=== PATIENT | male | born 1945 | race Asian ===

== ENCOUNTER 2018-01-10 01:41 | Inpatient (IN) | payer MEDICARE ==
[2018-01-10] VITALS (7 sets, daily range): BP systolic 124–151; BP diastolic 61–90
[~2018-01-10] VITALS: Ht 175.3 cm; Wt 61.7 kg
--- NOTE | 2018-01-10 01:58 | Emergency Room Report ---
History of Present Illness General Chief Complaint: Chest Pain Source: Patient Present Illness HPI This patient c/o mild-moderate ten minutes substernal-left chest pressure. At rest. No similar history. He was alone, resting. He called 911. Received aspirin and one sl ntg. Pain reduced to 3/10. No trauma, no fever, no shortness of breath, no nausea, no vomiting, no diarrhea, no abdominal pain, no syncope, LOC, dizziness, lightheadedness, headache. No leg pain/swelling. No travel history. Allergies: Coded Allergies: No Known Allergies (Unverified , 01/10/18) Patient History Limited by: language barrier Nursing Documentation-PMH Hx Hypertension: Yes Review of Systems Constitutional: Reports: no symptoms Eye: Reports: no symptoms ENT: Reports: no symptoms Respiratory: Reports: no symptoms Cardiovascular: Reports: see HPI, chest pain Gastrointestinal: Reports: no symptoms Genitourinary: Reports: no symptoms Musculoskeletal: Reports: no symptoms Skin: Reports: no symptoms Psychiatric: Reports: no symptoms Neurological: Reports: no symptoms Endocrine: Reports: no symptoms Hematologic/Lymphatic: Reports: no symptoms Allergic: Reports: no symptoms All Other Systems: negative except mentioned in HPI Physical Exam Vital Signs Date Time Temp Pulse Resp B/P (MAP) Pulse Ox O2 Delivery O2 Flow Rate FiO2 01/10/18 01:34 97.4 74 16 128/73 98 Room Air 97.3 Sp02 EP Interpretation: reviewed, normal General Appearance: normal inspection, well appearing, no apparent distress, alert, GCS 15, non-toxic, thin Head: normocephalic, atraumatic Eyes: bilateral eye normal inspection, bilateral eye PERRL, bilateral eye EOMI ENT: normal ENT inspection, hearing grossly normal, normal pharynx, no angioedema, normal voice, moist mucus membranes Neck: normal inspection, full range of motion, supple, no meningismus, no bony tend Respiratory: normal inspection, lungs clear, normal breath sounds, no rhonchi, no respiratory distress, no retraction, no accessory muscle use, no wheezing Cardiovascular #1: normal inspection, regular rate, rhythm, no edema Gastrointestinal: normal inspection, normal bowel sounds, non tender, soft, no mass, non-distended Musculoskeletal: gait/station normal, normal range of motion Neurologic: normal inspection, alert, oriented x3, responsive, motor strength/ tone normal Psychiatric: normal inspection, judgement/insight normal, memory normal Suicide Risk Assessment: Suicidal Ideation: No Had intent to initiate attempt: No Pt's plan for suicide attempt: No Has means to complete attempt: No Skin: normal inspection, normal color, no rash, warm/dry Medical Decision Making Diagnostic Impression: Primary Impression: Chest pain Additional Impression: ACS (acute coronary syndrome) EKG Diagnostic Results EKG Time: 01:57 EP Interpretation: NSR 74 RBBB no acute ischemia Rate: normal Rhythm: NSR ST Segments: no acute changes ASA given to the pt in ED: Yes Rhythm Strip Diag. Results Rhythm Strip Time: 01:58 EP Interpretation: yes Rate: 70 Rhythm: NSR Chest X-Ray Diagnostic Results Chest X-Ray Diagnostic Results : Chest X-Ray Ordered: Yes # of Views/Limited/Complete: 1 View Indication: Chest Pain EP Interpretation: Yes Interpretation: no consolidation, no effusion, no pneumothorax, no acute cardiopulmonary disease Last Vital Signs Date Time Temp Pulse Resp B/P (MAP) Pulse Ox O2 Delivery O2 Flow Rate FiO2 01/10/18 01:34 97.4 74 16 128/73 98 Room Air 97.3 Status: unchanged Disposition: ADMITTED INPATIENT Scripts Unable to Obtain Active Prescriptions or Reported Meds Ruslan Alexis M.D. Jan 10, 2018 01:58
[2018-01-10 02:20] LABS: HEMATOCRIT 30.9 % (42.0-52.0); HEMOGLOBIN 10.2 G/DL (14.2-18.0); MEAN CORPUSCULAR VOLUME 111 FL (80-99); PLATELET COUNT 146 K/UL (150-450); RED CELL DISTRIBUTION WIDTH 13.5 % (11.6-14.8); WHITE BLOOD COUNT 8.6 K/UL (4.8-10.8)
[2018-01-10 02:33] LABS: ANION GAP 7 mmol/L (5-15); BLOOD UREA NITROGEN 21 mg/dL (7-18); CALCIUM 8.4 MG/DL (8.5-10.1); CARBON DIOXIDE 27 MMOL/L (21-32); CHLORIDE 105 MMOL/L (98-107); CREATININE 0.9 MG/DL (0.55-1.30); SODIUM 139 MMOL/L (136-145)
[2018-01-10 02:34] LABS: INR 1.2 (0.9-1.1)
[2018-01-10 02:45] LABS: ALANINE AMINOTRANSFERASE 59 U/L (12-78); ALBUMIN/GLOBULIN RATIO 0.8 (1.0-2.7); ALKALINE PHOSPHATASE 77 U/L (46-116); ASPARTATE AMINO TRANSFERASE 63 U/L (15-37); BILIRUBIN,TOTAL 1.6 MG/DL (0.2-1.0)
--- NOTE | 2018-01-10 02:45 | Diagnostic Imaging Report ---
EXAM: XR Chest, 1 View CLINICAL HISTORY: CP TECHNIQUE: Frontal view of the chest. COMPARISON: No relevant prior studies available. FINDINGS: Lungs: Unremarkable. No consolidation. Pleural space: Unremarkable. No pneumothorax. Heart: Unremarkable. No cardiomegaly. Mediastinum: Unremarkable. Bones/joints: Unremarkable. IMPRESSION: Normal chest x-ray.
[2018-01-10 02:57] LABS: BILIRUBIN,DIRECT 0.6 MG/DL (0.0-0.3)
[2018-01-10] MEDS ORDERED: Ketorolac 30mg Inj IV STA (03:54)
[2018-01-10] MEDS ORDERED: Zolpidem 5mg tab ORAL PRN (07:45)
[2018-01-10] MEDS ORDERED: Milk of Magnesia 30ml Ud ORAL PRN (07:45)
[2018-01-10] MEDS ORDERED: Morphine Sulfate 4mg/ml Inj (IV USE ONLY) IVP PRN (07:45)
[2018-01-10] MEDS: Aspirin Baby 81mg ORAL SCH (08:23)
[2018-01-10] MEDS ORDERED: Heparin 25,000u/D5W 500ml 500 ML IV SCH (09:15)
[2018-01-10] MEDS ORDERED: Heparin 5000 units/ml inj IV SCH (09:15)
--- NOTE | 2018-01-10 10:04 | History & Physical ---
History and Physical History & Physicial Hp dictated # [id number] Jesse Zamarripa MD Jan 10, 2018 10:04
--- NOTE | 2018-01-10 10:45 | History and Physical Report ---
DATE OF ADMISSION: 01/10/2018 DATE OF EVALUATION: 01/10/2018. CHIEF COMPLAINT: Chest pain. HISTORY OF PRESENT ILLNESS: This is a 72-year-old Bengali male, who was in his usual state of health until last night. The patient had chest pain, which is pressure like. It lasted about half an hour and he was also short of breath. He called paramedics, was brought in, and was admitted with possible acute coronary syndrome. PAST MEDICAL HISTORY: No previous history of heart problems. He does have history of hypertension. MEDICATIONS: Does not remember. ALLERGIES: No known drug allergies. SOCIAL HISTORY: The patient smoked for a long time one pack every three days and he lives by himself. He does not have any history of alcohol abuse. He stopped smoking about two months ago. REVIEW OF SYSTEMS: Noncontributory. PHYSICAL EXAMINATION: GENERAL: The patient is an elderly male, in no acute distress. VITAL SIGNS: Blood pressure 128/73, pulse 74, respiratory rate 16, and temperature 97.4. HEENT: [place] conjunctivae. Anicteric sclerae. NECK: Supple. LUNGS: Clear to auscultation. HEART: S1, S2 without murmurs or rubs. ABDOMEN: Soft and nontender. EXTREMITIES: No cyanosis or edema. LABORATORY FINDINGS: The CBC shows a WBC of 8600, hematocrit is 30.9, hemoglobin is 10.3, and platelets 146,000. Chemistry panel shows a serum sodium 139, potassium 4, chloride 105, CO2 27, BUN is 21, and creatinine is 0.9. Troponins negative x2. ASSESSMENT: This is a 72-year-old Bengali male with history of hypertension and a long history of smoking although he stopped two months ago, who presents with atypical chest pain, possible acute coronary syndrome. PLAN: The patient will be on telemetry. A stress test will be obtained. Based on stress test, we can either go home if negative. If positive, he would need a coronary angiogram. Jesse Zamarripa M.D. DR: MANJEET JOB#: [id number] CC:
[2018-01-10] MEDS: Morphine Sulfate 2mg/ml Inj IVP PRN ×2 (11:38→22:01)
[2018-01-11] VITALS: BP 119/63
[2018-01-11 04:00] VITALS: BP 137/69
[2018-01-11 07:35] LABS: CHOLESTEROL 121 MG/DL (< 200); HDL CHOLESTEROL 64 MG/DL (40-60); TRIGLYCERIDES 54 MG/DL (30-150)
[2018-01-11 08:00] VITALS: BP 128/75
[2018-01-11] MEDS ORDERED: Lexiscan 0.4mg/5ml syringe IV PRN (08:00)
[2018-01-11] MEDS: Aspirin Baby 81mg ORAL SCH (08:45)
[2018-01-11 12:00] VITALS: BP 127/73
--- NOTE | 2018-01-11 12:34 | General Progress Note ---
Assessment/Plan Problem List: (1) Chest pain ICD Codes: R07.9 - Chest pain, unspecified SNOMED: 87160488 (2) HTN (hypertension) ICD Codes: I10 - Essential (primary) hypertension SNOMED: 80325800 Assessment/Plan await stress test cardio consult Subjective Allergies: Coded Allergies: No Known Allergies (Unverified , 01/10/18) Subjective no CP today Objective Last 24 Hour Vital Signs Date Time Temp Pulse Resp B/P (MAP) Pulse Ox O2 Delivery O2 Flow Rate FiO2 01/11/18 12:00 97.9 77 20 127/73 (91) 97 97.9 01/11/18 10:14 98.0 01/11/18 09:15 98.0 01/11/18 09:00 Room Air 01/11/18 08:00 55 01/11/18 08:00 97.3 61 18 128/75 (92) 97 97.3 01/11/18 04:00 98.0 61 20 137/69 (91) 99 98.0 01/11/18 04:00 84 01/11/18 00:00 97.8 60 20 119/63 (81) 98 97.8 01/10/18 23:34 58 01/10/18 21:00 Room Air 01/10/18 20:00 98.6 65 20 127/72 (90) 98 98.6 01/10/18 19:46 63 01/10/18 16:00 97.2 69 20 124/61 (82) 98 97.2 01/10/18 16:00 67 Intake and Output 01/10/18 01/11/18 19:00 07:00 Intake Total 360 ml Balance 360 ml Intake Oral 360 ml # Voids 2 3 Laboratory Tests 01/11/18 06:15: Troponin I 0.001, Triglycerides Level 54, Cholesterol Level 121, LDL Cholesterol 55, HDL Cholesterol 64H, Cholesterol/HDL Ratio 1.9L, Thyroid Stimulating Hormone (TSH) 1.789 Height (Feet): 5 Height (Inches): 9.00 Weight (Pounds): 136 Cardiovascular: normal rate Respiratory/Chest: lungs clear Edema: no edema noted Generalized Jesse Zamarripa MD Jan 11, 2018 12:34
[2018-01-11] MEDS: Morphine Sulfate 2mg/ml Inj IVP PRN (14:22)
[2018-01-11 16:00] VITALS: BP 145/82
--- NOTE | 2018-01-11 16:48 | Diagnostic Imaging Report ---
Indications: Chest pain Technique: Single day single isotope protocol utilized. Initially, resting images obtained using IV administration 9.6 millicuries 99M technetium Myoview. Subsequently, patient underwent lexiscan stress testing. See cardiology report for details. During adenosine infusion, IV administration 31.9 mCi 99 M technetium Myoview. SPECT and planar images obtained. SPECT images gated to 8 phases of the cardiac cycle were also obtained, and reformatted into cine images for evaluation of ejection fraction. Comparison: none Findings: Presence or absence of symptoms during infusion is not reported on the cardiology report. Per cardiology report, resting EKG demonstrates normal sinus rhythm with right bundle-branch block. Presence or absence of symptoms during infusion is not described on the cardiology report. Imaging, no fixed nor reversible post stress perfusion defects are demonstrated. Normal left ventricular chamber size.. Calculated post stress ejection fraction 77%. No focal wall motion abnormality demonstrated. Impression: Nonischemic clinical response to pharmacologic stress, per cardiology report Nonischemic electrocardiographic response to pharmacologic stress, per cardiology report No imaging findings to suggest ischemia, at level of stress achieved. Calculated post stress ejection fraction greater than 70%
--- NOTE | 2018-01-13 12:27 | Discharge Summary ---
Discharge Summary Discharge Summary _ DATE OF ADMISSION: 01/10/2018 DATE OF DISCHARGE: 01/11/2018 REASON FOR ADMISSION: 72 years old male with past medical history of hypertension, came to emergency room for evaluation due to chest pain . He developed substernal left sided chest pressure at rest, lasting about 10 minutes. He never had these symptoms in the past. h Patient call dial lathe operator and was brought to the hospital ED for evaluation. Patient received by paramedics aspirin and nitroglycerin with significant relief. Patient denied any trauma to chest. No fevers or chills. No shortness of breath, no nausea, no vomiting, no diarrhea, no abdominal pain, no syncope,blackout, dizziness, lightheadedness, headache. No leg pain or swelling. No recent travel history. Upon evaluation vital signs were stable. EKG revealed normal sinus rhythm with right bundle branch block, no acute ischemic changes . Troponin negative. Chest x-ray revealed no acute cardiopulmonary pathology. Hemoglobin 10.8 hematocrit 30.9 , no leukocytosis . INR 1.2 AST 63 BUN 21, creatinine 0.9 . Patient denied use of alcohol, but admitted to long standing history of smoking, quit 2 months ago. Patient admitted with diagnoses of chest pain, rule out acute coronary syndrome. HOSPITAL COURSE: Patient admitted to telemetry floor. Patient was started on antiplatelet therapy with aspirin. Serial troponin were negative. Telemetry was negative ,no acute ischemic changes. Lipid panel was negative. Patient undergone myocardial perfusion scan test, which was nonischemic with calculated ejection fraction greater than 70%. Pain management was addressed , and pain was controlled. Blood pressure was closely monitored and remained stable. Patient was counseled on cardiac diet. Patient was counseled to continue abstinence from smoking. Patient was stable for discharge. Due to rapid and unexpected improvement in patient's condition, the patient was discharged in one day. FINAL DIAGNOSES: A typical chest pain Hypertension Long history of smoking ( quit 2 months ago) DISCHARGE INSTRUCTIONS: Patient was discharged home. Follow up with primary care provider in one to two weeks. I have been assigned to dictate discharge summary for this account. I was not involved in the patient's management. Shelly Almanzar NP Jan 13, 2018 12:27
--- NOTE | 2018-01-15 00:44 | Cardiology Report ---
APPROVED REPORT EKG Measurement Heart [id number] Normal sinus rhythm Right bundle branch block Abnormal ECG
--- NOTE | 2018-01-18 22:41 | Physician Query ---
--------- THIS DOCUMENT IS A PERMANENT PART OF THE MEDICAL RECORD --------- PLEASE COMPLETE THE DOCUMENT BEFORE SIGNING Dear Dr. Jesse Zamarripa Date __01/18/18 Human Services Instructor/CDS' Name _Christine Mendez, CCS Exercise your independent professional judgment when responding to query. Questions asked do not imply particular answer is desired or expected. We greatly appreciate your clarification on this issue. Clinical Documentation States: 72 years old male with past medical history of hypertension, came to emergency room for evaluation due to chest pain . He developed substernal left sided chest pressure at rest, lasting about 10 minutes. Patient received by paramedics aspirin and nitroglycerin with significant relief. Patient admitted with diagnoses of chest pain, rule out acute coronary syndrome. Clinical Findings Show: EKG = __NSR____ Troponin = __NEG__ Please document the suspected etiology of Chest Pain: a.Type: []Cardiac []Non-cardiac []Unspecified b.Etiology - cardiac [] Aortic dissection []Mitral valve prolapsed [] Acute myocardial infarction []Spasm of coronary arteries [] Coronary Artery Disease []Pericarditis c.Etiology - non-cardiac [] Anxiety []Pleurisy [] Cancer []Pneumonia, type [x] Costochondritis []Pneumothorax [] GERD/Esophagitis []Pulmonary embolism [] Unable to determine []Other: Please also document in your Progress Notes and/or Discharge Summary and indicate if the condition was present on admission. Kristi ALBERT MTDD
== END 2018-01-11 17:38 | disposition home or self-care (01) | DRG 206 ==
LOC: EDBD 01:41 → EMR 02:30 → EDBD 02:46 → 2E 02:46 → EDBEDREQ 03:31
DX: M94.0 Chondrocostal junction syndrome [Tietze] (principal); I10 Essential (primary) hypertension; I45.10 Unspecified right bundle-branch block; Z87.891 Personal history of nicotine dependence
CPT/HCPCS: 36415; 71045; 78452; 80053; 80061; 82248; 83880; 84443; 84484; 85007; 85025; 85610; 85730; 93005; 93017; 96374; 99285; J2785

== ENCOUNTER 2018-12-29 04:05 | Inpatient (IN) | payer MEDICARE, MEDICAID ==
[2018-12-29] VITALS (7 sets, daily range): BP systolic 110–147; BP diastolic 61–80
[~2018-12-29] VITALS: Ht 172.7 cm; Wt 74.5 kg
--- NOTE | 2018-12-29 04:18 | NUR ---
ER Nurse Note: Pt NELLA RA 29 from 12 02 c/o acute onset of chest pain. Pt stated he was at home when he felt pain 6/10 pain on his LT chest at 0200. Pt could not sleep it off and went to [address] and called 911. On route, EMS established 18 gauge IV line on LT hand; patent. Pt given nitro and ASA. Pt a&ox4, VSS, stable. Pt chest rise and fall noted, lung sounds clear. Will continue to montior.
--- NOTE | 2018-12-29 04:20 | Emergency Room Report ---
History of Present Illness General Chief Complaint: Chest Pain Source: Patient Present Illness HPI This is a 73-year-old Welsh speaking male with a history of hypertension. He presents with chief complaint of chest pain. He said he woke up with chest pain 2 hours prior to arrival. Mid sternal area. No radiation. He said it did not go away so he went to [facility] where he knew the worker there. That person called 911. EMS gave him aspirin and nitro without much relief. No nausea no vomiting. No fever chills. No radiation. Pain is sharp in nature. 7 out of 10. Similar symptom 7 8 months ago when he went to another hospital. He was admitted here for chest pain and was ruled out. Allergies: Coded Allergies: No Known Allergies (Unverified , 01/10/18) Patient History Past Medical History: see triage record, old chart reviewed, HTN Past Surgical History: none Pertinent Family History: none Social History: Denies: smoking Immunizations: other Reviewed Nursing Documentation: PMH: Agreed; PSxH: Agreed Nursing Documentation-PMH Past Medical History: No History, Except For Hx Hypertension: Yes Hx Cancer: No Hx Gastrointestinal Problems: No Hx Neurological Problems: No Review of Systems Eye: Denies: eye pain, blurred vision ENT: Denies: ear pain, nose congestion, throat swelling Respiratory: Denies: cough, shortness of breath Cardiovascular: Reports: chest pain; Denies: palpitations Gastrointestinal: Denies: abdominal pain, diarrhea, nausea, vomiting Musculoskeletal: Denies: back pain, joint pain Skin: Denies: rash Neurological: Denies: headache, numbness Endocrine: Denies: increased thirst, increased urine Hematologic/Lymphatic: Denies: easy bruising All Other Systems: negative except mentioned in HPI Physical Exam Vital Signs Date Time Temp Pulse Resp B/P (MAP) Pulse Ox O2 Delivery O2 Flow Rate FiO2 12/29/18 04:01 98.1 85 16 143/80 (101) 96 Room Air Vitals with mild hypertension Sp02 EP Interpretation: reviewed, normal General Appearance: well appearing, no apparent distress, alert Head: normocephalic, atraumatic Eyes: bilateral eye PERRL, bilateral eye EOMI ENT: hearing grossly normal, normal pharynx Neck: full range of motion, supple, no meningismus Respiratory: chest non-tender, lungs clear, normal breath sounds Cardiovascular #1: regular rate, rhythm, no murmur Gastrointestinal: normal bowel sounds, non tender, no mass, no organomegaly, no bruit, non-distended Musculoskeletal: back normal, gait/station normal, normal range of motion Psychiatric: mood/affect normal Medical Decision Making Diagnostic Impression: Primary Impression: Chest pain Qualified Codes: R07.9 - Chest pain, unspecified ER Course Patient presents with chest pain. History is a little atypical but he has T wave inversion laterally. First set of troponin negative. He does have risk factor with history of smoking, age, high blood pressure. Pain is well controlled now. Patient will be admitted for chest pain/OH ruled out and further work-up. I discussed the case with Dr. Zamarripa who will admit. EKG Diagnostic Results Rate: normal Rhythm: NSR ST Segments: other - RBBB with NSST changes Rhythm Strip Diag. Results EP Interpretation: yes Rate: 81 Rhythm: NSR Chest X-Ray Diagnostic Results Chest X-Ray Diagnostic Results : Chest X-Ray Ordered: Yes # of Views/Limited/Complete: 1 View Indication: Chest Pain EP Interpretation: Yes Interpretation: no consolidation, no effusion, no pneumothorax Impression: No acute disease Electronically Signed by: Kg Medina MD Last Vital Signs Date Time Temp Pulse Resp B/P (MAP) Pulse Ox O2 Delivery O2 Flow Rate FiO2 12/29/18 04:01 98.1 85 16 143/80 (101) 96 Room Air Status: improved Disposition: ADMITTED INPATIENT Condition: Serious Scripts Unable to Obtain Active Prescriptions or Reported Meds Kg Medina MD Dec 29, 2018 04:20
[2018-12-29 04:30] LABS: HEMATOCRIT 31.6 % (42.0-52.0); HEMOGLOBIN 10.6 G/DL (14.2-18.0); MEAN CORPUSCULAR VOLUME 100 FL (80-99); PLATELET COUNT 92 K/UL (150-450); RED BLOOD COUNT 3.15 M/UL (4.70-6.10); RED CELL DISTRIBUTION WIDTH 12.9 % (11.6-14.8); WHITE BLOOD COUNT 6.8 K/UL (4.8-10.8)
[2018-12-29 04:37] LABS: ANION GAP 10 mmol/L (5-15); BLOOD UREA NITROGEN 16 mg/dL (7-18); CALCIUM 8.9 MG/DL (8.5-10.1); CARBON DIOXIDE 23 MMOL/L (21-32); CHLORIDE 107 MMOL/L (98-107); CREATININE 0.9 MG/DL (0.55-1.30); POTASSIUM 3.5 MMOL/L (3.5-5.1); SODIUM 140 MMOL/L (136-145)
[2018-12-29 04:49] LABS: ALANINE AMINOTRANSFERASE 35 U/L (12-78); ALBUMIN 3.4 G/DL (3.4-5.0); ALBUMIN/GLOBULIN RATIO 0.9 (1.0-2.7); ALKALINE PHOSPHATASE 79 U/L (46-116); ASPARTATE AMINO TRANSFERASE 51 U/L (15-37); BILIRUBIN,TOTAL 1.1 MG/DL (0.2-1.0); CKMB 3.3 NG/ML (0.0-3.6); CREATINE KINASE 216 U/L (26-308)
[2018-12-29 04:55] LABS: BILIRUBIN,DIRECT 0.3 MG/DL (0.0-0.3)
[2018-12-29] MEDS ORDERED: Morphine Sulfate 4mg/ml Inj (IV USE ONLY) IVP ONE (05:15)
--- NOTE | 2018-12-29 05:32 | NUR ---
ER Nurse Note: Report given to [facility] in tele for continuity of care. Pt a&ox4, VSS, stable. Pt expressed pain in lower legs, ERMD aware and meds given. Pt tolerated well. No skin issue noted. SLIV LT hand, patent. All belongings taken with pt. Money counted with [facility] at pt side.
--- NOTE | 2018-12-29 05:35 | NUR ---
NURSE NOTES: Pt received from Aleah VILLA alert and oriented x4, primarily Turkish-speaking with no acute s/s of distress noted. VSS stable - 122/73, 74 HR, 97% on room air, 97.7 F, 18 RR. 2/10 sharp midsternal chest pain which pt stated has lessened significantly from when he came in. IV site asymptomatic and patent on L hand 18g, saline lock. Pt reports that he usually does not ambulate with assistive devices but that 10/10 aching intermittent pain on bilateral lower extremities has made it more difficult to walk today. Reported that he has not had pneumonia or flu vaccine done in years. No wounds noted upon assessment but pt did have surgical scar on lower abdomen as well as surgical scar on lower middle of back from prior surgery. Belongings with patient upon admission - clothing, cap, shoes, phone, and $22 in [place] which pt opted to keep at bedside. Bed in lowest position, call light and belongings within reach. Addendum: 12/29/18 at 0637 by Sly Tinajero RN Pt could not remember home meds stating, "I take blood pressure medication but I do not remember the name. I remember that it's pink." Pt stated that his brother usually picks up his medications from the pharmacy - [facility] ([phone]). RN called and left message to brother to obtain home meds.
--- NOTE | 2018-12-29 05:45 | NUR ---
NURSE NOTES: Left message for Dr. Zamarripa for admission orders, awaiting call back.
[2018-12-29] MEDS ORDERED: Zolpidem 5mg tab ORAL PRN (06:30)
[2018-12-29] MEDS ORDERED: Milk of Magnesia 30ml Ud ORAL PRN (06:30)
--- NOTE | 2018-12-29 07:20 | NUR ---
HAND-OFF: Report given to DAISY Jorge.
--- NOTE | 2018-12-29 07:21 | NUR ---
NURSE NOTES: Received report from [facility]. The patient is sleeping on the bed without acute distress or shortness of breath. The patient's bed in the lowest position, call light in reach, and fall and aspiration precaution reinforced. IV site on left hand 18G intact and patent. Will continue plan of care.
[2018-12-29] MEDS: Aspirin Baby 81mg ORAL SCH (08:50)
[2018-12-29] MEDS: Morphine Sulfate 4mg/ml Inj (IV USE ONLY) IVP PRN ×3 (10:24→21:08)
--- NOTE | 2018-12-29 13:26 | History & Physical ---
History and Physical History & Physicial hp DICTATED # [id number] Jesse Zamarripa MD Dec 29, 2018 13:26
--- NOTE | 2018-12-29 14:45 | NUR ---
NURSE NOTES: Notified Dr. Zamarripa regarding the patient's urinary retention. The patient tried to to void by himself by using urinal but was not able to urinate even though he feels like he needs to urinate. He had residual of 497mL based on the bladder scan. Notified Dr. Zamarripa regarding the patient's condition three times and awaiting for call back. Will continue to monitor the patient and will carry out the order as soon as receives it.
--- NOTE | 2018-12-29 14:58 | NUR ---
NURSE NOTES: Notified Dr. Zamarripa regarding the patient's left upper arm pain that is sharp and similar pain that he experienced when he had a shingles. No skin lesion noted at this time. Will continue to monitor the patient. Will carry out the order as soon as receives it.
--- NOTE | 2018-12-29 14:59 | NUR ---
NURSE NOTES: Called Dr. Malik Navarro's office who is the patient's primary physician. Called two times but voicemail was full and unable to reach them. Will try to call again. Will continue to monitor the patient.
--- NOTE | 2018-12-29 15:50 | NUR ---
NURSE NOTES: Dr. Zamarripa ordered Rowe insertion with urinalysis and urine culture. Will carry out the order now. Will continue to monitor the patient.
[2018-12-29 16:27] LABS: APPEARANCE,URINE CLEAR; BILIRUBIN, URINE NEGATIVE (NEGATIVE); COLOR,URINE YELLOW; GLUCOSE, URINE (UA) NEGATIVE (NEGATIVE); KETONES,URINE NEGATIVE (NEGATIVE); LEUKOCYTE ESTERASE ,URINE NEGATIVE (NEGATIVE); NITRITE,URINE NEGATIVE (NEGATIVE); PH,URINE 6 (4.5-8.0); PROTEIN,URINE 1+ (NEGATIVE); UROBILINOGEN,URINE 4 MG/DL (0.0-1.0)
--- NOTE | 2018-12-29 16:41 | NUR ---
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
--- NOTE | 2018-12-29 17:00 | History and Physical Report ---
DATE OF ADMISSION: 12/29/2018 CHIEF COMPLAINT: Chest pain. HISTORY OF PRESENT ILLNESS: The patient is a 73-year-old Tajik male with history of hypertension. The patient was in his usual state of health when around 11 o'clock last night he started having chest pain. 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 The patient's pain was continuous and finally he came to the emergency room. He still has about 8/10 chest pain. Note that the patient was admitted in December of the last year also with chest pain. At that time, the patient was ruled out for acute [place] and underwent myocardial perfusion scan test and that was negative showing nonischemic test with calculated ejection fraction of greater than 70%. PAST MEDICAL HISTORY: History of hypertension. No history of diabetes. No previous history of heart disease according the patient. MEDICATIONS: Reviewed in the EMR. SOCIAL HISTORY: The patient smokes, has been smoking for many years. Currently he says he smokes about 5 cigarettes a day. ALLERGIES: No known drug allergies. REVIEW OF SYSTEMS: As above. PHYSICAL EXAMINATION: GENERAL: The patient is an elderly male, in no acute distress. VITAL SIGNS: Blood pressure 110/61, pulse 74, respirations 18, and temperature 97.2. HEENT: Pale conjunctivae. Anicteric sclerae. NECK: Supple. LUNGS: Clear to auscultation. HEART: S1 and S2 without murmurs or rubs. ABDOMEN: Soft, nontender. EXTREMITIES: No cyanosis or edema. LABORATORY FINDINGS: CBC shows a WBC of 6800, hematocrit 31.6, hemoglobin is 10.6, and platelet is 92,000. Chemistry panel shows serum sodium 140, potassium 3.5, chloride 107, CO2 23, BUN 16, creatinine 0.9, calcium is 8.9. First troponin was negative. EKG was nonspecific. ASSESSMENT: This is a 73-year-old Tajik male, admitted with atypical chest pain. His risk factors include hypertension and also smoking. He had a negative stress test last year. PLAN: The patient will be ruled out for myocardial infarction. He will be in telemetry unit. Cardiology consultation was obtained. He will likely need to have another stress test. Put the patient on Pepcid daily and further adjustment will be made in the patient's regimen. The patient was also started on daily aspirin. Jesse Zamarripa M.D. DR: Julia JOB#: [id number] CC:
--- NOTE | 2018-12-29 18:14 | Cardiology Report ---
APPROVED REPORT EKG Measurement Heart [id number] Normal sinus rhythm Possible Left atrial enlargement Right bundle branch block T wave abnormality, consider inferolateral ischemia Abnormal ECG
--- NOTE | 2018-12-29 18:57 | NUR ---
NURSE NOTES: Left Dr. Zamarripa voicemail regarding cardiology consult, blood pressure medication, and left upper arm pain. Will carry out the order as soon as receives it. Will continue plan of care.
--- NOTE | 2018-12-29 19:39 | NUR ---
HAND-OFF: Report given to DAISY Beck. The patient is sleeping on the bed without acute distress or shortness of breath. The patient's bed in the lowest position, call light in reach, and fall and aspiration precaution reinforced. Endorsed plan of care.
--- NOTE | 2018-12-29 19:40 | NUR ---
NURSE NOTES: Dr. Zamarripa ordered academic affairs dean consult with Dr. Valerio. For left upper arm pain, continue Morphine as ordered. For blood pressure medication, consult with Dr. Valerio. Endorsed to DAISY Beck.
--- NOTE | 2018-12-29 19:41 | NUR ---
NURSE NOTES: Received report from DAISY Jorge. Patient in bed awake showing no signs of acute distress. Respiration even and non labored on RA. No sob noted. IV on left hand 18g sl patent and intact. Call light within reach, Bed side rails up x2. Rowe patent, intact and draining. Bed in lowest position, wheels locked and alarm on. All needs attended and met. Will continue plan of care.
[2018-12-29] MEDS ORDERED: Tamsulosin 0.4mg cap ORAL SCH (21:00)
--- NOTE | 2018-12-29 21:12 | Cardiology Progress Note ---
Assessment/Plan Assessment/Plan all suggestiv eonf M/S pain has murmu fo will have echo [id number] Objective Last 24 Hour Vital Signs Date Time Temp Pulse Resp B/P (MAP) Pulse Ox O2 Delivery O2 Flow Rate FiO2 12/29/18 20:00 97.7 69 18 121/61 (81) 98 12/29/18 16:00 60 12/29/18 16:00 98.6 68 18 147/77 (100) 98 12/29/18 12:00 61 12/29/18 12:00 99.0 64 18 135/75 (95) 97 12/29/18 09:00 Room Air 12/29/18 08:00 82 12/29/18 08:00 97.2 74 18 110/61 (77) 95 12/29/18 05:55 Room Air 12/29/18 05:53 97.7 74 18 122/73 (89) 97 12/29/18 05:46 98.1 12/29/18 05:32 98.1 84 16 135/78 98 Room Air 12/29/18 05:32 98.1 84 16 135/78 98 Room Air 12/29/18 04:18 85 16 Room Air 12/29/18 04:18 98.1 88 16 143/80 96 Room Air 12/29/18 04:01 98.1 85 16 143/80 (101) 96 Room Air Intake and Output 12/28/18 12/29/18 18:59 06:59 Intake Total 154 ml Balance 154 ml Intake Oral 150 ml IV Total 4 ml Laboratory Tests Test 12/29/18 04:10 12/29/18 12:15 12/29/18 15:50 12/29/18 20:20 White Blood Count 6.8 K/UL (4.8-10.8) Red Blood Count 3.15 M/UL (4.70-6.10) L Hemoglobin 10.6 G/DL (14.2-18.0) L Hematocrit 31.6 % (42.0-52.0) L Mean Corpuscular Volume 100 FL (80-99) H Mean Corpuscular Hemoglobin 33.5 PG (27.0-31.0) H Mean Corpuscular Hemoglobin Concent 33.4 G/DL (32.0-36.0) Red Cell Distribution Width 12.9 % (11.6-14.8) Platelet Count 92 K/UL (150-450) L Mean Platelet Volume 6.4 FL (6.5-10.1) L Neutrophils (%) (Auto) % (45.0-75.0) Lymphocytes (%) (Auto) % (20.0-45.0) Monocytes (%) (Auto) % (1.0-10.0) Eosinophils (%) (Auto) % (0.0-3.0) Basophils (%) (Auto) % (0.0-2.0) Sodium Level 140 MMOL/L (136-145) Potassium Level 3.5 MMOL/L (3.5-5.1) Chloride Level 107 MMOL/L (98-107) Carbon Dioxide Level 23 MMOL/L (21-32) Anion Gap 10 mmol/L (5-15) Blood Urea Nitrogen 16 mg/dL (7-18) Creatinine 0.9 MG/DL (0.55-1.30) Estimat Glomerular Filtration Rate mL/min (>60) Glucose Level 104 MG/DL (74-106) Calcium Level 8.9 MG/DL (8.5-10.1) Total Bilirubin 1.1 MG/DL (0.2-1.0) H Direct Bilirubin 0.3 MG/DL (0.0-0.3) Aspartate Amino Transf (AST/SGOT) 51 U/L (15-37) H Alanine Aminotransferase (ALT/SGPT) 35 U/L (12-78) Alkaline Phosphatase 79 U/L (46-116) Total Creatine Kinase 216 U/L (26-308) Creatine Kinase MB 3.3 NG/ML (0.0-3.6) Creatine Kinase MB Relative Index 1.5 Troponin I 0.003 ng/mL (0.000-0.056) 0.013 ng/mL (0.000-0.056) 0.011 ng/mL (0.000-0.056) Total Protein 7.1 G/DL (6.4-8.2) Albumin 3.4 G/DL (3.4-5.0) Globulin 3.7 g/dL Albumin/Globulin Ratio 0.9 (1.0-2.7) L Serum Alcohol < 3 mg/dL Urine Color Yellow Urine Appearance Clear Urine pH 6 (4.5-8.0) Urine Specific [place] 1.015 (1.005-1.035) Urine Protein 1+ (NEGATIVE) H Urine Glucose (UA) Negative (NEGATIVE) Urine Ketones Negative (NEGATIVE) Urine Blood Negative (NEGATIVE) Urine Nitrite Negative (NEGATIVE) Urine Bilirubin Negative (NEGATIVE) Urine Urobilinogen 4 MG/DL (0.0-1.0) H Urine Leukocyte Esterase Negative (NEGATIVE) Urine RBC 0-2 /HPF (0 - 0) H Urine WBC 0-2 /HPF (0 - 0) Urine Squamous Epithelial Cells None /LPF (NONE/OCC) Urine Calcium Oxalate Crystals Many /LPF (NONE) Urine Bacteria Few /HPF (NONE) Alfie Mckeon MD Dec 29, 2018 21:12
--- NOTE | 2018-12-29 22:45 | Consultation ---
DATE OF CONSULTATION: 12/29/2018 CARDIOLOGY CONSULTATION CONSULTING PHYSICIAN: Alfie Mckeon M.D. REFERRING PHYSICIAN: Jesse Zamarripa M.D. REASON FOR REFERRAL: Chest pain. HISTORY OF PRESENT ILLNESS: This is a 73-year-old gentleman who presented to the hospital for one and a half months of constant pain in the left shoulder, left arm, and left chest area and he was admitted here, I guess a number of months ago, back in December of 2017 for episode of chest pain, at which time he underwent a myocardial perfusion imaging that was apparently negative. He presents with the same pain because that is constantly present in this area. Relieving exacerbating factors were seem to be with movement of the left arm and left shoulder, but not with walking. When he walks, he has pain in his legs, but not in his chest. The pain may be worse in certain positions when he lies down, but mostly when he moves his arm, and when he leaves the left arm flat, he has no pain or improved pain. PAST MEDICAL HISTORY: Positive for high blood pressure. Denies any diabetes. No history of high cholesterol. No heart attack, cancer, stroke, hepatitis, tuberculosis, asthma, or emphysema. No ulcers. No kidney problems, liver problems, thyroid problems, anemia, HIV, or AIDS. He indicates a number of years ago, he went to an emergency room and they told him there is nothing wrong with his brain. SOCIAL HISTORY: He smokes about 4 to 5 cigarettes per day. Denies any alcohol and denies any drugs. REVIEW OF SYSTEMS: GASTROINTESTINAL: He has no problems with his GI. GENITOURINARY: He had some problems with his urine. PULMONARY: Negative . CONSTITUTIONAL: Negative. PHYSICAL EXAMINATION: GENERAL: Shows to be elderly male, in no respiratory distress. HEENT: Unremarkable. NECK: Supple. No jugular venous distention. No abdominojugular reflux noted. LUNGS: Clear to auscultation and percussion. CARDIAC: S1 is normal. S2 is normal. Regular rate and rhythm. Systolic ejection murmur is noted. No heaves, thrills, gallops, or rubs are noted. ABDOMEN: Soft, nontender. Positive bowel sounds. EXTREMITIES: There is no clubbing, cyanosis, nor is there any edema. NEUROLOGICAL: He is awake, alert, and responsive and in no apparent respiratory distress. On palpation of his chest wall, there is no pain, but on abduction and adduction of the arm or movement against any resistance, the pain in the left arm and shoulder and in the chest appears to be getting worse. LABORATORY DATA: White count is 6.8, hemoglobin 10.6, and platelet count of 92,000. His sodium is 140, potassium 3.5, chloride 107, bicarbonate 23, BUN is 16, creatinine 0.9, glucose of 104, and calcium is 8.9. Three sets of cardiac enzymes are all negative since admission here over the past 24 hours. There are no x-rays performed. Last myocardial perfusion imaging was performed in December of 2017 and that was nonischemic. Electrocardiographic leads are nothing to suggest any ischemia on the myocardial perfusion imaging with an ejection fraction of 70%. EKG showed right bundle-branch conduction defect with secondary ST-segment changes. There are some T-wave inversions in lead III and aVF. In direct comparison with the EKG performed in December of 2017, there was ST-segment changes, appeared to be old. ASSESSMENT AND PLAN: 1. Left arm and chest pain, likely musculoskeletal in origin. 2. History of hypertension. 3. Tobacco use disorder. 4. Thrombocytopenia. Dr. Zamarripa, this patient was seen in cardiac consultation. The patient has had this chest pain for approximately one and half months. The electrocardiogram is not changed. Cardiac enzymes are all negative. Relieving exacerbated factors and reproduction of the pain were all consistent with probably of the musculoskeletal pain. He does have a history of heart murmur that needs to be evaluated with an echocardiogram, which I will order and then consideration for chest x-ray to be performed as well. Dr. Zamarripa, thank you for allowing me to see this patient. Alfie Mckeon M.D. DR: LEAH JOB#: [id number] CC:
[2018-12-30] VITALS: BP 102/70
[2018-12-30 04:00] VITALS: BP 150/71
--- NOTE | 2018-12-30 07:15 | NUR ---
NURSE NOTES: Received report from DAISY Beck. Patient is in bed awake eating breakfast. Respiration even and non labored on RA. No sob noted. Patient on kiln remover per protocol. IV on left hand 18g sl patent and intact. Call light within reach, Bed side rails up x2. Rowe patent, intact and draining. Bed in lowest position, wheels locked and alarm on. All needs attended and met. Will continue plan of care.
--- NOTE | 2018-12-30 07:28 | NUR ---
HAND-OFF: Report given to DAISY Cheng.
[2018-12-30 08:00] VITALS: BP 118/63
[2018-12-30 08:11] LABS: CHOLESTEROL 151 MG/DL (< 200); HDL CHOLESTEROL 71 MG/DL (40-60); TRIGLYCERIDES 76 MG/DL (30-150)
[2018-12-30] MEDS: Morphine Sulfate 4mg/ml Inj (IV USE ONLY) IVP PRN ×3 (08:29→15:42)
[2018-12-30] MEDS: Aspirin Baby 81mg ORAL SCH (08:32)
[2018-12-30 12:00] VITALS: BP 121/69
--- NOTE | 2018-12-30 14:06 | General Progress Note ---
Assessment/Plan Assessment/Plan: start Ibuprofen PRN [place] D[facility] today Discussed with Dr Mckeon Subjective Allergies: Coded Allergies: No Known Allergies (Unverified , 01/10/18) Subjective still with pain but bettr Objective Last 24 Hour Vital Signs Date Time Temp Pulse Resp B/P (MAP) Pulse Ox O2 Delivery O2 Flow Rate FiO2 12/30/18 12:00 98.6 68 20 121/69 (86) 97 12/30/18 11:51 98.2 12/30/18 11:45 66 12/30/18 09:00 Room Air 12/30/18 08:59 98.2 12/30/18 08:00 98.2 79 20 118/63 (81) 95 12/30/18 07:42 75 12/30/18 04:00 74 12/30/18 04:00 98.0 65 18 150/71 (97) 96 12/30/18 00:00 97.7 74 19 102/70 (81) 97 12/29/18 21:00 Room Air 12/29/18 20:00 97.7 69 18 121/61 (81) 98 12/29/18 20:00 67 12/29/18 16:00 60 12/29/18 16:00 98.6 68 18 147/77 (100) 98 Intake and Output 12/29/18 12/30/18 19:00 07:00 Intake Total 500 ml Output Total 800 ml 520 ml Balance -300 ml -520 ml Intake Oral 500 ml Output Urine Total 800 ml 520 ml Laboratory Tests 12/29/18 15:50: Urine Color Yellow, Urine Appearance Clear, Urine pH 6, Urine Specific [place] 1.015, Urine Protein 1+H, Urine Glucose (UA) Negative, Urine Ketones Negative, Urine Blood Negative, Urine Nitrite Negative, Urine Bilirubin Negative, Urine Urobilinogen 4H, Urine Leukocyte Esterase Negative, Urine RBC 0-2H, Urine WBC 0- 2, Urine Squamous Epithelial Cells None, Urine Calcium Oxalate Crystals Many, Urine Bacteria Few 12/29/18 20:20: Troponin I 0.011 12/30/18 06:16: Troponin I 0.000, Triglycerides Level 76, Cholesterol Level 151, LDL Cholesterol 62, HDL Cholesterol 71H, Cholesterol/HDL Ratio 2.1L, Thyroid Stimulating Hormone (TSH) 3.629 Height (Feet): 5 Height (Inches): 8.00 Weight (Pounds): 164 Jesse Zamarripa MD Dec 30, 2018 14:06
[2018-12-30] MEDS ORDERED: HYDROcodone/Acetamin 10/325 tab ORAL PRN ×2 (14:15→18:15)
--- NOTE | 2018-12-30 15:00 | NUR ---
NURSE NOTES: Soledad matt at 15:00
--- NOTE | 2018-12-30 15:30 | NUR ---
NURSE NOTES: 1515- Made attempt to call Dr. Alfred Zamarripa. patient stated he wants MRI of lower back instead of what doctor order. Called office. Awaiting call back. Addendum: 12/30/18 at 1715 by Prosper Paul RN 15:30 MRI closed at 15:30. Rescheduled tomorrow.
--- NOTE | 2018-12-30 15:30 | NUR ---
12/30...Pt refusing these MRI exams, says problem is in low back. DAISY Cheng left message to Dr. Zamarripa. tjb 15:29
[2018-12-30 16:00] VITALS: BP 132/77
--- NOTE | 2018-12-30 17:00 | NUR ---
NURSE NOTES: Spoke to Dr. Barr about patient request for MRI of lower back. Dr. Alfred Zamarripa states to continue with the ordered MRI.
--- NOTE | 2018-12-30 17:15 | NUR ---
HAND-OFF: Report given to DAISY Stout. Patient resting in bed. Belonging checklist completed.
[2018-12-30] MEDS ORDERED: Milk of Magnesia 30ml Ud ORAL PRN (18:00)
[2018-12-30] MEDS ORDERED: Morphine Sulfate 4mg/ml Inj (IV USE ONLY) IVP PRN ×2 (18:30)
--- NOTE | 2018-12-30 18:41 | NUR ---
NURSE NOTES: pt left AMA. Explained risk and benefit but pt still insisting to leave. JONNIE Buckner, Driver Operator made aware.
[2018-12-30] MEDS ORDERED: Zolpidem 5mg tab ORAL PRN (20:00)
[2018-12-30] MEDS ORDERED: Tamsulosin 0.4mg cap ORAL SCH (21:00)
--- NOTE | 2018-12-31 08:14 | Diagnostic Imaging Report ---
Indication: Reason For Exam: CP Technique: Single AP view of the chest. Comparison: Chest radiograph dated 01/10/2018 Findings: The cardiomediastinal silhouette is within normal limits when accounting for projection and technique. There is no focal consolidation, pneumothorax or pleural effusion. Osseous structures demonstrate no acute abnormality. 2 mm rounded density in the right lower lung is seen on prior examination and likely represents calcified granuloma. IMPRESSION: No acute cardiopulmonary process.
[2018-12-31] MEDS ORDERED: Aspirin Baby 81mg ORAL SCH (09:00)
--- NOTE | 2019-01-03 08:00 | Discharge Summary ---
Discharge Summary Discharge Summary _ DATE OF ADMISSION: 12/29/2018 DATE OF DISCHARGE: 12/30/2018 Patient left AGAINST MEDICAL ADVICE REASON FOR ADMISSION: 73 years old male with past medical history of hypertension, hypercholesterolemia, back surgery, smoker, presented with complaint of chest pain with radiation to the left arm. Pain reported as continuous, 9 out of 10 on a scale 1-10. Exacerbating factors appeared to be with movement of the left arm and left shoulder, but not with walking. The pain was worse in certain positions, mostly when he moves his left arm . When the left arm was flat , he had no pain or pain improved. Patient had a prior admission in December of last year also with chest pain. At that time patient was ruled out for acute NJ and underwent myocardial perfusion scan test, which was negative with calculated ejection fraction of greater than 70%. Upon evaluation laboratory work-up revealed no leukocytosis, hemoglobin 10.6. Platelet count 92. Potassium 3.5. Stable renal parameters. Troponin negative. EKG revealed sinus rhythm with right bundle branch block. Patient subsequently was admitted with chest pain, rule out myocardial infarction. CONSULTANTS: orientation and mobility specialist Dr. Mckeon [facility] COURSE: Patient admitted to telemetry floor. [employer] Installer followed. Serial troponin were negative. EKG revealed right bundle-branch conduction defect with secondary ST-segment changes. There were some T-wave inversions in lead III and aVF. In direct comparison with the EKG performed in December of 2017, ST-segment changes appeared to be old. Patient was ruled out for acute NJ. Lipid panel was stable. TSH was within normal limits. Patient was on antiplatelet therapy with Aspirin. GI prophylaxis provided. Blood pressure was closely monitored. Patient had evidence of heart murmur on clinical examination. Echocardiogram revealed preserved ejection fraction with mild left ventricular hypertrophy. Right ventricular systolic pressure of 27. Evidence of aortic stenosis. Per cardiology, chest pain was likely musculoskeletal in origin. Relieving and exacerbated factors along with reproduction of pain were all consistent with probable musculoskeletal pain. Patient started on nonsteroidal anti-inflammatory medication/ibuprofen. Patient was counseled on smoking cessation. Discharge planning was in process. However, patient decided to leave AGAINST MEDICAL ADVICE before discharge order was written. The risks and consequences of signing AGAINST MEDICAL ADVICE were discussed with patient in detail. Patient verbalized understanding, nevertheless signed AMA form and left. FINAL DIAGNOSES: Atypical chest pain, likely musculoskeletal in origin History of hypertension Aortic stenosis Tobacco use disorder I have been assigned to dictate discharge summary for this account. I was not involved in the patient's management. Shelly Almanzar NP Jan 03, 2019 08:00
--- NOTE | 2019-01-03 13:27 | Cardiology Report ---
APPROVED REPORT EXAM: Two-dimensional and M-mode echocardiogram with Doppler and color Doppler. INDICATION Atherosclerosis M-Mode DIMENSIONS IVSd1.2 (0.7-1.1cm)Left Atrium (MM)4.0 (1.6-4.0cm) LVDd4.3 (3.5-5.6cm)Aortic Root2.8 (2.0-3.7cm) PWd1.0 (0.7-1.1cm)Aortic Cusp Exc.1.6 (1.5-2.0cm) IVSs1.9 cm LVDs3.2 (2.5-4.0cm) PWs1.1 cm Normal left ventricular chamber size, systolic function and wall motion. Left ventricular ejection fraction estimated to be 60-65 %. Mild left ventricular hypertrophy. No evidence of pericardial effusion. Left atrial size at upper limits of normal. Right cardiac chamber sizes are within normal limits. Aortic valve calcification with decreased cusp excursion c/w aortic stenosis. Thickened mitral valve leaflets with normal excursion. Mitral annulus and aortic root calcification. Pulmonic valve not well visualized. Normal tricuspid valve structure. IVC at normal size with physiologic collapse. A color flow and spectral Doppler study was performed and revealed: No aortic regurgitation. Peak aortic valve gradient of 28 mmHg and a mean of 14 mmHg. Aortic valve area 1.4 cm2 calculated by continuity equation. Trace mitral regurgitation. Mitral diastolic velocities suggest reduced left ventricular relaxation c/w mild LV diastolic dysfunction (Grade I). Trace tricuspid regurgitation. Tricuspid systolic velocities suggests peak right ventricular systolic pressure of 27 mmHg. Pulmonic regurgitation present.
== END 2018-12-30 18:30 | disposition left against medical advice (07) | DRG 313 ==
LOC: EDBD 04:05 → EMR 04:38 → 2E 04:42 → EDBEDREQ 05:19 → 2E 05:34 → 4E 12-30 17:08
DX: R07.89 Other chest pain (principal); M79.18 Myalgia, other site; M79.602 Pain in left arm; I10 Essential (primary) hypertension; F17.200 Nicotine dependence, unspecified, uncomplicated; D69.6 Thrombocytopenia, unspecified; I45.10 Unspecified right bundle-branch block; I35.0 Nonrheumatic aortic (valve) stenosis
CPT/HCPCS: 36415; 71045; 80053; 80061; 80329; 81001; 82248; 82550; 82553; 84443; 84484; 85025; 87086; 93005; 93306; 96374; 99285

== ENCOUNTER 2019-03-18 17:37 | Inpatient (IN) | payer MEDICAID, MEDICARE ==
[~2019-03-18] VITALS: Ht 162.6 cm; Wt 65.8 kg
--- NOTE | 2019-03-18 18:00 | NUR ---
ED Nurse Note: pt presents to ED with CP x 8 hours. pt was given ASA en route per EMS. pt reports 8/10 pain that radiates into his L arm. 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 pt is TB positive
[2019-03-18 18:21] VITALS: BP 140/72
--- NOTE | 2019-03-18 18:29 | Emergency Room Report ---
History of Present Illness General Chief Complaint: Chest Pain Source: Patient, Medical Record Present Illness HPI 73-year-old male history of hypertension, hyperlipidemia, presents with chest pain that started 10 hours prior to arrival, no aggravating alleviating factors severity is mild, constant, no nausea no vomiting, no sweating, patient does endorse some shortness of breath, he endorses a constant ache, points to the middle of his chest, patient presents for evaluation. Additionally patient was also sent in for TB rule out given a positive QuantiFERON, patient is currently not exhibiting signs of cough, congestion, hemoptysis Allergies: Coded Allergies: No Known Allergies (Unverified , 01/10/18) Patient History Past Medical History: see triage record Reviewed Nursing Documentation: PMH: Agreed; PSxH: Agreed Nursing Documentation-PMH Past Medical History: No History, Except For Hx Cardiac Problems: Yes Hx Hypertension: Yes Hx Cancer: No Hx Gastrointestinal Problems: No Hx Neurological Problems: No Review of Systems All Other Systems: negative except mentioned in HPI Physical Exam Vital Signs Date Time Temp Pulse Resp B/P (MAP) Pulse Ox O2 Delivery O2 Flow Rate FiO2 03/18/19 17:42 98.1 70 16 140/72 (94) 98 Room Air Sp02 EP Interpretation: reviewed, normal General Appearance: well appearing, no apparent distress, alert Head: normocephalic, atraumatic Eyes: bilateral eye PERRL, bilateral eye EOMI ENT: uvula midline, moist mucus membranes Neck: supple, thyroid normal, supple/symm/no masses Respiratory: lungs clear, no respiratory distress, no retraction, no accessory muscle use Cardiovascular #1: normal peripheral pulses, regular rate, rhythm, no edema, no gallop, no murmur Gastrointestinal: non tender, soft, no guarding, no rebound Musculoskeletal: normal inspection Neurologic: alert, oriented x3 Psychiatric: mood/affect normal Skin: no rash, warm/dry Medical Decision Making Diagnostic Impression: Primary Impression: Chest pain Qualified Codes: R07.9 - Chest pain, unspecified Additional Impression: Tuberculosis ER Course 73-year-old male presents with chest pain, no cough no congestion no hemoptysis , differential diagnosis includes ACS, TB, pneumonia Patient with negative troponin, patient received aspirin Patient was also sent in for TB rule out given positive QuantiFERON and PPD, patient with a negative chest x-ray showing no acute processes Patient placed in negative isolation We will admit patient for TB rule out an ACS evaluation Patient admitted to Dr. Khalil Laboratory Tests Test 03/18/19 19:00 White Blood Count 6.0 K/UL (4.8-10.8) Red Blood Count 3.42 M/UL (4.70-6.10) L Hemoglobin 12.0 G/DL (14.2-18.0) L Hematocrit 34.5 % (42.0-52.0) L Mean Corpuscular Volume 101 FL (80-99) H Mean Corpuscular Hemoglobin 35.0 PG (27.0-31.0) H Mean Corpuscular Hemoglobin Concent 34.8 G/DL (32.0-36.0) Red Cell Distribution Width 13.0 % (11.6-14.8) Platelet Count 100 K/UL (150-450) L Mean Platelet Volume 5.8 FL (6.5-10.1) L Neutrophils (%) (Auto) 65.4 % (45.0-75.0) Lymphocytes (%) (Auto) 21.1 % (20.0-45.0) Monocytes (%) (Auto) 11.6 % (1.0-10.0) H Eosinophils (%) (Auto) 1.5 % (0.0-3.0) Basophils (%) (Auto) 0.4 % (0.0-2.0) Prothrombin Time 11.3 SEC (9.30-11.50) Prothrombin Time INR 1.1 (0.9-1.1) PTT 29 SEC (23-33) Sodium Level 143 MMOL/L (136-145) Potassium Level 4.1 MMOL/L (3.5-5.1) Chloride Level 108 MMOL/L (98-107) H Carbon Dioxide Level 24 MMOL/L (21-32) Anion Gap 11 mmol/L (5-15) Blood Urea Nitrogen 21 mg/dL (7-18) H Creatinine 0.8 MG/DL (0.55-1.30) Estimate Glomerular Filtration Rate mL/min (>60) Glucose Level 112 MG/DL (74-106) H Calcium Level 9.1 MG/DL (8.5-10.1) Total Bilirubin 0.8 MG/DL (0.2-1.0) Aspartate Amino Transferase (AST) 49 U/L (15-37) H Alanine Aminotransferase (ALT) 58 U/L (12-78) Alkaline Phosphatase 57 U/L (46-116) Total Creatine Kinase 87 U/L (26-308) Creatine Kinase MB 2.6 NG/ML (0.0-3.6) Creatine Kinase MB Relative Index 2.9 Troponin I 0.002 ng/mL (0.000-0.056) Pro-B-Type Natriuretic Peptide 78 pg/mL (0-125) Total Protein 6.6 G/DL (6.4-8.2) Albumin 3.2 G/DL (3.4-5.0) L Globulin 3.4 g/dL Albumin/Globulin Ratio 0.9 (1.0-2.7) L Lipase 146 U/L (73-393) EKG Diagnostic Results EKG Time: 17:50 EP Interpretation: NSR, rate 64, QTc 476, no acute ST elevations, normal axis Rhythm Strip Diag. Results Rhythm Strip Time: 18:29 EP Interpretation: yes Rate: 84 Rhythm: NSR, no PVC's, no ectopy Chest X-Ray Diagnostic Results Chest X-Ray Diagnostic Results : Chest X-Ray Ordered: Yes # of Views/Limited/Complete: 1 View Indication: Chest Pain Interpretation: no consolidation, no effusion, no pneumothorax, no acute cardiopulmonary disease Impression: No acute disease Electronically Signed by: Panda Vaughn MD Last Vital Signs Date Time Temp Pulse Resp B/P (MAP) Pulse Ox O2 Delivery O2 Flow Rate FiO2 03/18/19 17:42 98.1 70 16 140/72 (94) 98 Room Air Disposition: ADMITTED INPATIENT Condition: Stable Panda Vaughn MD Mar 18, 2019 18:29
--- NOTE | 2019-03-18 18:47 | Diagnostic Imaging Report ---
EXAM: XR Chest, 1 View CLINICAL HISTORY: Chest pain TECHNIQUE: Frontal view of the chest. COMPARISON: 12 29 2018 FINDINGS: Lungs: Unremarkable. No consolidation. Pleural space: Unremarkable. No pneumothorax. Heart: Stable cardiomediastinal silhouette. Mediastinum: Stable retrocardiac opacity, likely a hiatal hernia. Bones joints: No acute osseous abnormality. Postsurgical changes are present in the lower cervical spine. IMPRESSION: No acute cardiopulmonary process.
[2019-03-18] MEDS ORDERED: HYDRALAZINE HCL50 MG ORAL (18:52)
[2019-03-18] MEDS ORDERED: CATAPRES0.1 MG ORAL (18:52)
[2019-03-18] MEDS ORDERED: MELATONIN3 MG ORAL (18:52)
[2019-03-18] MEDS ORDERED: OMEPRAZOLE20 M2 ORAL (18:52)
[2019-03-18] MEDS ORDERED: NITRO0.4 SL (18:52)
[2019-03-18] MEDS ORDERED: BACLOFEN10 MG ORAL (18:52)
[2019-03-18] MEDS ORDERED: BENADRYL25 MG ORAL (18:57)
[2019-03-18] MEDS ORDERED: NORCO 5-325 TA1 EACH ORAL (18:57)
[2019-03-18] MEDS ORDERED: ALBUTEROL2.5 MG/3 M INH (18:57)
--- NOTE | 2019-03-18 18:58 | NUR ---
ED Nurse Note: Jim fountain confirmed with Dr. Vaughn that cancelled the ASA order. pt already received it from EMS.
[2019-03-18 19:00] VITALS: BP 138/75
--- NOTE | 2019-03-18 19:15 | NUR ---
ED Nurse Note: Received pt from DAISY Santo. Pt in stable condition. AAox3, vss, no acute distress. Blood work and urine sent to lab.
[2019-03-18 19:18] LABS: BASOPHILS % (AUTO) 0.4 % (0.0-2.0); EOSINOPHILS % (AUTO) 1.5 % (0.0-3.0); HEMATOCRIT 34.5 % (42.0-52.0); LYMPHOCYTES % (AUTO) 21.1 % (20.0-45.0); MEAN CORPUSCULAR VOLUME 101 FL (80-99); MONOCYTES % (AUTO) 11.6 % (1.0-10.0); NEUTROPHILS % (AUTO) 65.4 % (45.0-75.0); PLATELET COUNT 100 K/UL (150-450); RED BLOOD COUNT 3.42 M/UL (4.70-6.10)
[2019-03-18 19:25] LABS: INR 1.1 (0.9-1.1)
[2019-03-18 19:32] LABS: ANION GAP 11 mmol/L (5-15); BLOOD UREA NITROGEN 21 mg/dL (7-18); CALCIUM 9.1 MG/DL (8.5-10.1); CARBON DIOXIDE 24 MMOL/L (21-32); CHLORIDE 108 MMOL/L (98-107); CREATININE 0.8 MG/DL (0.55-1.30); POTASSIUM 4.1 MMOL/L (3.5-5.1); SODIUM 143 MMOL/L (136-145)
[2019-03-18 19:47] LABS: ALANINE AMINOTRANSFERASE 58 U/L (12-78); ALBUMIN 3.2 G/DL (3.4-5.0); ALBUMIN/GLOBULIN RATIO 0.9 (1.0-2.7); ALKALINE PHOSPHATASE 57 U/L (46-116); ASPARTATE AMINO TRANSFERASE 49 U/L (15-37); BILIRUBIN,TOTAL 0.8 MG/DL (0.2-1.0); CKMB 2.6 NG/ML (0.0-3.6); CREATINE KINASE 87 U/L (26-308)
[2019-03-18] MEDS ORDERED: fentaNYL 100 mcg/2 mL IV ONE (20:45)
[2019-03-18] MEDS ORDERED: Nitroglycerin Subl 0.4mg tab SL PRN (22:30)
[2019-03-18] MEDS ORDERED: Albuterol ud Inhalation HHN PRN (22:30)
--- NOTE | 2019-03-18 23:00 | NUR ---
TRANSFER TO FLOOR: Patient transferred to as ordered, per MD Simran. Report given to DAISY Lerma. Belongings and medications given to Patient. Family and or S/O informed of transfer.
[2019-03-18 23:05] VITALS: BP 162/83
--- NOTE | 2019-03-18 23:05 | NUR ---
NURSE NOTES: Received report from MARCO A Weiner RN. Patient transferred to tele unit from ER via [facility] with 2 staff member assist without incidence. Patient alert and talkative, no signs of pain or distress noted. Patient able to make needs known to limited degree, forgetful of abilities. Patient's belongings list checked with ER nurse at bedside. IV site checked, intact and patent, no signs of erythema, bleeding, or infiltration. Patient's skin assessed, skin is intact, except for abrasions on left forearm. Patient placed on tele monitor, tolerated well. Patient is positive for TB, placed in airborne isolation room. Admission orders received from Dr. Roblero. Bed in lowest position, side rails up x3, brakes on, call light within reach, and bed alarm on. Will continue with plan of care.
[2019-03-18] MEDS: HYDROcodone/Acetamin 5/325 tab ORAL PRN (23:36)
[2019-03-19] VITALS: BP 149/81
[2019-03-19 04:00] VITALS: BP 118/59
[2019-03-19] MEDS: HydrALAZINE 50mg tab ORAL SCH ×3 (06:26→21:26)
--- NOTE | 2019-03-19 07:05 | NUR ---
HAND-OFF: Report given to DAISY Valencia. Plan of care endorsed.
[2019-03-19 08:00] VITALS: BP 104/60
--- NOTE | 2019-03-19 08:01 | NUR ---
NURSE NOTES: Patient with no complaints at this time. No s/sx of distress. RR even and unlabored on RA. Patient eating breakfast in bed. Bed low and locked. Bed alarm on. Call light within reach. Will continue to monitor.
[2019-03-19] MEDS: HYDROcodone/Acetamin 5/325 tab ORAL PRN ×2 (08:59→16:51)
--- NOTE | 2019-03-19 09:00 | NUR ---
NURSE NOTES: Patient complaining of chest pain. Dr. Roblero at bedside. Per MD patient does not require nitro since pain goes away with movement. Pain medication given.
--- NOTE | 2019-03-19 10:26 | Diagnostic Imaging Report ---
EXAM: CT Chest Without Intravenous Contrast CLINICAL HISTORY: INFECT TECHNIQUE: Axial computed tomography images of the chest without intravenous contrast. Sagittal and coronal reformatted images were created and reviewed. CTDI is 16.10 mGy and DLP is 723.50 mGy-cm. One or more of the following dose reduction techniques were used: automated exposure control, adjustment of the mA and or kV according to patient size, use of iterative reconstruction technique. COMPARISON: Chest x-ray dated 03 18 19 FINDINGS: Lungs: Minimal dependent atelectasis in bilateral lower lobes. 4 mm calcified granuloma in the right middle lobe (series 3 image 40). Pleural space: Unremarkable. No pneumothorax. No significant effusion. Heart: Coronary artery calcifications. Mild valvular calcifications in the aortic and mitral valves. No significant pericardial effusion. Bones joints: Unremarkable. No acute fracture. No dislocation. Soft tissues: Unremarkable. Vasculature: Atherosclerotic calcifications throughout the thoracic aorta and upper abdominal aorta without evidence of aneurysm. Lymph nodes: Unremarkable. No enlarged lymph nodes. Gallbladder and bile ducts: Biliary stent in place. Kidneys and ureters: Partial visualization of multiple renal cortical cysts, largest measuring 4.3 x 2.7 cm in the right mid kidney with cyst septations and coarse calcifications. IMPRESSION: 1. Minimal dependent atelectasis in bilateral lower lobes. Otherwise no pulmonary consolidation or effusion. 2. The retrocardiac opacity seen on the comparison chest x-ray is due to a tortuous distal thoracic aorta. Associated scattered atherosclerotic calcifications throughout the aorta and associated coronary artery calcifications. 3. Biliary stent in place. 4. Partial visualization of multiple renal cortical cysts, largest measuring 4.3 x 2.7 cm in the right mid kidney with cyst septations and coarse calcifications. This dominant cyst can be classified as a Bosniak category 2F cyst. If no prior comparison CT or MRI exams of the abdomen and pelvis are available, then ACR White Paper guidelines (Adonis, et al. JACR 2010; 7(60):781-[address]) [address] or MRI follow-up in 6 months.
--- NOTE | 2019-03-19 10:45 | History and Physical Report ---
DATE OF ADMISSION: 03/18/2019 CHIEF COMPLAINT: Possible tuberculosis. HISTORY OF PRESENT ILLNESS: The patient is an elderly male. He currently resides in a half-way facility. He had a history of BPH, degenerative disc disease, hypertension, thrombocytopenia, anemia, GERD, and spinal stenosis. He was transferred to the emergency room for evaluation for possible tuberculosis at the half-way facility. The patient had a routine PPD that was positive, had a QuantiFERON gold blood test that was also positive. The chest x-ray showed atelectasis and changes in the bilateral upper lungs and right apical collapse and fibrosis. There was concern about possible tuberculosis and the patient is now admitted for further evaluation for possible TB. The patient denies any fevers or chills. He has had no night sweats. Denies any hemoptysis or cough. Denies any weight loss. PAST MEDICAL HISTORY: As above. PAST SURGICAL HISTORY: None. CURRENT MEDICATIONS: Reconciled and reviewed. ALLERGIES: None. FAMILY HISTORY: None. SOCIAL HISTORY: Negative for tobacco, ethanol, or drugs. REVIEW OF SYSTEMS: GENERAL: No fevers, chills, or night sweats. HEENT: No headaches or visual changes. CARDIOPULMONARY: No chest pain or shortness of breath. GASTROINTESTINAL: No nausea or vomiting. GENITOURINARY: No urgency or frequency. MUSCULOSKELETAL: No joint pain or swelling. NEUROLOGIC: No evidence of seizures. PHYSICAL EXAMINATION: VITAL SIGNS: Temperature 98.2, pulse 67, respirations 20, and blood pressure . GENERAL: The patient is well developed, no apparent distress. HEART: Regular rate and rhythm. LUNGS: Clear. ABDOMEN: Soft, nontender, nondistended. EXTREMITIES: Without clubbing, cyanosis, or edema. LABORATORY AND DIAGNOSTIC DATA: Chest x-ray here was reportedly clear. The chest x-ray at the hospital also shows a right apical collapse and fibrosis. White count 6, hemoglobin 12, platelet count of 100. Sodium 143, potassium is 4.1, chloride 108, bicarb 24, BUN 21, and creatinine 0.8. ASSESSMENT: This is a pleasant male with multiple medical problems, admitted with a positive chest x-ray, positive PPD, and QuantiFERON gold. PLAN: Respiratory isolation. We will check a CT scan of the chest. If CT scan of the chest is abnormal, we will collect sputum AFB cultures and stains. ID consultation has been obtained. Cardiology has also been asked to evaluate the patient because of his complaints of intermittent chest pain. Carlos Roblero M.D. DR: DANISH JOB#: [id number] CC:
[2019-03-19 11:42] VITALS: BP 119/69
[2019-03-19 15:59] VITALS: BP 114/69
--- NOTE | 2019-03-19 19:19 | NUR ---
HAND-OFF: Report given to Dheeraj RN. Patient stable.
--- NOTE | 2019-03-19 19:20 | NUR ---
NURSE NOTES: Received report from Marin Christiansen RN. patient in bed AAO X3-4 with no complaints of acute pain or distress noted at this time. On Airborne precaution to R/O TB, AFB smear collect order active. Patient ambulates with minimal assistance. IV line intact and patent, with continuous cardiac monitoring per protocol. Safety precaution in place; siderails X3 up, call light within reach, bed in lowest position, brakes and alarm on at all times. Needs and wants anticipated and attended. Will continue plan of care.
[2019-03-19 20:00] VITALS: BP 147/83
--- NOTE | 2019-03-19 20:06 | NUR ---
NURSE NOTES: New orders received and carried out per Christine Roblero MD. Will continue to monitor.
[2019-03-19] MEDS: Heparin 5000 units/ml inj SUBQ SCH (21:00)
[2019-03-19] MEDS: HYDROcodone/Acetamin 10/325 tab ORAL PRN (21:34)
[2019-03-20] VITALS: BP 159/85
--- NOTE | 2019-03-20 03:29 | NUR ---
NURSE NOTES: Patient in bed asleep with no S/S of distress. Will continue to monitor.
[2019-03-20 04:00] VITALS: BP 121/72
--- NOTE | 2019-03-20 05:00 | Consultation ---
DATE OF CONSULTATION: 03/19/2019 INFECTIOUS DISEASE CONSULTATION CONSULTING PHYSICIAN: Jose G Zamarripa M.D. PRIMARY ATTENDING PHYSICIAN: Jmaes Khalil M.D. REASON FOR CONSULT: Positive PPD. HISTORY OF PRESENT ILLNESS: This is a 73-year-old Greek male, who is a alf resident, admitted yesterday with chest pain, also had a positive PPD test and QuantiFERON. PAST MEDICAL HISTORY: Significant for hypertension, hyperlipidemia, degenerative disk disease, thrombocytopenia, anemia, gastroesophageal reflux disease, spinal stenosis. The patient has no fever, chills, night sweats. SOCIAL HISTORY: . He is a alf resident. No history of drug or alcohol abuse. Smoking a couple of cigarettes per day. ALLERGIES: No known drug allergies. MEDICATIONS: Baclofen, hydralazine, Coumadin, albuterol, [place], nitroglycerin,\. REVIEW OF SYSTEMS: No fever, no chills. No coughing. No shortness of breath. No chest pain. left left shoulder. No nausea. No vomiting. No diarrhea. No problem passing urine. PHYSICAL EXAMINATION: VITAL SIGNS: Temperature 97.7, pulse 69, blood pressure 119/69. GENERAL APPEARANCE: No acute distress. HEAD AND NECK: [place] conjunctivae. No oral lesion. HEART: Normal rate. LUNGS: Clear. ABDOMEN: Soft, nontender. EXTREMITIES: No edema. NEUROLOGIC: Awake and alert. He is slow to response. LABORATORY AND DIAGNOSTIC DATA: WBC 6, hemoglobin 12, hematocrit 34.5, and platelets 100,000. Sodium 143, potassium 4.1, chloride 108, bicarbonate 24, BUN 21, creatinine 0.8, glucose is 102. AST is 49. Lipase 146. The patient's CT scan of the chest showed atelectasis & granuloma in right middle lobe, coronary artery calcification, mild valvular calcification, multiple renal cysts, biliary stent. IMPRESSION: Positive PPD and TB gold test. Likely, the patient has latent TB. The patient does not have active pneumonia at the present time. No chest pain, had a previous admission for chest pain in 12/2018, hypertension, hyperlipidemia, thrombocytopenia, mild anemia, spinal stenosis, gastroesophageal reflux disease. RECOMMENDATIONS: The patient does not need to be in contact isolation. Also, does not suggest a sputum culture. May consider the patient giving INH for reactivation of TB. At the end of my exam, I thank, Dr. Roblero, for involving me in the care of this patient. Jose G Zamarripa M.D. DR: SONALI JOB#: [id number] CC: ARTUR
[2019-03-20] MEDS: HydrALAZINE 50mg tab ORAL SCH ×2 (06:27→13:05)
--- NOTE | 2019-03-20 07:20 | NUR ---
HAND-OFF: Report given to Marin Christiansen RN. Patient in bed with no S/S of distress noted. Endorsed plan of care.
--- NOTE | 2019-03-20 07:22 | NUR ---
NURSE NOTES: Patient received from Dheeraj Alves RN. Patient stable with no complaints of pain and no s/sx of distress. RR even and unlabored on RA. Call light within reach. Bed low and locked. Will continue to monitor.
--- NOTE | 2019-03-20 07:31 | NUR ---
NURSE NOTES: Patient attempted to leave hospital to go home. Per patient, doctor said he doesn't have TB so he can go home now. Patient explained that he has not been discharged. Patient verbalized understanding but trying to get out of room again. Dr. Roblero contacted.
[2019-03-20 08:00] VITALS: BP 144/88
--- NOTE | 2019-03-20 08:15 | NUR ---
NURSE NOTES: Per Dr. Carmen Zamarripa pt cleared for discharge. Dr. Roblero at bedside also stated he is cleared for discharge to [facility]. Contacting department of [facility] for clearance.
--- NOTE | 2019-03-20 08:21 | NUR ---
NURSE NOTES: Dr. Roblero at nurse station order patient to be discharge back to [facility]. Contacted Dr. Carmen Zamarripa if patient is cleared for discharge and cleared for rule out TB and if public health needed to be contacted. Dr. Carmen Zamarripa acknowledged and stated patient is cleared for discharge from infectious disease perspective, patient no longer needs to be ruled out for TB as that it is pneumonia related, public health does not need to be contacted. Windy Jc of infectious disease department also made aware of situation, stated if primary and infectious disease are in agreement to discharge patient then patient is okay to be discharged. Noted. Primary nurse is aware. Will proceed with discharge.
[2019-03-20] MEDS: Heparin 5000 units/ml inj SUBQ SCH (08:44)
--- NOTE | 2019-03-20 08:50 | NUR ---
NURSE NOTES: Dr. Roblero at nurse station made aware that Dr. Carmen Zamarripa cleared patient for discharge and [facility] does not to be contacted. Also informed Dr. Roblero that per Windy of infectious disease department in regards to calling [facility] for R/[facility] TB, if primary and infectious disease agree to discharge patient, patient maybe be discharged. Noted.
--- NOTE | 2019-03-20 09:10 | NUR ---
NURSE NOTES: Called and spoke with Betsey from [facility] , per Betsey received fax of patient's H&P, medication reconciliation, diagnostic imaging results. Per Mackenzie will need to speak to her DON if patient is okay to be admitted in [facility]. Noted. Will follow up.
[2019-03-20 11:56] VITALS: BP 147/78
--- NOTE | 2019-03-20 12:00 | NUR ---
NURSE NOTES: Betsey from [facility] called this station and spoke with this nurse. Per Betsey informed this nurse that patient will not be [facility] and their DON is searching for a new facility where patient may bed accepted. Contacted and informed Dr. Roblero of situation. This nurse inquired if patient may be downgraded to medical surgical floor while patient awaits acceptance to senior care facility. Dr. Roblero acknowledged and stated "ok". Orders entered, noted, and carried out. Nurse baggage agent supervisor made aware. Primary nurse made aware.
--- NOTE | 2019-03-20 12:38 | NUR ---
NURSE NOTES: Called Dr. Carmen Zamarripa and followed up regarding isolation as that patient is cleared from infectious disease perspective. Per Dr. Carmen Zamarripa discontinue airborne isolation. Order entered, noted, and carried out. Will continue to monitor patient.
[2019-03-20 14:36] VITALS: BP 148/80
[2019-03-20 14:50] VITALS: BP 148/80
[2019-03-20] MEDS: HYDROcodone/Acetamin 10/325 tab ORAL PRN (14:50)
--- NOTE | 2019-03-20 14:59 | NUR ---
NURSE NOTES: Patient noted with discharge order from Dr. Roblero. Called and notified [facility] of discharge. Per Amadeo [facility] unable to accept patient at this time. Provided this nurse contact for [facility] and to speak with Argelia social media analyst. . Per Argelia patient is accepted to facility and is going to room 3A, give report to DAISY Oakley. Per patient's brother Cheo Jack okay for patient to go to [facility]. Per Dr. Roblero patient is okay to go to [facility]. Made nurse supervisor pipe manufacture aware. Noted.
--- NOTE | 2019-03-20 15:00 | NUR ---
NURSE NOTES: Called patient's brother Cheo Jack to follow up if brother is okay to be discharged to [facility]. Brother agreed. Made Dr. Roblero aware. Per Dr. Roblero is okay to transfer patient to [facility]. Noted.
--- NOTE | 2019-03-20 15:15 | NUR ---
NURSE NOTES: Called [facility] and gave report to DAISY Benz. Setup ride with [employer]. Per Manuel ETA is [id number]. Noted.
--- NOTE | 2019-03-20 16:00 | NUR ---
NURSE NOTES: Patient discharged to [facility] per Dr. Roblero's orders. Gave report to Tuyet. Patient given all discharge instructions and verbalized understanding. IV access removed, no active bleeding noted. ID band removed and placed in shredder. Heart monitor removed and returned to alarm security or surveillance monitor. Patient left via ambulance with 2 aerospace control and warning systems with all belongings.
--- NOTE | 2019-03-20 18:45 | Discharge Summary ---
DATE OF ADMISSION: 03/18/2019 DATE OF DISCHARGE: 03/20/2019 ADMISSION DIAGNOSES: 1. Possible tuberculosis. 2. History of hypertension. 3. Chronic back pain. DISCHARGE DIAGNOSES: 1. Possible tuberculosis. 2. History of hypertension. 3. Chronic back pain. HOSPITAL COURSE: The patient is an elderly male, who was admitted for rule out tuberculosis. He had a positive PPD test and abnormal chest x-ray at the intermediate [facility]. He was admitted. He was initially placed in respiratory isolation. He had no symptoms of active TB. No night sweats. No cough. No fevers. No hemoptysis. No weight loss. His chest x-ray was clear. He had a CAT scan of the chest that showed no evidence of any infiltrate. No cavitary disease, only an old calcified granuloma. The patient was seen by ID. He was cleared for discharge back to the intermediate facility. DISCHARGE MEDICATIONS: Please see discharge medication list for discharge medications. DIET: Cardiac diet. ACTIVITIES: Ad-tre. FOLLOWUP: The patient will be followed by his PMD at the [facility]. Carlos Roblero M.D. DR: GHULAM JOB#: [id number] CC:
--- NOTE | 2019-03-21 01:00 | Consultation ---
DATE OF CONSULTATION: 03/20/2019 CARDIOLOGY CONSULTATION CONSULTING PHYSICIAN: James Khalil M.D. REFERRING PHYSICIAN: Carlos Roblero M.D. REASON: Chest pain HISTORY OF PRESENT ILLNESS: This is a 73-year-old male who was admitted to the hospital 2 days ago because of concerns over active tuberculosis based on some outpatient studies including a positive PPD and QuantiFERON gold test; however, workup regarding that issue by Infectious Disease storage management consultant has suggested the absence of any active tuberculosis and no further workup is planned at this time. The patient has complained of intermittent chest pain prompting this consultation. He has not had any cough, sputum production, fevers, or chills. No palpitation. PAST MEDICAL HISTORY: Notable for hypertension, spinal stenosis due to degenerative disk disease, history of thrombocytopenia, chronic anemia, gastroesophageal reflux disease, prostatic hypertrophy, degenerative aortic valve disease. ALLERGIES: None. MEDICATIONS: Reviewed. FAMILY HISTORY: Noncontributory. SOCIAL HISTORY: No record of smoking, alcohol, or substance abuse. REVIEW OF SYSTEMS: There is no history of myocardial infarction. No history of rheumatic heart disease. No history of pericardial effusion. An echocardiogram done at this facility in December of 2018 revealed normal ejection fraction, mild aortic valve stenosis with area of 1.4 cm2, and no pulmonary hypertension. PHYSICAL EXAMINATION: VITAL SIGNS: Blood pressure 148/80, heart rate 69, respiratory rate 20, no fevers. NECK: Supple. Jugular venous pressure normal. CHEST: Chest wall some tenderness to palpation. LUNGS: Clear. CARDIAC: Regular rhythm and rate. Normal S1, S2 with a 1/6 systolic murmur at the base. ABDOMEN: Soft, nontender. EXTREMITIES: Without edema. DIAGNOSTIC DATA: CAT scan of the chest revealed atelectasis in the lower lobes, no pulmonary consolidation, tortuous aorta, biliary stent, and renal cysts. EKG on admission revealed sinus rhythm at 64 beats per minute with no abnormalities other than borderline prolongation of QT interval. LABORATORY DATA: Notable for normal troponin level and normal natriuretic peptide assay. IMPRESSION: 1. No active tuberculosis. No indication for respiratory isolation. 2. Noncardiac chest pain. 3. Degenerative aortic valve disease of no hemodynamic significance at this time with mild stenosis. 4. Hypotension with slightly elevated systolic blood pressure range. PLAN: 1. Can be followed as an outpatient from cardiovascular standpoint. 2. Further blood pressure monitoring indicated and possible advancement of antihypertensive regimen if systolic pressure remains above 140. 3. Repeat echocardiogram in 6 months to reassess aortic valve gradient. James Khalil M.D. DR: JESSICA JOB#: [id number] CC:
--- NOTE | 2019-03-22 17:00 | Cardiology Report ---
APPROVED REPORT EKG Measurement Heart [id number] Normal sinus rhythm RSR' or QR pattern in V1 suggests right ventricular conduction delay Borderline ECG
--- NOTE | 2019-03-27 22:18 | Coder Physician Query ---
Clarification is required for compliance, coding accuracy, and to reflect severity of illness for this patient. Dear Date:03/27/19 A posssible diagnois of_Tuberculosis_was made in the medical record. Upon review , it is difficult to determine whether this diagnosis has been ruled in, ruled out,or is still being worked up. Please indicate below the status of the aforementioned diagnosis. The patient is an elderly male, who was admitted for rule out tuberculosis. He had a positive PPD test and [facility]. He was admitted. He was initially placed in respiratory isolation. He had no symptoms of active TB. No night sweats. No cough. No fevers. No hemoptysis. No weight loss. His chest x-ray was clear. He had a CAT scan of the chest that showed no evidence of any infiltrate. Please indicate below the status of the aforementioned diagnosis. [x] Treated and resolve [] Presumed and treated [] Currently under treatment [] Still being worked-up [] Ruled out If tuberculosis was ruled out, please state the cause of the patient's chest pain. Physician signature Date Please also document in your Progress Notes and/or Discharge Summary and indicate if the condition was present on admission. ARTUR
== END 2019-03-20 16:02 | DRG 179 ==
LOC: EDBD 17:37 → EMR 18:20 → EDBEDREQ 18:47 → 2E 19:25 → EDBEDREQ 21:13 → 2E 03-19 06:35
DX: A15.9 Respiratory tuberculosis unspecified (principal); I95.9 Hypotension, unspecified; N40.0 Benign prostatic hyperplasia without lower urinary tract symptoms; K21.9 Gastro-esophageal reflux disease without esophagitis; I10 Essential (primary) hypertension; G89.29 Other chronic pain; M54.9 Dorsalgia, unspecified; E78.5 Hyperlipidemia, unspecified; Z79.01 Long term (current) use of anticoagulants; M48.00 Spinal stenosis, site unspecified
CPT/HCPCS: 36415; 71045; 71250; 80053; 82550; 82553; 83690; 83880; 84484; 85025; 85610; 85730; 87081; 93005; 94664; 96374; 99285

== ENCOUNTER 2019-05-17 18:43 | Inpatient (IN) | payer MEDICARE, OTHER ==
[~2019-05-17] VITALS: Ht 170.2 cm; Wt 57.2 kg
[~2019-05-17 18:43] MED LIST: ALBUTEROL2.5 MG/3 M INH; BACLOFEN10 MG ORAL; BENADRYL25 MG ORAL; CATAPRES0.1 MG ORAL; HYDRALAZINE HCL50 MG ORAL; MELATONIN3 MG ORAL; NITRO0.4 SL; NORCO 5-325 TA1 EACH ORAL; OMEPRAZOLE20 M2 ORAL
--- NOTE | 2019-05-17 18:49 | NUR ---
ED Nurse Note: Patient came into ER via RA 26 from [facility] with a c/o chest pain. Pt is aaox4, irish speaking and on room air. PAtient had 3 sprays of nitro and c/o pain 8/ afterwards.
[2019-05-17 19:10] VITALS: BP 136/86
--- NOTE | 2019-05-17 19:10 | NUR ---
ED Nurse Note: Report received from DAISY Garner. Pt is aaox4, no respiratory distress noted. Pt c/o chest pain at this time. ERMD at bedside. IV line established and blood drawn and sent to lab. Pt placed on electronic device monitor and into hospital gown. Will continue to monitor.
--- NOTE | 2019-05-17 19:30 | NUR ---
ED Nurse Note: Pt able to ambulate with steady gait to restroom, urine specimen collected and sent to lab.
--- NOTE | 2019-05-17 19:36 | Emergency Room Report ---
History of Present Illness General Chief Complaint: Chest Pain Present Illness HPI 73-year-old male with history of hypertension, liver cirrhosis, hep C, spinal stenosis, BPH, hepatic encephalopathy, chest pain, shortness of breath, left rotator cuff tear, arthropathy, GERD who presents with left-sided sharp chest pain 15 minutes prior to arrival. Patient took 1 sublingual nitroglycerin at home, which did not help symptoms. EMS gave 325 aspirin and 3 sprays of nitroglycerin with no improvement. Patient notes associated shortness of breath. He reports pain as 7 out of 10 at this time Allergies: Coded Allergies: No Known Allergies (Unverified , 01/10/18) Nursing Documentation-PMH Hx Cardiac Problems: Yes Hx Hypertension: Yes Hx Cancer: No Hx Gastrointestinal Problems: No Hx Neurological Problems: No Review of Systems Constitutional: Denies: chills, fever Respiratory: Reports: shortness of breath; Denies: cough Cardiovascular: Reports: chest pain; Denies: palpitations Gastrointestinal: Denies: diarrhea, vomiting Genitourinary: Denies: hematuria, pain Musculoskeletal: Denies: joint swelling Skin: Denies: rash, lesions Neurological: Denies: headache, dizziness Physical Exam Vital Signs Date Time Temp Pulse Resp B/P (MAP) Pulse Ox O2 Delivery O2 Flow Rate FiO2 05/17/19 18:36 99.0 77 18 136/86 (103) 100 Room Air Sp02 EP Interpretation: reviewed General Appearance: well appearing, no apparent distress, non-toxic Head: normocephalic, atraumatic Eyes: bilateral eye normal inspection ENT: hearing grossly normal, EOM grossly intact, moist mucus membranes Neck: supple Respiratory: lungs clear, normal breath sounds, no respiratory distress, speaking full sentences Cardiovascular #1: regular rate, rhythm, no edema, no gallop, normal capillary refill Cardiovascular #2: 2+ radial (R), 2+ radial (L) Gastrointestinal: soft, non-distended Rectal: deferred Musculoskeletal: moves extm spontaneously, no lower extremity edema Neurologic: grossly normal Psychiatric: mood/affect normal Skin: warm/dry, normal turgor Medical Decision Making Diagnostic Impression: Primary Impression: Chest pain ER Course 73-year-old male with history of hypertension, liver cirrhosis, hep C, spinal stenosis, BPH, hepatic encephalopathy, chest pain, shortness of breath, left rotator cuff tear, arthropathy, GERD who presents with left-sided sharp chest pain 15 minutes prior to arrival. Patient took 1 sublingual nitroglycerin at home, which did not help symptoms. EMS gave 325 aspirin and 3 sprays of nitroglycerin with no improvement. Patient notes associated shortness of breath. He reports pain as 7 out of 10 at this [id number] Exam within normal limits. ED plan: Evaluate for ACS, OR, nonspecific chest pain, Will perform chest x-ray lab testing and EKG Patient found to have elevated CK MB. Negative troponin. Concerning for ACS. Patient's will need to be admitted to telemetry. Laboratory Tests Test 05/17/19 19:10 White Blood Count 8.7 K/UL (4.8-10.8) Red Blood Count 3.18 M/UL (4.70-6.10) L Hemoglobin 11.4 G/DL (14.2-18.0) L Hematocrit 31.7 % (42.0-52.0) L Mean Corpuscular Volume 100 FL (80-99) H Mean Corpuscular Hemoglobin 35.9 PG (27.0-31.0) H Mean Corpuscular Hemoglobin Concent 36.0 G/DL (32.0-36.0) Red Cell Distribution Width 13.4 % (11.6-14.8) Platelet Count 146 K/UL (150-450) L Mean Platelet Volume 5.4 FL (6.5-10.1) L Neutrophils (%) (Auto) 51.4 % (45.0-75.0) Lymphocytes (%) (Auto) 25.9 % (20.0-45.0) Monocytes (%) (Auto) 14.7 % (1.0-10.0) H Eosinophils (%) (Auto) 7.0 % (0.0-3.0) H Basophils (%) (Auto) 0.9 % (0.0-2.0) D-Dimer 1.26 mg/L FEU (0.00-0.49) H Sodium Level 143 MMOL/L (136-145) Potassium Level 3.6 MMOL/L (3.5-5.1) Chloride Level 109 MMOL/L (98-107) H Carbon Dioxide Level 25 MMOL/L (21-32) Anion Gap 9 mmol/L (5-15) Blood Urea Nitrogen 32 mg/dL (7-18) H Creatinine 1.2 MG/DL (0.55-1.30) Estimate Glomerular Filtration Rate mL/min (>60) Glucose Level 95 MG/DL (74-106) Calcium Level 8.8 MG/DL (8.5-10.1) Total Bilirubin 0.8 MG/DL (0.2-1.0) Aspartate Amino Transferase (AST) 73 U/L (15-37) H Alanine Aminotransferase (ALT) 84 U/L (12-78) H Alkaline Phosphatase 98 U/L (46-116) Creatine Kinase MB 5.1 NG/ML (0.0-3.6) H Troponin I 0.000 ng/mL (0.000-0.056) Pro-B-Type Natriuretic Peptide 80 pg/mL (0-125) Total Protein 7.4 G/DL (6.4-8.2) Albumin 3.1 G/DL (3.4-5.0) L Globulin 4.3 g/dL Albumin/Globulin Ratio 0.7 (1.0-2.7) L Lab Results Impression CBC noted mild anemia hemoglobin 11.4, mild low platelets, BUN slightly elevated 32, slight elevation in AST ALT, elevation of CK-MB 5.1. Troponin 0 EKG Diagnostic Results EP Interpretation: Normal sinus rhythm with right bundle branch block left fascicular block, T Rate: normal Rhythm: NSR ST Segments: other Chest X-Ray Diagnostic Results Chest X-Ray Diagnostic Results : Chest X-Ray Ordered: Yes # of Views/Limited/Complete: 1 View Indication: Chest Pain EP Interpretation: Yes Interpretation: no consolidation, no effusion, no pneumothorax, no acute cardiopulmonary disease Impression: No acute disease Reevaluation Time: 21:15 Last Vital Signs Date Time Temp Pulse Resp B/P (MAP) Pulse Ox O2 Delivery O2 Flow Rate FiO2 05/17/19 18:36 99.0 77 18 136/86 (103) 100 Room Air Reevaluation Impression Patient's care discussed with Dr. Mcdonald. Patient admitted to telemetry. Disposition: ADMITTED INPATIENT Karthik Frye M.D. May 17, 2019 19:36
[2019-05-17 19:42] LABS: ANION GAP 9 mmol/L (5-15); BLOOD UREA NITROGEN 32 mg/dL (7-18); CALCIUM 8.8 MG/DL (8.5-10.1); CARBON DIOXIDE 25 MMOL/L (21-32); CHLORIDE 109 MMOL/L (98-107); CREATININE 1.2 MG/DL (0.55-1.30); POTASSIUM 3.6 MMOL/L (3.5-5.1); SODIUM 143 MMOL/L (136-145)
[2019-05-17 19:58] LABS: ALANINE AMINOTRANSFERASE 84 U/L (12-78); ALBUMIN 3.1 G/DL (3.4-5.0); ALBUMIN/GLOBULIN RATIO 0.7 (1.0-2.7); ALKALINE PHOSPHATASE 98 U/L (46-116); ASPARTATE AMINO TRANSFERASE 73 U/L (15-37); BILIRUBIN,TOTAL 0.8 MG/DL (0.2-1.0); CKMB 5.1 NG/ML (0.0-3.6)
--- NOTE | 2019-05-17 20:01 | Diagnostic Imaging Report ---
EXAM: XR Chest, 1 View CLINICAL HISTORY: CP TECHNIQUE: Frontal view of the chest. COMPARISON: Chest x-ray 03/18/2019 FINDINGS: Lungs: Unremarkable. No consolidation. Pleural space: Unremarkable. No pneumothorax. Heart: Unremarkable. No cardiomegaly. Mediastinum: Unremarkable. Bones/joints: Unremarkable. IMPRESSION: No acute cardiopulmonary abnormality.
[2019-05-17 20:14] LABS: BASOPHILS % (AUTO) 0.9 % (0.0-2.0); HEMATOCRIT 31.7 % (42.0-52.0); HEMOGLOBIN 11.4 G/DL (14.2-18.0); LYMPHOCYTES % (AUTO) 25.9 % (20.0-45.0); MEAN CORPUSCULAR VOLUME 100 FL (80-99); MONOCYTES % (AUTO) 14.7 % (1.0-10.0); NEUTROPHILS % (AUTO) 51.4 % (45.0-75.0); PLATELET COUNT 146 K/UL (150-450); RED BLOOD COUNT 3.18 M/UL (4.70-6.10); RED CELL DISTRIBUTION WIDTH 13.4 % (11.6-14.8); WHITE BLOOD COUNT 8.7 K/UL (4.8-10.8)
[2019-05-17] MEDS ORDERED: Omnipaue 350mg/ml 100ml vial INJ PRN (21:00)
--- NOTE | 2019-05-17 21:00 | NUR ---
ED Nurse Note: Pt taken to CT
--- NOTE | 2019-05-17 21:20 | NUR ---
ED Nurse Note: Pt return from CT scan.
--- NOTE | 2019-05-17 21:55 | Diagnostic Imaging Report ---
EXAM: CT Angiography Chest With Intravenous Contrast CLINICAL HISTORY: PE TECHNIQUE: Axial computed tomographic angiography images of the chest with intravenous contrast. CTDI is 45.2 mGy and DLP is 638.5 mGy-cm. One or more of the following dose reduction techniques were used: automated exposure control, adjustment of the mA and/or kV according to patient size, use of iterative reconstruction technique. MIP reconstructed images were created and reviewed. COMPARISON: Chest CT 03/19/2019 FINDINGS: Pulmonary arteries: No pulmonary embolism. Aorta: No acute findings. No thoracic aortic aneurysm. Lungs: Unremarkable. No mass. No consolidation. Pleural space: Unremarkable. No significant effusion. No pneumothorax. Heart: Coronary artery calcifications. Mitral annular calcifications. Aortic valve calcifications. No significant pericardial effusion. No evidence of RV dysfunction. Bones/joints: No acute fracture. No dislocation. Soft tissues: Unremarkable. Lymph nodes: Unremarkable. No enlarged lymph nodes. Liver: Morphologic changes of cirrhosis within the liver with prominent gastric varices. Gallbladder and bile ducts: Stent within the common bile duct. IMPRESSION: 1. No pulmonary embolism. 2. No acute process in the lungs. 3. Morphologic changes of cirrhosis within the liver with prominent gastric varices.
--- NOTE | 2019-05-17 22:30 | NUR ---
ED Nurse Note: Report given to DAISY Long.
[2019-05-17] MEDS ORDERED: AMLODIPINE BESYL5 MG ORAL (23:00)
[2019-05-17] MEDS ORDERED: ASPIR 8181 MG ORAL (23:00)
[2019-05-17] MEDS ORDERED: ATORVASTATIN CA40 MG ORAL (23:00)
[2019-05-17] MEDS ORDERED: LOSARTAN POTASS50 MG ORAL (23:00)
[2019-05-17] MEDS ORDERED: Acetaminophen 650 MG SUPP RECTAL PRN (23:00)
[2019-05-17] MEDS ORDERED: LACTULOSE20 GM/301 ORAL (23:00)
[2019-05-17] MEDS ORDERED: OMEPRAZOLE40 M1 ORAL (23:00)
--- NOTE | 2019-05-17 23:00 | NUR ---
ED Nurse Note: Pt taken to tele floor via gurney with RN and tech. Pt is stable for transport, vss as charted. Pt understands reason for admission. Pt is aaox4, breathing is normal and unlabored. No acute distress noted. IV is patent and intact.
[2019-05-17] MEDS ORDERED: HydrALAZINE 25mg tab ORAL PRN (23:15)
[2019-05-17 23:30] VITALS: BP 137/72
--- NOTE | 2019-05-17 23:30 | NUR ---
NURSE NOTE: RECEIVED PATIENT FROM ER. BELONGINGS CHECKED WITH ER NURSE.PATIENT DENIES CHEST PAIN AT THIS TIME. PLACED PATIENT ON TELE, SR ON A MONITOR. FALL PRECAUTIONS IN PLACE: CALL LIGHT, BEDSIDE TABLE AND URINAL WITHIN REACH, BED IN LOW POSITION AND BED ALARM ON ADMISSION ORDERS PLACED BY MD. WILL CONTINUE WITH PLAN OF CARE.
[2019-05-18] VITALS: BP 116/65
[2019-05-18] MEDS ORDERED: ACETAMINOPHEN325 M1 ORAL (00:17)
[2019-05-18] MEDS ORDERED: COLACE100 MG ORAL (00:20)
[2019-05-18 04:00] VITALS: BP 151/57
--- NOTE | 2019-05-18 07:26 | NUR ---
HAND-OFF: Report given to DAISY TARIQ. PATIENT ASLEEP, NO SIGNS OF DISTRESS NOTED.
[2019-05-18 08:00] VITALS: BP 143/79
--- NOTE | 2019-05-18 09:04 | General Progress Note ---
Assessment/Plan Assessment/Plan: Assessment - Hepatitis C - per chart records - Cirrhosis - Biliary stent noted - placed 2 weeks ago at [facility] per brother, indications unknown - anemia - portal HTN - GERD - spinal stenosis - hepatic encephalopathy - BPH - CP Recommendations - patient poor historian and unable to get much info from brother - check hepatitis serologies - check tumor markers - get outside records - po as tolerated - check NH3 - lactulose - check INR - MRCP in am Subjective Allergies: Coded Allergies: No Known Allergies (Unverified , 01/10/18) Objective Last 24 Hour Vital Signs Date Time Temp Pulse Resp B/P (MAP) Pulse Ox O2 Delivery O2 Flow Rate FiO2 05/18/19 08:00 96.6 80 16 143/79 (100) 97 05/18/19 04:00 56 05/18/19 04:00 96.6 65 16 151/57 (88) 97 05/18/19 00:00 97.9 68 16 116/65 (82) 98 05/18/19 00:00 70 05/17/19 23:56 Room Air 05/17/19 23:30 97.5 67 18 137/72 (93) 100 05/17/19 23:00 99.0 72 12 118/60 100 Room Air 05/17/19 19:10 64 18 Room Air 05/17/19 19:10 99.0 64 18 136/86 100 Room Air 05/17/19 18:36 99.0 77 18 136/86 (103) 100 Room Air Intake and Output 05/17/19 05/18/19 19:00 07:00 Intake Total 120 ml Output Total 200 ml Balance -80 ml Intake Oral 120 ml Output Urine Total 200 ml # Voids 4 Laboratory Tests 05/17/19 19:10: White Blood Count 8.7, Red Blood Count 3.18L, Hemoglobin 11.4L, Hematocrit 31.7L , Mean Corpuscular Volume 100H, Mean Corpuscular Hemoglobin 35.9H, Mean Corpuscular Hemoglobin Concent 36.0, Red Cell Distribution Width 13.4, Platelet Count 146L, Mean Platelet Volume 5.4L, Neutrophils (%) (Auto) 51.4, Lymphocytes (%) (Auto) 25.9, Monocytes (%) (Auto) 14.7H, Eosinophils (%) (Auto) 7.0H, Basophils (%) (Auto) 0.9, D-Dimer 1.26H, Sodium Level 143, Potassium Level 3.6, Chloride Level 109H, Carbon Dioxide Level 25, Anion Gap 9, Blood Urea Nitrogen 32H, Creatinine 1.2, Estimat Glomerular Filtration Rate , Glucose Level 95, Calcium Level 8.8, Total Bilirubin 0.8, Aspartate Amino Transf (AST/SGOT) 73H, Alanine Aminotransferase (ALT/SGPT) 84H, Alkaline Phosphatase 98, Creatine Kinase MB 5.1H, Troponin I 0.000, Pro-B-Type Natriuretic Peptide 80, Total Protein 7.4, Albumin 3.1L, Globulin 4.3, Albumin/Globulin Ratio 0.7L 05/18/19 05:50: Troponin I 0.000 Height (Feet): 5 Height (Inches): 7.00 Weight (Pounds): 126 Shobha Pantoja MD May 18, 2019 09:04
--- NOTE | 2019-05-18 09:09 | NUR ---
NURSE NOTES: patient awake alert, no distress. no c/o pain. call light within reach. will monitor.
[2019-05-18] MEDS: Lactulose 20gm/30ml UDC ORAL SCH ×3 (09:30→17:03)
[2019-05-18 09:56] LABS: AMMONIA 93 umol/L (11-32)
[2019-05-18 09:57] LABS: % IRON SATURATION 76 % (15-50); IRON 178 ug/dL (50-175); TOTAL IRON BINDING CAPACITY 233 ug/dL (250-450)
[2019-05-18 10:12] LABS: FERRITIN 325 NG/ML (8-388)
[2019-05-18 12:00] VITALS: BP 140/80
[2019-05-18] MEDS ORDERED: Nitroglycerin Subl 0.4mg tab SL PRN (14:15)
--- NOTE | 2019-05-18 15:30 | History and Physical Report ---
DATE OF ADMISSION: 05/17/2019 DATE AND TIME SEEN: 05/18/2019 at 11 a.m. ATTENDING PHYSICIAN: Dr. Bourgeois for Dr. He. CHIEF COMPLAINT: Chest pain, T-wave inversion, left fascicular block. BRIEF HISTORY: This 73-year-old male, who lives in [facility] under care of Dr. He presents to [facility] with the above-mentioned diagnoses. Currently, calm, sleeping in bed, refusing to answer questions. REVIEW OF SYSTEMS: Unavailable. PAST MEDICAL HISTORY: Hypertension. PAST SURGICAL HISTORY: Unknown. ALLERGIES: Denies. SOCIAL HISTORY: Unable to obtain secondary to the patient's condition. PHYSICAL EXAMINATION: GENERAL: Sleeping in bed, not responding to questions. VITAL SIGNS: Temperature 97, pulse 80, respirations 16, blood pressure 143/79. CARDIOVASCULAR: No murmurs. LUNGS: Poor exchange. ABDOMEN: Bowel sounds distant. EXTREMITIES: Show no cyanosis or edema. NEUROLOGIC: The patient is flaccid in bed now, does not follow directions. LABORATORY DATA: Hemoglobin and hematocrit 11/31, platelets 146. BMP shows chloride 109, BUN 32. Troponin 0.00. Albumin 3.1. INR is 1.0. D-dimer 1.36. MEDICATIONS: Include lactulose, hydralazine, and Tylenol. ASSESSMENT: 1. Chest pain. 2. Left fascicular block. 3. T-wave inversion. 4. Hypertension. 5. Malnutrition. 6. Anemia. PLAN: 1. O2/pulmonary treatment as needed. 2. Blood pressure, pain control. 3. Dietary followup. 4. Resume home medications. 5. Cardiology followup. 6. PT, dietary evaluation. Yovanny Bourgeois D.O. DR: ANG JOB#: [id number] CC:
[2019-05-18 16:00] VITALS: BP 138/81
--- NOTE | 2019-05-18 17:26 | NUR ---
NURSE NOTES: dr Bucio aware of cardio consult. per md, he will relay to dr Gomez
--- NOTE | 2019-05-18 19:25 | NUR ---
NURSE NOTES: Received pt and report from DAISY Jansen. Observed pt ambulating around room. hall monitor is in placed, IV site intact, asymptomatic, and patent. Bed is in the lowest position and locked. Call light and bedside table is within reach. No signs/symptoms of acute distress noted at this time. Will continue plan of care.
[2019-05-18 20:00] VITALS: BP 144/98
[2019-05-19] VITALS: BP 153/90
--- NOTE | 2019-05-19 00:45 | Consultation ---
DATE OF CONSULTATION: 05/18/2019 CONSULTING PHYSICIAN: Shobha Pantoja M.D. REFERRING PHYSICIAN: Deysi He M.D. CHIEF COMPLAINT: I was asked to see the patient by Dr. Deysi He for evaluation of liver problems. HISTORY OF PRESENT ILLNESS: The patient is a 73-year-old man who is a poor historian, who was brought into the hospital due to chest pain. The patient does not give much details about his health, but a CT scan of the chest shows cirrhotic changes of the liver, portal hypertension as well as biliary stent. The patient cannot give much information as to why the biliary stent was placed. Discussion was held with the patient's brother by the name Cheo Jack, who could only state that the patient was recently at [facility] about two weeks ago and he believes that is where the stent was placed; however, he did not have much more information of the patient's overall health. There is a chart notation of hepatitis C and cirrhosis, but the bases of these diagnostic impressions are not clear. The patient's medication list also includes lactulose for presumed hepatic encephalopathy. It is unclear if the patient ever had endoscopy or colonoscopy, but biliary stent would certainly indicate he had an ERCP examination. PAST MEDICAL HISTORY: History of hypertension, cirrhosis, portal hypertension, hepatitis C, spinal stenosis, prostatic hypertrophy, hepatic encephalopathy, rotator cuff tear arthropathy, and gastroesophageal reflux disease. FAMILY HISTORY: Unavailable. SOCIAL HISTORY: The patient does not drink alcohol per brother's history. REVIEW OF SYSTEMS: Otherwise not obtainable. PHYSICAL EXAMINATION: GENERAL: Debilitated, somewhat confused man, seen in his room. HEENT: Normocephalic and atraumatic. Sclerae anicteric. NECK: Supple. CHEST: Clear to auscultation. CARDIOVASCULAR: Revealed regular rate. ABDOMEN: Soft, nontender. EXTREMITIES: No edema. LABORATORY AND DIAGNOSTIC DATA: Laboratory data noted. CT scan was reviewed. ASSESSMENT: This patient presents with abnormality in his liver tests as well as CT imaging, which is suggestive of cirrhosis. He has a biliary stent, which was typically placed for obstructive process, but the details are not clear. I will ask the nursing staff to obtain old records from the outside hospital. In the meantime, I will check hepatitis serologies as well as tumor markers. He should be placed on lactulose and I will follow his ammonia level. Diagnostic impression will evolve as more information is available or from various recommendations. Thank you for asking me to participate in the care this patient care of this patient. Shobha Pantoja M.D. DR: Madai JOB#: [id number] CC: ARTUR
[2019-05-19 04:00] VITALS: BP 144/69
--- NOTE | 2019-05-19 07:10 | NUR ---
NURSE NOTES: Received report from DAISY Oneill. The patient is resting on the bed without acute distress or shortness of breath. The patient's bed in the lowest position, call light in reach, and strict fall and aspiration precaution reinforced. IV site intact and patent. Will continue plan of care.
[2019-05-19 07:23] LABS: ANION GAP 7 mmol/L (5-15); BLOOD UREA NITROGEN 25 mg/dL (7-18); CALCIUM 8.5 MG/DL (8.5-10.1); CARBON DIOXIDE 23 MMOL/L (21-32); CHLORIDE 113 MMOL/L (98-107); CREATININE 0.9 MG/DL (0.55-1.30); POTASSIUM 3.9 MMOL/L (3.5-5.1); SODIUM 143 MMOL/L (136-145)
--- NOTE | 2019-05-19 07:32 | NUR ---
HAND-OFF: Report given to DAISY Jorge. Plan of care endorsed.
[2019-05-19 07:49] LABS: BASOPHILS % (AUTO) 0.7 % (0.0-2.0); EOSINOPHILS % (AUTO) 6.4 % (0.0-3.0); HEMATOCRIT 31.8 % (42.0-52.0); HEMOGLOBIN 11.2 G/DL (14.2-18.0); LYMPHOCYTES % (AUTO) 14.9 % (20.0-45.0); MEAN CORPUSCULAR VOLUME 102 FL (80-99); MONOCYTES % (AUTO) 11.8 % (1.0-10.0); NEUTROPHILS % (AUTO) 66.3 % (45.0-75.0); PLATELET COUNT 134 K/UL (150-450); RED BLOOD COUNT 3.11 M/UL (4.70-6.10); RED CELL DISTRIBUTION WIDTH 14.3 % (11.6-14.8); WHITE BLOOD COUNT 10.4 K/UL (4.8-10.8)
[2019-05-19 08:00] VITALS: BP 138/73
[2019-05-19] MEDS: Lactulose 20gm/30ml UDC ORAL SCH ×3 (08:50→17:20)
--- NOTE | 2019-05-19 09:42 | Cardiac Electrophysiology PN ---
Subjective Subjective Ruled out for CT. CTA no PE.RBBB, LPFB Schedule Echo and stress test [id number] Objective Last 24 Hour Vital Signs Date Time Temp Pulse Resp B/P (MAP) Pulse Ox O2 Delivery O2 Flow Rate FiO2 05/19/19 08:00 97.2 91 18 138/73 (94) 99 05/19/19 04:00 98.1 71 17 144/69 (94) 94 05/19/19 04:00 66 05/19/19 00:00 84 05/19/19 00:00 97.7 79 16 153/90 (111) 98 05/18/19 21:00 Room Air 05/18/19 20:00 93 05/18/19 20:00 97.7 68 17 144/98 (113) 96 05/18/19 16:00 96.5 63 16 138/81 (100) 97 05/18/19 15:53 83 05/18/19 14:29 96.6 05/18/19 12:00 96.6 63 16 140/80 (100) 97 05/18/19 11:06 68 Intake and Output 05/18/19 05/19/19 18:59 06:59 Intake Total 900 ml 460 ml Balance 900 ml 460 ml Intake Oral 900 ml 460 ml # Voids 3 2 Laboratory Tests Test 05/19/19 06:02 White Blood Count 10.4 K/UL (4.8-10.8) Red Blood Count 3.11 M/UL (4.70-6.10) L Hemoglobin 11.2 G/DL (14.2-18.0) L Hematocrit 31.8 % (42.0-52.0) L Mean Corpuscular Volume 102 FL (80-99) H Mean Corpuscular Hemoglobin 36.0 PG (27.0-31.0) H Mean Corpuscular Hemoglobin Concent 35.2 G/DL (32.0-36.0) Red Cell Distribution Width 14.3 % (11.6-14.8) Platelet Count 134 K/UL (150-450) L Mean Platelet Volume 5.5 FL (6.5-10.1) L Neutrophils (%) (Auto) 66.3 % (45.0-75.0) Lymphocytes (%) (Auto) 14.9 % (20.0-45.0) L Monocytes (%) (Auto) 11.8 % (1.0-10.0) H Eosinophils (%) (Auto) 6.4 % (0.0-3.0) H Basophils (%) (Auto) 0.7 % (0.0-2.0) Sodium Level 143 MMOL/L (136-145) Potassium Level 3.9 MMOL/L (3.5-5.1) Chloride Level 113 MMOL/L (98-107) H Carbon Dioxide Level 23 MMOL/L (21-32) Anion Gap 7 mmol/L (5-15) Blood Urea Nitrogen 25 mg/dL (7-18) H Creatinine 0.9 MG/DL (0.55-1.30) Estimat Glomerular Filtration Rate mL/min (>60) Glucose Level 110 MG/DL (74-106) H Calcium Level 8.5 MG/DL (8.5-10.1) John Gomez MD May 19, 2019 09:42
--- NOTE | 2019-05-19 09:50 | NUR ---
NURSE NOTES: Notified Dr. Gomze regarding the patient's condition. The patient is free from chest pain. Dr. Gomez ordered 2D ECHO, stress test, and medication for hypertension and hypercholesterolemia. Will carry out the order as soon as possible. Will continue plan of care.
[2019-05-19] MEDS ORDERED: Lexiscan 0.4mg/5ml syringe IV PRN (10:00)
--- NOTE | 2019-05-19 10:00 | NUR ---
PT EVALUATION NOTE Patient seen for initial evaluation. Patient presents with generalized weakness and impaired balance which affects patient's ability to perform mobility tasks safely. Patient requires SBA for bed mobility, transfers and ambulation. Patient able to ambulate 150 ft with FWW and SBA. Patient slightly unsteady during ambulation however no loss of balance. Patient ambulates with decreased bilateral step length and decreased bilateral foot clearance, tends to be slightly impulsive at times. Patient will benefit from skilled inpatient PT intervention to address strength, balance and safety for improved level of functional mobility. Recommend discharge to SNF once medically cleared by MD. Addendum: 05/19/19 at 1143 by ARI DAMIAN PT Amended: Links added.
--- NOTE | 2019-05-19 10:10 | NUR ---
NURSE NOTES: Per rubber cutter and shape carver department, stress test will be done on 05/20/2019. Notified to Dr. Gomez. The patient is resting on the bed without acute distress or shortness of breath. Will continue plan of care.
[2019-05-19 12:00] VITALS: BP 143/93
--- NOTE | 2019-05-19 12:00 | NUR ---
NURSE NOTES: The patient is stable without acute distress or shortness of breath. Will continue plan of care.
--- NOTE | 2019-05-19 12:06 | NUR ---
CARDIOLOGY Dr. Butler plans to come for Lexiscan stress test tomorrow (May 20) at 9am. Need NPO starting midnight and No Caffeine.
--- NOTE | 2019-05-19 12:20 | NUR ---
NURSE NOTES: Dr. Ramirez at the bedside assessed the patient. Dr. Ramirez ordered medication and lab for 05/20 AM. The patient is stable without acute distress or shortness of breath. Will continue plan of care.
--- NOTE | 2019-05-19 12:21 | General Progress Note ---
Assessment/Plan Assessment/Plan: cirrhosis biliary stent thrombocytopenia gastric varices fu hepatitis panel add xifaxan dc norvasc add propanolol repeat labs Subjective ROS Limited/Unobtainable: Yes Allergies: Coded Allergies: No Known Allergies (Unverified , 01/10/18) Objective Last 24 Hour Vital Signs Date Time Temp Pulse Resp B/P (MAP) Pulse Ox O2 Delivery O2 Flow Rate FiO2 05/19/19 08:00 87 05/19/19 08:00 97.2 91 18 138/73 (94) 99 05/19/19 04:00 98.1 71 17 144/69 (94) 94 05/19/19 04:00 66 05/19/19 00:00 84 05/19/19 00:00 97.7 79 16 153/90 (111) 98 05/18/19 21:00 Room Air 05/18/19 20:00 93 05/18/19 20:00 97.7 68 17 144/98 (113) 96 05/18/19 16:00 96.5 63 16 138/81 (100) 97 05/18/19 15:53 83 05/18/19 14:29 96.6 Intake and Output 05/18/19 05/19/19 19:00 07:00 Intake Total 900 ml 460 ml Balance 900 ml 460 ml Intake Oral 900 ml 460 ml # Voids 3 2 Laboratory Tests 05/19/19 06:02: White Blood Count 10.4, Red Blood Count 3.11L, Hemoglobin 11.2L, Hematocrit 31.8L, Mean Corpuscular Volume 102H, Mean Corpuscular Hemoglobin 36.0H, Mean Corpuscular Hemoglobin Concent 35.2, Red Cell Distribution Width 14.3, Platelet Count 134L, Mean Platelet Volume 5.5L, Neutrophils (%) (Auto) 66.3, Lymphocytes (%) (Auto) 14.9L, Monocytes (%) (Auto) 11.8H, Eosinophils (%) (Auto) 6.4H, Basophils (%) (Auto) 0.7, Sodium Level 143, Potassium Level 3.9, Chloride Level 113H, Carbon Dioxide Level 23, Anion Gap 7, Blood Urea Nitrogen 25H, Creatinine 0.9, Estimat Glomerular Filtration Rate , Glucose Level 110H, Calcium Level 8.5 Height (Feet): 5 Height (Inches): 7.00 Weight (Pounds): 126 General Appearance: alert EENT: normal ENT inspection Neck: supple Cardiovascular: normal rate Respiratory/Chest: decreased breath sounds Abdomen: normal bowel sounds, non tender, soft Extremities: non-tender Gideon Ramirez MD May 19, 2019 12:21
--- NOTE | 2019-05-19 13:10 | General Progress Note ---
Assessment/Plan Problem List: (1) HTN (hypertension) ICD Codes: I10 - Essential (primary) hypertension SNOMED: 28772754 (2) Chest pain ICD Codes: R07.9 - Chest pain, unspecified SNOMED: 32004110 Status: progressing Assessment/Plan: no cp r/o acs per cardiology abnormal lab check trop weak Subjective ROS Limited/Unobtainable: Yes Allergies: Coded Allergies: No Known Allergies (Unverified , 01/10/18) Objective Last 24 Hour Vital Signs Date Time Temp Pulse Resp B/P (MAP) Pulse Ox O2 Delivery O2 Flow Rate FiO2 05/19/19 08:00 87 05/19/19 08:00 97.2 91 18 138/73 (94) 99 05/19/19 04:00 98.1 71 17 144/69 (94) 94 05/19/19 04:00 66 05/19/19 00:00 84 05/19/19 00:00 97.7 79 16 153/90 (111) 98 05/18/19 21:00 Room Air 05/18/19 20:00 93 05/18/19 20:00 97.7 68 17 144/98 (113) 96 05/18/19 16:00 96.5 63 16 138/81 (100) 97 05/18/19 15:53 83 05/18/19 14:29 96.6 Intake and Output 05/18/19 05/19/19 19:00 07:00 Intake Total 900 ml 460 ml Balance 900 ml 460 ml Intake Oral 900 ml 460 ml # Voids 3 2 Laboratory Tests 05/19/19 06:02: White Blood Count 10.4, Red Blood Count 3.11L, Hemoglobin 11.2L, Hematocrit 31.8L, Mean Corpuscular Volume 102H, Mean Corpuscular Hemoglobin 36.0H, Mean Corpuscular Hemoglobin Concent 35.2, Red Cell Distribution Width 14.3, Platelet Count 134L, Mean Platelet Volume 5.5L, Neutrophils (%) (Auto) 66.3, Lymphocytes (%) (Auto) 14.9L, Monocytes (%) (Auto) 11.8H, Eosinophils (%) (Auto) 6.4H, Basophils (%) (Auto) 0.7, Sodium Level 143, Potassium Level 3.9, Chloride Level 113H, Carbon Dioxide Level 23, Anion Gap 7, Blood Urea Nitrogen 25H, Creatinine 0.9, Estimat Glomerular Filtration Rate , Glucose Level 110H, Calcium Level 8.5 Height (Feet): 5 Height (Inches): 7.00 Weight (Pounds): 126 General Appearance: confused Cardiovascular: normal rate Respiratory/Chest: lungs clear Abdomen: soft Deysi He MD May 19, 2019 13:10
[2019-05-19] MEDS: Propranolol 10mg tab ORAL SCH ×2 (13:17→21:01)
--- NOTE | 2019-05-19 13:45 | Consultation ---
DATE OF CONSULTATION: 05/19/2019 CARDIOLOGY CONSULTATION CONSULTING PHYSICIAN: John Gomez M.D. REFERRING PHYSICIAN: Deysi He M.D. REASON FOR CONSULTATION: Right bundle-branch block and left posterior fascicular block and chest pain. HISTORY OF PRESENT ILLNESS: The patient is a 73-year-old gentleman, was a very poor historian with history of hypertension, cirrhosis, hepatitis C, portal hypertension, spinal stenosis, benign prostatic hypertrophy, history of hepatic encephalopathy, gastroesophageal reflux disease, was admitted to the hospital for chest pain. The patient had CT of the chest showed cirrhotic changes of the liver and portal hypertension as well as biliary stent. At the time of my evaluation, the patient denies any chest pain or palpitation or shortness of breath and wants to go home. The patient was recently at [facility] two weeks ago then apparently a stent was placed, but does not have much more information. His 12-lead EKG showed right bundle-branch block and sinus bradycardia as well as history of fascicular block. REVIEW OF SYSTEMS: Review of systems was negative other than what was mentioned in the history of present illness. PAST MEDICAL HISTORY: As mentioned above. FAMILY HISTORY: Noncontributory. SOCIAL HISTORY: Does not smoke or drink and has history of drinking in the past, but does not drink alcohol per brother. PHYSICAL EXAMINATION: VITAL SIGNS: Show blood pressure of 138/73, pulse is 91, respirations 18, and temperature 97.2. HEAD AND NECK: Showed no JVD. LUNGS: Clear. CARDIOVASCULAR: Shows regular S1 and S2 with no gallop or murmur. ABDOMEN: Soft and nontender. EXTREMITIES: No pitting edema. LABORATORY AND DIAGNOSTIC DATA: His EKG shows sinus bradycardia, rate of 59, right bundle-branch block and left posterior fascicular block. His labs show white count of 10.5, hematocrit 11.2, hematocrit of 31.8, and platelet count 134. Sodium 142, potassium 3.9, BUN of 25, creatinine 0.9. Troponin negative x2. ASSESSMENT AND PLAN: 1. Atypical chest pain. The patient does not currently have chest pain. He has already ruled out for myocardial infarction. His EKG shows right bundle-branch block and left posterior fascicular block. We will schedule the patient for echocardiogram and nuclear stress test for further evaluation. 2. Bifascicular block with right bundle-branch block and left posterior fascicular block. Again, a stress test will be ordered as well as echocardiogram for further evaluation. The patient denies any history of syncope. 3. Hypertension on p.r.n. hydralazine. 4. Hepatitis C, cirrhosis, and history of encephalopathy and history of biliary stent. Currently on lactulose. Further evaluation by Dr. Pantoja. Thank you very much for allowing me to participate in the care of this patient. Please do not hesitate to contact me for any questions regarding my evaluation. John Gomez M.D. DR: BRIANA JOB#: [id number] CC:
[2019-05-19] MEDS ORDERED: FLEET ENEMA133 M1 RC (14:22)
[2019-05-19] MEDS ORDERED: MILK OF MA400 MG/51 ORAL (14:22)
[2019-05-19] MEDS ORDERED: DULCOLAX10 MG RC (14:22)
[2019-05-19] MEDS ORDERED: MAALOX MAXIMUM355 M1 PO (14:22)
[2019-05-19] MEDS ORDERED: ACETAMINOPHEN500 MG ORAL (14:28)
[2019-05-19] MEDS ORDERED: DOCUSATE SODIU250 MG ORAL (14:28)
[2019-05-19] MEDS ORDERED: ATORVASTATIN CA80 MG ORAL (14:33)
[2019-05-19] MEDS ORDERED: LORazepam 1mg tab ORAL PRN (15:26)
[2019-05-19 16:00] VITALS: BP 146/82
--- NOTE | 2019-05-19 16:00 | NUR ---
NURSE NOTES: The patient is stable without acute distress or shortness of breath. Will continue plan of care.
--- NOTE | 2019-05-19 19:30 | NUR ---
HAND-OFF: Report given to DAISY Aly. The patient is resting on the bed without acute distress or shortness of breath. The patient's bed in the lowest position, call light in reach, and fall and aspiration precaution reinforced. IV site intact and patent. Patient education given regarding Danielle scan on 05/20 and asked the patient to be NPO without chocolate and caffeine. Endorsed plan of care.
[2019-05-19 20:00] VITALS: BP 126/82
--- NOTE | 2019-05-19 20:07 | NUR ---
NURSE NOTES: Received report from DAISY Jorge. Patient is in bed, awake and responsive. Breathing regular and unlabored with no s/s of SOB noted at this time. Patient is able to make needs known. No C/O pain or discomfort noted at this time. Bed is in lowest position, breaks engaged, and call light is within reach at all times. Will continue to monitor.
[2019-05-19] MEDS ORDERED: Depakote ER 500mg tab ORAL SCH (21:00)
[2019-05-19] MEDS: Atorvastatin 20mg tab ORAL SCH (21:01)
--- NOTE | 2019-05-19 23:30 | Progress Note ---
DATE: 05/19/2019 SUBJECTIVE: The patient was in bed, asleep, arousable. Able to answer questions. He complained weakness, depressed mood, anhedonia, worthlessness, hopelessness. MENTAL STATUS EXAMINATION: Alert, oriented times self, place, situation, did not know the date. Mood is depressed. Affect is constricted, congruent with mood. Thought process, linear and goal oriented. Thought content, no suicidal or homicidal ideation. ASSESSMENT: Major depressive disorder. PLAN: 1. The patient received Depakote 1000, which will be discontinued. Start the patient on Lexapro 10 mg in the morning. 2. Provide the patient with reality orientation and supportive therapy. Charo Luz M.D. DR: YAN JOB#: [id number] CC:
[2019-05-20] VITALS: BP 124/95
--- NOTE | 2019-05-20 | NUR ---
NURSE NOTES: Patient is aware of the scheduled cardiac stress test for 05/20/19. Placed sign by patient's bed for NPO with no caffeine, or tea status after midnight. Patient is aware and agrees with the plan of care. Patient remains stable, will continue to monitor.
[2019-05-20 04:00] VITALS: BP 126/93
[2019-05-20] MEDS: Propranolol 10mg tab ORAL SCH ×3 (05:52→21:06)
--- NOTE | 2019-05-20 07:09 | NUR ---
HAND-OFF: Report given to DAISY Jorge. Patient in stable condition, plan of care endorsed. NPO status re-enforced.
--- NOTE | 2019-05-20 07:10 | NUR ---
NURSE NOTES: Received report from DAISY Aly. The patient is resting on the bed without acute distress or shortness of breath. The patient's bed in the lowest position, call light in reach, and fall and aspiration precaution reinforced. IV site intact and patent. The patient is scheduled for Danielle scan today, and the patient education given regarding NPO since midnight and no caffeine and no chocolate. Will continue plan of care.
--- NOTE | 2019-05-20 07:30 | NUR ---
NURSE NOTES: TRUCK ASSEMBLER passed the tray accidently and noticed that the patient ate breakfast with coffee even with the patient education and sign saying that NPO since midnight no caffeine and no chocolate. Notified to cardiology department. Notified to Dr. Gomez and Dr. He. Per Dr. He, discharge the patient and follow up the stress test as outpatient if cleared by procurement agent. Dr. Gomez will come and assess the patient prior to discharge. Will continue plan of care until clarification made.
[2019-05-20 08:00] VITALS: BP 127/65
--- NOTE | 2019-05-20 08:05 | General Progress Note ---
Assessment/Plan Problem List: (1) HTN (hypertension) ICD Codes: I10 - Essential (primary) hypertension SNOMED: 48801169 (2) Chest pain ICD Codes: R07.9 - Chest pain, unspecified SNOMED: 11126095 Status: progressing Assessment/Plan: no cp r/o acs per cardiology stress test was cancelled dc and f/u as outpatient dr ferrell made aware of the cancellation of stress test Subjective ROS Limited/Unobtainable: Yes HEENT: Reports: no symptoms Allergies: Coded Allergies: No Known Allergies (Unverified , 01/10/18) Objective Last 24 Hour Vital Signs Date Time Temp Pulse Resp B/P (MAP) Pulse Ox O2 Delivery O2 Flow Rate FiO2 05/20/19 04:00 98.0 69 19 126/93 (104) 97 05/20/19 04:00 59 05/20/19 00:00 98.1 67 19 124/95 (105) 98 05/20/19 00:00 65 05/19/19 21:01 65 126/97 05/19/19 21:00 Room Air 05/19/19 20:00 99.1 65 20 126/82 (97) 98 05/19/19 20:00 64 05/19/19 17:21 146/82 05/19/19 16:00 88 05/19/19 16:00 97.5 80 18 146/82 (103) 99 05/19/19 13:17 84 143/93 05/19/19 12:00 97.9 84 18 143/93 (110) 99 05/19/19 12:00 79 05/19/19 09:00 Room Air Intake and Output 05/19/19 05/20/19 18:59 06:59 Intake Total 720 ml Balance 720 ml Intake Oral 720 ml # Voids 3 2 # Bowel Movements 1 Height (Feet): 5 Height (Inches): 7.00 Weight (Pounds): 126 Cardiovascular: normal rate Respiratory/Chest: lungs clear Deysi He MD May 20, 2019 08:05
[2019-05-20] MEDS: Lactulose 20gm/30ml UDC ORAL SCH ×3 (08:53→17:42)
[2019-05-20] MEDS: Losartan 50mg tab ORAL SCH (08:54)
[2019-05-20 08:55] LABS: BASOPHILS % (AUTO) 0.6 % (0.0-2.0); EOSINOPHILS % (AUTO) 5.5 % (0.0-3.0); HEMATOCRIT 34.7 % (42.0-52.0); HEMOGLOBIN 12.2 G/DL (14.2-18.0); LYMPHOCYTES % (AUTO) 9.9 % (20.0-45.0); MEAN CORPUSCULAR VOLUME 102 FL (80-99); MONOCYTES % (AUTO) 5.5 % (1.0-10.0); NEUTROPHILS % (AUTO) 78.6 % (45.0-75.0); PLATELET COUNT 123 K/UL (150-450); RED CELL DISTRIBUTION WIDTH 13.8 % (11.6-14.8); WHITE BLOOD COUNT 14.4 K/UL (4.8-10.8)
--- NOTE | 2019-05-20 09:00 | NUR ---
NURSE NOTES: Notified Dr. He and Dr. Parra regarding abnormal lab including elevated WBC and low potassium. Notified Dr. Ramirez regarding abnormal lab, including elevated ammonia, CEA, and CA 19-9. No new order yet. Will continue plan of care.
--- NOTE | 2019-05-20 09:37 | General Progress Note ---
Assessment/Plan Status: progressing Assessment/Plan: cirrhosis biliary stent thrombocytopenia gastric varices fu hepatitis panel>>> hepatitis C positive xifaxan off norvasc on propanolol repeat labs Subjective ROS Limited/Unobtainable: No Allergies: Coded Allergies: No Known Allergies (Unverified , 01/10/18) Objective Last 24 Hour Vital Signs Date Time Temp Pulse Resp B/P (MAP) Pulse Ox O2 Delivery O2 Flow Rate FiO2 05/20/19 08:54 127/65 05/20/19 04:00 98.0 69 19 126/93 (104) 97 05/20/19 04:00 59 05/20/19 00:00 98.1 67 19 124/95 (105) 98 05/20/19 00:00 65 05/19/19 21:01 65 126/97 05/19/19 21:00 Room Air 05/19/19 20:00 99.1 65 20 126/82 (97) 98 05/19/19 20:00 64 05/19/19 17:21 146/82 05/19/19 16:00 88 05/19/19 16:00 97.5 80 18 146/82 (103) 99 05/19/19 13:17 84 143/93 05/19/19 12:00 97.9 84 18 143/93 (110) 99 05/19/19 12:00 79 Intake and Output 05/19/19 05/20/19 18:59 06:59 Intake Total 720 ml Balance 720 ml Intake Oral 720 ml # Voids 3 2 # Bowel Movements 1 Laboratory Tests 05/20/19 08:05: White Blood Count 14.4H, Red Blood Count 3.40L, Hemoglobin 12.2L, Hematocrit 34.7L, Mean Corpuscular Volume 102H, Mean Corpuscular Hemoglobin 35.7H, Mean Corpuscular Hemoglobin Concent 35.0, Red Cell Distribution Width 13.8, Platelet Count 123L, Mean Platelet Volume 5.4L, Neutrophils (%) (Auto) 78.6H, Lymphocytes (%) (Auto) 9.9L, Monocytes (%) (Auto) 5.5, Eosinophils (%) (Auto) 5.5H, Basophils (%) (Auto) 0.6, Sodium Level [Pending], Potassium Level [Pending ], Chloride Level [Pending], Carbon Dioxide Level [Pending], Blood Urea Nitrogen [Pending], Creatinine [Pending], Estimat Glomerular Filtration Rate [ Pending], Glucose Level [Pending], Calcium Level [Pending], Total Bilirubin [ Pending], Aspartate Amino Transf (AST/SGOT) [Pending], Alanine Aminotransferase (ALT/SGPT) [Pending], Alkaline Phosphatase [Pending], Ammonia [Pending], Total Protein [Pending], Albumin [Pending], Globulin [Pending] Height (Feet): 5 Height (Inches): 7.00 Weight (Pounds): 126 General Appearance: alert EENT: normal ENT inspection Neck: supple Cardiovascular: normal rate Respiratory/Chest: decreased breath sounds Abdomen: normal bowel sounds, non tender, soft Extremities: non-tender Gideon Ramirez MD May 20, 2019 09:37
[2019-05-20 09:41] LABS: AMMONIA 66 umol/L (11-32)
[2019-05-20 09:42] LABS: ALANINE AMINOTRANSFERASE 75 U/L (12-78); ALBUMIN 2.7 G/DL (3.4-5.0); ALBUMIN/GLOBULIN RATIO 0.6 (1.0-2.7); ALKALINE PHOSPHATASE 90 U/L (46-116); ANION GAP 11 mmol/L (5-15); ASPARTATE AMINO TRANSFERASE 65 U/L (15-37); BILIRUBIN,TOTAL 1.3 MG/DL (0.2-1.0); BLOOD UREA NITROGEN 19 mg/dL (7-18); CALCIUM 8.2 MG/DL (8.5-10.1); CARBON DIOXIDE 21 MMOL/L (21-32); CHLORIDE 107 MMOL/L (98-107); CREATININE 0.9 MG/DL (0.55-1.30); POTASSIUM 3.1 MMOL/L (3.5-5.1); SODIUM 139 MMOL/L (136-145)
[2019-05-20 09:55] LABS: BILIRUBIN,DIRECT 0.3 MG/DL (0.0-0.3)
--- NOTE | 2019-05-20 10:00 | NUR ---
NURSE NOTES: The patient is stable without acute distress or shortness of breath. Will continue plan of care.
--- NOTE | 2019-05-20 10:37 | NUR ---
DISCHARGE PLANNED: PATIENT IS RETURNING TO [facility] T: [id number] FOR NURSE TO NURSE REPORT ROOM# 12B [facility] PICKUP TIME 1230 SPOKE WITH BROTHER (LESVIA) MADE HIM AWARE OF DISCHARGE
--- NOTE | 2019-05-20 10:51 | NUR ---
CASE MANAGEMENT: INITIAL REVIEW 73 YR OLD FEMALE BIBA FROM [facility] CC: CHEST PAIN SI: CHEST PAIN 98.9 77 18 136/86 100% ON RA H/H 11.4/31.7 BUN 32 AST/ALT 73/84 CK 5.1 DDIMER 1. IS: TYLENOL AR X1 \: 2E TELE UNIT DCP: RETURN PLAN: LEXISCAN
--- NOTE | 2019-05-20 11:00 | NUR ---
NURSE NOTES: Dr. Gomez at the bedside assessed the patient. Dr. Gomez ordered the patient to have Dobutamine stress test and approved by supervising physician (Dr. Zamarripa), Dr. Gomez, and r&d lab technician. Informed the patient. The patient denies of chest pain or shortness of breath. Will continue plan of care.
--- NOTE | 2019-05-20 11:00 | NUR ---
NURSE NOTES: Dr. Gomez ordered potassium supplement for hypokalemia. Will carry out the order. Will continue plan of care.
--- NOTE | 2019-05-20 11:10 | NUR ---
NURSE NOTES: Notified Dr. He regarding the patient's mild degree of fever (100.4F) with elevated WBC. No new order yet. Will continue plan of care and carry out the order as soon as possible.
--- NOTE | 2019-05-20 11:23 | Cardiac Electrophysiology PN ---
Assessment/Plan Assessment/Plan 1. Atypical chest pain. The patient does not currently have chest pain. He has already ruled out for myocardial infarction. His EKG shows right bundle-branch block and left posterior fascicular block. Awaiting Dobutamine cardiolite stress test today pending discharge ECho EF 65% 2. Bifascicular block with right bundle-branch block and left posterior fascicular block. The patient denies any history of syncope. 3. Hypertension on p.r.n. hydralazine. 4. Hepatitis C, cirrhosis, and history of encephalopathy and history of biliary stent. Currently on lactulose. Further evaluation by Dr. Pantoja. DW RN, Dr Mcdonald and Cardiology Anshu Subjective Subjective Ruled out for [place]. No PE.RBBB, LPFB Schedule Dobutamine stress test today Echo EF 65% Objective Last 24 Hour Vital Signs Date Time Temp Pulse Resp B/P (MAP) Pulse Ox O2 Delivery O2 Flow Rate FiO2 05/20/19 08:54 127/65 05/20/19 08:00 99.1 72 18 127/65 (85) 98 05/20/19 08:00 77 05/20/19 04:00 98.0 69 19 126/93 (104) 97 05/20/19 04:00 59 05/20/19 00:00 98.1 67 19 124/95 (105) 98 05/20/19 00:00 65 05/19/19 21:01 65 126/97 05/19/19 21:00 Room Air 05/19/19 20:00 99.1 65 20 126/82 (97) 98 05/19/19 20:00 64 05/19/19 17:21 146/82 05/19/19 16:00 88 05/19/19 16:00 97.5 80 18 146/82 (103) 99 05/19/19 13:17 84 143/93 05/19/19 12:00 97.9 84 18 143/93 (110) 99 05/19/19 12:00 79 Intake and Output 05/19/19 05/20/19 19:00 07:00 Intake Total 720 ml Balance 720 ml Intake Oral 720 ml # Voids 3 2 # Bowel Movements 1 Laboratory Tests Test 05/20/19 08:05 White Blood Count 14.4 K/UL (4.8-10.8) H Red Blood Count 3.40 M/UL (4.70-6.10) L Hemoglobin 12.2 G/DL (14.2-18.0) L Hematocrit 34.7 % (42.0-52.0) L Mean Corpuscular Volume 102 FL (80-99) H Mean Corpuscular Hemoglobin 35.7 PG (27.0-31.0) H Mean Corpuscular Hemoglobin Concent 35.0 G/DL (32.0-36.0) Red Cell Distribution Width 13.8 % (11.6-14.8) Platelet Count 123 K/UL (150-450) L Mean Platelet Volume 5.4 FL (6.5-10.1) L Neutrophils (%) (Auto) 78.6 % (45.0-75.0) H Lymphocytes (%) (Auto) 9.9 % (20.0-45.0) L Monocytes (%) (Auto) 5.5 % (1.0-10.0) Eosinophils (%) (Auto) 5.5 % (0.0-3.0) H Basophils (%) (Auto) 0.6 % (0.0-2.0) Sodium Level 139 MMOL/L (136-145) Potassium Level 3.1 MMOL/L (3.5-5.1) L Chloride Level 107 MMOL/L (98-107) Carbon Dioxide Level 21 MMOL/L (21-32) Anion Gap 11 mmol/L (5-15) Blood Urea Nitrogen 19 mg/dL (7-18) H Creatinine 0.9 MG/DL (0.55-1.30) Estimat Glomerular Filtration Rate mL/min (>60) Glucose Level 179 MG/DL (74-106) H Calcium Level 8.2 MG/DL (8.5-10.1) L Total Bilirubin 1.3 MG/DL (0.2-1.0) H Direct Bilirubin 0.3 MG/DL (0.0-0.3) Aspartate Amino Transf (AST/SGOT) 65 U/L (15-37) H Alanine Aminotransferase (ALT/SGPT) 75 U/L (12-78) Alkaline Phosphatase 90 U/L (46-116) Ammonia 66 umol/L (11-32) H Total Protein 7.0 G/DL (6.4-8.2) Albumin 2.7 G/DL (3.4-5.0) L Globulin 4.3 g/dL Albumin/Globulin Ratio 0.6 (1.0-2.7) L Microbiology Date/Time Source Procedure Growth Status 05/17/19 21:30 Nasal Nares MRSA Culture - Final NO METHICILLIN RESISTANT STAPH AUREUS... Complete 05/17/19 21:30 Rectum VRE Culture - Final NO VANCOMYCIN RESISTANT ENTEROCOCCUS ... Complete 05/17/19 21:30 Rectum - Final NO CARBAPENEM-RESISTANT ENTEROBACTERI... Complete Objective HEAD AND NECK: No JVD. LUNGS: Clear. CARDIOVASCULAR: Regular S1 and S2 with no gallop or murmur. ABDOMEN: Soft and nontender. EXTREMITIES: No pitting edema. John Gomez MD May 20, 2019 11:23
--- NOTE | 2019-05-20 11:24 | Cardiac Electrophysiology PN ---
Assessment/Plan Assessment/Plan 1. Atypical chest pain. The patient does not currently have chest pain. He has already ruled out for myocardial infarction. His EKG shows right bundle-branch block and left posterior fascicular block. Awaiting Dobutamine cardiolite stress test today pending discharge ECho EF 65%. On Inderal 2. Bifascicular block with right bundle-branch block and left posterior fascicular block. The patient denies any history of syncope. 3. Hypertension on Inderal 10 q 8 qnd p.r.n. hydralazine. 4. Hepatitis C, cirrhosis, and history of encephalopathy and history of biliary stent. Currently on lactulose and Inderal. Further evaluation by Dr. Pantoja. MICHELLE RN, Dr Mcdonald and Cardiology Anshu Subjective Subjective Ruled out for [place]. No PE.RBBB, LPFB. Awaiting Dobutamine stress test today Echo EF 65% Objective Last 24 Hour Vital Signs Date Time Temp Pulse Resp B/P (MAP) Pulse Ox O2 Delivery O2 Flow Rate FiO2 05/20/19 08:54 127/65 05/20/19 08:00 99.1 72 18 127/65 (85) 98 05/20/19 08:00 77 05/20/19 04:00 98.0 69 19 126/93 (104) 97 05/20/19 04:00 59 05/20/19 00:00 98.1 67 19 124/95 (105) 98 05/20/19 00:00 65 05/19/19 21:01 65 126/97 05/19/19 21:00 Room Air 05/19/19 20:00 99.1 65 20 126/82 (97) 98 05/19/19 20:00 64 05/19/19 17:21 146/82 05/19/19 16:00 88 05/19/19 16:00 97.5 80 18 146/82 (103) 99 05/19/19 13:17 84 143/93 05/19/19 12:00 97.9 84 18 143/93 (110) 99 05/19/19 12:00 79 Intake and Output 05/19/19 05/20/19 19:00 07:00 Intake Total 720 ml Balance 720 ml Intake Oral 720 ml # Voids 3 2 # Bowel Movements 1 Laboratory Tests Test 05/20/19 08:05 White Blood Count 14.4 K/UL (4.8-10.8) H Red Blood Count 3.40 M/UL (4.70-6.10) L Hemoglobin 12.2 G/DL (14.2-18.0) L Hematocrit 34.7 % (42.0-52.0) L Mean Corpuscular Volume 102 FL (80-99) H Mean Corpuscular Hemoglobin 35.7 PG (27.0-31.0) H Mean Corpuscular Hemoglobin Concent 35.0 G/DL (32.0-36.0) Red Cell Distribution Width 13.8 % (11.6-14.8) Platelet Count 123 K/UL (150-450) L Mean Platelet Volume 5.4 FL (6.5-10.1) L Neutrophils (%) (Auto) 78.6 % (45.0-75.0) H Lymphocytes (%) (Auto) 9.9 % (20.0-45.0) L Monocytes (%) (Auto) 5.5 % (1.0-10.0) Eosinophils (%) (Auto) 5.5 % (0.0-3.0) H Basophils (%) (Auto) 0.6 % (0.0-2.0) Sodium Level 139 MMOL/L (136-145) Potassium Level 3.1 MMOL/L (3.5-5.1) L Chloride Level 107 MMOL/L (98-107) Carbon Dioxide Level 21 MMOL/L (21-32) Anion Gap 11 mmol/L (5-15) Blood Urea Nitrogen 19 mg/dL (7-18) H Creatinine 0.9 MG/DL (0.55-1.30) Estimat Glomerular Filtration Rate mL/min (>60) Glucose Level 179 MG/DL (74-106) H Calcium Level 8.2 MG/DL (8.5-10.1) L Total Bilirubin 1.3 MG/DL (0.2-1.0) H Direct Bilirubin 0.3 MG/DL (0.0-0.3) Aspartate Amino Transf (AST/SGOT) 65 U/L (15-37) H Alanine Aminotransferase (ALT/SGPT) 75 U/L (12-78) Alkaline Phosphatase 90 U/L (46-116) Ammonia 66 umol/L (11-32) H Total Protein 7.0 G/DL (6.4-8.2) Albumin 2.7 G/DL (3.4-5.0) L Globulin 4.3 g/dL Albumin/Globulin Ratio 0.6 (1.0-2.7) L Microbiology Date/Time Source Procedure Growth Status 05/17/19 21:30 Nasal Nares MRSA Culture - Final NO METHICILLIN RESISTANT STAPH AUREUS... Complete 05/17/19 21:30 Rectum VRE Culture - Final NO VANCOMYCIN RESISTANT ENTEROCOCCUS ... Complete 05/17/19 21:30 Rectum - Final NO CARBAPENEM-RESISTANT ENTEROBACTERI... Complete Objective HEAD AND NECK: No JVD. LUNGS: Clear. CARDIOVASCULAR: Regular S1 and S2 with no gallop or murmur. ABDOMEN: Soft and nontender. EXTREMITIES: No pitting edema. John Gomez MD May 20, 2019 11:24
--- NOTE | 2019-05-20 11:41 | Consultation ---
History of Present Illness General Chief Complaint: Chest Pain Present Illness Allergies: Coded Allergies: No Known Allergies (Unverified , 01/10/18) Medication History Scheduled Acetaminophen* (Tylenol Extra Strength*), 1,000 MG ORAL Q4H, (Reported) Amlodipine Besylate* (Amlodipine Besylate*), 5 MG ORAL DAILY, (Reported) Aspirin* (Aspir 81*), 81 MG ORAL DAILY, (Reported) Atorvastatin Calcium* (Lipitor*), 80 MG ORAL BEDTIME, (Reported) Losartan Potassium* (Losartan Potassium*), 50 MG ORAL DAILY, (Reported) Omeprazole (Omeprazole), 40 MG ORAL DAILY, (Reported) Scheduled PRN Acetaminophen* (Acetaminophen 325MG Tablet*), 650 MG ORAL Q4H PRN for Mild Pain/ Temp > 100.5, (Reported) Bisacodyl (Dulcolax), 10 MG RC for Constipation, (Reported) Clonidine Hcl* (Catapres*), 0.1 MG ORAL EVERY 4 HOURS PRN for BP > 160, ( Reported) Docusate Sodium* (Docusate Sodium*), 250 MG ORAL DAILY PRN for Constipation, ( Reported) Lactulose (Lactulose*), 30 ML ORAL BID PRN for Constipation, (Reported) Mag Hydrox/Al Hydrox/Simeth (Maalox Maximum Strength Susp), 15 ML PO EVERY 8 HOURS PRN for GI UPSET, (Reported) Magnesium Hydroxide* (Milk Of Magnesia*), 30 ML ORAL DAILY PRN for Constipation, (Reported) Na Phos,M-B/Na Phos,Di-Ba (Fleet Enema), 133 ML RC Q2D PRN for Constipation, ( Reported) Nitroglycerin 0.4MG table* (Nitroglycerin*), 0.4 MG SL .Q5MIN X 3 DOSES PRN for CHEST PAIN, (Reported) Discontinued Medications Albuterol Sulfate* (Albuterol Sulfate Hhn*), 3 ML INH Q4H PRN for Shortness of Breath, (Reported) Discontinued Reason: Pt stopped taking med Atorvastatin Calcium* (Atorvastatin Calcium*), 80 MG ORAL BEDTIME, (Reported) Discontinued Reason: Prescription changed Baclofen* (Baclofen*), 10 MG ORAL THREE TIMES A DAY, (Reported) Discontinued Reason: Pt stopped taking med Diphenhydramine Hcl* (Benadryl*), 25 MG ORAL Q6H PRN for Itching, (Reported) Discontinued Reason: Pt stopped taking med Docusate Sodium* (Colace*), 250 MG ORAL DAILY, (Reported) Discontinued Reason: Pt stopped taking med Hydralazine Hcl* (Hydralazine Hcl*), 50 MG ORAL EVERY 8 HOURS, (Reported) Discontinued Reason: Pt stopped taking med Hydrocodone Bit/Acetaminophen 5-325* ([place] 5-325*), 1 TAB ORAL Q6H PRN for For Pain, (Reported) Discontinued Reason: Pt stopped taking med Melatonin (Melatonin), 3 MG ORAL BEDTIME PRN for Insomnia, (Reported) Discontinued Reason: Pt stopped taking med Omeprazole (Omeprazole), 20 MG ORAL DAILY, (Reported) Discontinued Reason: Pt stopped taking med Patient History Healthcare decision maker Resuscitation status Full Code Advanced Directive on File Physical Exam Last 24 Hour Vital Signs Date Time Temp Pulse Resp B/P (MAP) Pulse Ox O2 Delivery O2 Flow Rate FiO2 05/20/19 08:54 127/65 05/20/19 08:00 99.1 72 18 127/65 (85) 98 05/20/19 08:00 77 05/20/19 04:00 98.0 69 19 126/93 (104) 97 05/20/19 04:00 59 05/20/19 00:00 98.1 67 19 124/95 (105) 98 05/20/19 00:00 65 05/19/19 21:01 65 126/97 05/19/19 21:00 Room Air 05/19/19 20:00 99.1 65 20 126/82 (97) 98 05/19/19 20:00 64 05/19/19 17:21 146/82 05/19/19 16:00 88 05/19/19 16:00 97.5 80 18 146/82 (103) 99 05/19/19 13:17 84 143/93 05/19/19 12:00 97.9 84 18 143/93 (110) 99 05/19/19 12:00 79 Intake and Output 05/19/19 05/20/19 19:00 07:00 Intake Total 720 ml Balance 720 ml Intake Oral 720 ml # Voids 3 2 # Bowel Movements 1 Laboratory Tests Test 05/20/19 08:05 White Blood Count 14.4 K/UL (4.8-10.8) H Red Blood Count 3.40 M/UL (4.70-6.10) L Hemoglobin 12.2 G/DL (14.2-18.0) L Hematocrit 34.7 % (42.0-52.0) L Mean Corpuscular Volume 102 FL (80-99) H Mean Corpuscular Hemoglobin 35.7 PG (27.0-31.0) H Mean Corpuscular Hemoglobin Concent 35.0 G/DL (32.0-36.0) Red Cell Distribution Width 13.8 % (11.6-14.8) Platelet Count 123 K/UL (150-450) L Mean Platelet Volume 5.4 FL (6.5-10.1) L Neutrophils (%) (Auto) 78.6 % (45.0-75.0) H Lymphocytes (%) (Auto) 9.9 % (20.0-45.0) L Monocytes (%) (Auto) 5.5 % (1.0-10.0) Eosinophils (%) (Auto) 5.5 % (0.0-3.0) H Basophils (%) (Auto) 0.6 % (0.0-2.0) Sodium Level 139 MMOL/L (136-145) Potassium Level 3.1 MMOL/L (3.5-5.1) L Chloride Level 107 MMOL/L (98-107) Carbon Dioxide Level 21 MMOL/L (21-32) Anion Gap 11 mmol/L (5-15) Blood Urea Nitrogen 19 mg/dL (7-18) H Creatinine 0.9 MG/DL (0.55-1.30) Estimat Glomerular Filtration Rate mL/min (>60) Glucose Level 179 MG/DL (74-106) H Calcium Level 8.2 MG/DL (8.5-10.1) L Total Bilirubin 1.3 MG/DL (0.2-1.0) H Direct Bilirubin 0.3 MG/DL (0.0-0.3) Aspartate Amino Transf (AST/SGOT) 65 U/L (15-37) H Alanine Aminotransferase (ALT/SGPT) 75 U/L (12-78) Alkaline Phosphatase 90 U/L (46-116) Ammonia 66 umol/L (11-32) H Total Protein 7.0 G/DL (6.4-8.2) Albumin 2.7 G/DL (3.4-5.0) L Globulin 4.3 g/dL Albumin/Globulin Ratio 0.6 (1.0-2.7) L Height (Feet): 5 Height (Inches): 7.00 Weight (Pounds): 126 Medications Current Medications Medications (Trade) Dose Ordered Sig/[place] Route PRN Reason Start Time Stop Time Status Last Admin Dose Admin Acetaminophen (Tylenol) 650 mg Q6H PRN ORAL Mild Pain/Temp > 100.5 05/18/19 14:00 06/17/19 13:59 05/18/19 13:59 Atorvastatin Calcium (Lipitor) 40 mg BEDTIME ORAL 05/19/19 21:00 06/18/19 20:59 05/19/19 21:01 Escitalopram Oxalate (Lexapro) 10 mg DAILY ORAL 05/20/19 09:00 06/19/19 08:59 05/20/19 08:54 Hydralazine HCl (Apresoline) 25 mg Q6HR PRN ORAL For High Blood Pressure 05/17/19 23:15 06/16/19 23:14 05/19/19 17:21 Lactulose (Cephulac) 30 gm THREE TIMES A DAY ORAL 05/18/19 09:30 06/17/19 09:29 05/20/19 08:53 Lorazepam (Ativan) 2 mg Q6H PRN ORAL For Seizures 05/19/19 15:26 05/26/19 15:25 Losartan Potassium (Cozaar) 50 mg DAILY ORAL 05/20/19 09:00 06/19/19 08:59 05/20/19 08:54 Nitroglycerin (Ntg) 0.4 mg Q5M PRN SL Prn Chest Pain 05/18/19 14:15 06/17/19 14:14 Propranolol HCl (Inderal) 10 mg Q8HR ORAL 05/19/19 14:00 06/18/19 13:59 05/19/19 13:17 Regadenoson (Lexiscan) 0.4 mg ONCE PRN IV prn stress test 05/19/19 10:00 05/21/19 09:59 Rifaximin (Xifaxan) 550 mg EVERY 12 HOURS ORAL 05/19/19 21:00 05/26/19 20:59 05/20/19 08:54 Assessment/Plan Assessment/Plan: Hematology Consultation REQ MD: Deysi Pavon RFC: Ongoing thrombocytopenia DOS: 05/20/19 HPI 73-year-old male with history of hypertension, liver cirrhosis, hep C, spinal stenosis, BPH, hepatic encephalopathy, chest pain, shortness of breath, left rotator cuff tear, arthropathy, GERD who presents with left-sided sharp chest pain 15 minutes prior to arrival. Patient took 1 sublingual nitroglycerin at home, which did not help symptoms. EMS gave 325 aspirin and 3 sprays of nitroglycerin with no improvement. Patient notes associated shortness of breath. He reports pain as 7 out of 10 at this time. Has since been seen by cards and stress test cancelled, heme consulted for low plts, also noted to have cirrhosis as mentioned above. Allergies: No Known Allergies (Unverified , 01/10/18) Nursing Documentation-PMH Hx Cardiac Problems: Yes Hx Hypertension: Yes Hx Cancer: No Hx Gastrointestinal Problems: No Hx Neurological Problems: No Review of Systems Constitutional: Denies: chills, fever Respiratory: Reports: shortness of breath, cough Cardiovascular: Reports: chest pain; Denies: palpitations Gastrointestinal: Denies: diarrhea, vomiting Genitourinary: Denies: hematuria, pain Musculoskeletal: Denies: joint swelling Skin: Denies: rash, lesions Neurological: Denies: headache, dizziness Gen: well appearing, nad Head: normocephalic, at HEENT: hearing grossly normal, eom grossly intact Respiratory: lungs clear, normal breath sounds CV: regular rate, rhythm, no edema GI: soft, nd MSK: moves extremity spontaneously Neurologic: grossly normal Psychiatric: mood/affect normal Labs: noted Imaging: noted Assessment and Recs: # Thrombocytopenia with liver cirrhosis - with hepatitis C++, with gastric varcies and hepatic encephalopathy --> hepatitis C is positive and platelets are low remain decreased --> liver c/w cirrhosis, gastric varices --> cea 11, ca 19.9 43 # Elevated tumor markers with cea and ca19.9 elevated --> needs further eval as outpatient in re to cancer screening --> ct a/p reviewed and shows no mass or malginancy # Chest pain r/o acs --> as per Dr. Gomez # Biliary stent # Hypertension # Liver cirrhosis # Hep C # Spinal stenosis # Left rotator cuff tear # Arthropathy # CLEAR FOR DC The timing of this note does not necessarily reflect the time of the patient was seen. Greatly appreciate consultation. Faheem Parra MD May 20, 2019 11:41
[2019-05-20 12:00] VITALS: BP 135/76
--- NOTE | 2019-05-20 13:15 | NUR ---
NURSE NOTES: Notified Dr. He regarding the patient's mild grade fever with elevated WBC. Dr. He consulted with ID doctor but not clear about the name. Will closely monitor the patient. Will continue plan of care. Addendum: 05/20/19 at 1412 by Randell Jack RN Dr. He also cancelled discharge order due to conditions above. Will continue plan of care.
--- NOTE | 2019-05-20 13:30 | NUR ---
NURSE NOTES: The patient safely completed Dobutamine stress test with supervising physician, cardiology department, charge nurse, and primary nurse. Will closely monitor the patient.
--- NOTE | 2019-05-20 14:10 | NUR ---
PT NOTE Attempted to see patient for PT treatment. Patient declining to participate stating "I'm tired". Will follow up tomorrow.
--- NOTE | 2019-05-20 14:12 | NUR ---
NURSE NOTES: The patient's heart rate was fluctuating from 50s to 60s with episode of vomiting, propranolol was hold. Will continue to monitor the patient closely.
--- NOTE | 2019-05-20 14:43 | NUR ---
NURSE NOTES: Paged Dr. Eid regarding new condition of elevated WBC and mild fever. No new order yet. Will continue plan of care. Will carry out the order as soon as possible.
[2019-05-20] MEDS: Cefepime HCl 2 GM in D5W 55 ML IVPB SCH ×2 (15:41→21:10)
[2019-05-20 16:00] VITALS: BP 139/75
--- NOTE | 2019-05-20 16:00 | NUR ---
NURSE NOTES: The patient is stable without acute distress or shortness of breath. Will continue plan of care.
--- NOTE | 2019-05-20 16:03 | Diagnostic Imaging Report ---
Indication: chest pain Technique: The study was conducted under the supervision of a competitive athlete. Dolbutamine administration followed by intravenous administration of 21.4 mCi of technetium 99m Myoview was performed. Three plane SPECT imaging of the heart was then performed. A resting study was performed as part of the one-day protocol with 11.2 mCi of technetium 99m myoview injected intravenously at that time. Three plane SPECT imaging of the heart was obtained. Comparison: None Clinical data: Resting heart rate: 64. Peak heart rate: 113. (85% maximum heart rate: 127) Resting BP: 142/76. Peak BP: 148/89 Patient experienced vague chest pain at rest. 1. Clinical response: Non ischemic 2. Electrocardiographic response: Nondiagnostic. Right bundle branch block Findings: The myocardial perfusion scan demonstrates no definite fixed or reversible perfusion defects. However the study is suboptimal with regard to level of stress obtained. LVEF estimated at 77% IMPRESSION: Negative myocardial perfusion scan. Note: Suboptimal stress with the peak heart rate short of the 85% maximum predicted heart rate.
--- NOTE | 2019-05-20 16:56 | NUR ---
DISCHARGE PLANNED: PATIENT IS RETURNING TO [facility] T: [phone] FOR NURSE TO NURSE REPORT ROOM# 12B [facility] PICKUP TIME WILL CALL SPOKE WITH BROTHER (LESVIA) MADE HIM AWARE OF DISCHARGE WAITING FOR DISCHARGE ORDER
--- NOTE | 2019-05-20 19:30 | NUR ---
NURSE NOTES: Received patient from Ania VILLA. Patient in bed, on room air, no signs of respiratory distress. Patient is alert and oriented x3. Bed in low position, locked, bed alarm on, call light within reach.
--- NOTE | 2019-05-20 19:30 | NUR ---
HAND-OFF: Report given to DAISY Galindo. The patient is resting on the bed without acute distress or shortness of breath. The patient's bed in the lowest position, call light in reach, and fall and aspiration precaution reinforced. IV site intact and patent. Endorsed plan of care.
[2019-05-20 20:00] VITALS: BP 121/60
[2019-05-20] MEDS: Atorvastatin 20mg tab ORAL SCH (21:06)
[2019-05-21] VITALS: BP 108/89
--- NOTE | 2019-05-21 00:45 | Progress Note ---
DATE: 05/20/2019 SUBJECTIVE: The patient is in bed , withdrawn, depressed, hopelessness. MENTAL STATUS EXAMINATION: Alert, oriented times self, place, and situation. Mood is depressed. Affect is blunted, congruent with mood, appropriate. Thought process is linear and goal oriented. Thought content, no suicidal or homicidal ideation. Cognition is intact. Insight and judgment are fair. ASSESSMENT: Major depressive disorder. PLAN: 1. Continue Lexapro 10 mg in the morning. 2. Provide the patient with reality orientation and supportive therapy. Charo Luz M.D. DR: YAN JOB#: [id number] CC:
[2019-05-21 04:00] VITALS: BP 119/55
[2019-05-21] MEDS: Propranolol 10mg tab ORAL SCH ×3 (06:00→21:04)
--- NOTE | 2019-05-21 07:10 | NUR ---
NURSE NOTES: Received report from DAISY Galindo. The patient is resting on the bed without acute distress or shortness of breath. The patient's bed in the lowest position, call light in reach, and fall and aspiration precaution reinforced. IV site intact and patent. Will continue plan of care.
--- NOTE | 2019-05-21 07:10 | NUR ---
HAND-OFF: Report given to Ania VILLA.
[2019-05-21 08:00] VITALS: BP 112/66
--- NOTE | 2019-05-21 08:14 | General Progress Note ---
Assessment/Plan Problem List: (1) HTN (hypertension) ICD Codes: I10 - Essential (primary) hypertension SNOMED: 12798488 (2) Chest pain ICD Codes: R07.9 - Chest pain, unspecified SNOMED: 85640720 Status: progressing Assessment/Plan: no cp r/o acs per cardiology stress test was done cancelled dc due to increase in wbc and low grade fever yesterday also k dropped(is replaced) Subjective ROS Limited/Unobtainable: Yes Allergies: Coded Allergies: No Known Allergies (Unverified , 01/10/18) Objective Last 24 Hour Vital Signs Date Time Temp Pulse Resp B/P (MAP) Pulse Ox O2 Delivery O2 Flow Rate FiO2 05/21/19 06:02 55 05/21/19 06:00 55 119/55 05/21/19 04:00 98.4 59 20 119/55 (76) 97 05/21/19 04:00 58 05/21/19 00:00 99.1 65 20 108/89 (95) 99 05/21/19 00:00 59 05/20/19 21:06 64 121/60 05/20/19 21:00 Room Air 05/20/19 20:00 99.0 64 20 121/60 (80) 98 05/20/19 20:00 65 05/20/19 16:00 70 05/20/19 16:00 98.8 68 18 139/75 (96) 99 05/20/19 14:00 68 135/76 05/20/19 12:00 74 05/20/19 12:00 100.4 68 18 135/76 (95) 98 05/20/19 09:30 Room Air 05/20/19 08:54 127/65 Intake and Output 05/20/19 05/21/19 19:00 07:00 Intake Total 480 ml Balance 480 ml Intake Oral 480 ml # Voids 2 5 # Bowel Movements 2 Height (Feet): 5 Height (Inches): 7.00 Weight (Pounds): 126 Cardiovascular: normal rate Respiratory/Chest: lungs clear Deysi He MD May 21, 2019 08:14
[2019-05-21] MEDS ORDERED: Omnipaque-300 100ml vial INJ PRN (08:15)
--- NOTE | 2019-05-21 08:16 | General Progress Note ---
Assessment/Plan Status: progressing Assessment/Plan: cirrhosis biliary stent thrombocytopenia gastric varices hep C elevated CEA and CA 19-9 fu hepatitis panel>>> hepatitis C positive xifaxan off norvasc on propanolol repeat labs needs out patient fu for hep c treatment plan CT of abd and pelvic decrease lactulose add xifaxan Subjective ROS Limited/Unobtainable: Yes Allergies: Coded Allergies: No Known Allergies (Unverified , 01/10/18) Objective Last 24 Hour Vital Signs Date Time Temp Pulse Resp B/P (MAP) Pulse Ox O2 Delivery O2 Flow Rate FiO2 05/21/19 06:02 55 05/21/19 06:00 55 119/55 05/21/19 04:00 98.4 59 20 119/55 (76) 97 05/21/19 04:00 58 05/21/19 00:00 99.1 65 20 108/89 (95) 99 05/21/19 00:00 59 05/20/19 21:06 64 121/60 05/20/19 21:00 Room Air 05/20/19 20:00 99.0 64 20 121/60 (80) 98 05/20/19 20:00 65 05/20/19 16:00 70 05/20/19 16:00 98.8 68 18 139/75 (96) 99 05/20/19 14:00 68 135/76 05/20/19 12:00 74 05/20/19 12:00 100.4 68 18 135/76 (95) 98 05/20/19 09:30 Room Air 05/20/19 08:54 127/65 Intake and Output 05/20/19 05/21/19 19:00 07:00 Intake Total 480 ml Balance 480 ml Intake Oral 480 ml # Voids 2 5 # Bowel Movements 2 Height (Feet): 5 Height (Inches): 7.00 Weight (Pounds): 126 General Appearance: alert EENT: normal ENT inspection Neck: supple Cardiovascular: normal rate Respiratory/Chest: chest wall non-tender Abdomen: normal bowel sounds, non tender, soft Extremities: non-tender Gideon Ramirez MD May 21, 2019 08:16
[2019-05-21] MEDS: Cefepime HCl 2 GM in D5W 55 ML IVPB SCH ×2 (08:57→21:02)
[2019-05-21] MEDS: Lactulose 20gm/30ml UDC ORAL SCH ×3 (08:57→17:45)
[2019-05-21] MEDS: Losartan 50mg tab ORAL SCH (08:58)
--- NOTE | 2019-05-21 09:30 | NUR ---
NURSE NOTES: The patient is stable without acute distress or shortness of breath. Will continue plan of care.
--- NOTE | 2019-05-21 11:00 | NUR ---
NURSE NOTES: Dr. He and Dr. Ramirez at the bedside assessed the patient. Dr. Ramirez ordered CT of abdomen and pelvis with and without contrast and adjusted medication. The patient is stable without acute distress or shortness of breath. Will continue plan of care.
[2019-05-21 12:00] VITALS: BP 119/73
--- NOTE | 2019-05-21 13:30 | Consultation ---
DATE OF CONSULTATION: 05/21/2019 INFECTIOUS DISEASES CONSULTATION CONSULTING PHYSICIAN: Anna Eid M.D. REFERRING PHYSICIAN: Yovanny Bourgeois D.O. REASON FOR CONSULTATION: Fever. HISTORY OF PRESENTING ILLNESS: This is a 73-year-old gentleman with history of hypertension, who came in and was found to have fevers. An Infectious Diseases consultation has been obtained for antibiotics. PAST MEDICAL HISTORY: 1. History of hypertension. 2. History of hepatitis C. 3. Cirrhosis. 4. Spinal stenosis. 5. Benign prostatic hypertrophy. 6. Hepatic encephalopathy. 7. Left-sided shoulder rotator cuff tear. 8. GERD. SOCIAL HISTORY: Unknown. FAMILY HISTORY: Unknown. REVIEW OF SYSTEMS: Unable to obtain currently. MEDICATIONS: As an inpatient, he is on lactulose, barium sulfate, cefepime, losartan, Lexapro, atorvastatin, rifaximin, Ativan, Inderal, nitroglycerin, Tylenol, hydralazine. ALLERGIES: No known drug allergies. PHYSICAL EXAMINATION: VITAL SIGNS: Temperature of 98.1, T-max of 100.4, pulse of 55, respiratory rate of 18, blood pressure 112/66, O2 saturation of 97%. HEENT: Pupils equally reactive to light and accommodation. Mouth appears clean without thrush. NECK: Supple. No adenopathy. No JVD. CARDIOVASCULAR: Regular rate and rhythm. No murmurs. LUNGS: Clear to auscultation bilaterally. No crackles. No wheezes. ABDOMEN: Soft and nontender. No organomegaly. EXTREMITIES: No cyanosis, no clubbing, no edema. LABORATORY AND DIAGNOSTIC DATA: White count 15.4, hemoglobin 12.2, hematocrit 34.7, MCV 102, platelet count of 123. Sodium 139, potassium 3.1, chloride 107, bicarb 21, BUN 19, creatinine 0.9, glucose 179, calcium 8.2. Total bilirubin 1.3, direct bilirubin 0.3. AST 65, ALT 75, alkaline phosphatase 90. Ammonia level of 66. Total protein 7. Albumin 2.7. Hepatitis A IgM antibody is negative. Hepatitis B surface antigen is negative. Hepatitis B core IgM is negative. Hepatitis C antibody is more than 11. Nasal swab was negative for MRSA. Rectal swab was negative for VRE. Chest x-ray was unremarkable. CT chest angiogram showed no pulmonary embolism. No acute process in the lung, cirrhotic changes of the liver noted. ASSESSMENT: This is a 73-year-old gentleman with history of hypertension, hepatitis C, liver cirrhosis, who comes in with fevers, would like to rule out. 1. Urinary tract infection as a possibility. 2. Would also like to rule out SBP as a possibility. PLAN: 1. We will follow up on blood cultures and urine cultures already ordered. 2. We will continue cefepime. 3. We will follow up cultures and adjust antibiotics accordingly. I would like to thank, Dr. Yovanny Bourgeois, for this consultation. Anna Eid M.D. DR: IRINA JOB#: [id number] CC: Yovanny Bourgeois D.O.
--- NOTE | 2019-05-21 14:00 | NUR ---
NURSE NOTES: The patient completed CT of abdomen and pelvis with and without contrast in a safe manner with off tele order. Will follow up the result.
--- NOTE | 2019-05-21 15:25 | Hematology/Onc Progress Note ---
Assessment/Plan Assessment/Plan Assessment and Recs: # Thrombocytopenia with liver cirrhosis - with hepatitis C++, with gastric varcies and hepatic encephalopathy --> hepatitis C is positive and platelets are low remain decreased --> liver c/w cirrhosis, gastric varices --> cea 11, ca 19.9 43 # Elevated tumor markers with cea and ca19.9 elevated --> needs further eval as outpatient in re to cancer screening --> ct a/p reviewed and shows no mass or malginancy # Chest pain r/o acs --> as per Dr. Gomez # Biliary stent # Hypertension # Liver cirrhosis # Hep C # Spinal stenosis # Left rotator cuff tear # Arthropathy # CLEAR FOR DC The timing of this note does not necessarily reflect the time of the patient was seen. Greatly appreciate consultation. Subjective Allergies: Coded Allergies: No Known Allergies (Unverified , 01/10/18) Subjective 05/21: no overnight events, on cefepime, repeat cbc tomorrow am Objective Objective Current Medications Medications (Trade) Dose Ordered Sig/Juwan Route PRN Reason Start Time Stop Time Status Last Admin Dose Admin Acetaminophen (Tylenol) 650 mg Q6H PRN ORAL Mild Pain/Temp > 100.5 05/18/19 14:00 06/17/19 13:59 05/18/19 13:59 Atorvastatin Calcium (Lipitor) 40 mg BEDTIME ORAL 05/19/19 21:00 06/18/19 20:59 05/20/19 21:06 Barium Sulfate (Readi-Cat 2) 450 ml NOW PRN ORAL Radiology Procedure 05/21/19 08:15 05/23/19 08:14 Cefepime HCl 2 gm/ Dextrose 55 ml @ 110 mls/hr EVERY 12 HOURS IVPB 05/20/19 15:30 05/27/19 15:29 05/21/19 08:57 Escitalopram Oxalate (Lexapro) 10 mg DAILY ORAL 05/20/19 09:00 06/19/19 08:59 05/21/19 08:58 Hydralazine HCl (Apresoline) 25 mg Q6HR PRN ORAL For High Blood Pressure 05/17/19 23:15 06/16/19 23:14 05/19/19 17:21 Iohexol (OMNIPAQUE-300 100ml) 100 ml NOW PRN INJ Radiology Procedure 05/21/19 08:15 05/23/19 08:14 Lactulose (Cephulac) 15 gm THREE TIMES A DAY ORAL 05/21/19 09:00 06/17/19 09:29 05/21/19 13:13 Lorazepam (Ativan) 2 mg Q6H PRN ORAL For Seizures 05/19/19 15:26 05/26/19 15:25 Losartan Potassium (Cozaar) 50 mg DAILY ORAL 05/20/19 09:00 06/19/19 08:59 05/21/19 08:58 Nitroglycerin (Ntg) 0.4 mg Q5M PRN SL Prn Chest Pain 05/18/19 14:15 06/17/19 14:14 Propranolol HCl (Inderal) 10 mg Q8HR ORAL 05/19/19 14:00 06/18/19 13:59 05/20/19 21:06 Rifaximin (Xifaxan) 550 mg EVERY 12 HOURS ORAL 05/19/19 21:00 05/26/19 20:59 05/21/19 08:58 Last 24 Hour Vital Signs Date Time Temp Pulse Resp B/P (MAP) Pulse Ox O2 Delivery O2 Flow Rate FiO2 05/21/19 14:00 56 119/73 05/21/19 12:00 98.8 58 18 119/73 (88) 97 05/21/19 12:00 56 05/21/19 09:00 Room Air 05/21/19 08:58 112/66 05/21/19 08:00 55 05/21/19 08:00 98.1 55 18 112/66 (81) 97 05/21/19 06:02 55 05/21/19 06:00 55 119/55 05/21/19 04:00 98.4 59 20 119/55 (76) 97 05/21/19 04:00 58 05/21/19 00:00 99.1 65 20 108/89 (95) 99 05/21/19 00:00 59 05/20/19 21:06 64 121/60 05/20/19 21:00 Room Air 05/20/19 20:00 99.0 64 20 121/60 (80) 98 05/20/19 20:00 65 05/20/19 16:00 70 05/20/19 16:00 98.8 68 18 139/75 (96) 99 05/20/19 14:00 68 135/76 05/20/19 12:00 74 05/20/19 12:00 100.4 68 18 135/76 (95) 98 05/20/19 09:30 Room Air 05/20/19 08:54 127/65 05/20/19 08:00 99.1 72 18 127/65 (85) 98 05/20/19 08:00 77 05/20/19 04:00 98.0 69 19 126/93 (104) 97 05/20/19 04:00 59 05/20/19 00:00 98.1 67 19 124/95 (105) 98 05/20/19 00:00 65 05/19/19 21:01 65 126/97 05/19/19 21:00 Room Air 05/19/19 20:00 99.1 65 20 126/82 (97) 98 05/19/19 20:00 64 05/19/19 17:21 146/82 05/19/19 16:00 88 05/19/19 16:00 97.5 80 18 146/82 (103) 99 Intake and Output 05/20/19 05/21/19 18:59 06:59 Intake Total 480 ml Balance 480 ml Intake Oral 480 ml # Voids 2 5 # Bowel Movements 2 Labs Test 05/19/19 06:02 05/20/19 08:05 White Blood Count 10.4 K/UL (4.8-10.8) 14.4 K/UL (4.8-10.8) Red Blood Count 3.11 M/UL (4.70-6.10) 3.40 M/UL (4.70-6.10) Hemoglobin 11.2 G/DL (14.2-18.0) 12.2 G/DL (14.2-18.0) Hematocrit 31.8 % (42.0-52.0) 34.7 % (42.0-52.0) Mean Corpuscular Volume 102 FL (80-99) 102 FL (80-99) Mean Corpuscular Hemoglobin 36.0 PG (27.0-31.0) 35.7 PG (27.0-31.0) Mean Corpuscular Hemoglobin Concent 35.2 G/DL (32.0-36.0) 35.0 G/DL (32.0-36.0) Red Cell Distribution Width 14.3 % (11.6-14.8) 13.8 % (11.6-14.8) Platelet Count 134 K/UL (150-450) 123 K/UL (150-450) Mean Platelet Volume 5.5 FL (6.5-10.1) 5.4 FL (6.5-10.1) Neutrophils (%) (Auto) 66.3 % (45.0-75.0) 78.6 % (45.0-75.0) Lymphocytes (%) (Auto) 14.9 % (20.0-45.0) 9.9 % (20.0-45.0) Monocytes (%) (Auto) 11.8 % (1.0-10.0) 5.5 % (1.0-10.0) Eosinophils (%) (Auto) 6.4 % (0.0-3.0) 5.5 % (0.0-3.0) Basophils (%) (Auto) 0.7 % (0.0-2.0) 0.6 % (0.0-2.0) Sodium Level 143 MMOL/L (136-145) 139 MMOL/L (136-145) Potassium Level 3.9 MMOL/L (3.5-5.1) 3.1 MMOL/L (3.5-5.1) Chloride Level 113 MMOL/L (98-107) 107 MMOL/L (98-107) Carbon Dioxide Level 23 MMOL/L (21-32) 21 MMOL/L (21-32) Anion Gap 7 mmol/L (5-15) 11 mmol/L (5-15) Blood Urea Nitrogen 25 mg/dL (7-18) 19 mg/dL (7-18) Creatinine 0.9 MG/DL (0.55-1.30) 0.9 MG/DL (0.55-1.30) Estimat Glomerular Filtration Rate mL/min (>60) mL/min (>60) Glucose Level 110 MG/DL (74-106) 179 MG/DL (74-106) Calcium Level 8.5 MG/DL (8.5-10.1) 8.2 MG/DL (8.5-10.1) Total Bilirubin 1.3 MG/DL (0.2-1.0) Direct Bilirubin 0.3 MG/DL (0.0-0.3) Aspartate Amino Transf (AST/SGOT) 65 U/L (15-37) Alanine Aminotransferase (ALT/SGPT) 75 U/L (12-78) Alkaline Phosphatase 90 U/L (46-116) Ammonia 66 umol/L (11-32) Total Protein 7.0 G/DL (6.4-8.2) Albumin 2.7 G/DL (3.4-5.0) Globulin 4.3 g/dL Albumin/Globulin Ratio 0.6 (1.0-2.7) Height (Feet): 5 Height (Inches): 7.00 Weight (Pounds): 126 Objective Gen: well appearing, nad Head: normocephalic, at HEENT: hearing grossly normal, eom grossly intact Respiratory: lungs clear, normal breath sounds CV: regular rate, rhythm, no edema GI: soft, nd MSK: moves extremity spontaneously Neurologic: grossly normal Psychiatric: mood/affect normal Faheem Parra MD May 21, 2019 15:25
--- NOTE | 2019-05-21 15:40 | Cardiac Electrophysiology PN ---
Assessment/Plan Assessment/Plan 1. Atypical chest pain. The patient does not currently have chest pain. He has already ruled out for myocardial infarction. His EKG shows right bundle-branch block and left posterior fascicular block. Had Dobutamine Cardiolite stress yesterday that showed no ischemia Echo EF 65%. On Inderal for esophageal varices but gheld for marianna in 50s. Stable form cardiac stand point for DC 2. Bifascicular block with right bundle-branch block and left posterior fascicular block. The patient denies any history of syncope. 3. Hypertension on Inderal 10 q 8 qnd p.r.n. hydralazine. 4. Hepatitis C, cirrhosis, and history of encephalopathy and history of biliary stent. Currently on lactulose and Inderal. Further evaluation by Dr. Pantoja. 5. New fever and high WBC on Cefepime per ID DW RN, Dr Mcdonald Subjective Subjective Ruled out for [place]. No PE.RBBB, LPFB. Had Dobutamine stress test yesterday Echo EF 65% Objective Last 24 Hour Vital Signs Date Time Temp Pulse Resp B/P (MAP) Pulse Ox O2 Delivery O2 Flow Rate FiO2 05/21/19 14:00 56 119/73 05/21/19 12:00 98.8 58 18 119/73 (88) 97 05/21/19 12:00 56 05/21/19 09:00 Room Air 05/21/19 08:58 112/66 05/21/19 08:00 55 05/21/19 08:00 98.1 55 18 112/66 (81) 97 05/21/19 06:02 55 05/21/19 06:00 55 119/55 05/21/19 04:00 98.4 59 20 119/55 (76) 97 05/21/19 04:00 58 05/21/19 00:00 99.1 65 20 108/89 (95) 99 05/21/19 00:00 59 05/20/19 21:06 64 121/60 05/20/19 21:00 Room Air 05/20/19 20:00 99.0 64 20 121/60 (80) 98 05/20/19 20:00 65 05/20/19 16:00 70 05/20/19 16:00 98.8 68 18 139/75 (96) 99 Intake and Output 05/20/19 05/21/19 19:00 07:00 Intake Total 480 ml Balance 480 ml Intake Oral 480 ml # Voids 2 5 # Bowel Movements 2 Objective HEAD AND NECK: No JVD. LUNGS: Clear. CARDIOVASCULAR: Regular S1 and S2 with no gallop or murmur. ABDOMEN: Soft and nontender. EXTREMITIES: No pitting edema. John Gomez MD May 21, 2019 15:40
[2019-05-21 16:00] VITALS: BP 108/54
--- NOTE | 2019-05-21 16:06 | Diagnostic Imaging Report ---
EXAM: CT Abdomen and Pelvis Without and With Intravenous Contrast CLINICAL HISTORY: ABD PAIN TECHNIQUE: Axial computed tomography images of the abdomen and pelvis without and with intravenous contrast. CTDI is 12.8 mGy and DLP is 718.6 mGy-cm. One or more of the following dose reduction techniques were used: automated exposure control, adjustment of the mA and/or kV according to patient size, use of iterative reconstruction technique. COMPARISON: CT chest 05/17/19 FINDINGS: Lung bases: Mild bibasilar lung atelectasis. Heart: Cardiomegaly. Mediastinum: Small hiatal hernia. ABDOMEN: Liver: Nodular, cirrhotic appearance of the liver. Low-density lesions in the liver, largest 10 mm. Gallbladder and bile ducts: CBD stent in dilated CBD measuring 12 mm. Enhancing gallbladder wall. No calcified stones. Pancreas: Unremarkable. No mass. No ductal dilation. Spleen: Splenomegaly. Adrenals: Unremarkable. No mass. Kidneys and ureters: Low-density lesions in the right kidney, largest 4.8 cm with a thin enhancing septation. A few tiny nonobstructive left renal stones, largest 2 mm. Stomach and bowel: Mild fluid-filled small bowel loops may be enteritis with ileus. No bowel obstruction. PELVIS: Appendix: No findings to suggest acute appendicitis. Bladder: Unremarkable. No mass. No stones. Reproductive: Unremarkable as visualized. ABDOMEN and PELVIS: Intraperitoneal space: Unremarkable. No free air. No significant fluid collection. Bones/joints: Sclerotic focus in the right iliac bone. Postop changes of laminectomy of the lumbar spine. Lumbar spine right scoliosis with degenerative changes. Grade 1 retrolisthesis of L3 on L4 likely degenerative. No acute fracture. No dislocation. Soft tissues: Small bilateral fat-containing inguinal hernias. Vasculature: Atherosclerotic vascular disease. Varices. No abdominal aortic aneurysm. Lymph nodes: Unremarkable. No enlarged lymph nodes. IMPRESSION: 1. Nodular, cirrhotic appearance of the liver. Varices. Splenomegaly. 2. CBD stent in dilated CBD measuring 12 mm. 3. Low-density lesions in the right kidney, largest 4.8 cm with a thin enhancing septation. 4. A few tiny nonobstructive left renal stones, largest 2 mm. 5. Mild fluid-filled small bowel loops may be enteritis with ileus. No bowel obstruction.
--- NOTE | 2019-05-21 19:15 | NUR ---
NURSE NOTES: Received report from DAISY Jorge. Patient is awake, lying in semi [employer]; resting comfortably. A/Ox3. Primarily Divehi speaking. Checked IV site and flushed. No erythema, bleeding or infiltration noted. Bed at lowest position, brakes on, siderailsx3. Call light within reach. Will continue to monitor.
[2019-05-21 20:00] VITALS: BP 125/65
[2019-05-21] MEDS: Atorvastatin 20mg tab ORAL SCH (21:02)
[2019-05-22] VITALS: BP 131/69
--- NOTE | 2019-05-22 03:48 | NUR ---
NURSE NOTES: Resting throughout the night. No significant change of condition noted. Will continue to monitor.
[2019-05-22 04:00] VITALS: BP 125/75
[2019-05-22] MEDS: Propranolol 10mg tab ORAL SCH ×3 (06:19→21:22)
--- NOTE | 2019-05-22 07:10 | NUR ---
HAND-OFF: Report given to DAISY Norman. Plan of care endorsed.
--- NOTE | 2019-05-22 07:43 | NUR ---
NURSE NOTES: Received report from DAISY Chávez. Patient in bed resting, no active s/s cardiac, respiratory distress noticed at this time. Patient AO x3, SR with HR 58, on room air. IV on right FA 20G, asymptomatic, patent, intact. Endorsed discharged was cancelled due to increase in WBC and low grade fever. Bed in lowest position, side rails upx2, call light within reach, bed alarm on. Will continue to monitor.
[2019-05-22 07:47] LABS: BASOPHILS % (AUTO) 0.5 % (0.0-2.0); EOSINOPHILS % (AUTO) 6.1 % (0.0-3.0); HEMATOCRIT 32.9 % (42.0-52.0); HEMOGLOBIN 11.4 G/DL (14.2-18.0); LYMPHOCYTES % (AUTO) 14.9 % (20.0-45.0); MEAN CORPUSCULAR VOLUME 104 FL (80-99); MONOCYTES % (AUTO) 14.7 % (1.0-10.0); NEUTROPHILS % (AUTO) 63.7 % (45.0-75.0); PLATELET COUNT 121 K/UL (150-450); RED BLOOD COUNT 3.18 M/UL (4.70-6.10); RED CELL DISTRIBUTION WIDTH 13.8 % (11.6-14.8); WHITE BLOOD COUNT 9.5 K/UL (4.8-10.8)
[2019-05-22 08:00] VITALS: BP 113/64
[2019-05-22 08:17] LABS: PHOSPHORUS 2.9 MG/DL (2.5-4.9)
[2019-05-22 08:21] LABS: ALANINE AMINOTRANSFERASE 69 U/L (12-78); ALBUMIN 2.5 G/DL (3.4-5.0); ALBUMIN/GLOBULIN RATIO 0.6 (1.0-2.7); ALKALINE PHOSPHATASE 91 U/L (46-116); ANION GAP 9 mmol/L (5-15); ASPARTATE AMINO TRANSFERASE 60 U/L (15-37); BILIRUBIN,TOTAL 0.6 MG/DL (0.2-1.0); BLOOD UREA NITROGEN 24 mg/dL (7-18); CALCIUM 8.3 MG/DL (8.5-10.1); CARBON DIOXIDE 20 MMOL/L (21-32); CHLORIDE 112 MMOL/L (98-107); CREATININE 0.9 MG/DL (0.55-1.30); POTASSIUM 3.5 MMOL/L (3.5-5.1); SODIUM 141 MMOL/L (136-145)
--- NOTE | 2019-05-22 08:39 | General Progress Note ---
Assessment/Plan Status: progressing Assessment/Plan: cirrhosis biliary stent thrombocytopenia gastric varices hep C elevated CEA and CA 19-9 fu hepatitis panel>>> hepatitis C positive xifaxan off norvasc on propanolol repeat labs needs out patient fu for hep c treatment CT reviewed lactulose xifaxan Subjective Allergies: Coded Allergies: No Known Allergies (Unverified , 01/10/18) Objective Last 24 Hour Vital Signs Date Time Temp Pulse Resp B/P (MAP) Pulse Ox O2 Delivery O2 Flow Rate FiO2 05/22/19 06:19 56 125/75 05/22/19 04:00 60 05/22/19 04:00 97.7 56 20 125/75 (92) 97 05/22/19 00:00 97.9 56 20 131/69 (89) 98 05/22/19 00:00 57 05/21/19 21:04 56 125/65 05/21/19 21:00 Room Air 05/21/19 20:00 97.9 56 18 125/65 (85) 98 05/21/19 20:00 58 05/21/19 16:00 98.1 60 18 108/54 (72) 97 05/21/19 16:00 58 05/21/19 14:00 56 119/73 05/21/19 12:00 98.8 58 18 119/73 (88) 97 05/21/19 12:00 56 05/21/19 09:00 Room Air 05/21/19 08:58 112/66 Intake and Output 05/21/19 05/22/19 19:00 07:00 Intake Total 360 ml 120 ml Balance 360 ml 120 ml Intake Oral 360 ml 120 ml # Voids 4 1 # Bowel Movements 1 Laboratory Tests 05/22/19 06:34: White Blood Count 9.5, Red Blood Count 3.18L, Hemoglobin 11.4L, Hematocrit 32.9L , Mean Corpuscular Volume 104H, Mean Corpuscular Hemoglobin 35.9H, Mean Corpuscular Hemoglobin Concent 34.7, Red Cell Distribution Width 13.8, Platelet Count 121L, Mean Platelet Volume 6.8, Neutrophils (%) (Auto) 63.7, Lymphocytes ( %) (Auto) 14.9L, Monocytes (%) (Auto) 14.7H, Eosinophils (%) (Auto) 6.1H, Basophils (%) (Auto) 0.5, Sodium Level 141, Potassium Level 3.5, Chloride Level 112H, Carbon Dioxide Level 20L, Anion Gap 9, Blood Urea Nitrogen 24H, Creatinine 0.9, Estimat Glomerular Filtration Rate , Glucose Level 113H, Calcium Level 8.3L, Phosphorus Level 2.9, Magnesium Level 2.0, Total Bilirubin 0.6, Aspartate Amino Transf (AST/SGOT) 60H, Alanine Aminotransferase (ALT/SGPT) 69, Alkaline Phosphatase 91, Ammonia 64H, Total Protein 6.8, Albumin 2.5L, Globulin 4.3, Albumin/Globulin Ratio 0.6L Height (Feet): 5 Height (Inches): 7.00 Weight (Pounds): 126 General Appearance: no apparent distress EENT: normal ENT inspection Neck: supple Cardiovascular: normal rate Respiratory/Chest: decreased breath sounds Abdomen: normal bowel sounds, non tender, soft Extremities: non-tender Gideon Ramirez MD May 22, 2019 08:39
[2019-05-22] MEDS: Lactulose 20gm/30ml UDC ORAL SCH ×3 (08:44→17:45)
[2019-05-22] MEDS: Cefepime HCl 2 GM in D5W 55 ML IVPB SCH ×2 (08:44→21:22)
[2019-05-22] MEDS: Losartan 50mg tab ORAL SCH (08:44)
--- NOTE | 2019-05-22 10:29 | Infectious Diseases Prog Note ---
Assessment/Plan Assessment/Plan A; Fever & leukocytosis resolved Cirrhosis Hepatitis C CBD stent Bifascicular heart block BPH Gastric varices Seborrheic dermatitis P; Continue Cefepime If cultures remain negative, will stop antibiotic soon Subjective ROS Limited/Unobtainable: No Constitutional: Reports: no symptoms Respiratory: Reports: no symptoms Genitourinary: Reports: no symptoms Allergies: Coded Allergies: No Known Allergies (Unverified , 01/10/18) Objective Vital Signs Last 24 Hour Vital Signs Date Time Temp Pulse Resp B/P (MAP) Pulse Ox O2 Delivery O2 Flow Rate FiO2 05/22/19 08:44 113/64 05/22/19 08:00 98.1 52 18 113/64 (80) 97 05/22/19 08:00 48 05/22/19 06:19 56 125/75 05/22/19 04:00 60 05/22/19 04:00 97.7 56 20 125/75 (92) 97 05/22/19 00:00 97.9 56 20 131/69 (89) 98 05/22/19 00:00 57 05/21/19 21:04 56 125/65 05/21/19 21:00 Room Air 05/21/19 20:00 97.9 56 18 125/65 (85) 98 05/21/19 20:00 58 05/21/19 16:00 98.1 60 18 108/54 (72) 97 05/21/19 16:00 58 05/21/19 14:00 56 119/73 05/21/19 12:00 98.8 58 18 119/73 (88) 97 05/21/19 12:00 56 Height (Feet): 5 Height (Inches): 7.00 Weight (Pounds): 126 General Appearance: no acute distress HEENT: mucous membranes moist Respiratory/Chest: lungs clear Cardiovascular: normal rate Abdomen: soft, non tender Extremities: no edema Skin: rash, other - facial Microbiology Date/Time Source Procedure Growth Status 05/20/19 16:00 Blood Blood Culture - Preliminary NO GROWTH AFTER 24 HOURS Resulted Laboratory Tests Test 05/22/19 06:34 White Blood Count 9.5 K/UL (4.8-10.8) Red Blood Count 3.18 M/UL (4.70-6.10) L Hemoglobin 11.4 G/DL (14.2-18.0) L Hematocrit 32.9 % (42.0-52.0) L Mean Corpuscular Volume 104 FL (80-99) H Mean Corpuscular Hemoglobin 35.9 PG (27.0-31.0) H Mean Corpuscular Hemoglobin Concent 34.7 G/DL (32.0-36.0) Red Cell Distribution Width 13.8 % (11.6-14.8) Platelet Count 121 K/UL (150-450) L Mean Platelet Volume 6.8 FL (6.5-10.1) Neutrophils (%) (Auto) 63.7 % (45.0-75.0) Lymphocytes (%) (Auto) 14.9 % (20.0-45.0) L Monocytes (%) (Auto) 14.7 % (1.0-10.0) H Eosinophils (%) (Auto) 6.1 % (0.0-3.0) H Basophils (%) (Auto) 0.5 % (0.0-2.0) Sodium Level 141 MMOL/L (136-145) Potassium Level 3.5 MMOL/L (3.5-5.1) Chloride Level 112 MMOL/L (98-107) H Carbon Dioxide Level 20 MMOL/L (21-32) L Anion Gap 9 mmol/L (5-15) Blood Urea Nitrogen 24 mg/dL (7-18) H Creatinine 0.9 MG/DL (0.55-1.30) Estimat Glomerular Filtration Rate mL/min (>60) Glucose Level 113 MG/DL (74-106) H Calcium Level 8.3 MG/DL (8.5-10.1) L Phosphorus Level 2.9 MG/DL (2.5-4.9) Magnesium Level 2.0 MG/DL (1.8-2.4) Total Bilirubin 0.6 MG/DL (0.2-1.0) Aspartate Amino Transf (AST/SGOT) 60 U/L (15-37) H Alanine Aminotransferase (ALT/SGPT) 69 U/L (12-78) Alkaline Phosphatase 91 U/L (46-116) Ammonia 64 umol/L (11-32) H Total Protein 6.8 G/DL (6.4-8.2) Albumin 2.5 G/DL (3.4-5.0) L Globulin 4.3 g/dL Albumin/Globulin Ratio 0.6 (1.0-2.7) L Current Medications Medications (Trade) Dose Ordered Sig/Juwna Route PRN Reason Start Time Stop Time Status Last Admin Dose Admin Acetaminophen (Tylenol) 650 mg Q6H PRN ORAL Mild Pain/Temp > 100.5 05/18/19 14:00 06/17/19 13:59 05/18/19 13:59 Atorvastatin Calcium (Lipitor) 40 mg BEDTIME ORAL 05/19/19 21:00 06/18/19 20:59 05/21/19 21:02 Barium Sulfate (Readi-Cat 2) 450 ml NOW PRN ORAL Radiology Procedure 05/21/19 08:15 05/23/19 08:14 Cefepime HCl 2 gm/ Dextrose 55 ml @ 110 mls/hr EVERY 12 HOURS IVPB 05/20/19 15:30 05/27/19 15:29 05/22/19 08:44 Escitalopram Oxalate (Lexapro) 10 mg DAILY ORAL 05/20/19 09:00 06/19/19 08:59 05/22/19 08:44 Hydralazine HCl (Apresoline) 25 mg Q6HR PRN ORAL For High Blood Pressure 05/17/19 23:15 06/16/19 23:14 05/19/19 17:21 Iohexol (OMNIPAQUE-300 100ml) 100 ml NOW PRN INJ Radiology Procedure 05/21/19 08:15 05/23/19 08:14 Lactulose (Cephulac) 15 gm THREE TIMES A DAY ORAL 05/21/19 09:00 06/17/19 09:29 05/22/19 08:44 Lorazepam (Ativan) 2 mg Q6H PRN ORAL For Seizures 05/19/19 15:26 05/26/19 15:25 Losartan Potassium (Cozaar) 50 mg DAILY ORAL 05/20/19 09:00 06/19/19 08:59 05/22/19 08:44 Nitroglycerin (Ntg) 0.4 mg Q5M PRN SL Prn Chest Pain 05/18/19 14:15 06/17/19 14:14 Propranolol HCl (Inderal) 10 mg Q8HR ORAL 05/19/19 14:00 06/18/19 13:59 05/22/19 06:19 Rifaximin (Xifaxan) 550 mg EVERY 12 HOURS ORAL 05/19/19 21:00 05/26/19 20:59 05/22/19 08:44 Jose G Zamarripa MD May 22, 2019 10:29
--- NOTE | 2019-05-22 11:39 | NUR ---
NURSE NOTES: Dr. He made aware patient c/o generalized itchiness. Per MD 25mg PO q4h prn. Order noted, entered, carried out.
[2019-05-22 12:00] VITALS: BP 121/71
--- NOTE | 2019-05-22 14:09 | Cardiac Electrophysiology PN ---
Assessment/Plan Assessment/Plan 1. Atypical chest pain. The patient does not currently have chest pain. He has already ruled out for myocardial infarction. His EKG shows right bundle-branch block and left posterior fascicular block. Dobutamine Cardiolite stress showed no ischemia Echo EF 65%. On Inderal for esophageal varices but held for marianna in 50s. Stable form cardiac stand point for DC 2. Bifascicular block with right bundle-branch block and left posterior fascicular block. The patient denies any history of syncope. 3. Hypertension on Inderal 10 q 8 qnd p.r.n. hydralazine. 4. Hepatitis C, cirrhosis, and history of encephalopathy and history of biliary stent. Currently on lactulose and Inderal. Further evaluation by Dr. Pantoja. 5. New fever and high WBC on Cefepime per ID MICHELLE RN, Dr Mcdonald DC tele. Subjective Subjective Ruled out for [facility]. No PE.RBBB, LPFB. Dobutamine stress test was negative Echo EF 65%. On iv ABX for fever Objective Last 24 Hour Vital Signs Date Time Temp Pulse Resp B/P (MAP) Pulse Ox O2 Delivery O2 Flow Rate FiO2 05/22/19 13:02 50 121/71 05/22/19 12:00 53 05/22/19 12:00 97.9 50 20 121/71 (88) 98 05/22/19 09:00 Room Air 05/22/19 08:44 113/64 05/22/19 08:00 98.1 52 18 113/64 (80) 97 05/22/19 08:00 48 05/22/19 06:19 56 125/75 05/22/19 04:00 60 05/22/19 04:00 97.7 56 20 125/75 (92) 97 05/22/19 00:00 97.9 56 20 131/69 (89) 98 05/22/19 00:00 57 05/21/19 21:04 56 125/65 05/21/19 21:00 Room Air 05/21/19 20:00 97.9 56 18 125/65 (85) 98 05/21/19 20:00 58 05/21/19 16:00 98.1 60 18 108/54 (72) 97 05/21/19 16:00 58 Intake and Output 05/21/19 05/22/19 19:00 07:00 Intake Total 360 ml 120 ml Balance 360 ml 120 ml Intake Oral 360 ml 120 ml # Voids 4 1 # Bowel Movements 1 Laboratory Tests Test 05/22/19 06:34 White Blood Count 9.5 K/UL (4.8-10.8) Red Blood Count 3.18 M/UL (4.70-6.10) L Hemoglobin 11.4 G/DL (14.2-18.0) L Hematocrit 32.9 % (42.0-52.0) L Mean Corpuscular Volume 104 FL (80-99) H Mean Corpuscular Hemoglobin 35.9 PG (27.0-31.0) H Mean Corpuscular Hemoglobin Concent 34.7 G/DL (32.0-36.0) Red Cell Distribution Width 13.8 % (11.6-14.8) Platelet Count 121 K/UL (150-450) L Mean Platelet Volume 6.8 FL (6.5-10.1) Neutrophils (%) (Auto) 63.7 % (45.0-75.0) Lymphocytes (%) (Auto) 14.9 % (20.0-45.0) L Monocytes (%) (Auto) 14.7 % (1.0-10.0) H Eosinophils (%) (Auto) 6.1 % (0.0-3.0) H Basophils (%) (Auto) 0.5 % (0.0-2.0) Sodium Level 141 MMOL/L (136-145) Potassium Level 3.5 MMOL/L (3.5-5.1) Chloride Level 112 MMOL/L (98-107) H Carbon Dioxide Level 20 MMOL/L (21-32) L Anion Gap 9 mmol/L (5-15) Blood Urea Nitrogen 24 mg/dL (7-18) H Creatinine 0.9 MG/DL (0.55-1.30) Estimat Glomerular Filtration Rate mL/min (>60) Glucose Level 113 MG/DL (74-106) H Calcium Level 8.3 MG/DL (8.5-10.1) L Phosphorus Level 2.9 MG/DL (2.5-4.9) Magnesium Level 2.0 MG/DL (1.8-2.4) Total Bilirubin 0.6 MG/DL (0.2-1.0) Aspartate Amino Transf (AST/SGOT) 60 U/L (15-37) H Alanine Aminotransferase (ALT/SGPT) 69 U/L (12-78) Alkaline Phosphatase 91 U/L (46-116) Ammonia 64 umol/L (11-32) H Total Protein 6.8 G/DL (6.4-8.2) Albumin 2.5 G/DL (3.4-5.0) L Globulin 4.3 g/dL Albumin/Globulin Ratio 0.6 (1.0-2.7) L Microbiology Date/Time Source Procedure Growth Status 05/20/19 16:00 Blood Blood Culture - Preliminary NO GROWTH AFTER 24 HOURS Resulted Objective HEAD AND NECK: No JVD. LUNGS: Clear. CARDIOVASCULAR: Regular S1 and S2 with no gallop or murmur. ABDOMEN: Soft and nontender. EXTREMITIES: No pitting edema. John Gomez MD May 22, 2019 14:09
--- NOTE | 2019-05-22 14:57 | NUR ---
NURSE NOTES: Per Dr. Gomez and Dr. He , patient off tele, transfer to [facility] surg. Order noted, entered, carried out. CN made aware.
[2019-05-22 16:00] VITALS: BP 117/69
--- NOTE | 2019-05-22 18:00 | Progress Note ---
DATE: 05/21/2019 LATE ENTRY SUBJECTIVE: The patient is presenting with depressed mood, weak, walking around the unit, more interactive, less anxiety. No agitation noted. MENTAL STATUS EXAMINATION: Alert and oriented times self, place, and situation. Mood is anxious. Affect is constricted. Congruent mood. Thought process is concrete. Thought content, no suicidal or homicidal ideation. Cognition is improved. ASSESSMENT: Major depressive disorder, anxiety disorder. PLAN: 1. We will continue current psychotropic medication. 2. Provide the patient with reality orientation and supportive therapy. Charo Luz M.D. DR: Pedro Luis JOB#: [id number] CC:
--- NOTE | 2019-05-22 18:37 | Hematology/Onc Progress Note ---
Assessment/Plan Assessment/Plan Assessment and Recs: # Thrombocytopenia with liver cirrhosis - with hepatitis C++, with gastric varcies and hepatic encephalopathy --> hepatitis C is positive and platelets are low remain decreased --> liver c/w cirrhosis, gastric varices --> cea 11, ca 19.9 43 # Elevated tumor markers with cea and ca19.9 elevated --> needs further eval as outpatient in re to cancer screening --> ct a/p reviewed and shows no mass or malginancy # Chest pain r/o acs --> as per Dr. Gomez # Biliary stent # Hypertension # Liver cirrhosis # Hep C # Spinal stenosis # Left rotator cuff tear # Arthropathy The timing of this note does not necessarily reflect the time of the patient was seen. Greatly appreciate consultation. Subjective HEENT: Denies: no symptoms, eye pain, blurred vision, tearing, double vision, ear pain, ear discharge, nose pain, nose congestion, throat pain, throat swelling, mouth pain, mouth swelling, other Cardiovascular: Denies: no symptoms, chest pain, edema, irregular heart rate, lightheadedness, palpitations, syncope, other Respiratory: Denies: no symptoms, cough, shortness of breath, SOB with excertion, SOB at rest, sputum, wheezing, other Gastrointestinal/Abdominal: Denies: no symptoms, abdomen distended, abdominal pain, black stools, tarry stools, blood in stool, constipated, diarrhea, difficulty swallowing, nausea, poor appetite, poor fluid intake, rectal bleeding , vomiting, other Genitourinary: Denies: no symptoms, burning, discharge, frequency, flank pain, hematuria, incontinence, pain, urgency, other Neurologic/Psychiatric: Denies: no symptoms, anxiety, depressed, emotional problems, headache, numbness, paresthesia, pre-existing deficit, seizure, tingling, tremors, weakness, other Endocrine: Denies: no symptoms, excessive sweating, flushing, intolerance to cold, intolerance to heat, increased hunger, increased thirst, increased urine, unexplained weight gain, unexplained weight loss, other Hematologic/Lymphatic: Denies: no symptoms, anemia, easy bleeding, easy bruising, adenopathy, other Allergies: Coded Allergies: No Known Allergies (Unverified , 01/10/18) Subjective 05/21: no overnight events, on cefepime, repeat cbc tomorrow am 05/22: wbc higher, abx changed to cefepime as per eileen valverde Objective Objective Current Medications Medications (Trade) Dose Ordered Sig/Juwan Route PRN Reason Start Time Stop Time Status Last Admin Dose Admin Acetaminophen (Tylenol) 650 mg Q6H PRN ORAL Mild Pain/Temp > 100.5 05/18/19 14:00 06/17/19 13:59 05/18/19 13:59 Atorvastatin Calcium (Lipitor) 40 mg BEDTIME ORAL 05/19/19 21:00 06/18/19 20:59 05/21/19 21:02 Barium Sulfate (Readi-Cat 2) 450 ml NOW PRN ORAL Radiology Procedure 05/21/19 08:15 05/23/19 08:14 Cefepime HCl 2 gm/ Dextrose 55 ml @ 110 mls/hr EVERY 12 HOURS IVPB 05/20/19 15:30 05/27/19 15:29 05/22/19 08:44 Diphenhydramine HCl (Benadryl) 25 mg Q4H PRN ORAL Itching 05/22/19 11:45 06/21/19 11:44 05/22/19 11:53 Escitalopram Oxalate (Lexapro) 10 mg DAILY ORAL 05/20/19 09:00 06/19/19 08:59 05/22/19 08:44 Hydralazine HCl (Apresoline) 25 mg Q6HR PRN ORAL For High Blood Pressure 05/17/19 23:15 06/16/19 23:14 05/19/19 17:21 Iohexol (OMNIPAQUE-300 100ml) 100 ml NOW PRN INJ Radiology Procedure 05/21/19 08:15 05/23/19 08:14 Lactulose (Cephulac) 15 gm THREE TIMES A DAY ORAL 05/21/19 09:00 06/17/19 09:29 05/22/19 17:45 Lorazepam (Ativan) 2 mg Q6H PRN ORAL For Seizures 05/19/19 15:26 05/26/19 15:25 Losartan Potassium (Cozaar) 50 mg DAILY ORAL 05/20/19 09:00 06/19/19 08:59 05/22/19 08:44 Nitroglycerin (Ntg) 0.4 mg Q5M PRN SL Prn Chest Pain 05/18/19 14:15 06/17/19 14:14 Propranolol HCl (Inderal) 10 mg Q8HR ORAL 05/19/19 14:00 06/18/19 13:59 05/22/19 06:19 Rifaximin (Xifaxan) 550 mg EVERY 12 HOURS ORAL 05/19/19 21:00 05/26/19 20:59 05/22/19 08:44 Last 24 Hour Vital Signs Date Time Temp Pulse Resp B/P (MAP) Pulse Ox O2 Delivery O2 Flow Rate FiO2 05/22/19 16:00 53 05/22/19 16:00 97.5 54 18 117/69 (85) 95 05/22/19 13:02 50 121/71 05/22/19 12:00 53 05/22/19 12:00 97.9 50 20 121/71 (88) 98 05/22/19 09:00 Room Air 05/22/19 08:44 113/64 05/22/19 08:00 98.1 52 18 113/64 (80) 97 05/22/19 08:00 48 05/22/19 06:19 56 125/75 05/22/19 04:00 60 05/22/19 04:00 97.7 56 20 125/75 (92) 97 05/22/19 00:00 97.9 56 20 131/69 (89) 98 05/22/19 00:00 57 05/21/19 21:04 56 125/65 05/21/19 21:00 Room Air 05/21/19 20:00 97.9 56 18 125/65 (85) 98 05/21/19 20:00 58 05/21/19 16:00 98.1 60 18 108/54 (72) 97 05/21/19 16:00 58 05/21/19 14:00 56 119/73 05/21/19 12:00 98.8 58 18 119/73 (88) 97 05/21/19 12:00 56 05/21/19 09:00 Room Air 05/21/19 08:58 112/66 05/21/19 08:00 55 05/21/19 08:00 98.1 55 18 112/66 (81) 97 05/21/19 06:02 55 05/21/19 06:00 55 119/55 05/21/19 04:00 98.4 59 20 119/55 (76) 97 05/21/19 04:00 58 05/21/19 00:00 99.1 65 20 108/89 (95) 99 05/21/19 00:00 59 05/20/19 21:06 64 121/60 05/20/19 21:00 Room Air 05/20/19 20:00 99.0 64 20 121/60 (80) 98 05/20/19 20:00 65 Intake and Output 05/21/19 05/22/19 19:00 07:00 Intake Total 360 ml 120 ml Balance 360 ml 120 ml Intake Oral 360 ml 120 ml # Voids 4 1 # Bowel Movements 1 Labs Test 05/20/19 08:05 05/22/19 06:34 White Blood Count 14.4 K/UL (4.8-10.8) 9.5 K/UL (4.8-10.8) Red Blood Count 3.40 M/UL (4.70-6.10) 3.18 M/UL (4.70-6.10) Hemoglobin 12.2 G/DL (14.2-18.0) 11.4 G/DL (14.2-18.0) Hematocrit 34.7 % (42.0-52.0) 32.9 % (42.0-52.0) Mean Corpuscular Volume 102 FL (80-99) 104 FL (80-99) Mean Corpuscular Hemoglobin 35.7 PG (27.0-31.0) 35.9 PG (27.0-31.0) Mean Corpuscular Hemoglobin Concent 35.0 G/DL (32.0-36.0) 34.7 G/DL (32.0-36.0) Red Cell Distribution Width 13.8 % (11.6-14.8) 13.8 % (11.6-14.8) Platelet Count 123 K/UL (150-450) 121 K/UL (150-450) Mean Platelet Volume 5.4 FL (6.5-10.1) 6.8 FL (6.5-10.1) Neutrophils (%) (Auto) 78.6 % (45.0-75.0) 63.7 % (45.0-75.0) Lymphocytes (%) (Auto) 9.9 % (20.0-45.0) 14.9 % (20.0-45.0) Monocytes (%) (Auto) 5.5 % (1.0-10.0) 14.7 % (1.0-10.0) Eosinophils (%) (Auto) 5.5 % (0.0-3.0) 6.1 % (0.0-3.0) Basophils (%) (Auto) 0.6 % (0.0-2.0) 0.5 % (0.0-2.0) Sodium Level 139 MMOL/L (136-145) 141 MMOL/L (136-145) Potassium Level 3.1 MMOL/L (3.5-5.1) 3.5 MMOL/L (3.5-5.1) Chloride Level 107 MMOL/L (98-107) 112 MMOL/L (98-107) Carbon Dioxide Level 21 MMOL/L (21-32) 20 MMOL/L (21-32) Anion Gap 11 mmol/L (5-15) 9 mmol/L (5-15) Blood Urea Nitrogen 19 mg/dL (7-18) 24 mg/dL (7-18) Creatinine 0.9 MG/DL (0.55-1.30) 0.9 MG/DL (0.55-1.30) Estimat Glomerular Filtration Rate mL/min (>60) mL/min (>60) Glucose Level 179 MG/DL (74-106) 113 MG/DL (74-106) Calcium Level 8.2 MG/DL (8.5-10.1) 8.3 MG/DL (8.5-10.1) Total Bilirubin 1.3 MG/DL (0.2-1.0) 0.6 MG/DL (0.2-1.0) Direct Bilirubin 0.3 MG/DL (0.0-0.3) Aspartate Amino Transf (AST/SGOT) 65 U/L (15-37) 60 U/L (15-37) Alanine Aminotransferase (ALT/SGPT) 75 U/L (12-78) 69 U/L (12-78) Alkaline Phosphatase 90 U/L (46-116) 91 U/L (46-116) Ammonia 66 umol/L (11-32) 64 umol/L (11-32) Total Protein 7.0 G/DL (6.4-8.2) 6.8 G/DL (6.4-8.2) Albumin 2.7 G/DL (3.4-5.0) 2.5 G/DL (3.4-5.0) Globulin 4.3 g/dL 4.3 g/dL Albumin/Globulin Ratio 0.6 (1.0-2.7) 0.6 (1.0-2.7) Phosphorus Level 2.9 MG/DL (2.5-4.9) Magnesium Level 2.0 MG/DL (1.8-2.4) Height (Feet): 5 Height (Inches): 7.00 Weight (Pounds): 126 Objective Gen: well appearing, nad Head: normocephalic, at HEENT: hearing grossly normal, eom grossly intact Respiratory: lungs clear, normal breath sounds CV: regular rate, rhythm, no edema GI: soft, nd MSK: moves extremity spontaneously Neurologic: grossly normal Psychiatric: mood/affect normal Faheem Parra MD May 22, 2019 18:37
--- NOTE | 2019-05-22 19:00 | NUR ---
NURSE NOTES: Received report from DAISY Norman. Patient is asleep, arousable to name, lying in semi [employer]; resting comfortably. A/Ox4. Able to make needs known. Denies pain at this time. No signs of acute distress noted. Checked IV site and flushed with ongoing IVF as prescribed. No signs of erythema, bleeding or infiltration noted. Bed at lowest position, brakes on, siderailsx2. Call light within reach. Will continue to monitor. Addendum: 05/22/19 at 2316 by Saira Holm RN Checked IV site and flushed on saline lock.
--- NOTE | 2019-05-22 19:29 | NUR ---
HAND-OFF: Report given to DAISY Chávez.
[2019-05-22 20:00] VITALS: BP 121/65
--- NOTE | 2019-05-22 20:01 | General Progress Note ---
Assessment/Plan Problem List: (1) HTN (hypertension) ICD Codes: I10 - Essential (primary) hypertension SNOMED: 95562802 (2) Chest pain ICD Codes: R07.9 - Chest pain, unspecified SNOMED: 14703633 Status: progressing Assessment/Plan: sepsis await culture results id consulted also k dropped(is replaced Subjective ROS Limited/Unobtainable: Yes Allergies: Coded Allergies: No Known Allergies (Unverified , 01/10/18) Objective Last 24 Hour Vital Signs Date Time Temp Pulse Resp B/P (MAP) Pulse Ox O2 Delivery O2 Flow Rate FiO2 05/22/19 16:00 53 05/22/19 16:00 97.5 54 18 117/69 (85) 95 05/22/19 13:02 50 121/71 05/22/19 12:00 53 05/22/19 12:00 97.9 50 20 121/71 (88) 98 05/22/19 09:00 Room Air 05/22/19 08:44 113/64 05/22/19 08:00 98.1 52 18 113/64 (80) 97 05/22/19 08:00 48 05/22/19 06:19 56 125/75 05/22/19 04:00 60 05/22/19 04:00 97.7 56 20 125/75 (92) 97 05/22/19 00:00 97.9 56 20 131/69 (89) 98 05/22/19 00:00 57 05/21/19 21:04 56 125/65 05/21/19 21:00 Room Air 05/21/19 20:00 97.9 56 18 125/65 (85) 98 05/21/19 20:00 58 Intake and Output 05/21/19 05/22/19 19:00 07:00 Intake Total 360 ml 120 ml Balance 360 ml 120 ml Intake Oral 360 ml 120 ml # Voids 4 1 # Bowel Movements 1 Laboratory Tests 05/22/19 06:34: White Blood Count 9.5, Red Blood Count 3.18L, Hemoglobin 11.4L, Hematocrit 32.9L , Mean Corpuscular Volume 104H, Mean Corpuscular Hemoglobin 35.9H, Mean Corpuscular Hemoglobin Concent 34.7, Red Cell Distribution Width 13.8, Platelet Count 121L, Mean Platelet Volume 6.8, Neutrophils (%) (Auto) 63.7, Lymphocytes ( %) (Auto) 14.9L, Monocytes (%) (Auto) 14.7H, Eosinophils (%) (Auto) 6.1H, Basophils (%) (Auto) 0.5, Sodium Level 141, Potassium Level 3.5, Chloride Level 112H, Carbon Dioxide Level 20L, Anion Gap 9, Blood Urea Nitrogen 24H, Creatinine 0.9, Estimat Glomerular Filtration Rate , Glucose Level 113H, Calcium Level 8.3L, Phosphorus Level 2.9, Magnesium Level 2.0, Total Bilirubin 0.6, Aspartate Amino Transf (AST/SGOT) 60H, Alanine Aminotransferase (ALT/SGPT) 69, Alkaline Phosphatase 91, Ammonia 64H, Total Protein 6.8, Albumin 2.5L, Globulin 4.3, Albumin/Globulin Ratio 0.6L Height (Feet): 5 Height (Inches): 7.00 Weight (Pounds): 126 Cardiovascular: normal rate Respiratory/Chest: lungs clear Abdomen: non tender Deysi He MD May 22, 2019 20:01
[2019-05-22] MEDS: Atorvastatin 20mg tab ORAL SCH (21:22)
--- NOTE | 2019-05-22 23:40 | NUR ---
NURSE NOTES: Urine specimen sent to lab.
[2019-05-23] VITALS: BP 124/70
[2019-05-23 00:13] LABS: APPEARANCE,URINE CLEAR; BILIRUBIN, URINE NEGATIVE (NEGATIVE); GLUCOSE, URINE (UA) NEGATIVE (NEGATIVE); KETONES,URINE 1+ (NEGATIVE); LEUKOCYTE ESTERASE ,URINE NEGATIVE (NEGATIVE); NITRITE,URINE NEGATIVE (NEGATIVE); PH,URINE 6 (4.5-8.0); PROTEIN,URINE 2+ (NEGATIVE); UROBILINOGEN,URINE NORMAL MG/DL (0.0-1.0)
[2019-05-23 00:25] LABS: COLOR,URINE YELLOW
--- NOTE | 2019-05-23 00:59 | NUR ---
NURSE NOTES: Resting throughout the night. No significant change of condition noted. Will continue to monitor.
--- NOTE | 2019-05-23 02:10 | NUR ---
TRANSFER TO FLOOR: Patient transferred to [address] [place] [address] via hospital bed accompanied by 2 staff member without any incident. Patient taken off tele box and tolerating well. No signs of acute distress noted. Report given to DAISY Salinas. Belongings list checked by receiving RN. Addendum: 05/23/19 at 0248 by Saira Holm RN Family member, Marcie Grider (brother) informed of transfer.
[2019-05-23] MEDS ORDERED: Nitroglycerin Subl 0.4mg tab SL PRN (02:20)
--- NOTE | 2019-05-23 02:47 | NUR ---
NURSE NOTES: Received report from DAISY Chávez from Tele. Patient a/a/o x 3, speaks Tajik. Breathing unlabored on room air without distress. Iv noted on right forearm intact, dry, clean, and patent, wrapped in kerlix for patient safety. Open skin noted on right wrist. Otherwise skin intact. Belongings confirmed with patient and transferring RN. Bed placed at the lowest with alarm, brake,and siderails up for safety. Call light placed within reach and encourage to use. Oriented to the unit and the room. Will continue to monitor and provide care as ordered.
[2019-05-23] MEDS ORDERED: LORazepam 1mg tab ORAL PRN (03:30)
[2019-05-23 04:00] VITALS: BP 115/61
[2019-05-23] MEDS: Propranolol 10mg tab ORAL SCH ×3 (05:31→22:00)
[2019-05-23] MEDS ORDERED: HydrALAZINE 25mg tab ORAL PRN (06:00)
--- NOTE | 2019-05-23 07:40 | NUR ---
NURSE NOTES: Report received from Minsu RN. Patient awake and alert x 3. Lithuanian speaking only. Patient currently sitting up right in bed consuming breakfast. Patient does not have any complaints at this time. Optifoam noted on right wrist due to skin opening, intact and in place. Bed locked and in lowest position. Call light within reach.Will continue to follow plan of care.
[2019-05-23 08:00] VITALS: BP 101/51
--- NOTE | 2019-05-23 08:02 | NUR ---
HAND-OFF: Report given to DAISY Levi and DAISY Leggett. Plan of care endorsed.
[2019-05-23] MEDS ORDERED: Omnipaque-300 100ml vial INJ PRN (08:15)
[2019-05-23] MEDS: Losartan 50mg tab ORAL SCH (09:00)
[2019-05-23] MEDS ORDERED: Cefepime HCl 2 GM in D5W 55 ML IVPB SCH (09:00)
--- NOTE | 2019-05-23 09:25 | General Progress Note ---
Assessment/Plan Status: progressing Assessment/Plan: cirrhosis biliary stent thrombocytopenia gastric varices hep C elevated CEA and CA 19-9 fu hepatitis panel>>> hepatitis C positive xifaxan off norvasc on propanolol repeat labs needs out patient fu for hep c treatment CT reviewed lactulose xifaxan Subjective ROS Limited/Unobtainable: Yes Allergies: Coded Allergies: No Known Allergies (Unverified , 01/10/18) Objective Last 24 Hour Vital Signs Date Time Temp Pulse Resp B/P (MAP) Pulse Ox O2 Delivery O2 Flow Rate FiO2 05/23/19 05:31 50 127/61 05/23/19 04:00 97.6 50 16 115/61 (79) 97 05/23/19 00:00 53 05/23/19 00:00 97.2 60 20 124/70 (88) 98 05/22/19 21:22 52 121/65 05/22/19 21:00 Room Air 05/22/19 20:00 97.3 52 18 121/65 (83) 97 05/22/19 20:00 53 05/22/19 16:00 53 05/22/19 16:00 97.5 54 18 117/69 (85) 95 05/22/19 13:02 50 121/71 05/22/19 12:00 53 05/22/19 12:00 97.9 50 20 121/71 (88) 98 Intake and Output 05/22/19 05/23/19 19:00 07:00 Intake Total 600 ml 120 ml Balance 600 ml 120 ml Intake Oral 600 ml 120 ml # Voids 3 2 Laboratory Tests 05/22/19 23:30: Urine Color Yellow, Urine Appearance Clear, Urine pH 6, Urine Specific [place] 1.020, Urine Protein 2+H, Urine Glucose (UA) Negative, Urine Ketones 1+H, Urine Blood Negative, Urine Nitrite Negative, Urine Bilirubin Negative, Urine Urobilinogen Normal, Urine Leukocyte Esterase Negative, Urine RBC 0-2H, Urine WBC 0, Urine Squamous Epithelial Cells None, Urine Bacteria Few Height (Feet): 5 Height (Inches): 7.00 Weight (Pounds): 126 General Appearance: alert EENT: normal ENT inspection Neck: supple Cardiovascular: normal rate Respiratory/Chest: decreased breath sounds Abdomen: normal bowel sounds, non tender, soft Extremities: non-tender Gideon Ramirez MD May 23, 2019 09:25
[2019-05-23] MEDS: Lactulose 20gm/30ml UDC ORAL SCH ×3 (09:27→17:44)
--- NOTE | 2019-05-23 09:49 | NUR ---
NURSE NOTES: Losartan not administered due to blood pressure of 101/51. Will continue to monitor and follow plan of care.
[2019-05-23 12:00] VITALS: BP 112/76
--- NOTE | 2019-05-23 12:43 | Infectious Diseases Prog Note ---
Assessment/Plan Assessment/Plan A; Fever & leukocytosis resolved Cirrhosis Hepatitis C CBD stent Bifascicular heart block BPH Gastric varices Seborrheic dermatitis P; Discontinue Cefepime Subjective ROS Limited/Unobtainable: No Respiratory: Reports: no symptoms Cardiovascular: Reports: no symptoms Gastrointestinal/Abdominal: Reports: no symptoms Musculoskeletal: Reports: other - pain in left knee Allergies: Coded Allergies: No Known Allergies (Unverified , 01/10/18) Objective Vital Signs Last 24 Hour Vital Signs Date Time Temp Pulse Resp B/P (MAP) Pulse Ox O2 Delivery O2 Flow Rate FiO2 05/23/19 09:00 Room Air 05/23/19 09:00 101/51 05/23/19 08:00 97.8 58 17 101/51 (68) 95 05/23/19 05:31 50 127/61 05/23/19 04:00 97.6 50 16 115/61 (79) 97 05/23/19 00:00 53 05/23/19 00:00 97.2 60 20 124/70 (88) 98 05/22/19 21:22 52 121/65 05/22/19 21:00 Room Air 05/22/19 20:00 97.3 52 18 121/65 (83) 97 05/22/19 20:00 53 05/22/19 16:00 53 05/22/19 16:00 97.5 54 18 117/69 (85) 95 05/22/19 13:02 50 121/71 Height (Feet): 5 Height (Inches): 7.00 Weight (Pounds): 126 General Appearance: no acute distress HEENT: mucous membranes moist Respiratory/Chest: lungs clear Cardiovascular: normal rate Abdomen: soft, non tender Extremities: no edema Skin: other - scabs in left knee & 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 leg, 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 Neurologic/Psychiatric: alert, oriented x 3, responsive Microbiology Date/Time Source Procedure Growth Status 05/20/19 16:00 Blood Blood Culture - Preliminary NO GROWTH AFTER 48 HOURS Resulted Laboratory Tests Test 05/22/19 23:30 Urine Color Yellow Urine Appearance Clear Urine pH 6 (4.5-8.0) Urine Specific [place] 1.020 (1.005-1.035) Urine Protein 2+ (NEGATIVE) H Urine Glucose (UA) Negative (NEGATIVE) Urine Ketones 1+ (NEGATIVE) H Urine Blood Negative (NEGATIVE) Urine Nitrite Negative (NEGATIVE) Urine Bilirubin Negative (NEGATIVE) Urine Urobilinogen Normal MG/DL (0.0-1.0) Urine Leukocyte Esterase Negative (NEGATIVE) Urine RBC 0-2 /HPF (0 - 0) H Urine WBC 0 /HPF (0 - 0) Urine Squamous Epithelial Cells None /LPF (NONE/OCC) Urine Bacteria Few /HPF (NONE) Current Medications Medications (Trade) Dose Ordered Sig/Juwan Route PRN Reason Start Time Stop Time Status Last Admin Dose Admin Acetaminophen (Tylenol) 650 mg Q6H PRN ORAL Mild Pain/Temp > 100.5 05/23/19 08:00 06/17/19 13:59 Atorvastatin Calcium (Lipitor) 40 mg BEDTIME ORAL 05/23/19 21:00 06/18/19 20:59 Barium Sulfate (Readi-Cat 2) 450 ml NOW PRN ORAL Radiology Procedure 05/23/19 08:15 06/22/19 08:14 Cefepime HCl 2 gm/ Dextrose 55 ml @ 110 mls/hr EVERY 12 HOURS IVPB 05/23/19 09:00 05/27/19 15:29 05/23/19 09:32 Diphenhydramine HCl (Benadryl) 25 mg Q4H PRN ORAL Itching 05/23/19 03:45 06/21/19 11:44 Escitalopram Oxalate (Lexapro) 10 mg DAILY ORAL 05/23/19 09:00 06/19/19 08:59 05/23/19 09:28 Hydralazine HCl (Apresoline) 25 mg Q6HR PRN ORAL For High Blood Pressure 05/23/19 06:00 06/16/19 23:14 Iohexol (OMNIPAQUE-300 100ml) 100 ml NOW PRN INJ Radiology Procedure 05/23/19 08:15 06/22/19 08:14 Lactulose (Cephulac) 15 gm THREE TIMES A DAY ORAL 05/23/19 09:00 06/17/19 09:29 05/23/19 09:27 Lorazepam (Ativan) 2 mg Q6H PRN ORAL For Seizures 05/23/19 03:30 05/26/19 15:25 Losartan Potassium (Cozaar) 50 mg DAILY ORAL 05/23/19 09:00 06/19/19 08:59 Nitroglycerin (Ntg) 0.4 mg Q5M PRN SL Prn Chest Pain 05/23/19 02:20 06/17/19 14:14 Propranolol HCl (Inderal) 10 mg Q8HR ORAL 05/23/19 06:00 06/18/19 13:59 Rifaximin (Xifaxan) 550 mg EVERY 12 HOURS ORAL 05/23/19 09:00 05/26/19 20:59 05/23/19 09:28 Jose G Zamarripa MD May 23, 2019 12:43
[2019-05-23 16:00] VITALS: BP 123/66
--- NOTE | 2019-05-23 16:37 | Hematology/Onc Progress Note ---
Assessment/Plan Assessment/Plan Assessment and Recs: # Thrombocytopenia with liver cirrhosis - with hepatitis C++, with gastric varcies and hepatic encephalopathy --> hepatitis C is positive and platelets are low remain decreased --> liver c/w cirrhosis, gastric varices --> cea 11, ca 19.9 43 # Elevated tumor markers with cea and ca19.9 elevated --> needs further eval as outpatient in re to cancer screening --> ct a/p reviewed and shows no mass or malginancy # Chest pain r/o acs --> as per Dr. Gomez # Biliary stent # Hypertension # Liver cirrhosis # Hep C # Spinal stenosis # Left rotator cuff tear # Arthropathy The timing of this note does not necessarily reflect the time of the patient was seen. Greatly appreciate consultation. Subjective Allergies: Coded Allergies: No Known Allergies (Unverified , 01/10/18) Subjective 05/21: no overnight events, on cefepime, repeat cbc tomorrow am 05/22: wbc higher, abx changed to cefepime as per eileen valverde 05/23: cefepime now off as per id, no major changes, seen by id Objective Objective Current Medications Medications (Trade) Dose Ordered Sig/Juwan Route PRN Reason Start Time Stop Time Status Last Admin Dose Admin Acetaminophen (Tylenol) 650 mg Q6H PRN ORAL Mild Pain/Temp > 100.5 05/23/19 08:00 06/17/19 13:59 Atorvastatin Calcium (Lipitor) 40 mg BEDTIME ORAL 05/23/19 21:00 06/18/19 20:59 Barium Sulfate (Readi-Cat 2) 450 ml NOW PRN ORAL Radiology Procedure 05/23/19 08:15 06/22/19 08:14 Diphenhydramine HCl (Benadryl) 25 mg Q4H PRN ORAL Itching 05/23/19 03:45 06/21/19 11:44 Escitalopram Oxalate (Lexapro) 10 mg DAILY ORAL 05/23/19 09:00 06/19/19 08:59 05/23/19 09:28 Hydralazine HCl (Apresoline) 25 mg Q6HR PRN ORAL For High Blood Pressure 05/23/19 06:00 06/16/19 23:14 Iohexol (OMNIPAQUE-300 100ml) 100 ml NOW PRN INJ Radiology Procedure 05/23/19 08:15 06/22/19 08:14 Lactulose (Cephulac) 15 gm THREE TIMES A DAY ORAL 05/23/19 09:00 06/17/19 09:29 05/23/19 15:07 Lorazepam (Ativan) 2 mg Q6H PRN ORAL For Seizures 05/23/19 03:30 05/26/19 15:25 Losartan Potassium (Cozaar) 50 mg DAILY ORAL 05/23/19 09:00 06/19/19 08:59 Nitroglycerin (Ntg) 0.4 mg Q5M PRN SL Prn Chest Pain 05/23/19 02:20 06/17/19 14:14 Propranolol HCl (Inderal) 10 mg Q8HR ORAL 05/23/19 06:00 06/18/19 13:59 Rifaximin (Xifaxan) 550 mg EVERY 12 HOURS ORAL 05/23/19 09:00 05/26/19 20:59 05/23/19 09:28 Last 24 Hour Vital Signs Date Time Temp Pulse Resp B/P (MAP) Pulse Ox O2 Delivery O2 Flow Rate FiO2 05/23/19 16:00 99.2 52 17 123/66 (85) 97 05/23/19 14:00 59 112/76 05/23/19 12:00 98.1 59 18 112/76 (88) 98 05/23/19 09:00 Room Air 05/23/19 09:00 101/51 05/23/19 08:00 97.8 58 17 101/51 (68) 95 05/23/19 05:31 50 127/61 05/23/19 04:00 97.6 50 16 115/61 (79) 97 05/23/19 00:00 53 05/23/19 00:00 97.2 60 20 124/70 (88) 98 05/22/19 21:22 52 121/65 05/22/19 21:00 Room Air 05/22/19 20:00 97.3 52 18 121/65 (83) 97 05/22/19 20:00 53 05/22/19 16:00 53 05/22/19 16:00 97.5 54 18 117/69 (85) 95 05/22/19 13:02 50 121/71 05/22/19 12:00 53 05/22/19 12:00 97.9 50 20 121/71 (88) 98 05/22/19 09:00 Room Air 05/22/19 08:44 113/64 05/22/19 08:00 98.1 52 18 113/64 (80) 97 05/22/19 08:00 48 05/22/19 06:19 56 125/75 05/22/19 04:00 60 05/22/19 04:00 97.7 56 20 125/75 (92) 97 05/22/19 00:00 97.9 56 20 131/69 (89) 98 05/22/19 00:00 57 05/21/19 21:04 56 125/65 05/21/19 21:00 Room Air 05/21/19 20:00 97.9 56 18 125/65 (85) 98 05/21/19 20:00 58 Intake and Output 05/22/19 05/23/19 19:00 07:00 Intake Total 600 ml 120 ml Balance 600 ml 120 ml Intake Oral 600 ml 120 ml # Voids 3 2 Labs Test 05/22/19 06:34 05/22/19 23:30 White Blood Count 9.5 K/UL (4.8-10.8) Red Blood Count 3.18 M/UL (4.70-6.10) Hemoglobin 11.4 G/DL (14.2-18.0) Hematocrit 32.9 % (42.0-52.0) Mean Corpuscular Volume 104 FL (80-99) Mean Corpuscular Hemoglobin 35.9 PG (27.0-31.0) Mean Corpuscular Hemoglobin Concent 34.7 G/DL (32.0-36.0) Red Cell Distribution Width 13.8 % (11.6-14.8) Platelet Count 121 K/UL (150-450) Mean Platelet Volume 6.8 FL (6.5-10.1) Neutrophils (%) (Auto) 63.7 % (45.0-75.0) Lymphocytes (%) (Auto) 14.9 % (20.0-45.0) Monocytes (%) (Auto) 14.7 % (1.0-10.0) Eosinophils (%) (Auto) 6.1 % (0.0-3.0) Basophils (%) (Auto) 0.5 % (0.0-2.0) Sodium Level 141 MMOL/L (136-145) Potassium Level 3.5 MMOL/L (3.5-5.1) Chloride Level 112 MMOL/L (98-107) Carbon Dioxide Level 20 MMOL/L (21-32) Anion Gap 9 mmol/L (5-15) Blood Urea Nitrogen 24 mg/dL (7-18) Creatinine 0.9 MG/DL (0.55-1.30) Estimat Glomerular Filtration Rate mL/min (>60) Glucose Level 113 MG/DL (74-106) Calcium Level 8.3 MG/DL (8.5-10.1) Phosphorus Level 2.9 MG/DL (2.5-4.9) Magnesium Level 2.0 MG/DL (1.8-2.4) Total Bilirubin 0.6 MG/DL (0.2-1.0) Aspartate Amino Transf (AST/SGOT) 60 U/L (15-37) Alanine Aminotransferase (ALT/SGPT) 69 U/L (12-78) Alkaline Phosphatase 91 U/L (46-116) Ammonia 64 umol/L (11-32) Total Protein 6.8 G/DL (6.4-8.2) Albumin 2.5 G/DL (3.4-5.0) Globulin 4.3 g/dL Albumin/Globulin Ratio 0.6 (1.0-2.7) Urine Color Yellow Urine Appearance Clear Urine pH 6 (4.5-8.0) Urine Specific [place] 1.020 (1.005-1.035) Urine Protein 2+ (NEGATIVE) Urine Glucose (UA) Negative (NEGATIVE) Urine Ketones 1+ (NEGATIVE) Urine Blood Negative (NEGATIVE) Urine Nitrite Negative (NEGATIVE) Urine Bilirubin Negative (NEGATIVE) Urine Urobilinogen Normal MG/DL (0.0-1.0) Urine Leukocyte Esterase Negative (NEGATIVE) Urine RBC 0-2 /HPF (0 - 0) Urine WBC 0 /HPF (0 - 0) Urine Squamous Epithelial Cells None /LPF (NONE/OCC) Urine Bacteria Few /HPF (NONE) Height (Feet): 5 Height (Inches): 7.00 Weight (Pounds): 126 Objective Gen: well appearing, nad Head: normocephalic, at HEENT: hearing grossly normal, eom grossly intact Respiratory: lungs clear, normal breath sounds CV: regular rate, rhythm, no edema GI: soft, nd MSK: moves extremity spontaneously Neurologic: grossly normal Psychiatric: mood/affect normal Faheem Parra MD May 23, 2019 16:37
--- NOTE | 2019-05-23 17:26 | NUR ---
CASE MANAGEMENT: REVIEW 05/23/19 SI: CHEST PAIN 99.2 52 17 123/66 97 % ON RA IS: IV CEFEPIME X1 IV LACTLOSE PO TID LEXAPRO PO QD RIFAXIMIN PO BID \: 4E MED SURG DCP: RETURN
--- NOTE | 2019-05-23 19:30 | NUR ---
NURSE NOTES: Received report from DAISY Levi and DAISY Leggett. Patient awake and verbally responsive in Macedonian. Breathing unlabored on room air without distress. Denies pain at this time. IV noted intact on right forearm. Bed placed at the lowest with alarm, brake, and siderails up for safety. Call light placed within reach. Will continue to monitor and provide care as ordered.
--- NOTE | 2019-05-23 19:35 | NUR ---
HAND-OFF: Report given to Minsu.
[2019-05-23 20:00] VITALS: BP 115/56
[2019-05-23 20:23] LABS: ANION GAP 9 mmol/L (5-15); BLOOD UREA NITROGEN 24 mg/dL (7-18); CARBON DIOXIDE 21 MMOL/L (21-32); CHLORIDE 118 MMOL/L (98-107); CREATININE 0.9 MG/DL (0.55-1.30); POTASSIUM 3.5 MMOL/L (3.5-5.1); SODIUM 147 MMOL/L (136-145)
[2019-05-23 20:25] LABS: BASOPHILS % (AUTO) 1.1 % (0.0-2.0); HEMATOCRIT 29.7 % (42.0-52.0); HEMOGLOBIN 10.4 G/DL (14.2-18.0); LYMPHOCYTES % (AUTO) 22.9 % (20.0-45.0); MEAN CORPUSCULAR VOLUME 103 FL (80-99); MONOCYTES % (AUTO) 14.8 % (1.0-10.0); NEUTROPHILS % (AUTO) 53.2 % (45.0-75.0); PLATELET COUNT 118 K/UL (150-450); RED BLOOD COUNT 2.87 M/UL (4.70-6.10); RED CELL DISTRIBUTION WIDTH 13.6 % (11.6-14.8); WHITE BLOOD COUNT 7.5 K/UL (4.8-10.8)
[2019-05-23 20:28] LABS: ALANINE AMINOTRANSFERASE 63 U/L (12-78); ALBUMIN 2.4 G/DL (3.4-5.0); ALBUMIN/GLOBULIN RATIO 0.6 (1.0-2.7); ALKALINE PHOSPHATASE 77 U/L (46-116); ASPARTATE AMINO TRANSFERASE 55 U/L (15-37); BILIRUBIN,TOTAL 0.5 MG/DL (0.2-1.0)
--- NOTE | 2019-05-23 20:29 | General Progress Note ---
Assessment/Plan Problem List: (1) HTN (hypertension) ICD Codes: I10 - Essential (primary) hypertension SNOMED: 73920758 (2) Chest pain ICD Codes: R07.9 - Chest pain, unspecified SNOMED: 57758340 Status: progressing Assessment/Plan: sepsis dc in am lytes improved afebrile Subjective ROS Limited/Unobtainable: Yes Allergies: Coded Allergies: No Known Allergies (Unverified , 01/10/18) Objective Last 24 Hour Vital Signs Date Time Temp Pulse Resp B/P (MAP) Pulse Ox O2 Delivery O2 Flow Rate FiO2 05/23/19 17:04 Room Air 05/23/19 16:00 99.2 52 17 123/66 (85) 97 05/23/19 14:00 59 112/76 05/23/19 12:00 98.1 59 18 112/76 (88) 98 05/23/19 09:00 Room Air 05/23/19 09:00 101/51 05/23/19 08:00 97.8 58 17 101/51 (68) 95 05/23/19 05:31 50 127/61 05/23/19 04:00 97.6 50 16 115/61 (79) 97 05/23/19 00:00 53 05/23/19 00:00 97.2 60 20 124/70 (88) 98 05/22/19 21:22 52 121/65 05/22/19 21:00 Room Air Intake and Output 05/22/19 05/23/19 19:00 07:00 Intake Total 600 ml 120 ml Balance 600 ml 120 ml Intake Oral 600 ml 120 ml # Voids 3 2 Laboratory Tests 05/22/19 23:30: Urine Color Yellow, Urine Appearance Clear, Urine pH 6, Urine Specific [place] 1.020, Urine Protein 2+H, Urine Glucose (UA) Negative, Urine Ketones 1+H, Urine Blood Negative, Urine Nitrite Negative, Urine Bilirubin Negative, Urine Urobilinogen Normal, Urine Leukocyte Esterase Negative, Urine RBC 0-2H, Urine WBC 0, Urine Squamous Epithelial Cells None, Urine Bacteria Few 05/23/19 19:27: White Blood Count 7.5, Red Blood Count 2.87L, Hemoglobin 10.4L, Hematocrit 29.7L , Mean Corpuscular Volume 103H, Mean Corpuscular Hemoglobin 36.3H, Mean Corpuscular Hemoglobin Concent 35.1, Red Cell Distribution Width 13.6, Platelet Count 118L, Mean Platelet Volume 6.4L, Neutrophils (%) (Auto) 53.2, Lymphocytes (%) (Auto) 22.9, Monocytes (%) (Auto) 14.8H, Eosinophils (%) (Auto) 8.0H, Basophils (%) (Auto) 1.1, Sodium Level 147H, Potassium Level 3.5, Chloride Level 118H, Carbon Dioxide Level 21, Anion Gap 9, Blood Urea Nitrogen 24H, Creatinine 0.9, Estimat Glomerular Filtration Rate , Glucose Level 107H, Calcium Level 8.0L, Total Bilirubin [Pending], Aspartate Amino Transf (AST/SGOT ) [Pending], Alanine Aminotransferase (ALT/SGPT) [Pending], Alkaline Phosphatase [Pending], Total Protein [Pending], Albumin [Pending], Globulin [ Pending] Height (Feet): 5 Height (Inches): 7.00 Weight (Pounds): 126 Neck: supple Cardiovascular: normal rate Respiratory/Chest: lungs clear Deysi He MD May 23, 2019 20:29
[2019-05-23] MEDS ORDERED: Atorvastatin 20mg tab ORAL SCH (21:00)
[2019-05-24] VITALS: BP 118/57
[2019-05-24 04:00] VITALS: BP 102/64
--- NOTE | 2019-05-24 05:46 | NUR ---
RE DC [facility] CALLED, CARDIAC REHAB NURSE SCHEDULED FOR 10AM, THERE IS A DISCHARGE ORDER BACK TO [facility]
[2019-05-24] MEDS: Propranolol 10mg tab ORAL SCH (05:50)
--- NOTE | 2019-05-24 07:40 | NUR ---
HAND-OFF: Report given to DAISY Levi. Endorsed plan of care.
--- NOTE | 2019-05-24 07:42 | NUR ---
NURSE NOTES: Received patient in bed, awake, not in respiratory/cardiac distress. Denies any pain or discomfort. IV is intact, no s/s of infiltration. Bed is in lowest position and locked. Call light within reach. Will continue plan of care. Will follow up with discharge.
[2019-05-24 08:00] VITALS: BP 126/62
[2019-05-24] MEDS: Lactulose 20gm/30ml UDC ORAL SCH (08:08)
[2019-05-24 09:00] VITALS: BP 118/61
[2019-05-24] MEDS: Losartan 50mg tab ORAL SCH (09:00)
--- NOTE | 2019-05-24 09:42 | NUR ---
DISCHARGE PLANNED: PATIENT IS RETURNING TO [facility] T: [phone] FOR NURSE TO NURSE REPORT ROOM# 12B [facility] PICKUP TIME 10am SPOKE WITH BROTHER (LESVIA) MADE HIM AWARE OF DISCHARGE
--- NOTE | 2019-05-24 09:57 | General Progress Note ---
Assessment/Plan Status: progressing Assessment/Plan: cirrhosis biliary stent thrombocytopenia gastric varices hep C elevated CEA and CA 19-9 fu hepatitis panel>>> hepatitis C positive xifaxan off norvasc on propanolol repeat labs needs out patient fu for hep c treatment CT reviewed lactulose xifaxan Subjective ROS Limited/Unobtainable: Yes Allergies: Coded Allergies: No Known Allergies (Unverified , 01/10/18) Objective Last 24 Hour Vital Signs Date Time Temp Pulse Resp B/P (MAP) Pulse Ox O2 Delivery O2 Flow Rate FiO2 05/24/19 09:00 118/61 05/24/19 09:00 Room Air 05/24/19 08:00 97.7 58 18 126/62 (83) 98 05/24/19 05:50 55 112/56 05/24/19 04:00 97.0 55 20 102/64 (77) 97 05/24/19 00:00 97.5 57 19 118/57 (77) 97 05/23/19 22:00 52 119/65 05/23/19 21:00 Room Air 05/23/19 20:00 97.2 53 20 115/56 (75) 97 05/23/19 17:04 Room Air 05/23/19 16:00 99.2 52 17 123/66 (85) 97 05/23/19 14:00 59 112/76 05/23/19 12:00 98.1 59 18 112/76 (88) 98 Intake and Output 05/23/19 05/24/19 19:00 07:00 Intake Total 55 ml 1360 ml Balance 55 ml 1360 ml Intake Oral 360 ml IV Total 55 ml Other 1000 ml # Voids 2 # Bowel Movements 3 3 Laboratory Tests 05/23/19 19:27: White Blood Count 7.5, Red Blood Count 2.87L, Hemoglobin 10.4L, Hematocrit 29.7L , Mean Corpuscular Volume 103H, Mean Corpuscular Hemoglobin 36.3H, Mean Corpuscular Hemoglobin Concent 35.1, Red Cell Distribution Width 13.6, Platelet Count 118L, Mean Platelet Volume 6.4L, Neutrophils (%) (Auto) 53.2, Lymphocytes (%) (Auto) 22.9, Monocytes (%) (Auto) 14.8H, Eosinophils (%) (Auto) 8.0H, Basophils (%) (Auto) 1.1, Sodium Level 147H, Potassium Level 3.5, Chloride Level 118H, Carbon Dioxide Level 21, Anion Gap 9, Blood Urea Nitrogen 24H, Creatinine 0.9, Estimat Glomerular Filtration Rate , Glucose Level 107H, Calcium Level 8.0L, Total Bilirubin 0.5, Aspartate Amino Transf (AST/SGOT) 55H, Alanine Aminotransferase (ALT/SGPT) 63, Alkaline Phosphatase 77, Total Protein 6.4, Albumin 2.4L, Globulin 4.0, Albumin/Globulin Ratio 0.6L Height (Feet): 5 Height (Inches): 7.00 Weight (Pounds): 126 General Appearance: alert EENT: normal ENT inspection Neck: normal alignment, supple Cardiovascular: normal rate Respiratory/Chest: decreased breath sounds Abdomen: normal bowel sounds, non tender Extremities: non-tender Gideon Ramirez MD May 24, 2019 09:57
--- NOTE | 2019-05-24 10:20 | NUR ---
NURSE NOTES: Patient was picked up by [facility] personnel. He was discharged to [facility] in stable condition. Prior to discharge, patient's v/s was stable. Denied any pain or discomfort. Skin assessment done noted with no new skin issue. IV and ID were removed. No s/s of infection on IV removal site. Discharge instruction given to [facility] nurse Juanito to resume [facility] meds.All belongings accounted for and sent with patient and upper denture was worn by patient. Cheo Jack patient's family was informed about discharge.
--- NOTE | 2019-05-24 12:52 | Hematology/Onc Progress Note ---
Assessment/Plan Assessment/Plan Assessment and Recs: # Thrombocytopenia with liver cirrhosis - with hepatitis C++, with gastric varcies and hepatic encephalopathy --> hepatitis C is positive and platelets are low remain decreased --> liver c/w cirrhosis, gastric varices --> cea 11, ca 19.9 43 # Elevated tumor markers with cea and ca19.9 elevated --> needs further eval as outpatient in re to cancer screening --> ct a/p reviewed and shows no mass or malginancy # Chest pain r/o acs --> as per Dr. Gomez # Biliary stent # Hypertension # Liver cirrhosis # Hep C # Spinal stenosis # Left rotator cuff tear # Arthropathy The timing of this note does not necessarily reflect the time of the patient was seen. Greatly appreciate consultation. Subjective Allergies: Coded Allergies: No Known Allergies (Unverified , 01/10/18) Subjective 05/05/28: no overnight events, on cefepime, repeat cbc tomorrow am 05/22: wbc higher, abx changed to cefepime as per eileen valverde 05/23: cefepime now off as per id, no major changes, seen by id 05/24: no acute events, in stable condition, dc planning Objective Objective Last 24 Hour Vital Signs Date Time Temp Pulse Resp B/P (MAP) Pulse Ox O2 Delivery O2 Flow Rate FiO2 05/24/19 09:00 118/61 05/24/19 09:00 Room Air 05/24/19 08:00 97.7 58 18 126/62 (83) 98 05/24/19 05:50 55 112/56 05/24/19 04:00 97.0 55 20 102/64 (77) 97 05/24/19 00:00 97.5 57 19 118/57 (77) 97 05/23/19 22:00 52 119/65 05/23/19 21:00 Room Air 05/23/19 20:00 97.2 53 20 115/56 (75) 97 05/23/19 17:04 Room Air 05/23/19 16:00 99.2 52 17 123/66 (85) 97 05/23/19 14:00 59 112/76 05/23/19 12:00 98.1 59 18 112/76 (88) 98 05/23/19 09:00 Room Air 05/23/19 09:00 101/51 05/23/19 08:00 97.8 58 17 101/51 (68) 95 05/23/19 05:31 50 127/61 05/23/19 04:00 97.6 50 16 115/61 (79) 97 05/23/19 00:00 53 05/23/19 00:00 97.2 60 20 124/70 (88) 98 05/22/19 21:22 52 121/65 05/22/19 21:00 Room Air 05/22/19 20:00 97.3 52 18 121/65 (83) 97 05/22/19 20:00 53 05/22/19 16:00 53 05/22/19 16:00 97.5 54 18 117/69 (85) 95 05/22/19 13:02 50 121/71 Intake and Output 05/23/19 05/24/19 19:00 07:00 Intake Total 55 ml 1360 ml Balance 55 ml 1360 ml Intake Oral 360 ml IV Total 55 ml Other 1000 ml # Voids 2 # Bowel Movements 3 3 Labs Test 05/22/19 06:34 05/22/19 23:30 05/23/19 19:27 White Blood Count 9.5 K/UL (4.8-10.8) 7.5 K/UL (4.8-10.8) Red Blood Count 3.18 M/UL (4.70-6.10) 2.87 M/UL (4.70-6.10) Hemoglobin 11.4 G/DL (14.2-18.0) 10.4 G/DL (14.2-18.0) Hematocrit 32.9 % (42.0-52.0) 29.7 % (42.0-52.0) Mean Corpuscular Volume 104 FL (80-99) 103 FL (80-99) Mean Corpuscular Hemoglobin 35.9 PG (27.0-31.0) 36.3 PG (27.0-31.0) Mean Corpuscular Hemoglobin Concent 34.7 G/DL (32.0-36.0) 35.1 G/DL (32.0-36.0) Red Cell Distribution Width 13.8 % (11.6-14.8) 13.6 % (11.6-14.8) Platelet Count 121 K/UL (150-450) 118 K/UL (150-450) Mean Platelet Volume 6.8 FL (6.5-10.1) 6.4 FL (6.5-10.1) Neutrophils (%) (Auto) 63.7 % (45.0-75.0) 53.2 % (45.0-75.0) Lymphocytes (%) (Auto) 14.9 % (20.0-45.0) 22.9 % (20.0-45.0) Monocytes (%) (Auto) 14.7 % (1.0-10.0) 14.8 % (1.0-10.0) Eosinophils (%) (Auto) 6.1 % (0.0-3.0) 8.0 % (0.0-3.0) Basophils (%) (Auto) 0.5 % (0.0-2.0) 1.1 % (0.0-2.0) Sodium Level 141 MMOL/L (136-145) 147 MMOL/L (136-145) Potassium Level 3.5 MMOL/L (3.5-5.1) 3.5 MMOL/L (3.5-5.1) Chloride Level 112 MMOL/L (98-107) 118 MMOL/L (98-107) Carbon Dioxide Level 20 MMOL/L (21-32) 21 MMOL/L (21-32) Anion Gap 9 mmol/L (5-15) 9 mmol/L (5-15) Blood Urea Nitrogen 24 mg/dL (7-18) 24 mg/dL (7-18) Creatinine 0.9 MG/DL (0.55-1.30) 0.9 MG/DL (0.55-1.30) Estimat Glomerular Filtration Rate mL/min (>60) mL/min (>60) Glucose Level 113 MG/DL (74-106) 107 MG/DL (74-106) Calcium Level 8.3 MG/DL (8.5-10.1) 8.0 MG/DL (8.5-10.1) Phosphorus Level 2.9 MG/DL (2.5-4.9) Magnesium Level 2.0 MG/DL (1.8-2.4) Total Bilirubin 0.6 MG/DL (0.2-1.0) 0.5 MG/DL (0.2-1.0) Aspartate Amino Transf (AST/SGOT) 60 U/L (15-37) 55 U/L (15-37) Alanine Aminotransferase (ALT/SGPT) 69 U/L (12-78) 63 U/L (12-78) Alkaline Phosphatase 91 U/L (46-116) 77 U/L (46-116) Ammonia 64 umol/L (11-32) Total Protein 6.8 G/DL (6.4-8.2) 6.4 G/DL (6.4-8.2) Albumin 2.5 G/DL (3.4-5.0) 2.4 G/DL (3.4-5.0) Globulin 4.3 g/dL 4.0 g/dL Albumin/Globulin Ratio 0.6 (1.0-2.7) 0.6 (1.0-2.7) Urine Color Yellow Urine Appearance Clear Urine pH 6 (4.5-8.0) Urine Specific [place] 1.020 (1.005-1.035) Urine Protein 2+ (NEGATIVE) Urine Glucose (UA) Negative (NEGATIVE) Urine Ketones 1+ (NEGATIVE) Urine Blood Negative (NEGATIVE) Urine Nitrite Negative (NEGATIVE) Urine Bilirubin Negative (NEGATIVE) Urine Urobilinogen Normal MG/DL (0.0-1.0) Urine Leukocyte Esterase Negative (NEGATIVE) Urine RBC 0-2 /HPF (0 - 0) Urine WBC 0 /HPF (0 - 0) Urine Squamous Epithelial Cells None /LPF (NONE/OCC) Urine Bacteria Few /HPF (NONE) Height (Feet): 5 Height (Inches): 7.00 Weight (Pounds): 126 Objective Gen: well appearing, nad Head: normocephalic, at HEENT: hearing grossly normal, eom grossly intact Respiratory: lungs clear, normal breath sounds CV: regular rate, rhythm, no edema GI: soft, nd MSK: moves extremity spontaneously Neurologic: grossly normal Psychiatric: mood/affect normal Faheem Parra MD May 24, 2019 12:52
--- NOTE | 2019-05-24 17:45 | Progress Note ---
DATE: 05/24/2019 SUBJECTIVE: The patient is doing well. No behavior issues noted. Calm, cooperative. He is going to be discharged today. MENTAL STATUS EXAMINATION: Alert, oriented x4. Mood is depressive. Affect is constricted, congruent with mood. Thought process is concrete. Thought content, no suicidal or homicidal ideation. Cognition is intact. Insight and judgment is fair. ASSESSMENT: Stable. PLAN: 1. We will continue current medication. 2. Provide the patient with reality orientation and supportive therapy. Charo Luz M.D. DR: YAN JOB#: [id number] CC:
--- NOTE | 2019-05-26 09:11 | Discharge Summary ---
Discharge Summary Discharge Summary _ DATE OF ADMISSION: 05/17/2019 DATE OF DISCHARGE: 05/24/2019 DISCHARGED BY: Dr. He REASON FOR ADMISSION: 73 years old male with past medical history of liver cirrhosis, hepatitis C, hypertension, BPH, hepatic encephalopathy, spinal stenosis, GERD, presented with left-sided sharp chest pain , started 15 minutes prior to arrival. Patient received 1 sublingual nitroglycerin at SNF without help in relieving his symptoms. Paramedics patient with 325 mg of aspirin and 3 sprays of nitroglycerin without significant improvement. Patient also reported associated shortness of breath. Pain reported as 7 out of 10 on a scale 1-10. Upon evaluation vital signs were stable. Pulse oximetry was stable on room air. Laboratory work-up revealed no leukocytosis, hemoglobin 11.4 ,hematocrit 31.7. Platelet count 146. D-dimer 1.26. Stable electrolytes. BUN 32, creatinine 1.2. Glucose 95. Troponin negative, pro BNP 80. EKG revealed sinus rhythm with right bundle branch block and left posterior fascicular block. Chest x-ray revealed no acute cardiopulmonary pathology. Patient subsequently admitted for evaluation for acute coronary syndrome. CONSULTANTS: fiber analyst Dr. Addison ID specialist Dr. Zamarripa GI specialist Dr. Pantoja tile inspector/oncologist Dr. Parra psychiatrist [facility] COURSE: Patient admitted to telemetry floor. [employer] followed. Serial troponin were negative. EKG revealed right bundle branch block and left posterior fascicular block. Patient was ruled out for acute myocardial infarction. Cardiolite stress test revealed no evidence of ischemia. Echocardiogram revealed preserved ejection fraction of 65%. Patient was noted to have, as mentioned above, bifascicular block with right bundle branch block and left posterior fascicular block. Patient however denied any history of syncope. Blood pressure was managed with Inderal and hydralazine. CTA of the chest revealed no evidence of pulmonary emboli. No acute process in the lungs. Morphological changes of cirrhosis within the liver with prominent gastric varices noted. Per fiber analyst, chest pain was atypical. GI specialist followed. Patient with history of cirrhosis and biliary stent placement. Hepatitis panel revealed evidence of hepatitis C. GI specialist recommended outpatient referral for hepatitis C treatment. Ammonia level initially was 93. Patient started on lactulose and Xifaxan. Ammonia trending down. Noted elevated CEA 11.6 and CA-19-9 -43. LFTs were closely monitored : AST from 73 down to 55, ALT from 84 down to 63. Total bilirubin from 1.3 trended down to normal. CT of the abdomen and pelvis revealed nodular cirrhotic appearance of the liver. Varices. Splenomegaly. Common bile duct stent and dilated common bile duct measuring 12 mm. No evidence of mass or malignancy. Psychologist followed. Thrombocytopenia was consistent with liver cirrhosis. Platelet count was closely monitored. Prior to discharge platelet count 118. Per tile inspector, patient will need further evaluation as outpatient in regards to cancer screening. As mentioned above, CT of the abdomen and pelvis of the scan revealed no evidence of mass or malignancy. Due to elevated CEA and CA-19-9 psychiatrist followed and diagnosed patient with major depressive disorder. Patient was prior on Depakote, which was discontinued , and patient started on Lexapro. Reality orientation and supportive therapy provided. Patient noted to have leukocytosis and low-grade fever. ID specialist followed. Patient started on empiric antibiotic. Blood cultures were negative. Urinalysis revealed no evidence of urinary tract infection. Fever and leukocytosis resolved. Antibiotics stopped. Patient clinically stabilized and was ready for transfer back to [facility] facility for continuation of care. Outpatient follow-up for cancer screening was recommended. FINAL DIAGNOSES: Atypical chest pain Bifascicular block with right bundle branch block and left posterior fascicular block Hypertension Cirrhosis Hepatitis C Encephalopathy History of biliary stent Gastric varices Thrombocytopenia Elevated tumor markers/CEA, CA-19-9 Major depressive disorder Fever and leukocytosis -resolved DISCHARGE MEDICATIONS: See Medication Reconciliation list. DISCHARGE INSTRUCTIONS: Patient was discharged to the correction facility. Follow up with medical doctor at the facility. I have been assigned to dictate discharge summary for this account. I was not involved in the patient's management. Shelly Almanzar NP May 26, 2019 09:11
--- NOTE | 2019-05-30 15:36 | Coder Physician Query ---
Clarification is required for compliance, coding accuracy, and to reflect severity of illness for this patient Dear Date: 05/30/19 Cell Reliner/CDS' Name: JACKELIN THIBODEAUX CHEST PAIN QUERY - REASON FOR ADMISSION: 73 years old male with past medical history of liver cirrhosis, hepatitis C, hypertension, BPH, hepatic encephalopathy, spinal stenosis, GERD, presented with left-sided sharp chest pain , started 15 minutes prior to arrival. Patient received 1 sublingual nitroglycerin at SNF without help in relieving his symptoms. Serial troponin were negative. EKG revealed right bundle branch block and left posterior fascicular block. Patient was ruled out for acute myocardial infarction. Cardiolite stress test revealed no evidence of ischemia. Echocardiogram revealed preserved ejection fraction of 65%. Patient was noted to have, as mentioned above, bifascicular block with right bundle branch block and left posterior fascicular block. Patient however denied any history of syncope. Blood pressure was managed with Inderal and hydralazine. CTA of the chest revealed no evidence of pulmonary emboli. No acute process in the lungs. Please document the suspected etiology of Chest Pain: [] Acute Coronary Syndrome [] Pericarditis [] Anxiety [] Cancer [] Pneumonia [] Costochondritis [] Pneumothorax [] GERD/Esophagitis [] Pulmonary embolism [] Other: [] Unable to determine MORRIS CISNEROS M.D. Date Please also document in your Progress Notes and/or Discharge Summary and indicate if the condition was present on admission. ARTUR
--- NOTE | 2019-05-31 07:55 | CDS Physician Query ---
Clarification is required for compliance, coding accuracy, and to reflect severity of illness for this patient Dear John Del Cid MD Date 05-31-2019 Photographic Specialist/CDS' Name: Fran Baxter Assessment/Plan Assessment/Plan 1. Atypical chest pain. The patient does not currently have chest pain. He has already ruled out for myocardial infarction. His EKG shows right bundle-branch block and left posterior fascicular block. Dobutamine Cardiolite stress showed no ischemia Echo EF 65%. On Inderal for esophageal varices but held for marianna in 50s. Stable form cardiac stand point for DC 2. Bifascicular block with right bundle-branch block and left posterior fascicular block. The patient denies any history of syncope. 3. Hypertension on Inderal 10 q 8 qnd p.r.n. hydralazine. 4. Hepatitis C, cirrhosis, and history of encephalopathy and history of biliary stent. Currently on lactulose and Inderal. Further evaluation by Dr. Pantoja. 5. New fever and high WBC on Cefepime per ID Please document the suspected etiology of Chest Pain: [] Aortic dissection [] Acute myocardial infarction [] Acute Coronary Syndrome [] Pericarditis [] Anxiety [] Cancer [] Pneumonia [] Costochondritis [] Pneumothorax [] GERD/Esophagitis [] Pulmonary embolism [] Other: [] Unable to determine Present on Admission: [] Yes [] No [] Clinically Undetermined Physician signature Date Please also document in your Progress Notes and/or Discharge Summary and indicate if the condition was present on admission. ARTUR
== END 2019-05-24 10:24 | DRG 313 ==
LOC: EDBD 18:43 → EDSEX 18:43 → EMR 19:00 → 2E 20:37 → EDBEDREQ 21:04 → 4E 05-23 02:33
DX: R07.89 Other chest pain (principal); I45.2 Bifascicular block; E46 Unspecified protein-calorie malnutrition; K76.6 Portal hypertension; B19.20 Unspecified viral hepatitis C without hepatic coma; I10 Essential (primary) hypertension; D64.9 Anemia, unspecified; R97.0 Elevated carcinoembryonic antigen [CEA]; F32.9 Major depressive disorder, single episode, unspecified; I86.4 Gastric varices; K74.60 Unspecified cirrhosis of liver; D69.6 Thrombocytopenia, unspecified; K21.9 Gastro-esophageal reflux disease without esophagitis; M75.102 Unspecified rotator cuff tear or rupture of left shoulder, not specified as traumatic; M12.9 Arthropathy, unspecified; N40.0 Benign prostatic hyperplasia without lower urinary tract symptoms
CPT/HCPCS: 36415; 71045; 71275; 74177; 78452; 80048; 80053; 81003; 82140; 82248; 82378; 82553; 82728; 83540; 83550; 83735; 83880; 84100; 84484; 85025; 85379; 85610; 86039; 86235; 86705; 86709; 86803; 87040; 87081; 87340; 93005; 93017; 93306; 99285; J8499

== ENCOUNTER 2020-01-09 21:32 | Inpatient (IN) | payer MEDICARE, OTHER ==
[~2020-01-09] VITALS: Ht 160 cm; Wt 68.5 kg
[~2020-01-09 21:32] MED LIST changes: +ACETAMINOPHEN325 M1 ORAL; +ACETAMINOPHEN500 MG ORAL; +AMLODIPINE BESYL5 MG ORAL; +ASPIR 8181 MG ORAL; +ATORVASTATIN CA40 MG ORAL; +ATORVASTATIN CA80 MG ORAL; +COLACE100 MG ORAL; +DOCUSATE SODIU250 MG ORAL; +DULCOLAX10 MG RC; +FLEET ENEMA133 M1 RC; +LACTULOSE20 GM/301 ORAL; +LOSARTAN POTASS50 MG ORAL; +MAALOX MAXIMUM355 M1 PO; +MILK OF MA400 MG/51 ORAL; +OMEPRAZOLE40 M1 ORAL
[2020-01-09 22:00] VITALS: BP 88/40
[2020-01-09 22:40] LABS: BASOPHILS % (AUTO) 0.6 % (0.0-2.0); EOSINOPHILS % (AUTO) 0.6 % (0.0-3.0); HEMATOCRIT 30.7 % (42.0-52.0); HEMOGLOBIN 9.7 G/DL (14.2-18.0); LYMPHOCYTES % (AUTO) 14.7 % (20.0-45.0); MEAN CORPUSCULAR VOLUME 95 FL (80-99); MONOCYTES % (AUTO) 10.1 % (1.0-10.0); NEUTROPHILS % (AUTO) 74.1 % (45.0-75.0); PLATELET COUNT 102 K/UL (150-450); RED BLOOD COUNT 3.22 M/UL (4.70-6.10); RED CELL DISTRIBUTION WIDTH 15.9 % (11.6-14.8); WHITE BLOOD COUNT 10.6 K/UL (4.8-10.8)
[2020-01-09 22:49] LABS: APPEARANCE,URINE SLIGHTLY CLOUDY; BILIRUBIN, URINE NEGATIVE (NEGATIVE); COLOR,URINE YELLOW; GLUCOSE, URINE (UA) NEGATIVE (NEGATIVE); KETONES,URINE NEGATIVE (NEGATIVE); NITRITE,URINE NEGATIVE (NEGATIVE); PROTEIN,URINE 2+ (NEGATIVE)
[2020-01-09 22:50] LABS: LEUKOCYTE ESTERASE ,URINE NEGATIVE (NEGATIVE); UROBILINOGEN,URINE NORMAL MG/DL (0.0-1.0)
[2020-01-09 22:51] LABS: INR 1.1 (0.9-1.1)
[2020-01-09 22:52] LABS: ANION GAP 15 mmol/L (5-15); BLOOD UREA NITROGEN 48 mg/dL (7-18); CALCIUM 8.4 MG/DL (8.5-10.1); CARBON DIOXIDE 20 MMOL/L (21-32); CHLORIDE 118 MMOL/L (98-107); CREATININE 1.8 MG/DL (0.55-1.30); POTASSIUM 3.9 MMOL/L (3.5-5.1); SODIUM 153 MMOL/L (136-145)
[2020-01-09 23:00] VITALS: BP 120/61
--- NOTE | 2020-01-09 23:01 | Emergency Room Report ---
History of Present Illness General Chief Complaint: Flu Like Symptoms Source: Medical Record, EMS Present Illness HPI Patient is taken via EMS for upper respiratory symptoms. He has had a fever. In the field he was hypotensive. The patient is unresponsive and unable to give history at this time. The patient was admitted May of this year. Discharge diagnoses: Hepatic encephalopathy Dementia with behavioral disturbances Hepatitis C Liver cirrhosis with portal hypertension Elevated cancer tumor markers CEA, CA-19-9 and alpha-fetoprotein Mild thrombocytopenia likely due to liver cirrhosis blood cultures were negative. 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 Patient History Limited by: medical condition Past Medical History: see triage record, old chart reviewed Social History Narrative [facility] Reviewed Nursing Documentation: PMH: Agreed; PSxH: Agreed Nursing Documentation-PMH Hx Cardiac Problems: Yes - CHF, ANGINA PECTORIS Hx Hypertension: Yes - ANEMIA Hx Cancer: No Hx Gastrointestinal Problems: Yes - hep C, DYSPHAGIA Hx Neurological Problems: Yes - HEPATIC ENCEPHALOPATHY Review of Systems All Other Systems: limited Physical Exam Vital Signs Date Time Temp Pulse Resp B/P (MAP) Pulse Ox O2 Delivery O2 Flow Rate FiO2 01/09/20 21:43 100.0 90 18 88/40 (56) 99 Room Air Sp02 EP Interpretation: reviewed, normal General Appearance: no apparent distress, lethargic, Chronically Ill Eyes: bilateral eye PERRL, bilateral eye Scleral Injection ENT: dry mucus membranes Neck: supple Respiratory: no respiratory distress, crackles, rales, rhonchi Cardiovascular #1: regular rate, rhythm, edema - trace bilat Cardiovascular #2: 2+ radial (R) Gastrointestinal: soft, no guarding, decreased bowel sounds Genitourinary: normal inspection Musculoskeletal: decreased range of motion Neurologic: aphasia, other Psychiatric: other - stupor Reflexes: 0 knee (R), 0 knee (L) Skin: warm/dry, other - slightly plethoric Procedures Critical Care Time Critical Care Time Total Critical Care Time: 30 min bedside evaluation and treatment excludes procedures (EKG). Reason for critical care: Sepsis, encephalopathy, non-STEMI Possible complications: hypotension, hypertension, MT, shock, arrhythmias, metabolic acidosis, end organ damage, respiratory failure. Interventions: Sepsis resuscitation, repeat evaluations, antibiotics, aspirin Course: Patient presents with us for respiratory symptoms hypotension and fever. Sepsis resuscitation begun. Positive troponin treated with aspirin. Sepsis reevaluation with improved vital signs. Identification of probably urinary source and antibiotics begun. Clinical status improved however still guarded prognosis. Consultations: nursing staff, EMS, lab, admitting physician Performed by: Dr. Sosa Tolerated well condition = serious Medical Decision Making Diagnostic Impression: Primary Impression: Sepsis Qualified Codes: A41.9 - Sepsis, unspecified organism; R65.20 - Severe sepsis without septic shock; G93.40 - Encephalopathy, unspecified Additional Impressions: UTI (urinary tract infection) Qualified Codes: N39.0 - Urinary tract infection, site not specified Dehydration Renal failure Qualified Codes: N17.9 - Acute kidney failure, unspecified Encephalopathy ER Course Patient presents with upper respiratory symptoms with fever and hypotension. Differential includes sepsis, pneumonia, COVID-19, urinary tract infection, other source amongst others. Evaluation with EKG, DVT, chest x-ray and labs. Sepsis resuscitation begun with 30 mill per kilogram bolus and continued hydration. Presentation is suggestive of COVID-19. This combined with coming from the detention facility. Patient is placed in isolation and on a cardiac rehabilitation program director. Tylenol administered for fever. EKG no injury. Chest x-ray no infiltrates. White count normal with no left shift. CMP remarkable for renal failure. Pyuria present. Rapid COVID-19 test negative. Lab called with positive troponin. Aspirin administered. Due to hypotension and presence of sepsis nitrates and beta-blockers contraindicated. Sepsis re-eval 2300 start antibiotics. Patient vital signs improved with fluid hydration. Patient continues to have altered mentation. Capillary fill good. Tachypnea improved. Antibiotics instituted for probable urinary tract infection. Late review of chart reveals back encephalopathy. At the time unable to administer lactulose or other treatment. In the face of infection is explained some of his unresponsiveness. Discussion with admitting physician regarding laboratory values and treatment. Admit to telemetry. Laboratory Tests Test 01/09/20 21:45 01/09/20 22:00 01/09/20 23:45 White Blood Count 10.6 K/UL (4.8-10.8) Red Blood Count 3.22 M/UL (4.70-6.10) L Hemoglobin 9.7 G/DL (14.2-18.0) L Hematocrit 30.7 % (42.0-52.0) L Mean Corpuscular Volume 95 FL (80-99) Mean Corpuscular Hemoglobin 30.1 PG (27.0-31.0) Mean Corpuscular Hemoglobin Concent 31.5 G/DL (32.0-36.0) L Red Cell Distribution Width 15.9 % (11.6-14.8) H Platelet Count 102 K/UL (150-450) L Mean Platelet Volume 6.9 FL (6.5-10.1) Neutrophils (%) (Auto) 74.1 % (45.0-75.0) Lymphocytes (%) (Auto) 14.7 % (20.0-45.0) L Monocytes (%) (Auto) 10.1 % (1.0-10.0) H Eosinophils (%) (Auto) 0.6 % (0.0-3.0) Basophils (%) (Auto) 0.6 % (0.0-2.0) Prothrombin Time 12.3 SEC (9.30-11.50) H Prothrombin Time INR 1.1 (0.9-1.1) Activated Partial Thromboplast Time 22 SEC (23-33) L Lactic Acid Level 2.50 mmol/L (0.4-2.0) H 2.50 mmol/L (0.66-2.22) H Urine Color Yellow Urine Appearance Slightly cloudy Urine pH 6.0 (4.5-8.0) Urine Specific [place] 1.015 (1.005-1.035) Urine Protein 2+ (NEGATIVE) H Urine Glucose (UA) Negative (NEGATIVE) Urine Ketones Negative (NEGATIVE) Urine Blood Negative (NEGATIVE) Urine Nitrite Negative (NEGATIVE) Urine Bilirubin Negative (NEGATIVE) Urine Urobilinogen Normal MG/DL (0.0-1.0) Urine Leukocyte Esterase Negative (NEGATIVE) Urine RBC 0-2 /HPF (0 - 0) H Urine WBC 5-10 /HPF (0 - 0) H Urine Squamous Epithelial Cells Few /LPF (NONE/OCC) Urine Bacteria Few /HPF (NONE) Urine Mucus Many /LPF (NONE/OCC) H Sodium Level 153 MMOL/L (136-145) H Potassium Level 3.9 MMOL/L (3.5-5.1) Chloride Level 118 MMOL/L (98-107) H Carbon Dioxide Level 20 MMOL/L (21-32) L Anion Gap 15 mmol/L (5-15) Blood Urea Nitrogen 48 mg/dL (7-18) H Creatinine 1.8 MG/DL (0.55-1.30) H Estimated Glomerular Filtration Rate 37.3 mL/min (>60) Glucose Level 138 MG/DL (74-106) H Calcium Level 8.4 MG/DL (8.5-10.1) L Magnesium Level 2.2 MG/DL (1.8-2.4) Total Bilirubin 0.5 MG/DL (0.2-1.0) Aspartate Amino Transferase (AST) 53 U/L (15-37) H Alanine Aminotransferase (ALT) 33 U/L (12-78) Alkaline Phosphatase 98 U/L (46-116) Total Creatine Kinase 289 U/L (26-308) Troponin I 0.075 ng/mL (0.000-0.056) Pro-B-Type Natriuretic Peptide 171 pg/mL (0-125) H Total Protein 7.4 G/DL (6.4-8.2) Albumin 2.7 G/DL (3.4-5.0) L Globulin 4.7 g/dL Albumin/Globulin Ratio 0.6 (1.0-2.7) L Lipase 340 U/L (73-393) Microbiology Date/Time Source Procedure Growth Status 01/09/20 22:30 Nasopharynx SARS-CoV-2 RdRp Gene Assay - Final Complete Rhythm Strip Diag. Results EP Interpretation: yes Rhythm: NSR, no PVC's, no ectopy Chest X-Ray Diagnostic Results Chest X-Ray Diagnostic Results : Chest X-Ray Ordered: Yes # of Views/Limited/Complete: 1 View Indication: Shortness of Breath EP Interpretation: Yes Interpretation: no consolidation, no effusion, no pneumothorax Impression: No acute disease Electronically Signed by: Electronically signed by James Sosa MD Last Vital Signs Date Time Temp Pulse Resp B/P (MAP) Pulse Ox O2 Delivery O2 Flow Rate FiO2 01/09/20 22:00 90 18 Room Air 01/09/20 22:00 100.0 88/40 99 Status: improved Disposition: ADMITTED INPATIENT Condition: Serious Referrals: Deysi He MD (PCP) James Sosa MD Jan 09, 2020 23:01
[2020-01-09 23:03] LABS: ALANINE AMINOTRANSFERASE 33 U/L (12-78); ALBUMIN 2.7 G/DL (3.4-5.0); ALBUMIN/GLOBULIN RATIO 0.6 (1.0-2.7); ALKALINE PHOSPHATASE 98 U/L (46-116); ASPARTATE AMINO TRANSFERASE 53 U/L (15-37); BILIRUBIN,TOTAL 0.5 MG/DL (0.2-1.0); CREATINE KINASE 289 U/L (26-308)
[2020-01-09] MEDS ORDERED: Piperacillin/Tazobactam 3.375 GM in NS 110 ML IVPB ONE (23:15)
[2020-01-10] VITALS (9 sets, daily range): BP systolic 103–131; BP diastolic 57–82
[2020-01-10] MEDS ORDERED: BENZTROPINE MESY1 MG ORAL (01:14)
[2020-01-10] MEDS ORDERED: METOPROLOL TART25 MG ORAL (01:15)
[2020-01-10] MEDS ORDERED: PROTONIX40 MG ORAL (01:16)
[2020-01-10] MEDS ORDERED: MULTIVITAMIN1 EACH ORAL (01:16)
[2020-01-10] MEDS ORDERED: XIFAXAN550 MG ORAL (01:17)
[2020-01-10] MEDS ORDERED: VITAMIN C250 MG ORAL (01:18)
[2020-01-10] MEDS ORDERED: VITAMIN D310 MCG ORAL (01:18)
[2020-01-10] MEDS ORDERED: ZINC SULFATE220 M1 ORAL (01:19)
[2020-01-10] MEDS ORDERED: ZYPREXA5 MG ORAL (01:23)
[2020-01-10 09:16] LABS: BASOPHILS % (AUTO) 0.9 % (0.0-2.0); EOSINOPHILS % (AUTO) 0.6 % (0.0-3.0); HEMATOCRIT 33.7 % (42.0-52.0); HEMOGLOBIN 10.5 G/DL (14.2-18.0); LYMPHOCYTES % (AUTO) 8.9 % (20.0-45.0); MEAN CORPUSCULAR VOLUME 96 FL (80-99); NEUTROPHILS % (AUTO) 74.6 % (45.0-75.0); PLATELET COUNT 112 K/UL (150-450); RED BLOOD COUNT 3.52 M/UL (4.70-6.10); RED CELL DISTRIBUTION WIDTH 15.3 % (11.6-14.8); WHITE BLOOD COUNT 13.2 K/UL (4.8-10.8)
[2020-01-10 09:40] LABS: ALANINE AMINOTRANSFERASE 22 U/L (12-78); ALBUMIN 1.4 G/DL (3.4-5.0); ALBUMIN/GLOBULIN RATIO 0.5 (1.0-2.7); ALKALINE PHOSPHATASE 53 U/L (46-116); ANION GAP 13 mmol/L (5-15); ASPARTATE AMINO TRANSFERASE 36 U/L (15-37); BILIRUBIN,TOTAL 0.4 MG/DL (0.2-1.0); BLOOD UREA NITROGEN 25 mg/dL (7-18); CALCIUM 5.2 MG/DL (8.5-10.1); CARBON DIOXIDE 12 MMOL/L (21-32); CHLORIDE 129 MMOL/L (98-107); CREATININE 0.8 MG/DL (0.55-1.30); POTASSIUM 2.5 MMOL/L (3.5-5.1); SODIUM 154 MMOL/L (136-145)
[2020-01-10] MEDS ORDERED: cefTRIAXone 1 GM in NS 55 ML IVPB ONE (10:30)
--- NOTE | 2020-01-10 10:47 | Consultation ---
Consult Note Consult Note I am asked to evaluate the patient at the request of Dr. Pavon for renal failure and electrolyte imbalances Patient was seen in emergency room. He has been in the ER waiting for a room since yesterday. Patient examined. Labs reviewed. Discussed with DAISY Bell. 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 Patient's blood pressure upon arrival was 88 systolic Patient lethargic In no acute distress however coughs on and off Lungs has basal crackles Heart regular with occasional irregular beats Abdomen soft Lower extremities somewhat contracted Laboratory data reviewed Laboratory Tests Test 01/09/20 21:45 01/09/20 22:00 01/09/20 23:45 White Blood Count 10.6 K/UL (4.8-10.8) Red Blood Count 3.22 M/UL (4.70-6.10) L Hemoglobin 9.7 G/DL (14.2-18.0) L Hematocrit 30.7 % (42.0-52.0) L Mean Corpuscular Volume 95 FL (80-99) Mean Corpuscular Hemoglobin 30.1 PG (27.0-31.0) Mean Corpuscular Hemoglobin Concent 31.5 G/DL (32.0-36.0) L Red Cell Distribution Width 15.9 % (11.6-14.8) H Platelet Count 102 K/UL (150-450) L Mean Platelet Volume 6.9 FL (6.5-10.1) Neutrophils (%) (Auto) 74.1 % (45.0-75.0) Lymphocytes (%) (Auto) 14.7 % (20.0-45.0) L Monocytes (%) (Auto) 10.1 % (1.0-10.0) H Eosinophils (%) (Auto) 0.6 % (0.0-3.0) Basophils (%) (Auto) 0.6 % (0.0-2.0) Prothrombin Time 12.3 SEC (9.30-11.50) H Prothrombin Time INR 1.1 (0.9-1.1) Activated Partial Thromboplast Time 22 SEC (23-33) L Lactic Acid Level 2.50 mmol/L (0.4-2.0) H 2.50 mmol/L (0.66-2.22) H Urine Color Yellow Urine Appearance Slightly cloudy Urine pH 6.0 (4.5-8.0) Urine Specific [place] 1.015 (1.005-1.035) Urine Protein 2+ (NEGATIVE) H Urine Glucose (UA) Negative (NEGATIVE) Urine Ketones Negative (NEGATIVE) Urine Blood Negative (NEGATIVE) Urine Nitrite Negative (NEGATIVE) Urine Bilirubin Negative (NEGATIVE) Urine Urobilinogen Normal MG/DL (0.0-1.0) Urine Leukocyte Esterase Negative (NEGATIVE) Urine RBC 0-2 /HPF (0 - 0) H Urine WBC 5-10 /HPF (0 - 0) H Urine Squamous Epithelial Cells Few /LPF (NONE/OCC) Urine Bacteria Few /HPF (NONE) Urine Mucus Many /LPF (NONE/OCC) H Sodium Level 153 MMOL/L (136-145) H Potassium Level 3.9 MMOL/L (3.5-5.1) Chloride Level 118 MMOL/L (98-107) H Carbon Dioxide Level 20 MMOL/L (21-32) L Anion Gap 15 mmol/L (5-15) Blood Urea Nitrogen 48 mg/dL (7-18) H Creatinine 1.8 MG/DL (0.55-1.30) H Estimated Glomerular Filtration Rate 37.3 mL/min (>60) Glucose Level 138 MG/DL (74-106) H Calcium Level 8.4 MG/DL (8.5-10.1) L Magnesium Level 2.2 MG/DL (1.8-2.4) Total Bilirubin 0.5 MG/DL (0.2-1.0) Aspartate Amino Transferase (AST) 53 U/L (15-37) H Alanine Aminotransferase (ALT) 33 U/L (12-78) Alkaline Phosphatase 98 U/L (46-116) Total Creatine Kinase 289 U/L (26-308) Troponin I 0.075 ng/mL (0.000-0.056) Pro-B-Type Natriuretic Peptide 171 pg/mL (0-125) H Total Protein 7.4 G/DL (6.4-8.2) Albumin 2.7 G/DL (3.4-5.0) L Globulin 4.7 g/dL Albumin/Globulin Ratio 0.6 (1.0-2.7) L Lipase 340 U/L (73-393) Microbiology Date/Time Source Procedure Growth Status 01/09/20 22:30 Nasopharynx SARS-CoV-2 RdRp Gene Assay - Final Complete Assessment/Plan Acute renal failure Dehydration Hypernatremia, likely due to free water deficit Sepsis UTI Toxic metabolic encephalopathy Hypoalbuminemia Suggestions: Hold blood pressure medication due to low blood pressure PRN blood pressure medication for high blood pressure Today's labs appears to be an error and should be repeated Slow hydration Pulmonary toilet Antibiotics per ID Monitor renal parameters and electrolyte Slow hydration Urine studies Patient had multiple previous admission here at [facility]. I spent an additional 36 minutes on review of medical records including prior hospital records,consult notes, progress notes, procedures ,imaging labs, hemodynamics, and other clinical documentation. Over 35 min Dewayne Aldridge MD Jan 10, 2020 10:47
[2020-01-10] MEDS ORDERED: Acetaminophen 500mg (ES) tab ORAL SCH (11:00)
[2020-01-10 11:45] LABS: ANION GAP 14 mmol/L (5-15); BLOOD UREA NITROGEN 37 mg/dL (7-18); CALCIUM 8.3 MG/DL (8.5-10.1); CARBON DIOXIDE 21 MMOL/L (21-32); CHLORIDE 118 MMOL/L (98-107); CREATININE 1.3 MG/DL (0.55-1.30); POTASSIUM 3.7 MMOL/L (3.5-5.1); SODIUM 153 MMOL/L (136-145)
[2020-01-10 11:49] LABS: ALANINE AMINOTRANSFERASE 35 U/L (12-78); ALBUMIN 2.9 G/DL (3.4-5.0); ALBUMIN/GLOBULIN RATIO 0.6 (1.0-2.7); ALKALINE PHOSPHATASE 102 U/L (46-116); ASPARTATE AMINO TRANSFERASE 58 U/L (15-37); BILIRUBIN,TOTAL 0.7 MG/DL (0.2-1.0); PHOSPHORUS 3.3 MG/DL (2.5-4.9)
[2020-01-10] MEDS: D5 1/2NS 1,000 ML IV SCH ×2 (13:47→17:46)
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
[2020-01-10] MEDS ORDERED: HydrALAZINE 25mg tab ORAL PRN (15:30)
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
--- NOTE | 2020-01-10 17:00 | Diagnostic Imaging Report ---
Indication: Shortness of breath Technique: One view of the chest Comparison: none Findings: Lungs and pleural spaces are clear. Heart size is normal. Aorta is tortuous and calcified. Surgical hardware is seen in the cervical spine no significant interim change Impression: No acute process
[2020-01-10] MEDS: Pantoprazole Inj IVP SCH (21:00)
[2020-01-11] VITALS: BP 120/69
--- NOTE | 2020-01-11 00:30 | History and Physical Report ---
DATE OF ADMISSION: 01/10/2020 HISTORY OF PRESENT ILLNESS: Patient is Serbian speaking patient. Poor historian due to dementia. Patient is admitted because had a fever of 105 at the shelter and he is being admitted for acute renal failure, hypernatremia due to dehydration, and urinary tract infection, most likely source of fever, UTI. Cannot get any history from the patient. Patient basically again is a poor historian. Patient basically came in with upper respiratory symptoms. Patient is unresponsive, unable to give any history. Patient basically is being admitted for septic shock. Originally was hypotensive, responded to fluids. Patient's fever responded to antipyretics. PAST MEDICAL HISTORY: Dementia, hepatitis C, liver cirrhosis, possible liver cancer, history of thrombocytopenia, history of spinal stenosis, history of gallstone, history of hypertension, constipation, hyperlipidemia, psychosis, GERD. PAST SURGICAL HISTORY: None known. MEDICATIONS: Lipitor, aspirin, vitamin C, bisacodyl, clonidine, docusate, olanzapine, Protonix, rifaximin, vitamin D, and zinc sulfate. ALLERGIES: No known allergies. FAMILY HISTORY: Noncontributory. SOCIAL HISTORY: Unable to obtain. REVIEW OF SYSTEMS: Unable to obtain. Patient is nonverbal. PHYSICAL EXAMINATION: VITAL SIGNS: Temperature 98.6, pulse is 66, blood pressure is 125/59. HEENT: PERRLA. NECK: Supple. No lymphadenopathy. LUNGS: Clear to auscultation. CARDIOVASCULAR: Regular rate and rhythm. No murmurs or extra sounds. GASTROINTESTINAL: Soft. Positive bowel sounds. EXTREMITIES: No edema. NEUROLOGIC: Lethargic, cannot respond, but responds to noxious stimuli. Oriented x0. LABORATORY DATA: WBC of 10.6, hemoglobin 9.7, platelets 102. Sodium 154, potassium 2.5, chloride 129, BUN of 25, creatinine 0.8, calcium 5.2. ASSESSMENT AND PLAN: Severe hypokalemia, hypernatremia due to dehydration, UTI, acute renal failure, sepsis. I have asked Dr. Aldridge, Dr. Joey Martinez, Dr. Jose G Zamarripa see the patient for the above-mentioned abnormalities and treatment for abnormal symptoms. Antibiotics per Dr. Jose G Zamarripa. Deysi He M.D. DR: FELIZ JOB#: [id number] CC:
[2020-01-11 04:00] VITALS: BP 103/55
[2020-01-11 07:51] LABS: ALANINE AMINOTRANSFERASE 34 U/L (12-78); ALBUMIN 2.4 G/DL (3.4-5.0); ALBUMIN/GLOBULIN RATIO 0.6 (1.0-2.7); ALKALINE PHOSPHATASE 79 U/L (46-116); ANION GAP 12 mmol/L (5-15); ASPARTATE AMINO TRANSFERASE 61 U/L (15-37); BILIRUBIN,TOTAL 0.5 MG/DL (0.2-1.0); BLOOD UREA NITROGEN 35 mg/dL (7-18); CALCIUM 8.5 MG/DL (8.5-10.1); CARBON DIOXIDE 19 MMOL/L (21-32); CHLORIDE 123 MMOL/L (98-107); CHOLESTEROL 93 MG/DL (< 200); CREATINE KINASE 859 U/L (26-308); CREATININE 1.3 MG/DL (0.55-1.30); FERRITIN 48 NG/ML (8-388); GAMMA GLUTAMYL TRANSPEPTIDASE 32 U/L (5-85); HDL CHOLESTEROL 39 MG/DL (40-60); PHOSPHORUS 3.7 MG/DL (2.5-4.9); POTASSIUM 3.5 MMOL/L (3.5-5.1); SODIUM 154 MMOL/L (136-145); TRIGLYCERIDES 62 MG/DL (30-150)
[2020-01-11 07:59] LABS: % IRON SATURATION 10 % (15-50); IRON 28 ug/dL (50-175); TOTAL IRON BINDING CAPACITY 277 ug/dL (250-450)
[2020-01-11 08:00] VITALS: BP 119/69
[2020-01-11] MEDS: Pantoprazole Inj IVP SCH ×2 (08:37→20:29)
[2020-01-11] MEDS: Aspirin EC 81mg tab ORAL SCH (08:37)
[2020-01-11 11:44] VITALS: BP 124/58
[2020-01-11] MEDS: cefTRIAXone 1 GM in NS 55 ML IVPB SCH (13:23)
--- NOTE | 2020-01-11 13:54 | Cardiac Electrophysiology PN ---
Subjective Subjective [id number] Objective Last 24 Hour Vital Signs Date Time Temp Pulse Resp B/P (MAP) Pulse Ox O2 Delivery O2 Flow Rate FiO2 01/11/20 12:00 55 01/11/20 11:44 97.9 57 18 124/58 (80) 99 01/11/20 09:00 Room Air 01/11/20 08:00 55 01/11/20 08:00 97.6 55 19 119/69 (86) 99 01/11/20 04:00 98.1 59 18 103/55 (71) 99 01/11/20 04:00 60 01/11/20 01:30 98.8 01/11/20 00:00 74 01/11/20 00:00 101.8 72 18 120/69 (86) 93 01/10/20 21:00 Room Air 01/10/20 20:00 82 01/10/20 20:00 99.0 76 20 129/66 (87) 95 01/10/20 17:03 Room Air 01/10/20 16:00 60 01/10/20 16:00 97.9 62 22 115/81 (92) 99 01/10/20 14:25 98.6 65 20 126/58 100 Room Air 01/10/20 14:11 70 19 Room Air Intake and Output 01/10/20 01/11/20 19:00 07:00 Intake Total 1000 ml Output Total 150 ml 600 ml Balance 850 ml -600 ml Intake IV Total 1000 ml Output Urine Total 150 ml 600 ml # Bowel Movements 1 Laboratory Tests Test 01/11/20 06:17 Sodium Level 154 MMOL/L (136-145) H Potassium Level 3.5 MMOL/L (3.5-5.1) Chloride Level 123 MMOL/L (98-107) H Carbon Dioxide Level 19 MMOL/L (21-32) L Anion Gap 12 mmol/L (5-15) Blood Urea Nitrogen 35 mg/dL (7-18) H Creatinine 1.3 MG/DL (0.55-1.30) Estimat Glomerular Filtration Rate 54.3 mL/min (>60) Glucose Level 91 MG/DL (74-106) Lactic Acid Level 1.40 mmol/L (0.4-2.0) Uric Acid 5.6 MG/DL (2.6-7.2) Calcium Level 8.5 MG/DL (8.5-10.1) Phosphorus Level 3.7 MG/DL (2.5-4.9) Magnesium Level 2.1 MG/DL (1.8-2.4) Iron Level 28 ug/dL (50-175) L Total Iron Binding Capacity 277 ug/dL (250-450) Percent Iron Saturation 10 % (15-50) L Unsaturated Iron Binding 249 ug/dL (112-346) Ferritin 48 NG/ML (8-388) Total Bilirubin 0.5 MG/DL (0.2-1.0) Gamma Glutamyl Transpeptidase 32 U/L (5-85) Aspartate Amino Transf (AST/SGOT) 61 U/L (15-37) H Alanine Aminotransferase (ALT/SGPT) 34 U/L (12-78) Alkaline Phosphatase 79 U/L (46-116) Total Creatine Kinase 859 U/L (26-308) H Troponin I 0.025 ng/mL (0.000-0.056) C-Reactive Protein, Quantitative 4.6 mg/dL (0.00-0.90) H Pro-B-Type Natriuretic Peptide 191 pg/mL (0-125) H Total Protein 6.7 G/DL (6.4-8.2) Albumin 2.4 G/DL (3.4-5.0) L Globulin 4.3 g/dL Albumin/Globulin Ratio 0.6 (1.0-2.7) L Triglycerides Level 62 MG/DL (30-150) Cholesterol Level 93 MG/DL (< 200) LDL Cholesterol 46 mg/dL (<100) HDL Cholesterol 39 MG/DL (40-60) L Cholesterol/HDL Ratio 2.4 (3.3-4.4) L Vitamin B12 Level 594 PG/ML (193-986) Folate 18.7 NG/ML (8.6-58.9) Thyroid Stimulating Hormone (TSH) 0.985 uiU/mL (0.358-3.740) Microbiology Date/Time Source Procedure Growth Status 01/09/20 22:00 Blood Blood Culture - Preliminary NO GROWTH AFTER 24 HOURS Resulted 01/09/20 21:45 Blood Blood Culture - Preliminary NO GROWTH AFTER 24 HOURS Resulted 01/09/20 22:30 Nasopharynx SARS-CoV-2 RdRp Gene Assay - Final Complete John Gomez MD Jan 11, 2020 13:54
--- NOTE | 2020-01-11 14:22 | Infectious Diseases Prog Note ---
Assessment/Plan Assessment/Plan IMPRESSION: Sepsis UTI. Lactic acidosis, Acute renal failure, Cirrhosis, Portal hypertension, Hepatitis C, Anemia, Dementia. Status post splenectomy. RECOMMENDATION: Continue ceftriaxone. We will follow up the cultures. Subjective ROS Limited/Unobtainable: Yes Allergies: Coded Allergies: No Known Allergies (Unverified , 01/10/18) Objective Last 24 Hour Vital Signs Date Time Temp Pulse Resp B/P (MAP) Pulse Ox O2 Delivery O2 Flow Rate FiO2 01/11/20 12:00 55 01/11/20 11:44 97.9 57 18 124/58 (80) 99 01/11/20 09:00 Room Air 01/11/20 08:00 55 01/11/20 08:00 97.6 55 19 119/69 (86) 99 01/11/20 04:00 98.1 59 18 103/55 (71) 99 01/11/20 04:00 60 01/11/20 01:30 98.8 01/11/20 00:00 74 01/11/20 00:00 101.8 72 18 120/69 (86) 93 01/10/20 21:00 Room Air 01/10/20 20:00 82 01/10/20 20:00 99.0 76 20 129/66 (87) 95 01/10/20 17:03 Room Air 01/10/20 16:00 60 01/10/20 16:00 97.9 62 22 115/81 (92) 99 01/10/20 14:25 98.6 65 20 126/58 100 Room Air Height (Feet): 5 Height (Inches): 3.00 Weight (Pounds): 141 General Appearance: no acute distress HEENT: mucous membranes moist Respiratory/Chest: lungs clear Cardiovascular: bradycardia Abdomen: soft, non tender Extremities: other - hands edema Neurologic/Psychiatric: alert, responsive Microbiology Date/Time Source Procedure Growth Status 01/09/20 22:00 Blood Blood Culture - Preliminary NO GROWTH AFTER 24 HOURS Resulted 01/09/20 21:45 Blood Blood Culture - Preliminary NO GROWTH AFTER 24 HOURS Resulted 01/09/20 22:30 Nasopharynx SARS-CoV-2 RdRp Gene Assay - Final Complete Laboratory Tests Test 01/11/20 06:17 Sodium Level 154 MMOL/L (136-145) H Potassium Level 3.5 MMOL/L (3.5-5.1) Chloride Level 123 MMOL/L (98-107) H Carbon Dioxide Level 19 MMOL/L (21-32) L Anion Gap 12 mmol/L (5-15) Blood Urea Nitrogen 35 mg/dL (7-18) H Creatinine 1.3 MG/DL (0.55-1.30) Estimat Glomerular Filtration Rate 54.3 mL/min (>60) Glucose Level 91 MG/DL (74-106) Lactic Acid Level 1.40 mmol/L (0.4-2.0) Uric Acid 5.6 MG/DL (2.6-7.2) Calcium Level 8.5 MG/DL (8.5-10.1) Phosphorus Level 3.7 MG/DL (2.5-4.9) Magnesium Level 2.1 MG/DL (1.8-2.4) Iron Level 28 ug/dL (50-175) L Total Iron Binding Capacity 277 ug/dL (250-450) Percent Iron Saturation 10 % (15-50) L Unsaturated Iron Binding 249 ug/dL (112-346) Ferritin 48 NG/ML (8-388) Total Bilirubin 0.5 MG/DL (0.2-1.0) Gamma Glutamyl Transpeptidase 32 U/L (5-85) Aspartate Amino Transf (AST/SGOT) 61 U/L (15-37) H Alanine Aminotransferase (ALT/SGPT) 34 U/L (12-78) Alkaline Phosphatase 79 U/L (46-116) Total Creatine Kinase 859 U/L (26-308) H Troponin I 0.025 ng/mL (0.000-0.056) C-Reactive Protein, Quantitative 4.6 mg/dL (0.00-0.90) H Pro-B-Type Natriuretic Peptide 191 pg/mL (0-125) H Total Protein 6.7 G/DL (6.4-8.2) Albumin 2.4 G/DL (3.4-5.0) L Globulin 4.3 g/dL Albumin/Globulin Ratio 0.6 (1.0-2.7) L Triglycerides Level 62 MG/DL (30-150) Cholesterol Level 93 MG/DL (< 200) LDL Cholesterol 46 mg/dL (<100) HDL Cholesterol 39 MG/DL (40-60) L Cholesterol/HDL Ratio 2.4 (3.3-4.4) L Vitamin B12 Level 594 PG/ML (193-986) Folate 18.7 NG/ML (8.6-58.9) Thyroid Stimulating Hormone (TSH) 0.985 uiU/mL (0.358-3.740) Current Medications Medications (Trade) Dose Ordered Sig/Juwan Route PRN Reason Start Time Stop Time Status Last Admin Dose Admin Acetaminophen (Tylenol) 650 mg Q4H PRN ORAL MILD PAIN (1-3)/TEMP >100.5 01/10/20 11:00 02/09/20 10:59 01/11/20 01:00 Aspirin (Ecotrin) 81 mg DAILY ORAL 01/11/20 09:00 02/25/20 08:59 01/11/20 08:37 Ceftriaxone Sodium 1 gm/ Sodium Chloride 55 ml @ 110 mls/hr Q24H IVPB 01/11/20 13:15 01/18/20 13:14 01/11/20 13:23 Dextrose 1,000 ml @ 75 mls/hr [id number] IV 01/11/20 09:30 02/10/20 09:29 01/11/20 09:30 Hydralazine HCl (Apresoline) 25 mg Q4H PRN ORAL bp over 160 syst 01/10/20 15:30 04/09/20 15:29 Pantoprazole (Protonix) 40 mg EVERY 12 HOURS IVP 01/10/20 21:00 02/09/20 20:59 01/11/20 08:37 Rifaximin (Xifaxan) 550 mg TWICE A DAY ORAL 01/10/20 18:00 01/17/20 17:59 01/11/20 08:37 Jose G Zamarripa MD Jan 11, 2020 14:22
--- NOTE | 2020-01-11 14:27 | Nephrology Progress Note ---
Assessment/Plan Problem List: (1) ARIS (acute kidney injury) (2) Electrolyte imbalance (3) Dehydration (4) UTI (urinary tract infection) (5) Sepsis (6) Encephalopathy Assessment Acute renal failure Dehydration Hypernatremia, likely due to free water deficit Sepsis UTI Toxic metabolic encephalopathy Hypoalbuminemia Plan January 10: Labs reviewed. Patient has a Rowe catheter. Serum creatinine down to 1.3 from 1.8 on admission. Serum sodium remains elevated. Will change IV to D5W. We will keep the blood sugar and blood pressure in check. Continue per consultants. January 09: Hold blood pressure medication due to low blood pressure PRN blood pressure medication for high blood pressure Today's labs appears to be an error and should be repeated Slow hydration Pulmonary toilet Antibiotics per ID Monitor renal parameters and electrolyte Slow hydration Urine studies Subjective ROS Limited/Unobtainable: No Constitutional: Reports: malaise, weakness Objective Objective Last 24 Hour Vital Signs Date Time Temp Pulse Resp B/P (MAP) Pulse Ox O2 Delivery O2 Flow Rate FiO2 01/11/20 12:00 55 01/11/20 11:44 97.9 57 18 124/58 (80) 99 01/11/20 09:00 Room Air 01/11/20 08:00 55 01/11/20 08:00 97.6 55 19 119/69 (86) 99 01/11/20 04:00 98.1 59 18 103/55 (71) 99 01/11/20 04:00 60 01/11/20 01:30 98.8 01/11/20 00:00 74 01/11/20 00:00 101.8 72 18 120/69 (86) 93 01/10/20 21:00 Room Air 01/10/20 20:00 82 01/10/20 20:00 99.0 76 20 129/66 (87) 95 01/10/20 17:03 Room Air 01/10/20 16:00 60 01/10/20 16:00 97.9 62 22 115/81 (92) 99 01/10/20 14:25 98.6 65 20 126/58 100 Room Air Intake and Output 01/10/20 01/11/20 19:00 07:00 Intake Total 1000 ml Output Total 150 ml 600 ml Balance 850 ml -600 ml Intake IV Total 1000 ml Output Urine Total 150 ml 600 ml # Bowel Movements 1 Current Medications Medications (Trade) Dose Ordered Sig/Juwan Route PRN Reason Start Time Stop Time Status Last Admin Dose Admin Acetaminophen (Tylenol) 650 mg Q4H PRN ORAL MILD PAIN (1-3)/TEMP >100.5 01/10/20 11:00 02/09/20 10:59 01/11/20 01:00 Aspirin (Ecotrin) 81 mg DAILY ORAL 01/11/20 09:00 02/25/20 08:59 01/11/20 08:37 Ceftriaxone Sodium 1 gm/ Sodium Chloride 55 ml @ 110 mls/hr Q24H IVPB 01/11/20 13:15 01/18/20 13:14 01/11/20 13:23 Dextrose 1,000 ml @ 75 mls/hr [id number] IV 01/11/20 09:30 02/10/20 09:29 01/11/20 09:30 Hydralazine HCl (Apresoline) 25 mg Q4H PRN ORAL bp over 160 syst 01/10/20 15:30 04/09/20 15:29 Pantoprazole (Protonix) 40 mg EVERY 12 HOURS IVP 01/10/20 21:00 02/09/20 20:59 01/11/20 08:37 Rifaximin (Xifaxan) 550 mg TWICE A DAY ORAL 01/10/20 18:00 01/17/20 17:59 01/11/20 08:37 Laboratory Tests 01/11/20 06:17: Sodium Level 154H, Potassium Level 3.5, Chloride Level 123H, Carbon Dioxide Level 19L, Anion Gap 12, Blood Urea Nitrogen 35H, Creatinine 1.3, Estimat Glomerular Filtration Rate 54.3, Glucose Level 91, Lactic Acid Level 1.40, Uric Acid 5.6, Calcium Level 8.5, Phosphorus Level 3.7, Magnesium Level 2.1, Iron Level 28L, Total Iron Binding Capacity 277, Percent Iron Saturation 10L, Unsaturated Iron Binding 249, Ferritin 48, Total Bilirubin 0.5, Gamma Glutamyl Transpeptidase 32, Aspartate Amino Transf (AST/SGOT) 61H, Alanine Aminotransferase (ALT/SGPT) 34, Alkaline Phosphatase 79, Total Creatine Kinase 859H, Troponin I 0.025, C-Reactive Protein, Quantitative 4.6H, Pro-B-Type Natriuretic Peptide 191H, Total Protein 6.7, Albumin 2.4L, Globulin 4.3, Albumin /Globulin Ratio 0.6L, Triglycerides Level 62, Cholesterol Level 93, LDL Cholesterol 46, HDL Cholesterol 39L, Cholesterol/HDL Ratio 2.4L, Vitamin B12 Level 594, Folate 18.7, Thyroid Stimulating Hormone (TSH) 0.985 Height (Feet): 5 Height (Inches): 3.00 Weight (Pounds): 141 General Appearance: no apparent distress, lethargic Neck: limited range of motion Cardiovascular: bradycardia Respiratory/Chest: decreased breath sounds Abdomen: distended Dewayne Aldridge MD Jan 11, 2020 14:27
[2020-01-11 16:00] VITALS: BP 129/76
--- NOTE | 2020-01-11 16:49 | Pulmonology Progress Note ---
Subjective ROS Limited/Unobtainable: No Interval Events: COVID 19 test is negative Constitutional: Reports: no symptoms HEENT: Repors: no symptoms Respiratory: Reports: no symptoms Cardiovascular: Reports: no symptoms Gastrointestinal/Abdominal: Reports: no symptoms Allergies: Coded Allergies: No Known Allergies (Unverified , 01/10/18) Objective Last 24 Hour Vital Signs Date Time Temp Pulse Resp B/P (MAP) Pulse Ox O2 Delivery O2 Flow Rate FiO2 01/11/20 16:00 98.0 59 18 129/76 (93) 98 01/11/20 12:00 55 01/11/20 11:44 97.9 57 18 124/58 (80) 99 01/11/20 09:00 Room Air 01/11/20 08:00 55 01/11/20 08:00 97.6 55 19 119/69 (86) 99 01/11/20 04:00 98.1 59 18 103/55 (71) 99 01/11/20 04:00 60 01/11/20 01:30 98.8 01/11/20 00:00 74 01/11/20 00:00 101.8 72 18 120/69 (86) 93 01/10/20 21:00 Room Air 01/10/20 20:00 82 01/10/20 20:00 99.0 76 20 129/66 (87) 95 01/10/20 17:03 Room Air Intake and Output 01/10/20 01/11/20 19:00 07:00 Intake Total 1000 ml Output Total 150 ml 600 ml Balance 850 ml -600 ml Intake IV Total 1000 ml Output Urine Total 150 ml 600 ml # Bowel Movements 1 General Appearance: no acute distress HEENT: normocephalic Respiratory: chest wall non-tender, lungs clear Cardiovascular: normal peripheral pulses Abdomen: normal bowel sounds Microbiology Date/Time Source Procedure Growth Status 01/09/20 22:00 Blood Blood Culture - Preliminary NO GROWTH AFTER 24 HOURS Resulted 01/09/20 21:45 Blood Blood Culture - Preliminary NO GROWTH AFTER 24 HOURS Resulted 01/09/20 22:30 Nasopharynx SARS-CoV-2 RdRp Gene Assay - Final Complete Laboratory Tests 01/11/20 06:17: Sodium Level 154H, Potassium Level 3.5, Chloride Level 123H, Carbon Dioxide Level 19L, Anion Gap 12, Blood Urea Nitrogen 35H, Creatinine 1.3, Estimat Glomerular Filtration Rate 54.3, Glucose Level 91, Lactic Acid Level 1.40, Uric Acid 5.6, Calcium Level 8.5, Phosphorus Level 3.7, Magnesium Level 2.1, Iron Level 28L, Total Iron Binding Capacity 277, Percent Iron Saturation 10L, Unsaturated Iron Binding 249, Ferritin 48, Total Bilirubin 0.5, Gamma Glutamyl Transpeptidase 32, Aspartate Amino Transf (AST/SGOT) 61H, Alanine Aminotransferase (ALT/SGPT) 34, Alkaline Phosphatase 79, Total Creatine Kinase 859H, Troponin I 0.025, C-Reactive Protein, Quantitative 4.6H, Pro-B-Type Natriuretic Peptide 191H, Total Protein 6.7, Albumin 2.4L, Globulin 4.3, Albumin /Globulin Ratio 0.6L, Triglycerides Level 62, Cholesterol Level 93, LDL Cholesterol 46, HDL Cholesterol 39L, Cholesterol/HDL Ratio 2.4L, Vitamin B12 Level 594, Folate 18.7, Thyroid Stimulating Hormone (TSH) 0.985 Current Medications Medications (Trade) Dose Ordered Sig/Juwan Route PRN Reason Start Time Stop Time Status Last Admin Dose Admin Acetaminophen (Tylenol) 650 mg Q4H PRN ORAL MILD PAIN (1-3)/TEMP >100.5 01/10/20 11:00 02/09/20 10:59 01/11/20 01:00 Aspirin (Ecotrin) 81 mg DAILY ORAL 01/11/20 09:00 02/25/20 08:59 01/11/20 08:37 Ceftriaxone Sodium 1 gm/ Sodium Chloride 55 ml @ 110 mls/hr Q24H IVPB 01/11/20 13:15 01/18/20 13:14 01/11/20 13:23 Dextrose 1,000 ml @ 75 mls/hr [id number] IV 01/11/20 09:30 02/10/20 09:29 01/11/20 09:30 Hydralazine HCl (Apresoline) 25 mg Q4H PRN ORAL bp over 160 syst 01/10/20 15:30 04/09/20 15:29 Pantoprazole (Protonix) 40 mg EVERY 12 HOURS IVP 01/10/20 21:00 02/09/20 20:59 01/11/20 08:37 Rifaximin (Xifaxan) 550 mg TWICE A DAY ORAL 01/10/20 18:00 01/17/20 17:59 01/11/20 08:37 Assessment/Plan Assessment/Plan IMPRESSION: 1. Ruled out for COVID-19 pneumonia. 2. longterm resident. 3. Psoriasis. 4. Dementia. 5. CVA. 6. History of hepatitis C. 7. CHF. DISCUSSION: Continue correction of electrolytes and hypernatremia, fluid hydration. 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 Joey Martinez M.D. Joey Martinez MD Jan 11, 2020 16:49
[2020-01-11 20:00] VITALS: BP 103/66
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
--- NOTE | 2020-01-11 22:09 | General Progress Note ---
Assessment/Plan Problem List: (1) Renal failure ICD Codes: N19 - Unspecified kidney failure SNOMED: 84176206 Qualifiers: Qualified Codes: N17.9 - Acute kidney failure, unspecified (2) Dehydration ICD Codes: E86.0 - Dehydration SNOMED: 97252165 (3) Encephalopathy ICD Codes: G93.40 - Encephalopathy, unspecified SNOMED: 59698664 (4) UTI (urinary tract infection) ICD Codes: N39.0 - Urinary tract infection, site not specified SNOMED: 79536107 Qualifiers: Qualified Codes: N39.0 - Urinary tract infection, site not specified (5) Dehydration ICD Codes: E86.0 - Dehydration SNOMED: 21772879 (6) Electrolyte imbalance ICD Codes: E87.8 - Other disorders of electrolyte and fluid balance, not elsewhere classified SNOMED: 359333756 (7) Sepsis ICD Codes: A41.9 - Sepsis, unspecified organism SNOMED: 17037770 Qualifiers: Qualified Codes: A41.9 - Sepsis, unspecified organism; R65.20 - Severe sepsis without septic shock; G93.40 - Encephalopathy, unspecified (8) ARIS (acute kidney injury) ICD Codes: N17.9 - Acute kidney failure, unspecified SNOMED: 3736641, 46419948 Assessment/Plan: lyte abnormality sepsis uti arf afebrile abx per id bp improved Subjective ROS Limited/Unobtainable: Yes Allergies: Coded Allergies: No Known Allergies (Unverified , 01/10/18) Objective Last 24 Hour Vital Signs Date Time Temp Pulse Resp B/P (MAP) Pulse Ox O2 Delivery O2 Flow Rate FiO2 01/11/20 21:00 Room Air 01/11/20 20:00 98.8 68 17 103/66 (78) 98 01/11/20 19:34 63 01/11/20 16:00 97 01/11/20 16:00 98.0 59 18 129/76 (93) 98 01/11/20 12:00 55 01/11/20 11:44 97.9 57 18 124/58 (80) 99 01/11/20 09:00 Room Air 01/11/20 08:00 55 01/11/20 08:00 97.6 55 19 119/69 (86) 99 01/11/20 04:00 98.1 59 18 103/55 (71) 99 01/11/20 04:00 60 01/11/20 01:30 98.8 01/11/20 00:00 74 01/11/20 00:00 101.8 72 18 120/69 (86) 93 Intake and Output 01/10/20 01/11/20 19:00 07:00 Intake Total 1000 ml Output Total 150 ml 600 ml Balance 850 ml -600 ml IV Total 1000 ml Output Urine Total 150 ml 600 ml # Bowel Movements 1 Laboratory Tests 01/11/20 06:17: Sodium Level 154H, Potassium Level 3.5, Chloride Level 123H, Carbon Dioxide Level 19L, Anion Gap 12, Blood Urea Nitrogen 35H, Creatinine 1.3, Estimat Glomerular Filtration Rate 54.3, Glucose Level 91, Lactic Acid Level 1.40, Uric Acid 5.6, Calcium Level 8.5, Phosphorus Level 3.7, Magnesium Level 2.1, Iron Level 28L, Total Iron Binding Capacity 277, Percent Iron Saturation 10L, Unsaturated Iron Binding 249, Ferritin 48, Total Bilirubin 0.5, Gamma Glutamyl Transpeptidase 32, Aspartate Amino Transf (AST/SGOT) 61H, Alanine Aminotransferase (ALT/SGPT) 34, Alkaline Phosphatase 79, Total Creatine Kinase 859H, Troponin I 0.025, C-Reactive Protein, Quantitative 4.6H, Pro-B-Type Natriuretic Peptide 191H, Total Protein 6.7, Albumin 2.4L, Globulin 4.3, Albumin /Globulin Ratio 0.6L, Triglycerides Level 62, Cholesterol Level 93, LDL Cholesterol 46, HDL Cholesterol 39L, Cholesterol/HDL Ratio 2.4L, Vitamin B12 Level 594, Folate 18.7, Thyroid Stimulating Hormone (TSH) 0.985 Height (Feet): 5 Height (Inches): 3.00 Weight (Pounds): 141 Deysi He MD Jan 11, 2020 22:09
[2020-01-12] VITALS: BP 102/66
[2020-01-12 04:00] VITALS: BP 110/63
[2020-01-12 07:33] LABS: HEMATOCRIT 28.1 % (42.0-52.0); HEMOGLOBIN 8.9 G/DL (14.2-18.0); MEAN CORPUSCULAR VOLUME 95 FL (80-99); PLATELET COUNT 99 K/UL (150-450); RED BLOOD COUNT 2.95 M/UL (4.70-6.10); RED CELL DISTRIBUTION WIDTH 15.7 % (11.6-14.8); WHITE BLOOD COUNT 7.7 K/UL (4.8-10.8)
[2020-01-12 07:50] VITALS: BP 116/59
[2020-01-12 07:53] LABS: ALANINE AMINOTRANSFERASE 29 U/L (12-78); ALBUMIN 2.4 G/DL (3.4-5.0); ALBUMIN/GLOBULIN RATIO 0.5 (1.0-2.7); ALKALINE PHOSPHATASE 85 U/L (46-116); ANION GAP 11 mmol/L (5-15); ASPARTATE AMINO TRANSFERASE 81 U/L (15-37); BILIRUBIN,TOTAL 0.5 MG/DL (0.2-1.0); BLOOD UREA NITROGEN 28 mg/dL (7-18); CALCIUM 7.9 MG/DL (8.5-10.1); CARBON DIOXIDE 21 MMOL/L (21-32); CHLORIDE 115 MMOL/L (98-107); POTASSIUM 3.5 MMOL/L (3.5-5.1); SODIUM 147 MMOL/L (136-145)
[2020-01-12] MEDS: Aspirin EC 81mg tab ORAL SCH (09:04)
[2020-01-12] MEDS: Pantoprazole Inj IVP SCH ×2 (09:04→20:36)
--- NOTE | 2020-01-12 10:22 | Nephrology Progress Note ---
Assessment/Plan Problem List: (1) ARIS (acute kidney injury) (2) Electrolyte imbalance (3) Dehydration (4) UTI (urinary tract infection) (5) Sepsis (6) Encephalopathy Assessment Acute renal failure Dehydration Hypernatremia, likely due to free water deficit Sepsis UTI Toxic metabolic encephalopathy Hypoalbuminemia Plan January 11: Labs reviewed. Renal parameters are improved. Electrolytes within normal range. Continue as is. January 10: Labs reviewed. Patient has a Rowe catheter. Serum creatinine down to 1.3 from 1.8 on admission. Serum sodium remains elevated. Will change IV to D5W. We will keep the blood sugar and blood pressure in check. Continue per consultants. January 09: Hold blood pressure medication due to low blood pressure PRN blood pressure medication for high blood pressure Today's labs appears to be an error and should be repeated Slow hydration Pulmonary toilet Antibiotics per ID Monitor renal parameters and electrolyte Slow hydration Urine studies Subjective ROS Limited/Unobtainable: Yes Objective Objective Last 24 Hour Vital Signs Date Time Temp Pulse Resp B/P (MAP) Pulse Ox O2 Delivery O2 Flow Rate FiO2 01/12/20 09:00 Room Air 01/12/20 07:50 97.5 55 20 116/59 (78) 98 01/12/20 07:36 55 01/12/20 04:00 97.2 66 18 110/63 (79) 99 01/12/20 04:00 53 01/12/20 00:00 97.7 55 16 102/66 (78) 97 01/11/20 23:42 55 01/11/20 21:00 Room Air 01/11/20 20:00 98.8 68 17 103/66 (78) 98 01/11/20 19:34 63 01/11/20 16:00 97 01/11/20 16:00 98.0 59 18 129/76 (93) 98 01/11/20 12:00 55 01/11/20 11:44 97.9 57 18 124/58 (80) 99 Intake and Output 01/11/20 01/12/20 19:00 07:00 Intake Total 825 ml 1287 ml Balance 825 ml 1287 ml Intake Oral 750 ml 800 ml IV Total 75 ml 487 ml # Bowel Movements 1 Current Medications Medications (Trade) Dose Ordered Sig/Juwan Route PRN Reason Start Time Stop Time Status Last Admin Dose Admin Acetaminophen (Tylenol) 650 mg Q4H PRN ORAL MILD PAIN (1-3)/TEMP >100.5 01/10/20 11:00 02/09/20 10:59 01/11/20 01:00 Aspirin (Ecotrin) 81 mg DAILY ORAL 01/11/20 09:00 02/25/20 08:59 01/12/20 09:04 Ceftriaxone Sodium 1 gm/ Sodium Chloride 55 ml @ 110 mls/hr Q24H IVPB 01/11/20 13:15 01/18/20 13:14 01/11/20 13:23 Dextrose 1,000 ml @ 75 mls/hr [id number] IV 01/11/20 09:30 02/10/20 09:29 01/12/20 09:07 Hydralazine HCl (Apresoline) 25 mg Q4H PRN ORAL bp over 160 syst 01/10/20 15:30 04/09/20 15:29 Pantoprazole (Protonix) 40 mg EVERY 12 HOURS IVP 01/10/20 21:00 02/09/20 20:59 01/12/20 09:04 Rifaximin (Xifaxan) 550 mg TWICE A DAY ORAL 01/10/20 18:00 01/17/20 17:59 01/12/20 09:04 Laboratory Tests 01/12/20 05:32: White Blood Count 7.7, Red Blood Count 2.95L, Hemoglobin 8.9L, Hematocrit 28.1L , Mean Corpuscular Volume 95, Mean Corpuscular Hemoglobin 30.1, Mean Corpuscular Hemoglobin Concent 31.6L, Red Cell Distribution Width 15.7H, Platelet Count 99L, Mean Platelet Volume 7.7, Neutrophils (%) (Auto) , Lymphocytes (%) (Auto) , Monocytes (%) (Auto) , Eosinophils (%) (Auto) , Basophils (%) (Auto) , Differential Total Cells Counted 100, Neutrophils % ( Manual) 62, Lymphocytes % (Manual) 21, Monocytes % (Manual) 6, Eosinophils % ( Manual) 10H, Basophils % (Manual) 1, Band Neutrophils 0, Platelet Estimate DecreasedL, Platelet Morphology Normal, Hypochromasia Occasional, Anisocytosis 1 +, Sodium Level 147H, Potassium Level 3.5, Chloride Level 115H, Carbon Dioxide Level 21, Anion Gap 11, Blood Urea Nitrogen 28H, Creatinine 1.0, Estimat Glomerular Filtration Rate > 60, Glucose Level 89, Uric Acid 5.6, Calcium Level 7.9L, Phosphorus Level 3.0, Magnesium Level 2.0, Total Bilirubin 0.5, Aspartate Amino Transf (AST/SGOT) 81H, Alanine Aminotransferase (ALT/SGPT) 29, Alkaline Phosphatase 85, C-Reactive Protein, Quantitative 2.8H, Pro-B-Type Natriuretic Peptide 151H, Total Protein 6.8, Albumin 2.4L, Globulin 4.4, Albumin/Globulin Ratio 0.5L, Thyroid Stimulating Hormone (TSH) 1.662, Free Thyroxine 0.86 Height (Feet): 5 Height (Inches): 3.00 Weight (Pounds): 141 General Appearance: no apparent distress Cardiovascular: normal rate Respiratory/Chest: decreased breath sounds Abdomen: soft Objective No change Dewayne Aldridge MD Jan 12, 2020 10:22
--- NOTE | 2020-01-12 10:39 | Infectious Diseases Prog Note ---
Assessment/Plan Assessment/Plan IMPRESSION: Sepsis UTI. Lactic acidosis, Acute renal failure, Cirrhosis, Portal hypertension, Hepatitis C, Anemia, Dementia. Status post splenectomy. RECOMMENDATION: Continue ceftriaxone. We will follow up the cultures. Subjective ROS Limited/Unobtainable: Yes Constitutional: Denies: fever Allergies: Coded Allergies: No Known Allergies (Unverified , 01/10/18) Objective Last 24 Hour Vital Signs Date Time Temp Pulse Resp B/P (MAP) Pulse Ox O2 Delivery O2 Flow Rate FiO2 01/12/20 09:00 Room Air 01/12/20 07:50 97.5 55 20 116/59 (78) 98 01/12/20 07:36 55 01/12/20 04:00 97.2 66 18 110/63 (79) 99 01/12/20 04:00 53 01/12/20 00:00 97.7 55 16 102/66 (78) 97 01/11/20 23:42 55 01/11/20 21:00 Room Air 01/11/20 20:00 98.8 68 17 103/66 (78) 98 01/11/20 19:34 63 01/11/20 16:00 97 01/11/20 16:00 98.0 59 18 129/76 (93) 98 01/11/20 12:00 55 01/11/20 11:44 97.9 57 18 124/58 (80) 99 Height (Feet): 5 Height (Inches): 3.00 Weight (Pounds): 141 HEENT: mucous membranes moist Respiratory/Chest: lungs clear Cardiovascular: normal rate, bradycardia Abdomen: soft, non tender Extremities: no edema Neurologic/Psychiatric: other - sleeping Microbiology Date/Time Source Procedure Growth Status 01/09/20 22:00 Blood Blood Culture - Preliminary NO GROWTH AFTER 48 HOURS Resulted 01/09/20 21:45 Blood Blood Culture - Preliminary NO GROWTH AFTER 48 HOURS Resulted 01/09/20 22:30 Nasopharynx SARS-CoV-2 RdRp Gene Assay - Final Complete 01/09/20 22:00 Rectum - Final NO CARBAPENEM-RESISTANT ENTEROBACTERI... Complete 01/09/20 22:00 Rectum VRE Culture - Final Enterococcus Faecalis - Vre Complete Laboratory Tests Test 01/12/20 05:32 White Blood Count 7.7 K/UL (4.8-10.8) Red Blood Count 2.95 M/UL (4.70-6.10) L Hemoglobin 8.9 G/DL (14.2-18.0) L Hematocrit 28.1 % (42.0-52.0) L Mean Corpuscular Volume 95 FL (80-99) Mean Corpuscular Hemoglobin 30.1 PG (27.0-31.0) Mean Corpuscular Hemoglobin Concent 31.6 G/DL (32.0-36.0) L Red Cell Distribution Width 15.7 % (11.6-14.8) H Platelet Count 99 K/UL (150-450) L Mean Platelet Volume 7.7 FL (6.5-10.1) Neutrophils (%) (Auto) % (45.0-75.0) Lymphocytes (%) (Auto) % (20.0-45.0) Monocytes (%) (Auto) % (1.0-10.0) Eosinophils (%) (Auto) % (0.0-3.0) Basophils (%) (Auto) % (0.0-2.0) Differential Total Cells Counted 100 Neutrophils % (Manual) 62 % (45-75) Lymphocytes % (Manual) 21 % (20-45) Monocytes % (Manual) 6 % (1-10) Eosinophils % (Manual) 10 % (0-3) H Basophils % (Manual) 1 % (0-2) Band Neutrophils 0 % (0-8) Platelet Estimate Decreased L Platelet Morphology Normal Hypochromasia Occasional Anisocytosis 1+ Sodium Level 147 MMOL/L (136-145) H Potassium Level 3.5 MMOL/L (3.5-5.1) Chloride Level 115 MMOL/L (98-107) H Carbon Dioxide Level 21 MMOL/L (21-32) Anion Gap 11 mmol/L (5-15) Blood Urea Nitrogen 28 mg/dL (7-18) H Creatinine 1.0 MG/DL (0.55-1.30) Estimat Glomerular Filtration Rate > 60 mL/min (>60) Glucose Level 89 MG/DL (74-106) Uric Acid 5.6 MG/DL (2.6-7.2) Calcium Level 7.9 MG/DL (8.5-10.1) L Phosphorus Level 3.0 MG/DL (2.5-4.9) Magnesium Level 2.0 MG/DL (1.8-2.4) Total Bilirubin 0.5 MG/DL (0.2-1.0) Aspartate Amino Transf (AST/SGOT) 81 U/L (15-37) H Alanine Aminotransferase (ALT/SGPT) 29 U/L (12-78) Alkaline Phosphatase 85 U/L (46-116) C-Reactive Protein, Quantitative 2.8 mg/dL (0.00-0.90) H Pro-B-Type Natriuretic Peptide 151 pg/mL (0-125) H Total Protein 6.8 G/DL (6.4-8.2) Albumin 2.4 G/DL (3.4-5.0) L Globulin 4.4 g/dL Albumin/Globulin Ratio 0.5 (1.0-2.7) L Thyroid Stimulating Hormone (TSH) 1.662 uiU/mL (0.358-3.740) Free Thyroxine 0.86 NG/DL (0.76-1.46) Current Medications Medications (Trade) Dose Ordered Sig/Juwan Route PRN Reason Start Time Stop Time Status Last Admin Dose Admin Acetaminophen (Tylenol) 650 mg Q4H PRN ORAL MILD PAIN (1-3)/TEMP >100.5 01/10/20 11:00 02/09/20 10:59 01/11/20 01:00 Aspirin (Ecotrin) 81 mg DAILY ORAL 01/11/20 09:00 02/25/20 08:59 01/12/20 09:04 Ceftriaxone Sodium 1 gm/ Sodium Chloride 55 ml @ 110 mls/hr Q24H IVPB 01/11/20 13:15 01/18/20 13:14 01/11/20 13:23 Dextrose 1,000 ml @ 75 mls/hr [id number] IV 01/11/20 09:30 02/10/20 09:29 01/12/20 09:07 Hydralazine HCl (Apresoline) 25 mg Q4H PRN ORAL bp over 160 syst 01/10/20 15:30 04/09/20 15:29 Pantoprazole (Protonix) 40 mg EVERY 12 HOURS IVP 01/10/20 21:00 02/09/20 20:59 01/12/20 09:04 Rifaximin (Xifaxan) 550 mg TWICE A DAY ORAL 01/10/20 18:00 01/17/20 17:59 01/12/20 09:04 Jose G Zamarripa MD Jan 12, 2020 10:39
[2020-01-12 12:00] VITALS: BP 100/54
[2020-01-12] MEDS: cefTRIAXone 1 GM in NS 55 ML IVPB SCH (12:17)
--- NOTE | 2020-01-12 13:08 | Pulmonology Progress Note ---
Subjective ROS Limited/Unobtainable: Yes Interval Events: COVID 19 test is negative Constitutional: Denies: fever HEENT: Repors: no symptoms Respiratory: Reports: no symptoms Cardiovascular: Reports: no symptoms Gastrointestinal/Abdominal: Reports: no symptoms Allergies: Coded Allergies: No Known Allergies (Unverified , 01/10/18) Objective Last 24 Hour Vital Signs Date Time Temp Pulse Resp B/P (MAP) Pulse Ox O2 Delivery O2 Flow Rate FiO2 01/12/20 12:00 97.2 62 18 100/54 (69) 97 01/12/20 09:00 Room Air 01/12/20 07:50 97.5 55 20 116/59 (78) 98 01/12/20 07:36 55 01/12/20 04:00 97.2 66 18 110/63 (79) 99 01/12/20 04:00 53 01/12/20 00:00 97.7 55 16 102/66 (78) 97 01/11/20 23:42 55 01/11/20 21:00 Room Air 01/11/20 20:00 98.8 68 17 103/66 (78) 98 01/11/20 19:34 63 01/11/20 16:00 97 01/11/20 16:00 98.0 59 18 129/76 (93) 98 Intake and Output 01/11/20 01/12/20 19:00 07:00 Intake Total 825 ml 1362 ml Balance 825 ml 1362 ml Intake Oral 750 ml 800 ml IV Total 75 ml 562 ml # Bowel Movements 1 General Appearance: no acute distress HEENT: normocephalic Respiratory: chest wall non-tender, lungs clear Cardiovascular: normal peripheral pulses Abdomen: normal bowel sounds Microbiology Date/Time Source Procedure Growth Status 01/09/20 22:00 Blood Blood Culture - Preliminary NO GROWTH AFTER 48 HOURS Resulted 01/09/20 21:45 Blood Blood Culture - Preliminary NO GROWTH AFTER 48 HOURS Resulted 01/09/20 22:30 Nasopharynx SARS-CoV-2 RdRp Gene Assay - Final Complete 01/09/20 22:00 Nasal Nares MRSA Culture - Final NO METHICILLIN RESISTANT STAPH AUREUS... Complete 01/09/20 22:00 Rectum - Final NO CARBAPENEM-RESISTANT ENTEROBACTERI... Complete 01/09/20 22:00 Rectum VRE Culture - Final Enterococcus Faecalis - Vre Complete Laboratory Tests 01/12/20 05:32: White Blood Count 7.7, Red Blood Count 2.95L, Hemoglobin 8.9L, Hematocrit 28.1L , Mean Corpuscular Volume 95, Mean Corpuscular Hemoglobin 30.1, Mean Corpuscular Hemoglobin Concent 31.6L, Red Cell Distribution Width 15.7H, Platelet Count 99L, Mean Platelet Volume 7.7, Neutrophils (%) (Auto) , Lymphocytes (%) (Auto) , Monocytes (%) (Auto) , Eosinophils (%) (Auto) , Basophils (%) (Auto) , Differential Total Cells Counted 100, Neutrophils % ( Manual) 62, Lymphocytes % (Manual) 21, Monocytes % (Manual) 6, Eosinophils % ( Manual) 10H, Basophils % (Manual) 1, Band Neutrophils 0, Platelet Estimate DecreasedL, Platelet Morphology Normal, Hypochromasia Occasional, Anisocytosis 1 +, Sodium Level 147H, Potassium Level 3.5, Chloride Level 115H, Carbon Dioxide Level 21, Anion Gap 11, Blood Urea Nitrogen 28H, Creatinine 1.0, Estimat Glomerular Filtration Rate > 60, Glucose Level 89, Uric Acid 5.6, Calcium Level 7.9L, Phosphorus Level 3.0, Magnesium Level 2.0, Total Bilirubin 0.5, Aspartate Amino Transf (AST/SGOT) 81H, Alanine Aminotransferase (ALT/SGPT) 29, Alkaline Phosphatase 85, C-Reactive Protein, Quantitative 2.8H, Pro-B-Type Natriuretic Peptide 151H, Total Protein 6.8, Albumin 2.4L, Globulin 4.4, Albumin/Globulin Ratio 0.5L, Thyroid Stimulating Hormone (TSH) 1.662, Free Thyroxine 0.86 Current Medications Medications (Trade) Dose Ordered Sig/Juwan Route PRN Reason Start Time Stop Time Status Last Admin Dose Admin Acetaminophen (Tylenol) 650 mg Q4H PRN ORAL MILD PAIN (1-3)/TEMP >100.5 01/10/20 11:00 02/09/20 10:59 01/11/20 01:00 Aspirin (Ecotrin) 81 mg DAILY ORAL 01/11/20 09:00 02/25/20 08:59 01/12/20 09:04 Ceftriaxone Sodium 1 gm/ Sodium Chloride 55 ml @ 110 mls/hr Q24H IVPB 01/11/20 13:15 01/18/20 13:14 01/12/20 12:17 Dextrose 1,000 ml @ 75 mls/hr [id number] IV 01/11/20 09:30 02/10/20 09:29 01/12/20 09:07 Hydralazine HCl (Apresoline) 25 mg Q4H PRN ORAL bp over 160 syst 01/10/20 15:30 04/09/20 15:29 Pantoprazole (Protonix) 40 mg EVERY 12 HOURS IVP 01/10/20 21:00 02/09/20 20:59 01/12/20 09:04 Rifaximin (Xifaxan) 550 mg TWICE A DAY ORAL 01/10/20 18:00 01/17/20 17:59 01/12/20 09:04 Assessment/Plan Assessment/Plan IMPRESSION: 1. Ruled out for COVID-19 pneumonia. 2. long-term resident. 3. Psoriasis. 4. Dementia. 5. CVA. 6. History of hepatitis C. 7. CHF. DISCUSSION: Continue correction of electrolytes and hypernatremia, fluid hydration. 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 Jero Fernandes Omar Syed MD Jan 12, 2020 13:08
--- NOTE | 2020-01-12 15:51 | Cardiac Electrophysiology PN ---
Assessment/Plan Assessment/Plan 1. Elevated troponin at 0.075, likely due to renal failure. Initial BUN and creatinine were 48 and 1.8. Two subsequent troponins are negative and BUN now is 35 and creatinine 1.3. EF 65%. Patient is nonverbal. 2. Bradycardia and right bundle-branch block. Heart rate is in the 50s, off any sinus or AV milad blocking agent. 3. Hypertension, on p.r.n. hydralazine. 4. Dehydration with hypernatremia and azotemia. Patient is on IV fluids. 5. Pneumonia, on ceftriaxone. 6. Anemia, hemoglobin 9.7. Subjective Subjective Confused in NAD. No CP or SOB Objective Last 24 Hour Vital Signs Date Time Temp Pulse Resp B/P (MAP) Pulse Ox O2 Delivery O2 Flow Rate FiO2 01/12/20 12:00 97.2 62 18 100/54 (69) 97 01/12/20 11:40 62 01/12/20 09:00 Room Air 01/12/20 07:50 97.5 55 20 116/59 (78) 98 01/12/20 07:36 55 01/12/20 04:00 97.2 66 18 110/63 (79) 99 01/12/20 04:00 53 01/12/20 00:00 97.7 55 16 102/66 (78) 97 01/11/20 23:42 55 01/11/20 21:00 Room Air 01/11/20 20:00 98.8 68 17 103/66 (78) 98 01/11/20 19:34 63 01/11/20 16:00 97 01/11/20 16:00 98.0 59 18 129/76 (93) 98 Intake and Output 01/11/20 01/12/20 19:00 07:00 Intake Total 825 ml 1362 ml Balance 825 ml 1362 ml Intake Oral 750 ml 800 ml IV Total 75 ml 562 ml # Bowel Movements 1 Laboratory Tests Test 01/12/20 05:32 White Blood Count 7.7 K/UL (4.8-10.8) Red Blood Count 2.95 M/UL (4.70-6.10) L Hemoglobin 8.9 G/DL (14.2-18.0) L Hematocrit 28.1 % (42.0-52.0) L Mean Corpuscular Volume 95 FL (80-99) Mean Corpuscular Hemoglobin 30.1 PG (27.0-31.0) Mean Corpuscular Hemoglobin Concent 31.6 G/DL (32.0-36.0) L Red Cell Distribution Width 15.7 % (11.6-14.8) H Platelet Count 99 K/UL (150-450) L Mean Platelet Volume 7.7 FL (6.5-10.1) Neutrophils (%) (Auto) % (45.0-75.0) Lymphocytes (%) (Auto) % (20.0-45.0) Monocytes (%) (Auto) % (1.0-10.0) Eosinophils (%) (Auto) % (0.0-3.0) Basophils (%) (Auto) % (0.0-2.0) Differential Total Cells Counted 100 Neutrophils % (Manual) 62 % (45-75) Lymphocytes % (Manual) 21 % (20-45) Monocytes % (Manual) 6 % (1-10) Eosinophils % (Manual) 10 % (0-3) H Basophils % (Manual) 1 % (0-2) Band Neutrophils 0 % (0-8) Platelet Estimate Decreased L Platelet Morphology Normal Hypochromasia Occasional Anisocytosis 1+ Sodium Level 147 MMOL/L (136-145) H Potassium Level 3.5 MMOL/L (3.5-5.1) Chloride Level 115 MMOL/L (98-107) H Carbon Dioxide Level 21 MMOL/L (21-32) Anion Gap 11 mmol/L (5-15) Blood Urea Nitrogen 28 mg/dL (7-18) H Creatinine 1.0 MG/DL (0.55-1.30) Estimat Glomerular Filtration Rate > 60 mL/min (>60) Glucose Level 89 MG/DL (74-106) Uric Acid 5.6 MG/DL (2.6-7.2) Calcium Level 7.9 MG/DL (8.5-10.1) L Phosphorus Level 3.0 MG/DL (2.5-4.9) Magnesium Level 2.0 MG/DL (1.8-2.4) Total Bilirubin 0.5 MG/DL (0.2-1.0) Aspartate Amino Transf (AST/SGOT) 81 U/L (15-37) H Alanine Aminotransferase (ALT/SGPT) 29 U/L (12-78) Alkaline Phosphatase 85 U/L (46-116) C-Reactive Protein, Quantitative 2.8 mg/dL (0.00-0.90) H Pro-B-Type Natriuretic Peptide 151 pg/mL (0-125) H Total Protein 6.8 G/DL (6.4-8.2) Albumin 2.4 G/DL (3.4-5.0) L Globulin 4.4 g/dL Albumin/Globulin Ratio 0.5 (1.0-2.7) L Thyroid Stimulating Hormone (TSH) 1.662 uiU/mL (0.358-3.740) Free Thyroxine 0.86 NG/DL (0.76-1.46) Microbiology Date/Time Source Procedure Growth Status 01/09/20 22:00 Blood Blood Culture - Preliminary NO GROWTH AFTER 48 HOURS Resulted 01/09/20 21:45 Blood Blood Culture - Preliminary NO GROWTH AFTER 48 HOURS Resulted 01/09/20 22:30 Nasopharynx SARS-CoV-2 RdRp Gene Assay - Final Complete 01/09/20 22:00 Nasal Nares MRSA Culture - Final NO METHICILLIN RESISTANT STAPH AUREUS... Complete 01/09/20 22:00 Rectum - Final NO CARBAPENEM-RESISTANT ENTEROBACTERI... Complete 01/09/20 22:00 Rectum VRE Culture - Final Enterococcus Faecalis - Vre Complete Objective HEAD AND NECK: Showed no JVD. LUNGS: Clear. CARDIOVASCULAR: Bradycardic. S1 and S2 with no gallop or murmur. ABDOMEN: Soft. EXTREMITIES: No pitting edema. John Gomez MD Jan 12, 2020 15:51
[2020-01-12 16:00] VITALS: BP 112/66
[2020-01-12 20:00] VITALS: BP 98/57
--- NOTE | 2020-01-12 22:28 | General Progress Note ---
Assessment/Plan Problem List: (1) Renal failure ICD Codes: N19 - Unspecified kidney failure SNOMED: 10277034 Qualifiers: Qualified Codes: N17.9 - Acute kidney failure, unspecified (2) Dehydration ICD Codes: E86.0 - Dehydration SNOMED: 47993843 (3) Encephalopathy ICD Codes: G93.40 - Encephalopathy, unspecified SNOMED: 63782262 (4) UTI (urinary tract infection) ICD Codes: N39.0 - Urinary tract infection, site not specified SNOMED: 66183735 Qualifiers: Qualified Codes: N39.0 - Urinary tract infection, site not specified (5) Dehydration ICD Codes: E86.0 - Dehydration SNOMED: 85269328 (6) Electrolyte imbalance ICD Codes: E87.8 - Other disorders of electrolyte and fluid balance, not elsewhere classified SNOMED: 939926177 (7) Sepsis ICD Codes: A41.9 - Sepsis, unspecified organism SNOMED: 90776871 Qualifiers: Qualified Codes: A41.9 - Sepsis, unspecified organism; R65.20 - Severe sepsis without septic shock; G93.40 - Encephalopathy, unspecified (8) ARIS (acute kidney injury) ICD Codes: N17.9 - Acute kidney failure, unspecified SNOMED: 0836849, 48785561 Status: progressing Assessment/Plan: lyte abnormality sepsis uti arf bp improving clinically improving abx per id Subjective ROS Limited/Unobtainable: Yes Allergies: Coded Allergies: No Known Allergies (Unverified , 01/10/18) Objective Last 24 Hour Vital Signs Date Time Temp Pulse Resp B/P (MAP) Pulse Ox O2 Delivery O2 Flow Rate FiO2 01/12/20 16:00 97.7 61 20 112/66 (81) 98 01/12/20 15:51 64 01/12/20 12:00 97.2 62 18 100/54 (69) 97 01/12/20 11:40 62 01/12/20 09:00 Room Air 01/12/20 07:50 97.5 55 20 116/59 (78) 98 01/12/20 07:36 55 01/12/20 04:00 97.2 66 18 110/63 (79) 99 01/12/20 04:00 53 01/12/20 00:00 97.7 55 16 102/66 (78) 97 01/11/20 23:42 55 Intake and Output 01/11/20 01/12/20 19:00 07:00 Intake Total 825 ml 1362 ml Balance 825 ml 1362 ml Intake Oral 750 ml 800 ml IV Total 75 ml 562 ml # Bowel Movements 1 Laboratory Tests 01/12/20 05:32: White Blood Count 7.7, Red Blood Count 2.95L, Hemoglobin 8.9L, Hematocrit 28.1L , Mean Corpuscular Volume 95, Mean Corpuscular Hemoglobin 30.1, Mean Corpuscular Hemoglobin Concent 31.6L, Red Cell Distribution Width 15.7H, Platelet Count 99L, Mean Platelet Volume 7.7, Neutrophils (%) (Auto) , Lymphocytes (%) (Auto) , Monocytes (%) (Auto) , Eosinophils (%) (Auto) , Basophils (%) (Auto) , Differential Total Cells Counted 100, Neutrophils % ( Manual) 62, Lymphocytes % (Manual) 21, Monocytes % (Manual) 6, Eosinophils % ( Manual) 10H, Basophils % (Manual) 1, Band Neutrophils 0, Platelet Estimate DecreasedL, Platelet Morphology Normal, Hypochromasia Occasional, Anisocytosis 1 +, Sodium Level 147H, Potassium Level 3.5, Chloride Level 115H, Carbon Dioxide Level 21, Anion Gap 11, Blood Urea Nitrogen 28H, Creatinine 1.0, Estimat Glomerular Filtration Rate > 60, Glucose Level 89, Uric Acid 5.6, Calcium Level 7.9L, Phosphorus Level 3.0, Magnesium Level 2.0, Total Bilirubin 0.5, Aspartate Amino Transf (AST/SGOT) 81H, Alanine Aminotransferase (ALT/SGPT) 29, Alkaline Phosphatase 85, C-Reactive Protein, Quantitative 2.8H, Pro-B-Type Natriuretic Peptide 151H, Total Protein 6.8, Albumin 2.4L, Globulin 4.4, Albumin/Globulin Ratio 0.5L, Thyroid Stimulating Hormone (TSH) 1.662, Free Thyroxine 0.86 Height (Feet): 5 Height (Inches): 3.00 Weight (Pounds): 143 Deysi He MD Jan 12, 2020 22:28
[2020-01-13] VITALS: BP 110/65
[2020-01-13 04:00] VITALS: BP 128/73
[2020-01-13 08:00] VITALS: BP 138/66
[2020-01-13] MEDS: Pantoprazole Inj IVP SCH ×2 (08:40→21:06)
[2020-01-13] MEDS: Aspirin EC 81mg tab ORAL SCH (08:40)
--- NOTE | 2020-01-13 11:30 | Cardiac Electrophysiology PN ---
Assessment/Plan Assessment/Plan 1. Elevated troponin at 0.075, likely due to renal failure. Initial BUN and creatinine were 48 and 1.8. Two subsequent troponins are negative and BUN now is 35 and creatinine 1.3. EF 65%. Comfortable 2. Bradycardia and right bundle-branch block. Heart rate was in the 50s, off any sinus or AV milad blocking agent. 3. Hypertension, on p.r.n. hydralazine. 4. Dehydration with hypernatremia and azotemia. Patient is on IV fluids. 5. Pneumonia, on ceftriaxone. 6. Anemia, hemoglobin 9.7. Subjective Subjective Alert off restraints in NAD. No CP or SOB Objective Last 24 Hour Vital Signs Date Time Temp Pulse Resp B/P (MAP) Pulse Ox O2 Delivery O2 Flow Rate FiO2 01/13/20 09:00 Room Air 01/13/20 08:00 97.7 60 18 138/66 (90) 97 01/13/20 07:46 63 01/13/20 04:00 98.1 55 17 128/73 (91) 99 01/13/20 04:00 51 01/13/20 00:00 57 01/13/20 00:00 97.7 69 18 110/65 (80) 96 01/12/20 21:00 Room Air 01/12/20 20:00 62 01/12/20 20:00 99.0 60 18 98/57 (71) 95 01/12/20 16:00 97.7 61 20 112/66 (81) 98 01/12/20 15:51 64 01/12/20 12:00 97.2 62 18 100/54 (69) 97 01/12/20 11:40 62 Intake and Output 01/12/20 01/13/20 19:00 07:00 Intake Total 1480 ml 215 ml Output Total 350 ml 375 ml Balance 1130 ml -160 ml Intake Oral 600 ml 140 ml IV Total 880 ml 75 ml Output Urine Total 350 ml 375 ml # Bowel Movements 2 Objective HEAD AND NECK: Showed no JVD. LUNGS: Clear. CARDIOVASCULAR: Bradycardic. S1 and S2 with no gallop or murmur. ABDOMEN: Soft. EXTREMITIES: No pitting edema. John Gomez MD Jan 13, 2020 11:30
--- NOTE | 2020-01-13 11:43 | Pulmonology Progress Note ---
Subjective ROS Limited/Unobtainable: Yes Interval Events: COVID 19 test is negative Constitutional: Denies: fever HEENT: Repors: no symptoms Respiratory: Reports: no symptoms Cardiovascular: Reports: no symptoms Gastrointestinal/Abdominal: Reports: no symptoms Allergies: Coded Allergies: No Known Allergies (Unverified , 01/10/18) Objective Last 24 Hour Vital Signs Date Time Temp Pulse Resp B/P (MAP) Pulse Ox O2 Delivery O2 Flow Rate FiO2 01/13/20 09:00 Room Air 01/13/20 08:00 97.7 60 18 138/66 (90) 97 01/13/20 07:46 63 01/13/20 04:00 98.1 55 17 128/73 (91) 99 01/13/20 04:00 51 01/13/20 00:00 57 01/13/20 00:00 97.7 69 18 110/65 (80) 96 01/12/20 21:00 Room Air 01/12/20 20:00 62 01/12/20 20:00 99.0 60 18 98/57 (71) 95 01/12/20 16:00 97.7 61 20 112/66 (81) 98 01/12/20 15:51 64 01/12/20 12:00 97.2 62 18 100/54 (69) 97 Intake and Output 01/12/20 01/13/20 19:00 07:00 Intake Total 1480 ml 215 ml Output Total 350 ml 375 ml Balance 1130 ml -160 ml Intake Oral 600 ml 140 ml IV Total 880 ml 75 ml Output Urine Total 350 ml 375 ml # Bowel Movements 2 General Appearance: no acute distress HEENT: normocephalic Respiratory: chest wall non-tender, lungs clear Cardiovascular: normal peripheral pulses Abdomen: normal bowel sounds Current Medications Medications (Trade) Dose Ordered Sig/Juwan Route PRN Reason Start Time Stop Time Status Last Admin Dose Admin Acetaminophen (Tylenol) 650 mg Q4H PRN ORAL MILD PAIN (1-3)/TEMP >100.5 01/10/20 11:00 02/09/20 10:59 01/11/20 01:00 Aspirin (Ecotrin) 81 mg DAILY ORAL 01/11/20 09:00 02/25/20 08:59 01/13/20 08:40 Ceftriaxone Sodium 1 gm/ Sodium Chloride 55 ml @ 110 mls/hr Q24H IVPB 8/19/20 13:15 01/18/20 13:14 01/12/20 12:17 Dextrose 1,000 ml @ 75 mls/hr [id number] IV 01/11/20 09:30 02/10/20 09:29 01/12/20 20:47 Hydralazine HCl (Apresoline) 25 mg Q4H PRN ORAL bp over 160 syst 01/10/20 15:30 04/09/20 15:29 Pantoprazole (Protonix) 40 mg EVERY 12 HOURS IVP 01/10/20 21:00 02/09/20 20:59 01/13/20 08:40 Rifaximin (Xifaxan) 550 mg TWICE A DAY ORAL 01/10/20 18:00 01/17/20 17:59 01/13/20 08:40 Assessment/Plan Assessment/Plan IMPRESSION: 1. Ruled out for COVID-19 pneumonia. 2. halfway resident. 3. Psoriasis. 4. Dementia. 5. CVA. 6. History of hepatitis C. 7. CHF. DISCUSSION: Continue correction of electrolytes and hypernatremia, fluid hydration. 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 Jero Fernandes Omar Syed MD Jan 13, 2020 11:43
[2020-01-13 12:00] VITALS: BP 128/71
--- NOTE | 2020-01-13 12:09 | Nephrology Progress Note ---
Assessment/Plan Problem List: (1) ARIS (acute kidney injury) (2) Electrolyte imbalance (3) Dehydration (4) UTI (urinary tract infection) (5) Sepsis (6) Encephalopathy Assessment Acute renal failure Dehydration Hypernatremia, likely due to free water deficit Sepsis UTI Toxic metabolic encephalopathy Hypoalbuminemia Plan January 12: Stable from renal standpoint of view. Will order labs for tomorrow. Continue per consultants. January 11: Labs reviewed. Renal parameters are improved. Electrolytes within normal range. Continue as is. January 10: Labs reviewed. Patient has a Rowe catheter. Serum creatinine down to 1.3 from 1.8 on admission. Serum sodium remains elevated. Will change IV to D5W. We will keep the blood sugar and blood pressure in check. Continue per consultants. January 09: Hold blood pressure medication due to low blood pressure PRN blood pressure medication for high blood pressure Today's labs appears to be an error and should be repeated Slow hydration Pulmonary toilet Antibiotics per ID Monitor renal parameters and electrolyte Slow hydration Urine studies Subjective ROS Limited/Unobtainable: Yes Objective Objective Last 24 Hour Vital Signs Date Time Temp Pulse Resp B/P (MAP) Pulse Ox O2 Delivery O2 Flow Rate FiO2 01/13/20 12:00 98.0 71 19 128/71 (90) 98 01/13/20 09:00 Room Air 01/13/20 08:00 97.7 60 18 138/66 (90) 97 01/13/20 07:46 63 01/13/20 04:00 98.1 55 17 128/73 (91) 99 01/13/20 04:00 51 01/13/20 00:00 57 01/13/20 00:00 97.7 69 18 110/65 (80) 96 01/12/20 21:00 Room Air 01/12/20 20:00 62 01/12/20 20:00 99.0 60 18 98/57 (71) 95 01/12/20 16:00 97.7 61 20 112/66 (81) 98 01/12/20 15:51 64 Intake and Output 01/12/20 01/13/20 19:00 07:00 Intake Total 1480 ml 215 ml Output Total 350 ml 375 ml Balance 1130 ml -160 ml Intake Oral 600 ml 140 ml IV Total 880 ml 75 ml Output Urine Total 350 ml 375 ml # Bowel Movements 2 No labs drawn today Height (Feet): 5 Height (Inches): 3.00 Weight (Pounds): 143 General Appearance: no apparent distress, lethargic Cardiovascular: normal rate Respiratory/Chest: decreased breath sounds Abdomen: soft Objective No change Dewayne Aldridge MD Jan 13, 2020 12:09
--- NOTE | 2020-01-13 12:20 | Infectious Diseases Prog Note ---
Assessment/Plan Assessment/Plan IMPRESSION: Sepsis UTI. Lactic acidosis, Acute renal failure, Cirrhosis, Portal hypertension, Hepatitis C, Anemia, Dementia. Status post splenectomy. RECOMMENDATION: Continue ceftriaxone. We will follow up the cultures. Subjective ROS Limited/Unobtainable: Yes Constitutional: Denies: fever Allergies: Coded Allergies: No Known Allergies (Unverified , 01/10/18) Objective Last 24 Hour Vital Signs Date Time Temp Pulse Resp B/P (MAP) Pulse Ox O2 Delivery O2 Flow Rate FiO2 01/13/20 12:00 98.0 71 19 128/71 (90) 98 01/13/20 09:00 Room Air 01/13/20 08:00 97.7 60 18 138/66 (90) 97 01/13/20 07:46 63 01/13/20 04:00 98.1 55 17 128/73 (91) 99 01/13/20 04:00 51 01/13/20 00:00 57 01/13/20 00:00 97.7 69 18 110/65 (80) 96 01/12/20 21:00 Room Air 01/12/20 20:00 62 01/12/20 20:00 99.0 60 18 98/57 (71) 95 01/12/20 16:00 97.7 61 20 112/66 (81) 98 01/12/20 15:51 64 Height (Feet): 5 Height (Inches): 3.00 Weight (Pounds): 143 General Appearance: no acute distress HEENT: mucous membranes moist Respiratory/Chest: lungs clear Cardiovascular: normal rate Abdomen: soft, non tender Extremities: no edema Neurologic/Psychiatric: alert, responsive Current Medications Medications (Trade) Dose Ordered Sig/Juwan Route PRN Reason Start Time Stop Time Status Last Admin Dose Admin Acetaminophen (Tylenol) 650 mg Q4H PRN ORAL MILD PAIN (1-3)/TEMP >100.5 01/10/20 11:00 02/09/20 10:59 01/11/20 01:00 Aspirin (Ecotrin) 81 mg DAILY ORAL 01/11/20 09:00 02/25/20 08:59 01/13/20 08:40 Ceftriaxone Sodium 1 gm/ Sodium Chloride 55 ml @ 110 mls/hr Q24H IVPB 01/11/20 13:15 01/18/20 13:14 01/12/20 12:17 Dextrose 1,000 ml @ 50 mls/hr Q20H IV 01/13/20 12:30 02/12/20 12:29 Hydralazine HCl (Apresoline) 25 mg Q4H PRN ORAL bp over 160 syst 01/10/20 15:30 04/09/20 15:29 Pantoprazole (Protonix) 40 mg EVERY 12 HOURS IVP 01/10/20 21:00 02/09/20 20:59 01/13/20 08:40 Rifaximin (Xifaxan) 550 mg TWICE A DAY ORAL 01/10/20 18:00 01/17/20 17:59 01/13/20 08:40 Jose G Zamarripa MD Jan 13, 2020 12:19
[2020-01-13] MEDS: cefTRIAXone 1 GM in NS 55 ML IVPB SCH (13:27)
--- NOTE | 2020-01-13 14:32 | Consultation ---
History of Present Illness General Date patient seen: Jan 13, 2020 Reason for Hospitalization: Flu Like Symptoms Present Illness HPI 74 year old male with history of renal insufficiency presented to [facility] ED for evaluation of respiratory symptoms. admitted for care and management. on admission noted to have abnormal labs, malnutrition, and breakdown concerns. surgery called to evaluate. developing blisters on left arm. Allergies: Coded Allergies: No Known Allergies (Unverified , 01/10/18) COVID-19 Screening Contact w/high risk pt: No Experienced COVID-19 symptoms?: No Medication History Scheduled Ascorbic Acid* (Vitamin C*), 250 MG ORAL TWICE A DAY, (Reported) Aspirin* (Aspir 81*), 81 MG ORAL DAILY, (Reported) Atorvastatin Calcium* (Lipitor*), 80 MG ORAL BEDTIME, (Reported) Benztropine Mesylate* (Benztropine Mesylate*), 1 MG ORAL BEDTIME, (Reported) Docusate Sodium* (Docusate Sodium*), 250 MG ORAL DAILY, (Reported) Losartan Potassium* (Losartan Potassium*), 50 MG ORAL DAILY, (Reported) Metoprolol Tartrate* (Metoprolol Tartrate*), 25 MG ORAL EVERY 12 HOURS, ( Reported) Multivitamin (Multivitamin), 1 TAB ORAL DAILY, (Reported) Olanzapine* (Zyprexa*), 5 MG ORAL BID, (Reported) Pantoprazole* (Protonix*), 40 MG ORAL DAILY, (Reported) Rifaximin* (Xifaxan*), 550 MG ORAL TWICE A DAY, (Reported) Vitamin D (Vitamin D3), 1,000 MG ORAL DAILY, (Reported) Zinc Sulfate (Zinc Sulfate*), 2 CAP ORAL DAILY, (Reported) Scheduled PRN Acetaminophen* (Acetaminophen 325MG Tablet*), 650 MG ORAL Q4H PRN for Mild Pain/ Temp > 100.5, (Reported) Acetaminophen* (Tylenol Extra Strength*), 1,000 MG ORAL Q4H PRN for Moderate Pain (Pain Scale 4-6), (Reported) Bisacodyl (Dulcolax), 10 MG RC DAILY PRN for Constipation, (Reported) Clonidine Hcl* (Catapres*), 0.1 MG ORAL EVERY 4 HOURS PRN for BP > 160, ( Reported) Magnesium Hydroxide* (Milk Of Magnesia*), 30 ML ORAL BEDTIME PRN for Constipation, (Reported) Na Phos,M-B/Na Phos,Di-Ba (Fleet Enema), 133 ML RC Q2D PRN for Constipation, ( Reported) Discontinued Medications Amlodipine Besylate* (Amlodipine Besylate*), 5 MG ORAL DAILY, (Reported) Discontinued Reason: Therapy completed Lactulose (Lactulose*), 30 ML ORAL BID PRN for Constipation, (Reported) Discontinued Reason: Therapy completed Mag Hydrox/Al Hydrox/Simeth (Maalox Maximum Strength Susp), 15 ML PO EVERY 8 HOURS PRN for GI UPSET, (Reported) Discontinued Reason: Therapy completed Nitroglycerin 0.4MG table* (Nitroglycerin*), 0.4 MG SL .Q5MIN X 3 DOSES PRN for CHEST PAIN, (Reported) Discontinued Reason: Therapy completed Omeprazole (Omeprazole), 40 MG ORAL DAILY, (Reported) Discontinued Reason: Therapy completed Patient History Limited by: medical condition History Provided By: Medical Record, PMD Healthcare decision maker Resuscitation status Advanced Directive on File Past Medical/Surgical History Past Medical/Surgical History: (1) Renal failure (2) Dehydration (3) Encephalopathy (4) UTI (urinary tract infection) (5) Dehydration (6) Electrolyte imbalance (7) Sepsis (8) ARIS (acute kidney injury) (9) HTN (hypertension) Review of Systems Review of Symptoms General ROS: no weight loss or fever Psychological ROS: no depression or mood changes, no memory loss Ophthalmic ROS: no visual changes or eye irritation ENT ROS: no nasal congestion, hearing loss, dizziness Allergy and Immunology ROS: no allergic symptoms or urticaria Hematological and Lymphatic ROS: no swollen glands, unusual bleeding or bruising Endocrine ROS: no polyuria, polydipsia, weight changes, temperature intolerance Respiratory ROS: no cough, shortness of breath, or wheezing Cardiovascular ROS: no chest pain or dyspnea on exertion Gastrointestinal ROS: denies abdominal pain, bright red blood in stool. Musculoskeletal ROS: no myalgias or arthralgias Neurological ROS: no TIA or stroke symptoms Dermatological ROS: no new or changing skin lesions, rashes or pruritis limited given medical condition Physical Exam Physical Exam General appearance: alert, cooperative, no distress, appears stated age Head: Normocephalic, without obvious abnormality, atraumatic Eyes: conjunctivae/corneas clear. PERRL, EOM's intact. Fundi benign Throat: Lips, mucosa, and tongue normal. Teeth and gums normal Neck: supple, symmetrical, trachea midline, no adenopathy, thyroid: not enlarged, symmetric, no tenderness/mass/nodules, no carotid bruit and no JVD Lungs: clear to auscultation bilaterally Heart: regular rate and rhythm, S1, S2 normal, no murmur, click, rub or gallop Abdomen: soft, non-tender. Bowel sounds normal. No masses, no organomegaly Extremities: extremities left arm edema with blisters Pulses: 2+ and symmetric Skin: Skin color, texture, turgor normal. No rashes or lesions Neurologic: Grossly normal Last 24 Hour Vital Signs Date Time Temp Pulse Resp B/P (MAP) Pulse Ox O2 Delivery O2 Flow Rate FiO2 01/13/20 12:00 98.0 71 19 128/71 (90) 98 01/13/20 11:37 59 01/13/20 09:00 Room Air 01/13/20 08:00 97.7 60 18 138/66 (90) 97 01/13/20 07:46 63 01/13/20 04:00 98.1 55 17 128/73 (91) 99 01/13/20 04:00 51 01/13/20 00:00 57 01/13/20 00:00 97.7 69 18 110/65 (80) 96 01/12/20 21:00 Room Air 01/12/20 20:00 62 01/12/20 20:00 99.0 60 18 98/57 (71) 95 01/12/20 16:00 97.7 61 20 112/66 (81) 98 01/12/20 15:51 64 Intake and Output 01/12/20 01/13/20 19:00 07:00 Intake Total 1480 ml 215 ml Output Total 350 ml 375 ml Balance 1130 ml -160 ml Intake Oral 600 ml 140 ml IV Total 880 ml 75 ml Output Urine Total 350 ml 375 ml # Bowel Movements 2 Height (Feet): 5 Height (Inches): 3.00 Weight (Pounds): 143 Medications Current Medications Medications (Trade) Dose Ordered Sig/Juwan Route PRN Reason Start Time Stop Time Status Last Admin Dose Admin Acetaminophen (Tylenol) 650 mg Q4H PRN ORAL MILD PAIN (1-3)/TEMP >100.5 01/10/20 11:00 02/09/20 10:59 01/11/20 01:00 Aspirin (Ecotrin) 81 mg DAILY ORAL 01/11/20 09:00 02/25/20 08:59 01/13/20 08:40 Ceftriaxone Sodium 1 gm/ Sodium Chloride 55 ml @ 110 mls/hr Q24H IVPB 01/11/20 13:15 01/18/20 13:14 01/13/20 13:27 Dextrose 1,000 ml @ 50 mls/hr Q20H IV 01/13/20 12:30 02/12/20 12:29 01/13/20 13:25 Hydralazine HCl (Apresoline) 25 mg Q4H PRN ORAL bp over 160 syst 01/10/20 15:30 04/09/20 15:29 Pantoprazole (Protonix) 40 mg EVERY 12 HOURS IVP 01/10/20 21:00 02/09/20 20:59 01/13/20 08:40 Rifaximin (Xifaxan) 550 mg TWICE A DAY ORAL 01/10/20 18:00 01/17/20 17:59 01/13/20 08:40 Assessment/Plan Problem List: (1) HTN (hypertension) ICD Codes: I10 - Essential (primary) hypertension SNOMED: 01697195 (2) Renal failure ICD Codes: N19 - Unspecified kidney failure SNOMED: 68564726 Qualifiers: Qualified Codes: N17.9 - Acute kidney failure, unspecified (3) Dehydration ICD Codes: E86.0 - Dehydration SNOMED: 23828214 (4) Encephalopathy ICD Codes: G93.40 - Encephalopathy, unspecified SNOMED: 69836344 (5) UTI (urinary tract infection) ICD Codes: N39.0 - Urinary tract infection, site not specified SNOMED: 64527975 Qualifiers: Qualified Codes: N39.0 - Urinary tract infection, site not specified (6) Dehydration ICD Codes: E86.0 - Dehydration SNOMED: 29866884 (7) Electrolyte imbalance ICD Codes: E87.8 - Other disorders of electrolyte and fluid balance, not elsewhere classified SNOMED: 754308653 (8) Sepsis ICD Codes: A41.9 - Sepsis, unspecified organism SNOMED: 78224137 Qualifiers: Qualified Codes: A41.9 - Sepsis, unspecified organism; R65.20 - Severe sepsis without septic shock; G93.40 - Encephalopathy, unspecified (9) ARIS (acute kidney injury) ICD Codes: N17.9 - Acute kidney failure, unspecified SNOMED: 2409453, 82342061 (10) Blister of left upper arm Assessment & Plan: DAILY ESTIMATED NEEDS: Needs based on Cardiac, pulmonary 66.4kg 25-30 kcals/kg total kcals 1.25-1.5 g protein/kg 83-100 g total protein 25-30 mL/kg total fluid mLs NUTRITION DIAGNOSIS: Swallowing difficulty r/t dysphagia, h/o CVA, 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 CURRENT DIET: Regular puree PO DIET RECOMMENDATIONS: W/ good po intake, rec LOW NA diet/ texture per EDITORIAL PROJECT MANAGER ADDITIONAL RECOMMENDATIONS: 1) Maintain calibrated bed scale wts 2) maintain IVF hydration 3) Monitor for continued good po intake -> add Ensure 1 bottle qdaily 4) Rec WC eval/ f/up; add JEREMÍAS Fruit Punch in 8oz H2O BID for skin integrity ICD Codes: S40.822A - Blister (nonthermal) of left upper arm, initial encounter SNOMED: 52503656 Jann Terrell Jan 13, 2020 14:32
[2020-01-13 16:00] VITALS: BP 132/74
[2020-01-13 20:00] VITALS: BP 114/62
[2020-01-14] VITALS: BP 107/68
[2020-01-14 04:00] VITALS: BP 114/60
[2020-01-14 08:00] VITALS: BP 111/50
--- NOTE | 2020-01-14 08:45 | Pulmonology Progress Note ---
Subjective ROS Limited/Unobtainable: Yes Interval Events: COVID 19 test is negative Constitutional: Denies: fever HEENT: Repors: no symptoms Respiratory: Reports: no symptoms Cardiovascular: Reports: no symptoms Gastrointestinal/Abdominal: Reports: no symptoms Allergies: Coded Allergies: No Known Allergies (Unverified , 01/10/18) Objective Last 24 Hour Vital Signs Date Time Temp Pulse Resp B/P (MAP) Pulse Ox O2 Delivery O2 Flow Rate FiO2 01/14/20 08:00 97.5 57 18 111/50 (70) 98 01/14/20 04:00 98.1 62 20 114/60 (78) 99 01/14/20 04:00 59 01/14/20 00:00 59 01/14/20 00:00 97.9 63 20 107/68 (81) 97 01/13/20 21:00 Room Air 01/13/20 20:00 99.0 61 20 114/62 (79) 96 01/13/20 20:00 61 01/13/20 16:00 98.4 69 20 132/74 (93) 99 01/13/20 15:54 60 01/13/20 12:00 98.0 71 19 128/71 (90) 98 01/13/20 11:37 59 01/13/20 09:00 Room Air Intake and Output 01/13/20 01/14/20 19:00 07:00 Intake Total 1330 ml 100 ml Output Total 450 ml 1200 ml Balance 880 ml -1100 ml Intake Oral 600 ml 100 ml IV Total 730 ml Output Urine Total 450 ml 1200 ml # Bowel Movements 1 General Appearance: no acute distress HEENT: normocephalic Respiratory: chest wall non-tender, lungs clear Cardiovascular: normal peripheral pulses Abdomen: normal bowel sounds Laboratory Tests 01/14/20 08:25: White Blood Count [Pending], Red Blood Count [Pending], Hemoglobin [Pending], Hematocrit [Pending], Mean Corpuscular Volume [Pending], Mean Corpuscular Hemoglobin [Pending], Mean Corpuscular Hemoglobin Concent [Pending], Red Cell Distribution Width [Pending], Platelet Count [Pending], Mean Platelet Volume [ Pending], Neutrophils (%) (Auto) [Pending], Lymphocytes (%) (Auto) [Pending], Monocytes (%) (Auto) [Pending], Eosinophils (%) (Auto) [Pending], Basophils (%) (Auto) [Pending], Sodium Level [Pending], Potassium Level [Pending], Chloride Level [Pending], Carbon Dioxide Level [Pending], Blood Urea Nitrogen [Pending], Creatinine [Pending], Estimat Glomerular Filtration Rate [Pending], Glucose Level [Pending], Calcium Level [Pending], Phosphorus Level [Pending], Magnesium Level [Pending], Total Bilirubin [Pending], Aspartate Amino Transf (AST/SGOT) [ Pending], Alanine Aminotransferase (ALT/SGPT) [Pending], Alkaline Phosphatase [ Pending], Total Protein [Pending], Albumin [Pending], Globulin [Pending] Current Medications Medications (Trade) Dose Ordered Sig/Juwan Route PRN Reason Start Time Stop Time Status Last Admin Dose Admin Acetaminophen (Tylenol) 650 mg Q4H PRN ORAL MILD PAIN (1-3)/TEMP >100.5 01/10/20 11:00 02/09/20 10:59 01/11/20 01:00 Aspirin (Ecotrin) 81 mg DAILY ORAL 01/11/20 09:00 02/25/20 08:59 01/13/20 08:40 Ceftriaxone Sodium 1 gm/ Sodium Chloride 55 ml @ 110 mls/hr Q24H IVPB 01/11/20 13:15 01/18/20 13:14 01/13/20 13:27 Dextrose 1,000 ml @ 50 mls/hr Q20H IV 01/13/20 12:30 02/12/20 12:29 01/13/20 13:25 Hydralazine HCl (Apresoline) 25 mg Q4H PRN ORAL bp over 160 syst 01/10/20 15:30 04/09/20 15:29 Pantoprazole (Protonix) 40 mg EVERY 12 HOURS IVP 01/10/20 21:00 02/09/20 20:59 01/13/20 21:06 Rifaximin (Xifaxan) 550 mg TWICE A DAY ORAL 01/10/20 18:00 01/17/20 17:59 01/13/20 17:11 Assessment/Plan Assessment/Plan IMPRESSION: 1. Ruled out for COVID-19 pneumonia. 2. [facility] resident. 3. Psoriasis. 4. Dementia. 5. CVA. 6. History of hepatitis C. 7. CHF. DISCUSSION: Continue correction of electrolytes and hypernatremia, fluid hydration. 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 Jero Fernandes Omar Syed MD Jan 14, 2020 08:45
[2020-01-14 08:57] LABS: HEMATOCRIT 29.8 % (42.0-52.0); HEMOGLOBIN 9.7 G/DL (14.2-18.0); MEAN CORPUSCULAR VOLUME 93 FL (80-99); PLATELET COUNT 99 K/UL (150-450); RED CELL DISTRIBUTION WIDTH 14.8 % (11.6-14.8); WHITE BLOOD COUNT 6.5 K/UL (4.8-10.8)
[2020-01-14 09:16] LABS: ALANINE AMINOTRANSFERASE 40 U/L (12-78); ALBUMIN 2.3 G/DL (3.4-5.0); ALBUMIN/GLOBULIN RATIO 0.5 (1.0-2.7); ALKALINE PHOSPHATASE 86 U/L (46-116); ANION GAP 9 mmol/L (5-15); ASPARTATE AMINO TRANSFERASE 59 U/L (15-37); BILIRUBIN,TOTAL 0.5 MG/DL (0.2-1.0); BLOOD UREA NITROGEN 14 mg/dL (7-18); CALCIUM 8.3 MG/DL (8.5-10.1); CARBON DIOXIDE 21 MMOL/L (21-32); CHLORIDE 110 MMOL/L (98-107); CREATININE 0.9 MG/DL (0.55-1.30); PHOSPHORUS 3.3 MG/DL (2.5-4.9); POTASSIUM 4.2 MMOL/L (3.5-5.1); SODIUM 140 MMOL/L (136-145)
[2020-01-14] MEDS: Aspirin EC 81mg tab ORAL SCH (09:21)
[2020-01-14] MEDS: Pantoprazole Inj IVP SCH ×2 (09:22→20:30)
--- NOTE | 2020-01-14 09:33 | Surgery Progress Note ---
Surgery Progress Note Objective Last 24 Hour Vital Signs Date Time Temp Pulse Resp B/P (MAP) Pulse Ox O2 Delivery O2 Flow Rate FiO2 01/14/20 08:00 97.5 57 18 111/50 (70) 98 01/14/20 04:00 98.1 62 20 114/60 (78) 99 01/14/20 04:00 59 01/14/20 00:00 59 01/14/20 00:00 97.9 63 20 107/68 (81) 97 01/13/20 21:00 Room Air 01/13/20 20:00 99.0 61 20 114/62 (79) 96 01/13/20 20:00 61 01/13/20 16:00 98.4 69 20 132/74 (93) 99 01/13/20 15:54 60 01/13/20 12:00 98.0 71 19 128/71 (90) 98 01/13/20 11:37 59 I&O Intake and Output 01/13/20 01/14/20 19:00 07:00 Intake Total 1330 ml 100 ml Output Total 450 ml 1200 ml Balance 880 ml -1100 ml Intake Oral 600 ml 100 ml IV Total 730 ml Output Urine Total 450 ml 1200 ml # Bowel Movements 1 Dressing: other Wound: other Cardiovascular: RSR Respiratory: decreased breath sounds Abdomen: soft, non-tender, present bowel sounds Extremities: no tenderness, no cyanosis Laboratory Tests Test 01/14/20 08:25 White Blood Count 6.5 K/UL (4.8-10.8) Red Blood Count 3.20 M/UL (4.70-6.10) L Hemoglobin 9.7 G/DL (14.2-18.0) L Hematocrit 29.8 % (42.0-52.0) L Mean Corpuscular Volume 93 FL (80-99) Mean Corpuscular Hemoglobin 30.2 PG (27.0-31.0) Mean Corpuscular Hemoglobin Concent 32.5 G/DL (32.0-36.0) Red Cell Distribution Width 14.8 % (11.6-14.8) Platelet Count 99 K/UL (150-450) L Mean Platelet Volume 7.1 FL (6.5-10.1) Neutrophils (%) (Auto) % (45.0-75.0) Lymphocytes (%) (Auto) % (20.0-45.0) Monocytes (%) (Auto) % (1.0-10.0) Eosinophils (%) (Auto) % (0.0-3.0) Basophils (%) (Auto) % (0.0-2.0) Neutrophils % (Manual) Pending Lymphocytes % (Manual) Pending Platelet Estimate Pending Platelet Morphology Pending Sodium Level 140 MMOL/L (136-145) Potassium Level 4.2 MMOL/L (3.5-5.1) Chloride Level 110 MMOL/L (98-107) H Carbon Dioxide Level 21 MMOL/L (21-32) Anion Gap 9 mmol/L (5-15) Blood Urea Nitrogen 14 mg/dL (7-18) Creatinine 0.9 MG/DL (0.55-1.30) Estimat Glomerular Filtration Rate > 60 mL/min (>60) Glucose Level 91 MG/DL (74-106) Calcium Level 8.3 MG/DL (8.5-10.1) L Phosphorus Level 3.3 MG/DL (2.5-4.9) Magnesium Level 1.9 MG/DL (1.8-2.4) Total Bilirubin 0.5 MG/DL (0.2-1.0) Aspartate Amino Transf (AST/SGOT) 59 U/L (15-37) H Alanine Aminotransferase (ALT/SGPT) 40 U/L (12-78) Alkaline Phosphatase 86 U/L (46-116) Total Protein 6.7 G/DL (6.4-8.2) Albumin 2.3 G/DL (3.4-5.0) L Globulin 4.4 g/dL Albumin/Globulin Ratio 0.5 (1.0-2.7) L Plan Problems: (1) HTN (hypertension) (2) Renal failure (3) Dehydration Assessment & Plan: CURRENT DIET TEXTURE IS LEAST RESTRICTIVE AND AT THE TIME WITHOUT OVERT S/S OF ASPIRATION. RECOMMENDATIONS; 1. CONTINUE CURRENT DIET 2. CONTINUE WITH SIMPLE COMMUNICATION TIPS TO INCREASE PATIENTS PARTICIPATION IN HIS MEDICAL CARE. 3. 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 CURRENT DIET: Regular puree PO DIET RECOMMENDATIONS: W/ good po intake, rec LOW NA diet/ texture per DIRECTOR OF INSTITUTIONAL SALES ADDITIONAL RECOMMENDATIONS: 1) Maintain calibrated bed scale wts 2) maintain IVF hydration 3) Monitor for continued good po intake -> add Ensure 1 bottle qdaily 4) Rec WC eval/ f/up; add JEREMÍAS Fruit Punch in 8oz H2O BID for skin integrity Jann Terrell Jan 14, 2020 09:33
[2020-01-14 12:00] VITALS: BP 109/54
--- NOTE | 2020-01-14 13:30 | Nephrology Progress Note ---
Assessment/Plan Problem List: (1) ARIS (acute kidney injury) (2) Electrolyte imbalance (3) Dehydration (4) UTI (urinary tract infection) (5) Sepsis (6) Encephalopathy Assessment Acute renal failure Dehydration Hypernatremia, likely due to free water deficit Sepsis UTI Toxic metabolic encephalopathy Hypoalbuminemia Plan January 13: Stable from renal standpoint of view. Continue per consultants. January 12: Stable from renal standpoint of view. Will order labs for tomorrow. Continue per consultants. January 11: Labs reviewed. Renal parameters are improved. Electrolytes within normal range. Continue as is. January 10: Labs reviewed. Patient has a Rowe catheter. Serum creatinine down to 1.3 from 1.8 on admission. Serum sodium remains elevated. Will change IV to D5W. We will keep the blood sugar and blood pressure in check. Continue per consultants. January 09: Hold blood pressure medication due to low blood pressure PRN blood pressure medication for high blood pressure Today's labs appears to be an error and should be repeated Slow hydration Pulmonary toilet Antibiotics per ID Monitor renal parameters and electrolyte Slow hydration Urine studies Subjective ROS Limited/Unobtainable: Yes Objective Objective Last 24 Hour Vital Signs Date Time Temp Pulse Resp B/P (MAP) Pulse Ox O2 Delivery O2 Flow Rate FiO2 01/14/20 09:00 Room Air 01/14/20 08:43 59 01/14/20 08:00 97.5 57 18 111/50 (70) 98 01/14/20 04:00 98.1 62 20 114/60 (78) 99 01/14/20 04:00 59 01/14/20 00:00 59 01/14/20 00:00 97.9 63 20 107/68 (81) 97 01/13/20 21:00 Room Air 01/13/20 20:00 99.0 61 20 114/62 (79) 96 01/13/20 20:00 61 01/13/20 16:00 98.4 69 20 132/74 (93) 99 01/13/20 15:54 60 Intake and Output 01/13/20 01/14/20 19:00 07:00 Intake Total 1330 ml 100 ml Output Total 450 ml 1200 ml Balance 880 ml -1100 ml Intake Oral 600 ml 100 ml IV Total 730 ml Output Urine Total 450 ml 1200 ml # Bowel Movements 1 Laboratory Tests 01/14/20 08:25: White Blood Count 6.5, Red Blood Count 3.20L, Hemoglobin 9.7L, Hematocrit 29.8L , Mean Corpuscular Volume 93, Mean Corpuscular Hemoglobin 30.2, Mean Corpuscular Hemoglobin Concent 32.5, Red Cell Distribution Width 14.8, Platelet Count 99L, Mean Platelet Volume 7.1, Neutrophils (%) (Auto) , Lymphocytes (%) ( Auto) , Monocytes (%) (Auto) , Eosinophils (%) (Auto) , Basophils (%) (Auto) , Differential Total Cells Counted 100, Neutrophils % (Manual) 57, Lymphocytes % ( Manual) 25, Monocytes % (Manual) 10, Eosinophils % (Manual) 4H, Basophils % ( Manual) 4H, Band Neutrophils 0, Platelet Estimate DecreasedL, Platelet Morphology Normal, Hypochromasia 1+, Anisocytosis 1+, Sodium Level 140, Potassium Level 4.2, Chloride Level 110H, Carbon Dioxide Level 21, Anion Gap 9, Blood Urea Nitrogen 14, Creatinine 0.9, Estimat Glomerular Filtration Rate > 60 , Glucose Level 91, Calcium Level 8.3L, Phosphorus Level 3.3, Magnesium Level 1.9, Total Bilirubin 0.5, Aspartate Amino Transf (AST/SGOT) 59H, Alanine Aminotransferase (ALT/SGPT) 40, Alkaline Phosphatase 86, Total Protein 6.7, Albumin 2.3L, Globulin 4.4, Albumin/Globulin Ratio 0.5L Height (Feet): 5 Height (Inches): 3.00 Weight (Pounds): 150 Cardiovascular: normal rate Respiratory/Chest: decreased breath sounds Abdomen: soft Objective No change Dewayne Aldridge MD Jan 14, 2020 13:30
--- NOTE | 2020-01-14 13:46 | Cardiac Electrophysiology PN ---
Assessment/Plan Assessment/Plan 1. Elevated troponin at 0.075, likely due to renal failure. Follow up troponins are negative Initial BUN and creatinine were 48 and 1.8. BUN/ Cr now normal EF 65%. Comfortable 2. Bradycardia and right bundle-branch block. Heart rate was in the 50s, off any sinus or AV milad blocking agent. 3. Hypertension, on p.r.n. hydralazine. 4. Dehydration with hypernatremia and azotemia. Patient is on IV fluids. 5. Pneumonia, on ceftriaxone. 6. Anemia, hemoglobin 9.7. MICHELLE RN Subjective Subjective Alert in NAD. No CP or SOB. In SR on tele Objective Last 24 Hour Vital Signs Date Time Temp Pulse Resp B/P (MAP) Pulse Ox O2 Delivery O2 Flow Rate FiO2 01/14/20 09:00 Room Air 01/14/20 08:43 59 01/14/20 08:00 97.5 57 18 111/50 (70) 98 01/14/20 04:00 98.1 62 20 114/60 (78) 99 01/14/20 04:00 59 01/14/20 00:00 59 01/14/20 00:00 97.9 63 20 107/68 (81) 97 01/13/20 21:00 Room Air 01/13/20 20:00 99.0 61 20 114/62 (79) 96 01/13/20 20:00 61 01/13/20 16:00 98.4 69 20 132/74 (93) 99 01/13/20 15:54 60 Intake and Output 01/13/20 01/14/20 19:00 07:00 Intake Total 1330 ml 100 ml Output Total 450 ml 1200 ml Balance 880 ml -1100 ml Intake Oral 600 ml 100 ml IV Total 730 ml Output Urine Total 450 ml 1200 ml # Bowel Movements 1 Laboratory Tests Test 01/14/20 08:25 White Blood Count 6.5 K/UL (4.8-10.8) Red Blood Count 3.20 M/UL (4.70-6.10) L Hemoglobin 9.7 G/DL (14.2-18.0) L Hematocrit 29.8 % (42.0-52.0) L Mean Corpuscular Volume 93 FL (80-99) Mean Corpuscular Hemoglobin 30.2 PG (27.0-31.0) Mean Corpuscular Hemoglobin Concent 32.5 G/DL (32.0-36.0) Red Cell Distribution Width 14.8 % (11.6-14.8) Platelet Count 99 K/UL (150-450) L Mean Platelet Volume 7.1 FL (6.5-10.1) Neutrophils (%) (Auto) % (45.0-75.0) Lymphocytes (%) (Auto) % (20.0-45.0) Monocytes (%) (Auto) % (1.0-10.0) Eosinophils (%) (Auto) % (0.0-3.0) Basophils (%) (Auto) % (0.0-2.0) Differential Total Cells Counted 100 Neutrophils % (Manual) 57 % (45-75) Lymphocytes % (Manual) 25 % (20-45) Monocytes % (Manual) 10 % (1-10) Eosinophils % (Manual) 4 % (0-3) H Basophils % (Manual) 4 % (0-2) H Band Neutrophils 0 % (0-8) Platelet Estimate Decreased L Platelet Morphology Normal Hypochromasia 1+ Anisocytosis 1+ Sodium Level 140 MMOL/L (136-145) Potassium Level 4.2 MMOL/L (3.5-5.1) Chloride Level 110 MMOL/L (98-107) H Carbon Dioxide Level 21 MMOL/L (21-32) Anion Gap 9 mmol/L (5-15) Blood Urea Nitrogen 14 mg/dL (7-18) Creatinine 0.9 MG/DL (0.55-1.30) Estimat Glomerular Filtration Rate > 60 mL/min (>60) Glucose Level 91 MG/DL (74-106) Calcium Level 8.3 MG/DL (8.5-10.1) L Phosphorus Level 3.3 MG/DL (2.5-4.9) Magnesium Level 1.9 MG/DL (1.8-2.4) Total Bilirubin 0.5 MG/DL (0.2-1.0) Aspartate Amino Transf (AST/SGOT) 59 U/L (15-37) H Alanine Aminotransferase (ALT/SGPT) 40 U/L (12-78) Alkaline Phosphatase 86 U/L (46-116) Total Protein 6.7 G/DL (6.4-8.2) Albumin 2.3 G/DL (3.4-5.0) L Globulin 4.4 g/dL Albumin/Globulin Ratio 0.5 (1.0-2.7) L Objective HEAD AND NECK: Showed no JVD. LUNGS: Clear. CARDIOVASCULAR: Bradycardic. S1 and S2 with no gallop or murmur. ABDOMEN: Soft. EXTREMITIES: No pitting edema. John Gomez MD Jan 14, 2020 13:46
[2020-01-14] MEDS: cefTRIAXone 1 GM in NS 55 ML IVPB SCH (13:50)
[2020-01-14] MEDS ORDERED: HydrALAZINE 25mg tab ORAL PRN (15:30)
[2020-01-14 16:00] VITALS: BP 111/72
[2020-01-14 20:00] VITALS: BP 122/77
--- NOTE | 2020-01-14 21:47 | General Progress Note ---
Assessment/Plan Problem List: (1) Renal failure ICD Codes: N19 - Unspecified kidney failure SNOMED: 60853484 Qualifiers: Qualified Codes: N17.9 - Acute kidney failure, unspecified (2) Dehydration ICD Codes: E86.0 - Dehydration SNOMED: 93297435 (3) Encephalopathy ICD Codes: G93.40 - Encephalopathy, unspecified SNOMED: 87833734 (4) UTI (urinary tract infection) ICD Codes: N39.0 - Urinary tract infection, site not specified SNOMED: 99795120 Qualifiers: Qualified Codes: N39.0 - Urinary tract infection, site not specified (5) Dehydration ICD Codes: E86.0 - Dehydration SNOMED: 39390420 (6) Electrolyte imbalance ICD Codes: E87.8 - Other disorders of electrolyte and fluid balance, not elsewhere classified SNOMED: 938562078 (7) Sepsis ICD Codes: A41.9 - Sepsis, unspecified organism SNOMED: 71176957 Qualifiers: Qualified Codes: A41.9 - Sepsis, unspecified organism; R65.20 - Severe sepsis without septic shock; G93.40 - Encephalopathy, unspecified (8) ARIS (acute kidney injury) ICD Codes: N17.9 - Acute kidney failure, unspecified SNOMED: 7788074, 93317149 Status: progressing Assessment/Plan: lyte abnormality sepsis uti afebrile lyte abnormality arf' hypernatremia improving abx per id Subjective ROS Limited/Unobtainable: Yes Allergies: Coded Allergies: No Known Allergies (Unverified , 01/10/18) Objective Last 24 Hour Vital Signs Date Time Temp Pulse Resp B/P (MAP) Pulse Ox O2 Delivery O2 Flow Rate FiO2 01/14/20 21:00 Room Air 01/14/20 20:00 97.9 82 18 122/77 (92) 97 01/14/20 16:00 98.1 74 18 111/72 (85) 96 01/14/20 12:00 97.7 62 20 109/54 (72) 97 01/14/20 11:32 62 01/14/20 09:00 Room Air 01/14/20 08:43 59 01/14/20 08:00 97.5 57 18 111/50 (70) 98 01/14/20 04:00 98.1 62 20 114/60 (78) 99 01/14/20 04:00 59 8/22/20 00:00 59 01/14/20 00:00 97.9 63 20 107/68 (81) 97 Intake and Output 01/13/20 01/14/20 19:00 07:00 Intake Total 1330 ml 100 ml Output Total 450 ml 1200 ml Balance 880 ml -1100 ml Intake Oral 600 ml 100 ml IV Total 730 ml Output Urine Total 450 ml 1200 ml # Bowel Movements 1 Laboratory Tests 01/14/20 08:25: White Blood Count 6.5, Red Blood Count 3.20L, Hemoglobin 9.7L, Hematocrit 29.8L , Mean Corpuscular Volume 93, Mean Corpuscular Hemoglobin 30.2, Mean Corpuscular Hemoglobin Concent 32.5, Red Cell Distribution Width 14.8, Platelet Count 99L, Mean Platelet Volume 7.1, Neutrophils (%) (Auto) , Lymphocytes (%) ( Auto) , Monocytes (%) (Auto) , Eosinophils (%) (Auto) , Basophils (%) (Auto) , Differential Total Cells Counted 100, Neutrophils % (Manual) 57, Lymphocytes % ( Manual) 25, Monocytes % (Manual) 10, Eosinophils % (Manual) 4H, Basophils % ( Manual) 4H, Band Neutrophils 0, Platelet Estimate DecreasedL, Platelet Morphology Normal, Hypochromasia 1+, Anisocytosis 1+, Sodium Level 140, Potassium Level 4.2, Chloride Level 110H, Carbon Dioxide Level 21, Anion Gap 9, Blood Urea Nitrogen 14, Creatinine 0.9, Estimat Glomerular Filtration Rate > 60 , Glucose Level 91, Calcium Level 8.3L, Phosphorus Level 3.3, Magnesium Level 1.9, Total Bilirubin 0.5, Aspartate Amino Transf (AST/SGOT) 59H, Alanine Aminotransferase (ALT/SGPT) 40, Alkaline Phosphatase 86, Total Protein 6.7, Albumin 2.3L, Globulin 4.4, Albumin/Globulin Ratio 0.5L Height (Feet): 5 Height (Inches): 3.00 Weight (Pounds): 150 Deysi He MD Jan 14, 2020 21:47
[2020-01-15] VITALS: BP 110/69
[2020-01-15 04:00] VITALS: BP 129/78
[2020-01-15 08:00] VITALS: BP 126/76
[2020-01-15] MEDS: Aspirin EC 81mg tab ORAL SCH (08:22)
[2020-01-15] MEDS: Pantoprazole Inj IVP SCH ×2 (08:22→20:29)
[2020-01-15] MEDS ORDERED: cefTRIAXone 1 GM in NS 55 ML IVPB SCH (09:00)
--- NOTE | 2020-01-15 09:59 | Surgery Progress Note ---
Surgery Progress Note Subjective Additional Comments no acute events comfortable stable no n/v/f/c labs noted Objective Last 24 Hour Vital Signs Date Time Temp Pulse Resp B/P (MAP) Pulse Ox O2 Delivery O2 Flow Rate FiO2 01/15/20 09:00 Room Air 01/15/20 08:00 97.5 61 17 126/76 (93) 100 01/15/20 04:00 96.7 68 18 129/78 (95) 97 01/15/20 00:00 97.7 72 18 110/69 (83) 97 01/14/20 21:00 Room Air 01/14/20 20:00 97.9 82 18 122/77 (92) 97 01/14/20 16:00 98.1 74 18 111/72 (85) 96 01/14/20 12:00 97.7 62 20 109/54 (72) 97 01/14/20 11:32 62 I&O Intake and Output 01/14/20 01/15/20 19:00 07:00 Intake Total 515 ml 450 ml Output Total 1500 ml Balance 515 ml -1050 ml Intake Oral 240 ml IV Total 75 ml 450 ml Other 200 ml Output Urine Total 1500 ml # Bowel Movements 1 Dressing: saturated Cardiovascular: RSR Respiratory: decreased breath sounds Abdomen: soft, non-tender, present bowel sounds Extremities: no tenderness, no cyanosis Plan Problems: (1) HTN (hypertension) (2) Renal failure (3) Dehydration Assessment & Plan: CURRENT DIET TEXTURE IS LEAST RESTRICTIVE AND AT THE TIME WITHOUT OVERT S/S OF ASPIRATION. RECOMMENDATIONS; 1. CONTINUE CURRENT DIET 2. CONTINUE WITH SIMPLE COMMUNICATION TIPS TO INCREASE PATIENTS PARTICIPATION IN HIS MEDICAL CARE. 3. ST TO FOLLOW FOR COMMUNICATION/DYSPHAGIA TX (4) Encephalopathy (5) UTI (urinary tract infection) (6) Dehydration (7) Electrolyte imbalance (8) Sepsis (9) ARIS (acute kidney injury) (10) Blister of left upper arm Assessment & Plan: DAILY ESTIMATED NEEDS: Needs based on Cardiac, pulmonary 66.4kg 25-30 kcals/kg total kcals 1.25-1.5 g protein/kg 83-100 g total protein 25-30 mL/kg total fluid mLs NUTRITION DIAGNOSIS: Swallowing difficulty r/t dysphagia, h/o CVA, as evidenced by power plant mechanic aaron degroot puree texture diet. CURRENT DIET: Regular puree PO DIET RECOMMENDATIONS: W/ good po intake, rec LOW NA diet/ texture per UNIT REACTOR OPERATOR ADDITIONAL RECOMMENDATIONS: 1) Maintain calibrated bed scale wts 2) maintain IVF hydration 3) Monitor for continued good po intake -> add Ensure 1 bottle qdaily 4) Rec WC eval/ f/up; add JEREMÍAS Fruit Punch in 8oz H2O BID for skin integrity Jann Terrell Jan 15, 2020 09:59
--- NOTE | 2020-01-15 10:47 | Pulmonology Progress Note ---
Subjective ROS Limited/Unobtainable: Yes Interval Events: COVID 19 test is negative Constitutional: Denies: fever HEENT: Repors: no symptoms Respiratory: Reports: no symptoms Cardiovascular: Reports: no symptoms Gastrointestinal/Abdominal: Reports: no symptoms Allergies: Coded Allergies: No Known Allergies (Unverified , 01/10/18) Objective Last 24 Hour Vital Signs Date Time Temp Pulse Resp B/P (MAP) Pulse Ox O2 Delivery O2 Flow Rate FiO2 01/15/20 09:00 Room Air 01/15/20 08:00 97.5 61 17 126/76 (93) 100 01/15/20 04:00 96.7 68 18 129/78 (95) 97 01/15/20 00:00 97.7 72 18 110/69 (83) 97 01/14/20 21:00 Room Air 01/14/20 20:00 97.9 82 18 122/77 (92) 97 01/14/20 16:00 98.1 74 18 111/72 (85) 96 01/14/20 12:00 97.7 62 20 109/54 (72) 97 01/14/20 11:32 62 Intake and Output 01/14/20 01/15/20 19:00 07:00 Intake Total 515 ml 450 ml Output Total 1500 ml Balance 515 ml -1050 ml Intake Oral 240 ml IV Total 75 ml 450 ml Other 200 ml Output Urine Total 1500 ml # Bowel Movements 1 General Appearance: no acute distress HEENT: normocephalic Respiratory: chest wall non-tender, lungs clear Cardiovascular: normal peripheral pulses Abdomen: normal bowel sounds Current Medications Medications (Trade) Dose Ordered Sig/Juwan Route PRN Reason Start Time Stop Time Status Last Admin Dose Admin Acetaminophen (Tylenol) 650 mg Q4H PRN ORAL MILD PAIN (1-3)/TEMP >100.5 01/14/20 15:15 02/09/20 15:14 Aspirin (Ecotrin) 81 mg DAILY ORAL 01/15/20 09:00 02/25/20 08:59 01/15/20 08:22 Ceftriaxone Sodium 1 gm/ Sodium Chloride 55 ml @ 110 mls/hr Q24H IVPB 01/15/20 09:00 01/18/20 08:59 01/15/20 08:23 Dextrose 1,000 ml @ 50 mls/hr Q20H IV 01/14/20 15:15 02/12/20 12:29 01/15/20 05:29 Hydralazine HCl (Apresoline) 25 mg Q4H PRN ORAL bp over 160 syst 01/14/20 15:30 04/09/20 15:29 Pantoprazole (Protonix) 40 mg EVERY 12 HOURS IVP 01/14/20 21:00 02/09/20 20:59 01/15/20 08:22 Rifaximin (Xifaxan) 550 mg TWICE A DAY ORAL 01/14/20 18:00 01/17/20 17:59 01/15/20 08:22 Assessment/Plan Assessment/Plan IMPRESSION: 1. Ruled out for COVID-19 pneumonia. 2. halfway resident. 3. Psoriasis. 4. Dementia. 5. CVA. 6. History of hepatitis C. 7. CHF. DISCUSSION: Continue correction of electrolytes and hypernatremia, fluid hydration. 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 Jero Fernandes Omar Syed MD Jan 15, 2020 10:47
--- NOTE | 2020-01-15 11:48 | Nephrology Progress Note ---
Assessment/Plan Problem List: (1) ARIS (acute kidney injury) (2) Electrolyte imbalance (3) Dehydration (4) UTI (urinary tract infection) (5) Sepsis (6) Encephalopathy Assessment Acute renal failure Dehydration Hypernatremia, likely due to free water deficit Sepsis UTI Toxic metabolic encephalopathy Hypoalbuminemia Plan January 14: No labs drawn today. Stable from renal standpoint of view. January 13: Stable from renal standpoint of view. Continue per consultants. January 12: Stable from renal standpoint of view. Will order labs for tomorrow. Continue per consultants. January 11: Labs reviewed. Renal parameters are improved. Electrolytes within normal range. Continue as is. January 10: Labs reviewed. Patient has a Rowe catheter. Serum creatinine down to 1.3 from 1.8 on admission. Serum sodium remains elevated. Will change IV to D5W. We will keep the blood sugar and blood pressure in check. Continue per consultants. January 09: Hold blood pressure medication due to low blood pressure PRN blood pressure medication for high blood pressure Today's labs appears to be an error and should be repeated Slow hydration Pulmonary toilet Antibiotics per ID Monitor renal parameters and electrolyte Slow hydration Urine studies Subjective ROS Limited/Unobtainable: Yes Objective Objective Last 24 Hour Vital Signs Date Time Temp Pulse Resp B/P (MAP) Pulse Ox O2 Delivery O2 Flow Rate FiO2 01/15/20 09:00 Room Air 01/15/20 08:00 97.5 61 17 126/76 (93) 100 01/15/20 04:00 96.7 68 18 129/78 (95) 97 01/15/20 00:00 97.7 72 18 110/69 (83) 97 01/14/20 21:00 Room Air 01/14/20 20:00 97.9 82 18 122/77 (92) 97 01/14/20 16:00 98.1 74 18 111/72 (85) 96 01/14/20 12:00 97.7 62 20 109/54 (72) 97 Intake and Output 01/14/20 01/15/20 19:00 07:00 Intake Total 515 ml 450 ml Output Total 1500 ml Balance 515 ml -1050 ml Intake Oral 240 ml IV Total 75 ml 450 ml Other 200 ml Output Urine Total 1500 ml # Bowel Movements 1 No labs drawn today. Height (Feet): 5 Height (Inches): 3.00 Weight (Pounds): 148 General Appearance: no apparent distress, lethargic Cardiovascular: normal rate Respiratory/Chest: decreased breath sounds Abdomen: soft Objective No change Dewayne Aldridge MD Jan 15, 2020 11:48
[2020-01-15 12:00] VITALS: BP 105/68
--- NOTE | 2020-01-15 14:22 | Infectious Diseases Prog Note ---
Assessment/Plan Assessment/Plan IMPRESSION: Sepsis UTI. treated Lactic acidosis, Acute renal failure, Cirrhosis, Portal hypertension, Hepatitis C, Anemia, Dementia. Status post splenectomy. RECOMMENDATION: Discontinue ceftriaxone. . Subjective ROS Limited/Unobtainable: Yes Allergies: Coded Allergies: No Known Allergies (Unverified , 01/10/18) Objective Last 24 Hour Vital Signs Date Time Temp Pulse Resp B/P (MAP) Pulse Ox O2 Delivery O2 Flow Rate FiO2 01/15/20 09:00 Room Air 01/15/20 08:00 97.5 61 17 126/76 (93) 100 01/15/20 04:00 96.7 68 18 129/78 (95) 97 01/15/20 00:00 97.7 72 18 110/69 (83) 97 01/14/20 21:00 Room Air 01/14/20 20:00 97.9 82 18 122/77 (92) 97 01/14/20 16:00 98.1 74 18 111/72 (85) 96 Height (Feet): 5 Height (Inches): 3.00 Weight (Pounds): 148 General Appearance: no acute distress HEENT: mucous membranes moist Respiratory/Chest: lungs clear Cardiovascular: normal rate Abdomen: soft, non tender Extremities: no edema Skin: other - blisters & superficial ulcers of arms Neurologic/Psychiatric: alert, responsive Current Medications Medications (Trade) Dose Ordered Sig/Juwan Route PRN Reason Start Time Stop Time Status Last Admin Dose Admin Acetaminophen (Tylenol) 650 mg Q4H PRN ORAL MILD PAIN (1-3)/TEMP >100.5 01/14/20 15:15 02/09/20 15:14 Aspirin (Ecotrin) 81 mg DAILY ORAL 01/15/20 09:00 02/25/20 08:59 01/15/20 08:22 Ceftriaxone Sodium 1 gm/ Sodium Chloride 55 ml @ 110 mls/hr Q24H IVPB 01/15/20 09:00 01/18/20 08:59 01/15/20 08:23 Dextrose 1,000 ml @ 50 mls/hr Q20H IV 01/14/20 15:15 02/12/20 12:29 01/15/20 11:15 Hydralazine HCl (Apresoline) 25 mg Q4H PRN ORAL bp over 160 syst 01/14/20 15:30 04/09/20 15:29 Pantoprazole (Protonix) 40 mg EVERY 12 HOURS IVP 01/14/20 21:00 02/09/20 20:59 01/15/20 08:22 Rifaximin (Xifaxan) 550 mg TWICE A DAY ORAL 01/14/20 18:00 01/17/20 17:59 01/15/20 08:22 Jose G Zamarripa MD Jan 15, 2020 14:22
[2020-01-15 16:00] VITALS: BP 112/65
[2020-01-15 20:00] VITALS: BP 125/76
--- NOTE | 2020-01-15 21:16 | General Progress Note ---
Assessment/Plan Problem List: (1) Renal failure ICD Codes: N19 - Unspecified kidney failure SNOMED: 51905922 Qualifiers: Qualified Codes: N17.9 - Acute kidney failure, unspecified (2) Dehydration ICD Codes: E86.0 - Dehydration SNOMED: 92647794 (3) Encephalopathy ICD Codes: G93.40 - Encephalopathy, unspecified SNOMED: 04414084 (4) UTI (urinary tract infection) ICD Codes: N39.0 - Urinary tract infection, site not specified SNOMED: 78960489 Qualifiers: Qualified Codes: N39.0 - Urinary tract infection, site not specified (5) Dehydration ICD Codes: E86.0 - Dehydration SNOMED: 24468604 (6) Electrolyte imbalance ICD Codes: E87.8 - Other disorders of electrolyte and fluid balance, not elsewhere classified SNOMED: 685382302 (7) Sepsis ICD Codes: A41.9 - Sepsis, unspecified organism SNOMED: 30083590 Qualifiers: Qualified Codes: A41.9 - Sepsis, unspecified organism; R65.20 - Severe sepsis without septic shock; G93.40 - Encephalopathy, unspecified (8) ARIS (acute kidney injury) ICD Codes: N17.9 - Acute kidney failure, unspecified SNOMED: 1554929, 35712428 Status: progressing Assessment/Plan: sepsis and uti improving obs needs fluids afebrile lyte abnormality arf' improving hypernatremia improving Subjective ROS Limited/Unobtainable: Yes Allergies: Coded Allergies: No Known Allergies (Unverified , 01/10/18) Objective Last 24 Hour Vital Signs Date Time Temp Pulse Resp B/P (MAP) Pulse Ox O2 Delivery O2 Flow Rate FiO2 01/15/20 20:00 97.3 75 18 125/76 (92) 97 01/15/20 16:00 96.8 63 20 112/65 (81) 97 01/15/20 12:00 97.5 58 18 105/68 (80) 97 01/15/20 09:00 Room Air 01/15/20 08:00 97.5 61 17 126/76 (93) 100 01/15/20 04:00 96.7 68 18 129/78 (95) 97 01/15/20 00:00 97.7 72 18 110/69 (83) 97 Intake and Output 01/14/20 01/15/20 19:00 07:00 Intake Total 515 ml 450 ml Output Total 1500 ml Balance 515 ml -1050 ml Intake Oral 240 ml IV Total 75 ml 450 ml Other 200 ml Output Urine Total 1500 ml # Bowel Movements 1 Height (Feet): 5 Height (Inches): 3.00 Weight (Pounds): 148 Deysi He MD Jan 15, 2020 21:16
[2020-01-16] VITALS: BP 131/76
[2020-01-16 04:00] VITALS: BP 136/83
[2020-01-16 08:00] VITALS: BP 116/71
[2020-01-16] MEDS: Aspirin EC 81mg tab ORAL SCH (08:25)
[2020-01-16] MEDS: Pantoprazole Inj IVP SCH (08:25)
[2020-01-16 08:31] LABS: BASOPHILS % (AUTO) 1.1 % (0.0-2.0); EOSINOPHILS % (AUTO) 5.9 % (0.0-3.0); HEMATOCRIT 28.3 % (42.0-52.0); HEMOGLOBIN 9.3 G/DL (14.2-18.0); LYMPHOCYTES % (AUTO) 19.8 % (20.0-45.0); MEAN CORPUSCULAR VOLUME 91 FL (80-99); MONOCYTES % (AUTO) 9.5 % (1.0-10.0); NEUTROPHILS % (AUTO) 63.7 % (45.0-75.0); PLATELET COUNT 118 K/UL (150-450); RED BLOOD COUNT 3.09 M/UL (4.70-6.10); WHITE BLOOD COUNT 6.6 K/UL (4.8-10.8)
[2020-01-16 08:54] LABS: ALANINE AMINOTRANSFERASE 32 U/L (12-78); ALBUMIN 2.5 G/DL (3.4-5.0); ALBUMIN/GLOBULIN RATIO 0.6 (1.0-2.7); ALKALINE PHOSPHATASE 96 U/L (46-116); ANION GAP 10 mmol/L (5-15); ASPARTATE AMINO TRANSFERASE 36 U/L (15-37); BILIRUBIN,TOTAL 0.5 MG/DL (0.2-1.0); BLOOD UREA NITROGEN 10 mg/dL (7-18); CALCIUM 8.9 MG/DL (8.5-10.1); CARBON DIOXIDE 23 MMOL/L (21-32); CHLORIDE 107 MMOL/L (98-107); CREATININE 0.8 MG/DL (0.55-1.30); PHOSPHORUS 3.6 MG/DL (2.5-4.9); POTASSIUM 3.6 MMOL/L (3.5-5.1); SODIUM 140 MMOL/L (136-145)
--- NOTE | 2020-01-16 11:02 | Pulmonology Progress Note ---
Subjective ROS Limited/Unobtainable: Yes Interval Events: COVID 19 test is negative Constitutional: Denies: fever HEENT: Repors: no symptoms Respiratory: Reports: no symptoms Cardiovascular: Reports: no symptoms Gastrointestinal/Abdominal: Reports: no symptoms Allergies: Coded Allergies: No Known Allergies (Unverified , 01/10/18) Objective Last 24 Hour Vital Signs Date Time Temp Pulse Resp B/P (MAP) Pulse Ox O2 Delivery O2 Flow Rate FiO2 01/16/20 09:00 Room Air 01/16/20 08:00 97.1 93 21 116/71 (86) 96 01/16/20 04:00 97.2 57 18 136/83 (100) 96 01/16/20 00:00 97.0 58 18 131/76 (94) 96 01/15/20 21:00 Room Air 01/15/20 20:00 97.3 75 18 125/76 (92) 97 01/15/20 16:00 96.8 63 20 112/65 (81) 97 01/15/20 12:00 97.5 58 18 105/68 (80) 97 Intake and Output 01/15/20 01/16/20 19:00 07:00 Intake Total 950 ml 650 ml Output Total 500 ml 1500 ml Balance 450 ml -850 ml Intake Oral 900 ml 100 ml IV Total 50 ml 550 ml Output Urine Total 500 ml 1500 ml # Bowel Movements 1 1 General Appearance: no acute distress HEENT: normocephalic Respiratory: chest wall non-tender, lungs clear Cardiovascular: normal peripheral pulses Abdomen: normal bowel sounds Laboratory Tests 01/16/20 07:55: White Blood Count 6.6, Red Blood Count 3.09L, Hemoglobin 9.3L, Hematocrit 28.3L , Mean Corpuscular Volume 91, Mean Corpuscular Hemoglobin 30.2, Mean Corpuscular Hemoglobin Concent 33.1, Red Cell Distribution Width 15.0H, Platelet Count 118L, Mean Platelet Volume 6.2L, Neutrophils (%) (Auto) 63.7, Lymphocytes (%) (Auto) 19.8L, Monocytes (%) (Auto) 9.5, Eosinophils (%) (Auto) 5.9H, Basophils (%) (Auto) 1.1, Sodium Level 140, Potassium Level 3.6, Chloride Level 107, Carbon Dioxide Level 23, Anion Gap 10, Blood Urea Nitrogen 10, Creatinine 0.8, Estimat Glomerular Filtration Rate > 60, Glucose Level 129H, Calcium Level 8.9, Phosphorus Level 3.6, Magnesium Level 2.0, Total Bilirubin 0.5, Aspartate Amino Transf (AST/SGOT) 36, Alanine Aminotransferase (ALT/SGPT) 32, Alkaline Phosphatase 96, Total Protein 7.0, Albumin 2.5L, Globulin 4.5, Albumin/Globulin Ratio 0.6L Current Medications Medications (Trade) Dose Ordered Sig/Juwan Route PRN Reason Start Time Stop Time Status Last Admin Dose Admin Acetaminophen (Tylenol) 650 mg Q4H PRN ORAL MILD PAIN (1-3)/TEMP >100.5 01/14/20 15:15 02/09/20 15:14 Aspirin (Ecotrin) 81 mg DAILY ORAL 01/15/20 09:00 02/25/20 08:59 01/16/20 08:25 Dextrose 1,000 ml @ 50 mls/hr Q20H IV 01/14/20 15:15 02/12/20 12:29 01/16/20 04:55 Hydralazine HCl (Apresoline) 25 mg Q4H PRN ORAL bp over 160 syst 01/14/20 15:30 04/09/20 15:29 Pantoprazole (Protonix) 40 mg EVERY 12 HOURS IVP 01/14/20 21:00 02/09/20 20:59 01/16/20 08:25 Rifaximin (Xifaxan) 550 mg TWICE A DAY ORAL 01/14/20 18:00 01/17/20 17:59 01/16/20 08:25 Assessment/Plan Assessment/Plan IMPRESSION: 1. Ruled out for COVID-19 pneumonia. 2. skilled nursing resident. 3. Psoriasis. 4. Dementia. 5. CVA. 6. History of hepatitis C. 7. CHF. DISCUSSION: Continue correction of electrolytes and hypernatremia, fluid hydration. 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 Jero Fernandes Omar Syed MD Jan 16, 2020 11:02
--- NOTE | 2020-01-16 11:34 | Infectious Diseases Prog Note ---
Assessment/Plan Assessment/Plan IMPRESSION: Sepsis UTI. treated Lactic acidosis, Acute renal failure, Cirrhosis, Portal hypertension, Hepatitis C, Anemia, Dementia. Status post splenectomy. RECOMMENDATION: Observe off of antibiotic . Subjective ROS Limited/Unobtainable: Yes Constitutional: Denies: fever Allergies: Coded Allergies: No Known Allergies (Unverified , 01/10/18) Objective Last 24 Hour Vital Signs Date Time Temp Pulse Resp B/P (MAP) Pulse Ox O2 Delivery O2 Flow Rate FiO2 01/16/20 09:00 Room Air 01/16/20 08:00 97.1 93 21 116/71 (86) 96 01/16/20 04:00 97.2 57 18 136/83 (100) 96 01/16/20 00:00 97.0 58 18 131/76 (94) 96 01/15/20 21:00 Room Air 01/15/20 20:00 97.3 75 18 125/76 (92) 97 01/15/20 16:00 96.8 63 20 112/65 (81) 97 01/15/20 12:00 97.5 58 18 105/68 (80) 97 Height (Feet): 5 Height (Inches): 3.00 Weight (Pounds): 151 General Appearance: no acute distress HEENT: mucous membranes moist Respiratory/Chest: lungs clear Cardiovascular: normal rate Abdomen: soft, non tender Extremities: no edema Neurologic/Psychiatric: other - sleeping Laboratory Tests Test 01/16/20 07:55 White Blood Count 6.6 K/UL (4.8-10.8) Red Blood Count 3.09 M/UL (4.70-6.10) L Hemoglobin 9.3 G/DL (14.2-18.0) L Hematocrit 28.3 % (42.0-52.0) L Mean Corpuscular Volume 91 FL (80-99) Mean Corpuscular Hemoglobin 30.2 PG (27.0-31.0) Mean Corpuscular Hemoglobin Concent 33.1 G/DL (32.0-36.0) Red Cell Distribution Width 15.0 % (11.6-14.8) H Platelet Count 118 K/UL (150-450) L Mean Platelet Volume 6.2 FL (6.5-10.1) L Neutrophils (%) (Auto) 63.7 % (45.0-75.0) Lymphocytes (%) (Auto) 19.8 % (20.0-45.0) L Monocytes (%) (Auto) 9.5 % (1.0-10.0) Eosinophils (%) (Auto) 5.9 % (0.0-3.0) H Basophils (%) (Auto) 1.1 % (0.0-2.0) Sodium Level 140 MMOL/L (136-145) Potassium Level 3.6 MMOL/L (3.5-5.1) Chloride Level 107 MMOL/L (98-107) Carbon Dioxide Level 23 MMOL/L (21-32) Anion Gap 10 mmol/L (5-15) Blood Urea Nitrogen 10 mg/dL (7-18) Creatinine 0.8 MG/DL (0.55-1.30) Estimat Glomerular Filtration Rate > 60 mL/min (>60) Glucose Level 129 MG/DL (74-106) H Calcium Level 8.9 MG/DL (8.5-10.1) Phosphorus Level 3.6 MG/DL (2.5-4.9) Magnesium Level 2.0 MG/DL (1.8-2.4) Total Bilirubin 0.5 MG/DL (0.2-1.0) Aspartate Amino Transf (AST/SGOT) 36 U/L (15-37) Alanine Aminotransferase (ALT/SGPT) 32 U/L (12-78) Alkaline Phosphatase 96 U/L (46-116) Total Protein 7.0 G/DL (6.4-8.2) Albumin 2.5 G/DL (3.4-5.0) L Globulin 4.5 g/dL Albumin/Globulin Ratio 0.6 (1.0-2.7) L Current Medications Medications (Trade) Dose Ordered Sig/Juwan Route PRN Reason Start Time Stop Time Status Last Admin Dose Admin Acetaminophen (Tylenol) 650 mg Q4H PRN ORAL MILD PAIN (1-3)/TEMP >100.5 01/14/20 15:15 02/09/20 15:14 Aspirin (Ecotrin) 81 mg DAILY ORAL 01/15/20 09:00 02/25/20 08:59 01/16/20 08:25 Dextrose 1,000 ml @ 50 mls/hr Q20H IV 01/14/20 15:15 02/12/20 12:29 01/16/20 04:55 Hydralazine HCl (Apresoline) 25 mg Q4H PRN ORAL bp over 160 syst 01/14/20 15:30 04/09/20 15:29 Pantoprazole (Protonix) 40 mg EVERY 12 HOURS IVP 01/14/20 21:00 02/09/20 20:59 01/16/20 08:25 Rifaximin (Xifaxan) 550 mg TWICE A DAY ORAL 01/14/20 18:00 01/17/20 17:59 01/16/20 08:25 Jose G Zamarripa MD Jan 16, 2020 11:34
[2020-01-16 12:00] VITALS: BP 133/78
--- NOTE | 2020-01-16 12:32 | Surgery Progress Note ---
Surgery Progress Note Subjective Additional Comments no acute events comfortable stable no n/v Objective Last 24 Hour Vital Signs Date Time Temp Pulse Resp B/P (MAP) Pulse Ox O2 Delivery O2 Flow Rate FiO2 01/16/20 12:00 97.1 56 18 133/78 (96) 99 01/16/20 09:00 Room Air 01/16/20 08:00 97.1 93 21 116/71 (86) 96 01/16/20 04:00 97.2 57 18 136/83 (100) 96 01/16/20 00:00 97.0 58 18 131/76 (94) 96 01/15/20 21:00 Room Air 01/15/20 20:00 97.3 75 18 125/76 (92) 97 01/15/20 16:00 96.8 63 20 112/65 (81) 97 I&O Intake and Output 01/15/20 01/16/20 19:00 07:00 Intake Total 950 ml 650 ml Output Total 500 ml 1500 ml Balance 450 ml -850 ml Intake Oral 900 ml 100 ml IV Total 50 ml 550 ml Output Urine Total 500 ml 1500 ml # Bowel Movements 1 1 Dressing: other Wound: other Cardiovascular: RSR Respiratory: decreased breath sounds Abdomen: soft, non-tender, present bowel sounds Extremities: no tenderness, no cyanosis Laboratory Tests Test 01/16/20 07:55 White Blood Count 6.6 K/UL (4.8-10.8) Red Blood Count 3.09 M/UL (4.70-6.10) L Hemoglobin 9.3 G/DL (14.2-18.0) L Hematocrit 28.3 % (42.0-52.0) L Mean Corpuscular Volume 91 FL (80-99) Mean Corpuscular Hemoglobin 30.2 PG (27.0-31.0) Mean Corpuscular Hemoglobin Concent 33.1 G/DL (32.0-36.0) Red Cell Distribution Width 15.0 % (11.6-14.8) H Platelet Count 118 K/UL (150-450) L Mean Platelet Volume 6.2 FL (6.5-10.1) L Neutrophils (%) (Auto) 63.7 % (45.0-75.0) Lymphocytes (%) (Auto) 19.8 % (20.0-45.0) L Monocytes (%) (Auto) 9.5 % (1.0-10.0) Eosinophils (%) (Auto) 5.9 % (0.0-3.0) H Basophils (%) (Auto) 1.1 % (0.0-2.0) Sodium Level 140 MMOL/L (136-145) Potassium Level 3.6 MMOL/L (3.5-5.1) Chloride Level 107 MMOL/L (98-107) Carbon Dioxide Level 23 MMOL/L (21-32) Anion Gap 10 mmol/L (5-15) Blood Urea Nitrogen 10 mg/dL (7-18) Creatinine 0.8 MG/DL (0.55-1.30) Estimat Glomerular Filtration Rate > 60 mL/min (>60) Glucose Level 129 MG/DL (74-106) H Calcium Level 8.9 MG/DL (8.5-10.1) Phosphorus Level 3.6 MG/DL (2.5-4.9) Magnesium Level 2.0 MG/DL (1.8-2.4) Total Bilirubin 0.5 MG/DL (0.2-1.0) Aspartate Amino Transf (AST/SGOT) 36 U/L (15-37) Alanine Aminotransferase (ALT/SGPT) 32 U/L (12-78) Alkaline Phosphatase 96 U/L (46-116) Total Protein 7.0 G/DL (6.4-8.2) Albumin 2.5 G/DL (3.4-5.0) L Globulin 4.5 g/dL Albumin/Globulin Ratio 0.6 (1.0-2.7) L Plan Problems: (1) HTN (hypertension) (2) Renal failure (3) Dehydration Assessment & Plan: CURRENT DIET TEXTURE IS LEAST RESTRICTIVE AND AT THE TIME WITHOUT OVERT S/S OF ASPIRATION. RECOMMENDATIONS; 1. CONTINUE CURRENT DIET 2. CONTINUE WITH SIMPLE COMMUNICATION TIPS TO INCREASE PATIENTS PARTICIPATION IN HIS MEDICAL CARE. 3. ST TO FOLLOW FOR COMMUNICATION/DYSPHAGIA TX (4) Encephalopathy (5) UTI (urinary tract infection) (6) Dehydration (7) Electrolyte imbalance (8) Sepsis (9) ARIS (acute kidney injury) (10) Blister of left upper arm Assessment & Plan: DAILY ESTIMATED NEEDS: Needs based on Cardiac, pulmonary 66.4kg 25-30 kcals/kg 3136-0675 total kcals 1.25-1.5 g protein/kg 83-100 g total protein 25-30 mL/kg 4886-0767 total fluid mLs NUTRITION DIAGNOSIS: Swallowing difficulty r/t dysphagia, h/o CVA, as evidenced by rehabilitation program manager 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 CURRENT DIET: Regular puree PO DIET RECOMMENDATIONS: Now with good po intake, rec LOW NA diet/ texture per BLUE LINE TRIMMER ADDITIONAL RECOMMENDATIONS: 1) Maintain calibrated bed scale wts 2) maintain IVF hydration 3) Monitor for continued good po intake -> add Ensure 1 bottle qdaily 4) Rec WC eval/ f/up; add JEREMÍAS Fruit Punch in 8oz H2O BID for skin integrity Jann Terrell Jan 16, 2020 12:32
--- NOTE | 2020-01-16 13:10 | Nephrology Progress Note ---
Assessment/Plan Problem List: (1) ARIS (acute kidney injury) (2) Electrolyte imbalance (3) Dehydration (4) UTI (urinary tract infection) (5) Sepsis (6) Encephalopathy Assessment Acute renal failure Dehydration Hypernatremia, likely due to free water deficit Sepsis UTI Toxic metabolic encephalopathy Hypoalbuminemia Plan January 15: Lab reviewed. Stable renal parameters. Continue per consultants. January 14: No labs drawn today. Stable from renal standpoint of view. January 13: Stable from renal standpoint of view. Continue per consultants. January 12: Stable from renal standpoint of view. Will order labs for tomorrow. Continue per consultants. January 11: Labs reviewed. Renal parameters are improved. Electrolytes within normal range. Continue as is. January 10: Labs reviewed. Patient has a Rowe catheter. Serum creatinine down to 1.3 from 1.8 on admission. Serum sodium remains elevated. Will change IV to D5W. We will keep the blood sugar and blood pressure in check. Continue per consultants. January 09: Hold blood pressure medication due to low blood pressure PRN blood pressure medication for high blood pressure Today's labs appears to be an error and should be repeated Slow hydration Pulmonary toilet Antibiotics per ID Monitor renal parameters and electrolyte Slow hydration Urine studies Subjective ROS Limited/Unobtainable: No Constitutional: Reports: malaise Objective Objective Last 24 Hour Vital Signs Date Time Temp Pulse Resp B/P (MAP) Pulse Ox O2 Delivery O2 Flow Rate FiO2 01/16/20 12:00 97.1 56 18 133/78 (96) 99 01/16/20 09:00 Room Air 01/16/20 08:00 97.1 93 21 116/71 (86) 96 01/16/20 04:00 97.2 57 18 136/83 (100) 96 01/16/20 00:00 97.0 58 18 131/76 (94) 96 01/15/20 21:00 Room Air 01/15/20 20:00 97.3 75 18 125/76 (92) 97 01/15/20 16:00 96.8 63 20 112/65 (81) 97 Intake and Output 01/15/20 01/16/20 19:00 07:00 Intake Total 950 ml 650 ml Output Total 500 ml 1500 ml Balance 450 ml -850 ml Intake Oral 900 ml 100 ml IV Total 50 ml 550 ml Output Urine Total 500 ml 1500 ml # Bowel Movements 1 1 Current Medications Medications (Trade) Dose Ordered Sig/Juwan Route PRN Reason Start Time Stop Time Status Last Admin Dose Admin Acetaminophen (Tylenol) 650 mg Q4H PRN ORAL MILD PAIN (1-3)/TEMP >100.5 01/14/20 15:15 02/09/20 15:14 Aspirin (Ecotrin) 81 mg DAILY ORAL 01/15/20 09:00 02/25/20 08:59 01/16/20 08:25 Dextrose 1,000 ml @ 50 mls/hr Q20H IV 01/14/20 15:15 02/12/20 12:29 01/16/20 04:55 Hydralazine HCl (Apresoline) 25 mg Q4H PRN ORAL bp over 160 syst 01/14/20 15:30 04/09/20 15:29 Pantoprazole (Protonix) 40 mg EVERY 12 HOURS IVP 01/14/20 21:00 02/09/20 20:59 01/16/20 08:25 Rifaximin (Xifaxan) 550 mg TWICE A DAY ORAL 01/14/20 18:00 01/17/20 17:59 01/16/20 08:25 Laboratory Tests 01/16/20 07:55: White Blood Count 6.6, Red Blood Count 3.09L, Hemoglobin 9.3L, Hematocrit 28.3L , Mean Corpuscular Volume 91, Mean Corpuscular Hemoglobin 30.2, Mean Corpuscular Hemoglobin Concent 33.1, Red Cell Distribution Width 15.0H, Platelet Count 118L, Mean Platelet Volume 6.2L, Neutrophils (%) (Auto) 63.7, Lymphocytes (%) (Auto) 19.8L, Monocytes (%) (Auto) 9.5, Eosinophils (%) (Auto) 5.9H, Basophils (%) (Auto) 1.1, Sodium Level 140, Potassium Level 3.6, Chloride Level 107, Carbon Dioxide Level 23, Anion Gap 10, Blood Urea Nitrogen 10, Creatinine 0.8, Estimat Glomerular Filtration Rate > 60, Glucose Level 129H, Calcium Level 8.9, Phosphorus Level 3.6, Magnesium Level 2.0, Total Bilirubin 0.5, Aspartate Amino Transf (AST/SGOT) 36, Alanine Aminotransferase (ALT/SGPT) 32, Alkaline Phosphatase 96, Total Protein 7.0, Albumin 2.5L, Globulin 4.5, Albumin/Globulin Ratio 0.6L Height (Feet): 5 Height (Inches): 3.00 Weight (Pounds): 151 General Appearance: no apparent distress EENT: other - On room air Cardiovascular: other - Variable rate Respiratory/Chest: decreased breath sounds Abdomen: soft Objective No change Dewayne Aldridge MD Jan 16, 2020 13:10
--- NOTE | 2020-01-17 12:30 | Discharge Summary ---
Discharge Summary Discharge Summary _ DATE OF ADMISSION 01/10/2020 DATE OF DISCHARGE: 01/16/2020 DISCHARGED BY: Dr. He REASON FOR ADMISSION: 74 years old male, with past medical history of hepatitis C, hepatic encephalopathy, history of biliary stent placement, hypertension, spinal stenosis, presented due to fever and hypotension. Patient was altered and unable to provide any information. Upon evaluation patient had low-grade fever 100, blood pressure was 88/40 , and pulse oximetry was stable on room air. Rapid COVID-19 was negative. Laboratory work-up revealed no leukocytosis ,hemoglobin 9.7, hematocrit 30.7 , platelet count 102. Lactic acid 2.5. Sodium 153, chloride 118. BUN 48, creatinine 1.8. Glucose 138. Troponin 0.075 , pro BNP 171. AST 53 , ALT 33, lipase 340. Urinalysis revealed +2 protein , no evidence of urinary tract infection. Chest x-ray demonstrated no acute cardiopulmonary pathology. Patient received aspirin ; septic work-up initiated , and patient admitted with sepsis, UTI , elevated troponin, renal failure, dehydration ,and encephalopathy. CONSULTANTS: title assistant pulmonary Dr. Martinez ID specialist Dr. Jose G Zamarripa dentist attendant Dr. Aldridge [facility] COURSE: Patient admitted to monitored floor. Two subsequent troponin were negative. Initial elevated troponin was most likely due to renal failure. Echocardiogram revealed preserved ejection fraction of 65%. Patient noted to have bradycardia with right bundle branch block. Heart rate was in the 50s. Patient was off any sinus or AV milad blocking agents. Initial hypotension improved with IV hydration. Patient was not on any antihypertensive medication at this time . Hemodynamic status was closely monitored . Hydralazine was on board as needed for blood pressure spikes. Patient started on empiric antibiotic for UTI and completed treatment. Blood cultures were negative. Leukocytosis resolved , no fevers. Lactic acidosis resolved Renal parameters and electrolytes were closely monitored, electrolytes corrected as needed , and nephrotoxic's were avoided. Acute renal failure was most likely due to dehydration , and hypernatremia was due to free water deficit. Acute renal failure resolved : creatinine down to 0.8 ,BUN down to 10 . Sodium down to 140. FINAL DIAGNOSES: Sepsis UTI Toxic metabolic encephalopathy Acute renal failure-resolved Hypernatremia due to free water deficit -resolved Dehydration Lactic acidosis -resolved Elevated troponin likely due to renal failure -resolved Bradycardia and right bundle branch block Cirrhosis Portal hypertension Hepatitis C History of hypertension Anemia Dysphagia Suspected COVID-19 infection - ruled out Dementia CVA DISCHARGE MEDICATIONS: See Medication Reconciliation list. DISCHARGE INSTRUCTIONS: [facility] Follow up with medical doctor at the facility. I have been assigned to dictate discharge summary for this account. I was not involved in the patient's management. Shelly Almanzar NP Jan 17, 2020 12:30
== END 2020-01-16 13:29 | DRG 871 ==
LOC: EDBD 21:32 → EMR 22:15 → EDBEDREQ 01-10 13:41 → 2E 01-10 14:08 → 4E 01-14 15:00
DX: A41.9 Sepsis, unspecified organism (principal); G92 Toxic encephalopathy; E87.0 Hyperosmolality and hypernatremia; N17.9 Acute kidney failure, unspecified; N39.0 Urinary tract infection, site not specified; K76.6 Portal hypertension; E87.6 Hypokalemia; E86.0 Dehydration; Z86.19 Personal history of other infectious and parasitic diseases; R00.1 Bradycardia, unspecified; I45.10 Unspecified right bundle-branch block; K74.60 Unspecified cirrhosis of liver; B19.20 Unspecified viral hepatitis C without hepatic coma; D64.9 Anemia, unspecified; R13.10 Dysphagia, unspecified; Z20.828 Contact with and (suspected) exposure to other viral communicable diseases; F03.90 Unspecified dementia, unspecified severity, without behavioral disturbance, psychotic disturbance, mood disturbance, and anxiety; Z86.73 Personal history of transient ischemic attack (TIA), and cerebral infarction without residual deficits; L40.9 Psoriasis, unspecified; I50.9 Heart failure, unspecified; E88.09 Other disorders of plasma-protein metabolism, not elsewhere classified; Z90.81 Acquired absence of spleen; S40.822A Blister (nonthermal) of left upper arm, initial encounter; X58.XXXA Exposure to other specified factors, initial encounter
CPT/HCPCS: 36415; 71045; 80053; 80061; 81003; 82550; 82607; 82728; 82746; 82977; 83540; 83550; 83605; 83690; 83735; 83880; 84100; 84439; 84443; 84484; 84550; 85007; 85025; 85610; 85730; 86140; 87040; 87081; 92610; 93005; 93306; 96361; 96365; 96367; 96368; 99285; J7030; U0002

== ENCOUNTER 2020-04-26 13:32 | Inpatient (IN) | payer MEDICARE, OTHER ==
[~2020-04-26] VITALS: Ht 172.7 cm; Wt 51.7 kg
[2020-04-26] VITALS (17 sets, daily range): BP systolic 78–131; BP diastolic 42–76
[~2020-04-26 13:32] MED LIST changes: +BENZTROPINE MESY1 MG ORAL; +METOPROLOL TART25 MG ORAL; +MULTIVITAMIN1 EACH ORAL; +PROTONIX40 MG ORAL; +VITAMIN C250 MG ORAL; +VITAMIN D310 MCG ORAL; +XIFAXAN550 MG ORAL; +ZINC SULFATE220 M1 ORAL; +ZYPREXA5 MG ORAL
--- NOTE | 2020-04-26 13:42 | Emergency Room Report ---
History of Present Illness General Chief Complaint: Fever Source: Medical Record, EMS Present Illness HPI Patient is a 74-year-old male sent in from nursing facility after increased fever. Had been noted to be chronically debilitated due to CVAs as well as prior schizophrenia. Had multiple medical problems in the past. Patient was noted to be full code. Had fever up to 101 at the facility. Was noted to be minimally verbal and reportedly normally speaks Japanese. History is obtained from EMS and medical record. 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 COVID-19 Screening: Negative COVID-19 COVID-19 Testing Source: at facility Patient History Reviewed Nursing Documentation: PMH: Agreed; PSxH: Agreed Nursing Documentation-PMH Hx Cardiac Problems: Yes - CHF, ANGINA PECTORIS Hx Hypertension: Yes - ANEMIA Hx Cancer: No Hx Gastrointestinal Problems: Yes - hep C, DYSPHAGIA Hx Neurological Problems: Yes - HEPATIC ENCEPHALOPATHY Review of Systems All Other Systems: limited - Limited by poor historian Physical Exam General Appearance: alert, Chronically Ill Eyes: bilateral eye PERRL ENT: dry mucus membranes Neck: limited range of motion Respiratory: chest non-tender, rhonchi Cardiovascular #1: normal inspection, no edema Gastrointestinal: normal inspection, soft Musculoskeletal: other - Bilateral upper and lower extremity contractures Neurologic: alert, other - Decreased range of motion both upper and lower extremities with contractures Psychiatric: normal inspection Skin: no rash Procedures Critical Care Time Critical Care Time Patient had a critical medical condition which untreated could potentially result in life or limb threatening injury. Total critical care time excluding procedures approximately 45 minutes. Central Line Central Line : Consent: Emergent Maximal Sterile Barrier Tech: yes cap, yes mask, yes sterile gown, yes sterile gloves, yes large sterile sheet, yes hand hygiene, yes chlorhexidine prep No Max Barrier Tech Because: emergency insertion Central Line Postion: internal jugular (R) Anesthesia: Lidocaine cc's of anesthesia: 5 US Guided Line?: Yes Vessel visualized with U/S: Right Internal Jugular Ultrasound Findings: Collapsible Vessel Complications: none Central Line Post Position: sutured, good blood return, position confirmed w/ CXR Attempts: Other - attempt right subclavian unsuccessful X1 Patient Tolerated: Well Complications: None Medical Decision Making Diagnostic Impression: Primary Impression: Dehydration Additional Impressions: Acute febrile illness Septic shock ER Course Patient presented for increased fever and generalized weakness. Differential diagnosis include was not limited to pneumonia, coronavirus infection, urinary tract infection, bowel obstruction among others. Because of complexity of patient's case laboratory tests and imaging studies were ordered. Patient's laboratory testing showed elevated white blood count. Coronavirus testing was sent. Urinalysis showed no evidence of urinary infection. Chest x-ray showed findings consistent with pneumonia.Patient noted to be initially febrile and hypotensive when brought in by EMS. He had further worsening blood pressure and was started on IV fluids initially. Patient was noted to have full CODE STATUS. A central venous catheter was placed emergently due to patient's hypotension and shock. EKG interpreted by me showed normal sinus rhythm with a rate of 71 with a right bundle branch block. Dr. Deysi He was contacted for inpatient management. EKG Diagnostic Results Rate: normal Rhythm: NSR ST Segments: no acute changes Status: unchanged Disposition: ADMITTED INPATIENT Condition: Critical Mati Soares MD Apr 26, 2020 13:41
[2020-04-26] MEDS ORDERED: Vancomycin 1 GM in NS 275 ML IV ONE (13:45)
[2020-04-26] MEDS ORDERED: Cefepime HCl 2 GM in NS 110 ML IV ONE (13:45)
[2020-04-26 13:58] LABS: BASOPHILS % (AUTO) 0.9 % (0.0-2.0); HEMATOCRIT 27.9 % (42.0-52.0); HEMOGLOBIN 9.5 G/DL (14.2-18.0); LYMPHOCYTES % (AUTO) 20.6 % (20.0-45.0); MEAN CORPUSCULAR VOLUME 90 FL (80-99); MONOCYTES % (AUTO) 11.5 % (1.0-10.0); NEUTROPHILS % (AUTO) 65.1 % (45.0-75.0); PLATELET COUNT 161 K/UL (150-450); RED CELL DISTRIBUTION WIDTH 16.7 % (11.6-14.8); WHITE BLOOD COUNT 11.5 K/UL (4.8-10.8)
[2020-04-26 14:06] LABS: INR 1.1 (0.9-1.1)
[2020-04-26 14:14] LABS: CALCIUM 8.4 MG/DL (8.5-10.1); CREATININE 1.5 MG/DL (0.55-1.30); POTASSIUM 4.3 MMOL/L (3.5-5.1)
[2020-04-26] MEDS ORDERED: Lidocaine 1% Plain 30 ml INJ ONE ×2 (14:16→14:25)
[2020-04-26 14:25] LABS: ALBUMIN 2.5 G/DL (3.4-5.0); ALBUMIN/GLOBULIN RATIO 0.6 (1.0-2.7); BILIRUBIN,TOTAL 0.7 MG/DL (0.2-1.0); PHOSPHORUS 3.2 MG/DL (2.5-4.9)
[2020-04-26] MEDS ORDERED: SEN-O-TAB8.6 MG ORAL (14:45)
[2020-04-26 15:51] LABS: APPEARANCE,URINE CLEAR; BILIRUBIN, URINE NEGATIVE (NEGATIVE); GLUCOSE, URINE (UA) NEGATIVE (NEGATIVE); KETONES,URINE 1+ (NEGATIVE); LEUKOCYTE ESTERASE ,URINE NEGATIVE (NEGATIVE); NITRITE,URINE NEGATIVE (NEGATIVE); PH,URINE 6 (4.5-8.0); PROTEIN,URINE 1+ (NEGATIVE); UROBILINOGEN,URINE 4 MG/DL (0.0-1.0)
[2020-04-26 15:59] LABS: COLOR,URINE YELLOW
--- NOTE | 2020-04-26 16:19 | Cardiac Electrophysiology PN ---
Subjective Subjective [id number] Objective Last 24 Hour Vital Signs Date Time Temp Pulse Resp B/P (MAP) Pulse Ox O2 Delivery O2 Flow Rate FiO2 04/26/20 15:40 125/70 04/26/20 15:25 110/62 04/26/20 15:20 89/43 04/26/20 14:20 100.1 64 15 78/42 100 Nasal Cannula 2.0 04/26/20 13:50 87 18 Nasal Cannula 4.0 98 Laboratory Tests Test 04/26/20 13:35 04/26/20 14:39 04/26/20 15:00 White Blood Count 11.5 K/UL (4.8-10.8) H Red Blood Count 3.10 M/UL (4.70-6.10) L Hemoglobin 9.5 G/DL (14.2-18.0) L Hematocrit 27.9 % (42.0-52.0) L Mean Corpuscular Volume 90 FL (80-99) Mean Corpuscular Hemoglobin 30.8 PG (27.0-31.0) Mean Corpuscular Hemoglobin Concent 34.2 G/DL (32.0-36.0) Red Cell Distribution Width 16.7 % (11.6-14.8) H Platelet Count 161 K/UL (150-450) Mean Platelet Volume 6.1 FL (6.5-10.1) L Neutrophils (%) (Auto) 65.1 % (45.0-75.0) Lymphocytes (%) (Auto) 20.6 % (20.0-45.0) Monocytes (%) (Auto) 11.5 % (1.0-10.0) H Eosinophils (%) (Auto) 2.0 % (0.0-3.0) Basophils (%) (Auto) 0.9 % (0.0-2.0) Prothrombin Time 12.3 SEC (9.30-11.50) H Prothromb Time International Ratio 1.1 (0.9-1.1) Activated Partial Thromboplast Time 31 SEC (23-33) Sodium Level 139 MMOL/L (136-145) Potassium Level 4.3 MMOL/L (3.5-5.1) Chloride Level 107 MMOL/L (98-107) Carbon Dioxide Level 22 MMOL/L (21-32) Anion Gap 10 mmol/L (5-15) Blood Urea Nitrogen 35 mg/dL (7-18) H Creatinine 1.5 MG/DL (0.55-1.30) H Estimat Glomerular Filtration Rate 46.0 mL/min (>60) Glucose Level 102 MG/DL (74-106) Lactic Acid Level 2.80 mmol/L (0.4-2.0) H 2.90 mmol/L (0.66-2.22) H Calcium Level 8.4 MG/DL (8.5-10.1) L Phosphorus Level 3.2 MG/DL (2.5-4.9) Magnesium Level 2.0 MG/DL (1.8-2.4) Total Bilirubin 0.7 MG/DL (0.2-1.0) Aspartate Amino Transf (AST/SGOT) 82 U/L (15-37) H Alanine Aminotransferase (ALT/SGPT) 20 U/L (12-78) Alkaline Phosphatase 74 U/L (46-116) Total Creatine Kinase 2698 U/L (26-308) H Creatine Kinase MB 36.0 NG/ML (0.0-3.6) H Creatine Kinase MB Relative Index 1.3 Troponin I 0.038 ng/mL (0.000-0.056) Total Protein 6.5 G/DL (6.4-8.2) Albumin 2.5 G/DL (3.4-5.0) L Globulin 4.0 g/dL Albumin/Globulin Ratio 0.6 (1.0-2.7) L Arterial Blood pH 7.509 (7.350-7.450) Arterial Blood Partial Pressure CO2 21.4 mmHg (35.0-45.0) *L Arterial Blood Partial Pressure O2 172.9 mmHg (75.0-100.0) H Arterial Blood HCO3 16.7 mmol/L (22.0-26.0) *L Arterial Blood Oxygen Saturation 98.7 % (95-100) Arterial Blood Base Excess -0.5 (-2-2) Syed Test Positive Urine Color Yellow Urine Appearance Clear Urine pH 6 (4.5-8.0) Urine Specific [place] 1.010 (1.005-1.035) Urine Protein 1+ (NEGATIVE) H Urine Glucose (UA) Negative (NEGATIVE) Urine Ketones 1+ (NEGATIVE) H Urine Blood 1+ (NEGATIVE) H Urine Nitrite Negative (NEGATIVE) Urine Bilirubin Negative (NEGATIVE) Urine Urobilinogen 4 MG/DL (0.0-1.0) H Urine Leukocyte Esterase Negative (NEGATIVE) Urine RBC 2-4 /HPF (0 - 0) H Urine WBC 0-2 /HPF (0 - 0) Urine Squamous Epithelial Cells Occasional /LPF Urine Bacteria None /HPF (NONE) Microbiology Date/Time Source Procedure Growth Status 04/26/20 14:05 Nasal Nares - Final Complete 04/26/20 14:05 Nasal Nares - Final Complete John Gomez MD Apr 26, 2020 16:19
--- NOTE | 2020-04-26 16:34 | Diagnostic Imaging Report ---
Indication: Post line placement Technique: One view of the chest Comparison: 2 hours earlier Findings: Interval placement of a right jugular central venous catheter, tip projected the level of the cavoatrial junction. No pneumothorax. No definite acute infiltrates, effusion, or congestion. Heart size is upper limits of normal with a left ventricular hypertrophy configuration. The aorta is tortuous and calcified. Surgical hardware is seen in the neck Impression: Status post central venous catheter placement, no radiographically evident complication, tip in good position Otherwise stable findings as described
--- NOTE | 2020-04-26 16:57 | Diagnostic Imaging Report ---
Indication: Shortness of breath Technique: One view of the chest Comparison: none Findings: There is atelectasis of the right lung base. The heart is enlarged. The aorta is torturous ectatic and calcified. There is surgical hardware in the cervical spine Impression:
[2020-04-26] MEDS: Norepinephrine 4mg/NS Premix 246 ML IV SCH (17:35)
--- NOTE | 2020-04-26 17:45 | Consultation ---
DATE OF CONSULTATION: 04/26/2020 PULMONARY CONSULTATION HISTORY OF PRESENT ILLNESS: This is a 74-year-old male who was sent from a nursing facility with fever. The patient has a previous history of schizophrenia and CVA. He is currently full code. He is noted to be febrile. He is unable to provide any further history. PAST HISTORY: CHF, CAD, anemia, chronic dysphagia, hep C, previous CVA, history of hepatic issues and hepatic encephalopathy. CURRENT MEDICATIONS: Cefepime, Levophed, Flagyl, vancomycin, and IV fluids. REVIEW OF SYSTEMS: Not obtainable. SURGERIES: None reported. PHYSICAL EXAMINATION: GENERAL: A 74-year-old male. HEENT: Unremarkable. LUNGS: Clear breath sounds bilaterally. ABDOMEN: Soft. EXTREMITIES: There is no edema. VITAL SIGNS: Blood pressure is 70/40, after Levophed is 90/40. Heart rate is 54, respirations are 16, O2 sat 99% on 2 L oxygen, T-max 100.1 rectally. LABORATORY DATA: Lab testing shows white count 11.5, hemoglobin 11.5. Creatinine 1.5. Lactic acid 2.8, total CK 2698, troponin 0.03. Albumin 2.5. IMAGING STUDIES: X-ray chest obtained by the ER physician per report does not show any acute pathology. The patient had a triple-lumen catheter placed and has been started on pressors. IMPRESSION: 1. Shock, likely septic. 2. Fever. 3. History of CVA. 4. CHF. 5. History of hep C. DISCUSSION: Admit to the hospital. Start broad-spectrum antibiotics. IV fluids. Pressors. DVT and GI prophylaxes. We will follow carefully. Currently saturating well on low-flow oxygen. Joey Martinez M.D. DR: KARINA JOB#: [id number] CC:
--- NOTE | 2020-04-26 17:45 | Consultation ---
DATE OF CONSULTATION: 04/26/2020 CARDIOLOGY CONSULTATION CONSULTING PHYSICIAN: John Gomez MD REFERRING PHYSICIAN: Deysi He MD REASON FOR CONSULTATION: Septic shock. HISTORY OF PRESENT ILLNESS: Patient is a 74-year-old gentleman with history of hypertension and anemia and congestive heart failure as well as history of hepatitis C, history of hepatic encephalopathy who [facility]. Patient is chronically debilitated with CVAs and prior schizophrenia. Patient is Full Code and temperature of 101 at the facility. At the time of my evaluation, patient is in emergency room and is minimally verbal and was hypotensive with blood pressure of 70 and already had undergone a right IJ central line placement. Patient was started on Levophed as his blood pressure was in the 70s. REVIEW OF SYSTEMS: Cannot be obtained. PAST MEDICAL HISTORY: As mentioned above. FAMILY HISTORY: Noncontributory. SOCIAL HISTORY: [facility] resident. No known history of drug use. PHYSICAL EXAMINATION: VITAL SIGNS: Show blood pressure of 78/42, on Levophed it is 125/70, pulse is 64, respirations 18, temperature 100.1. HEAD AND NECK: Shows no JVD. LUNGS: Coarse rhonchi. CARDIOVASCULAR: Shows regular S1 and S2 with no gallop or murmur. ABDOMEN: Soft. EXTREMITIES: No pitting edema. LABORATORY AND DIAGNOSTIC STUDIES: It is of note that the patient's prior echo in December of 2019 showed EF of 65%. His current laboratories show white count 11.5, hemoglobin 9.5, hematocrit 28, and platelet count of 161. Sodium is 139, potassium 4.3, BUN of 35, creatinine 1.5. Lactic acid is 2.9. First troponin is negative. ASSESSMENT AND PLAN: 1. Hypotension due to septic shock in this patient with lactic acid of 2.9 and white count of 11.5. Patient is being ruled out for COVID. Influenza is negative. Patient will be transferred to intensive care unit for septic shock and started on IV fluids as the patient seems likely to be dehydrated as well. Patient will be ruled out for myocardial infarction. An echocardiogram will be obtained. 2. Fever and cough and respiratory failure. Patient will be started on IV antibiotic per ID. Patient already received antibiotic in the emergency room. 3. Anemia. Hemoglobin 9.5. 4. Renal failure with BUN of 35, creatinine of 1.5. Start the patient on IV fluid. 5. Rhabdomyolysis with CPK of 2700. 6. History of congestive heart failure, but recent echo about 3 months ago showed normal left ventricular systolic function. 7. History of hepatitic encephalopathy on previous admission in December of 2019. 8. Complete right bundle-branch block and history of bradycardia with heart rate in the 50s. Off any sinus or AV milad blocking agents. We will watch the patient on telemetry. Thank you very much for allowing me to participate in the care of this patient. Please do not hesitate to contact me for any questions regarding my evaluation. The case was discussed with the emergency room physician. John Gomez M.D. DR: COLLEEN JOB#: [id number] CC:
--- NOTE | 2020-04-26 19:15 | Consultation ---
Consult Note Consult Note I am asked to evaluate the patient at the request of Dr. Pavon, Patient seen in ICU room G Discussed with DAISY Howard. Patient is a 74-year-old male sent in from nursing facility after increased f ever. Had been noted to be chronically debilitated due to CVAs as well as prior schizophrenia. Had multiple medical problems in the past. Patient was noted to be full code. Had fever up to 101 at the facility. Was noted to be minimally verbal and reportedly normally speaks [place]. History is obtained from EMS and medical record. 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 blood pressure of 78/42, on Levophed it is 125/70, pulse is 64, respirations 18, temperature 100.1. HEAD AND NECK: [place] conjunctivae. HEART: Bradycardic. Has right IJ central line. LUNGS: Clear. Some basilar rhonchi ABDOMEN: Soft, nontender. EXTREMITIES: No edema. LABORATORY DATA: WBC at the time of admission was elevated, hemoglobin 9, hematocrit 26.1, platelets 141. Sodium 142, potassium 4, chloride 113, bicarb 21, BUN 26, creatinine 1.1. Lactic acid is elevated. BUN was 35, creatinine was 1.5 at the time of admission. CK level was elevated 2698. UA showed wbc of 0 to 2. Chest x-ray, atelectasis in right base . . Assessment/Plan Acute renal failure Dehydration Anemia Sepsis, shock UTI Toxic metabolic encephalopathy Hypoalbuminemia, malnutrition with BMI of 17.3 Elevated CPK, rhabdo N.p.o. Hydrate Pressors Rowe Accurate intake and output Avoid nephrotoxic's Monitor renal parameters Per orders Per consultants Dewayne Aldridge MD Apr 26, 2020 19:15
[2020-04-26] MEDS: Dyna-Hex 2% Top Sol 2oz TOPIC SCH (20:01)
[2020-04-26] MEDS: D5NS 1,000 ML IV SCH (20:01)
[2020-04-26] MEDS: Pantoprazole Inj IVP SCH (20:05)
[2020-04-26] MEDS ORDERED: Varibar Pudding 230ml MC PRN (20:15)
[2020-04-26] MEDS ORDERED: Varibar Honey 250ml MC PRN (20:15)
[2020-04-26] MEDS ORDERED: Varibar Thin Liquid powder 148gm MC PRN (20:15)
[2020-04-26] MEDS ORDERED: Varibar Nectar 240ml MC PRN (20:15)
[2020-04-27] VITALS (35 sets, daily range): BP systolic 87–136; BP diastolic 48–82
[2020-04-27] MEDS: D5NS 1,000 ML IV SCH ×2 (04:13→15:30)
[2020-04-27 05:26] LABS: BASOPHILS % (AUTO) 0.8 % (0.0-2.0); HEMATOCRIT 26.1 % (42.0-52.0); MEAN CORPUSCULAR VOLUME 90 FL (80-99); MONOCYTES % (AUTO) 11.3 % (1.0-10.0); NEUTROPHILS % (AUTO) 65.1 % (45.0-75.0); PLATELET COUNT 141 K/UL (150-450); RED CELL DISTRIBUTION WIDTH 16.8 % (11.6-14.8); WHITE BLOOD COUNT 8.4 K/UL (4.8-10.8)
[2020-04-27 05:36] LABS: AMMONIA 118 umol/L (11-32)
[2020-04-27 06:03] LABS: ALANINE AMINOTRANSFERASE 34 U/L (12-78); ALBUMIN 2.3 G/DL (3.4-5.0); ALBUMIN/GLOBULIN RATIO 0.6 (1.0-2.7); ALKALINE PHOSPHATASE 67 U/L (46-116); ANION GAP 9 mmol/L (5-15); ASPARTATE AMINO TRANSFERASE 101 U/L (15-37); BILIRUBIN,TOTAL 0.8 MG/DL (0.2-1.0); BLOOD UREA NITROGEN 26 mg/dL (7-18); CALCIUM 7.7 MG/DL (8.5-10.1); CARBON DIOXIDE 21 MMOL/L (21-32); CHLORIDE 113 MMOL/L (98-107); CHOLESTEROL 97 MG/DL (< 200); CREATININE 1.1 MG/DL (0.55-1.30); FERRITIN 268 NG/ML (8-388); HDL CHOLESTEROL 43 MG/DL (40-60); SODIUM 142 MMOL/L (136-145); TRIGLYCERIDES 55 MG/DL (30-150)
[2020-04-27 06:22] LABS: GAMMA GLUTAMYL TRANSPEPTIDASE 35 U/L (5-85)
[2020-04-27 06:33] LABS: % IRON SATURATION 30 % (15-50); IRON 68 ug/dL (50-175); TOTAL IRON BINDING CAPACITY 224 ug/dL (250-450)
[2020-04-27] MEDS: Pantoprazole Inj IVP SCH ×2 (08:44→20:35)
[2020-04-27] MEDS: Docusate 250mg cap ORAL SCH (08:52)
[2020-04-27] MEDS: Vitamin D 1000 IU Tab ORAL SCH (08:53)
[2020-04-27] MEDS: Sennosides 8.6mg tab ORAL SCH (08:53)
[2020-04-27] MEDS: Aspirin EC 81mg tab ORAL SCH (08:53)
--- NOTE | 2020-04-27 10:06 | Pulmonology Progress Note ---
Subjective Interval Events: Seen in ICU; no major changes Constitutional: Reports: no symptoms HEENT: Repors: no symptoms Respiratory: Reports: no symptoms Cardiovascular: Reports: no symptoms Gastrointestinal/Abdominal: Reports: no symptoms Genitourinary: Reports: no symptoms Allergies: Coded Allergies: No Known Allergies (Unverified , 01/10/18) Objective Last 24 Hour Vital Signs Date Time Temp Pulse Resp B/P (MAP) Pulse Ox O2 Delivery O2 Flow Rate FiO2 04/27/20 09:00 54 13 95/59 (71) 100 04/27/20 08:00 Nasal Cannula 4.0 04/27/20 08:00 98.1 56 14 104/62 (76) 100 04/27/20 08:00 54 04/27/20 07:00 62 17 126/66 (86) 100 04/27/20 06:00 62 18 131/71 (91) 100 04/27/20 05:00 60 15 113/67 (82) 100 04/27/20 04:30 64 16 123/76 (92) 100 04/27/20 04:00 Nasal Cannula 4.0 04/27/20 04:00 65 04/27/20 04:00 99.4 64 15 104/82 (89) 100 04/27/20 03:30 63 17 87/48 (61) 100 04/27/20 03:00 59 12 96/54 (68) 100 04/27/20 02:45 67 14 105/60 (75) 99 04/27/20 02:30 60 13 97/54 (68) 100 04/27/20 02:15 66 14 103/62 (76) 99 04/27/20 02:00 62 14 98/55 (69) 100 04/27/20 01:45 59 13 94/53 (67) 100 04/27/20 01:30 62 15 105/59 (74) 100 04/27/20 01:15 60 14 93/63 (73) 100 04/27/20 01:00 60 14 99/52 (68) 100 04/27/20 00:45 60 13 109/58 (75) 100 04/27/20 00:30 65 12 103/54 (70) 100 04/27/20 00:15 61 12 97/52 (67) 100 04/27/20 00:00 Nasal Cannula 4.0 04/27/20 00:00 60 04/27/20 00:00 60 13 92/55 (67) 100 04/26/20 23:30 59 12 104/54 (71) 100 04/26/20 23:00 59 11 95/51 (66) 100 04/26/20 22:00 59 13 95/53 (67) 100 04/26/20 21:00 59 12 98/55 (69) 99 04/26/20 20:00 Nasal Cannula 4.0 04/26/20 20:00 97.1 60 14 108/70 (83) 100 04/26/20 20:00 60 04/26/20 19:00 49 12 94/50 (65) 100 04/26/20 18:45 56 15 118/64 (82) 100 04/26/20 18:30 57 14 126/58 (80) 100 04/26/20 18:15 57 13 131/64 (86) 100 04/26/20 18:00 97.0 56 13 123/68 (86) 100 04/26/20 17:47 Nasal Cannula 4.0 04/26/20 17:45 50 11 111/63 (79) 100 04/26/20 17:35 120/54 04/26/20 17:30 50 11 120/54 (76) 100 04/26/20 17:15 58 17 112/49 (70) 100 04/26/20 17:06 127/62 (83) 04/26/20 16:50 98.9 99 20 109/76 99 Nasal Cannula 4.0 04/26/20 16:30 112/70 04/26/20 16:15 114/71 04/26/20 16:10 100.1 79 21 122/51 98 Nasal Cannula 4.0 04/26/20 16:10 100.1 60 17 116/43 100 Nasal Cannula 4.0 04/26/20 16:00 116/76 04/26/20 15:40 125/70 04/26/20 15:40 100.1 69 19 110/76 99 Nasal Cannula 4.0 04/26/20 15:25 110/62 04/26/20 15:20 89/43 04/26/20 14:20 100.1 64 15 78/42 100 Nasal Cannula 2.0 04/26/20 13:50 87 18 Nasal Cannula 4.0 98 Intake and Output 04/26/20 04/27/20 19:00 07:00 Intake Total 150.625 ml 1483.3333 ml Output Total 60 ml 590 ml Balance 90.625 ml 893.3333 ml Intake Oral 0 ml IV Total 150.625 ml 1483.3333 ml Output Urine Total 60 ml 590 ml General Appearance: no acute distress Respiratory: chest wall non-tender Cardiovascular: normal peripheral pulses Abdomen: normal bowel sounds Extremities: no cyanosis Microbiology Date/Time Source Procedure Growth Status 04/26/20 16:00 Rectum Received 04/26/20 14:05 Nasal Nares - Final Complete 04/26/20 14:05 Nasal Nares - Final Complete Laboratory Tests 04/26/20 13:35: White Blood Count 11.5H, Red Blood Count 3.10L, Hemoglobin 9.5L, Hematocrit 27.9L, Mean Corpuscular Volume 90, Mean Corpuscular Hemoglobin 30.8, Mean Corpuscular Hemoglobin Concent 34.2, Red Cell Distribution Width 16.7H, Platelet Count 161, Mean Platelet Volume 6.1L, Neutrophils (%) (Auto) 65.1, Lymphocytes (%) (Auto) 20.6, Monocytes (%) (Auto) 11.5H, Eosinophils (%) (Auto) 2.0, Basophils (%) (Auto) 0.9, Prothrombin Time 12.3H, Prothromb Time International Ratio 1.1, Activated Partial Thromboplast Time 31, Sodium Level 139, Potassium Level 4.3, Chloride Level 107, Carbon Dioxide Level 22, Anion Gap 10, Blood Urea Nitrogen 35H, Creatinine 1.5H, Estimat Glomerular Filtration Rate 46.0, Glucose Level 102, Lactic Acid Level 2.80H, Calcium Level 8.4L, Phosphorus Level 3.2, Magnesium Level 2.0, Total Bilirubin 0.7, Aspartate Amino Transf (AST/SGOT) 82H, Alanine Aminotransferase (ALT/SGPT) 20, Alkaline Phosphatase 74, Total Creatine Kinase 2698H, Creatine Kinase MB 36.0H, Creatine Kinase MB Relative Index 1.3, Troponin I 0.038, Total Protein 6.5, Albumin 2.5L, Globulin 4.0, Albumin/ Globulin Ratio 0.6L 04/26/20 14:39: Arterial Blood pH 7.509H, Arterial Blood Partial Pressure CO2 21.4*L, Arterial Blood Partial Pressure O2 172.9H, Arterial Blood HCO3 16.7*L, Arterial Blood Oxygen Saturation 98.7, Arterial Blood Base Excess -0.5, Syed Test Positive 04/26/20 15:00: Lactic Acid Level 2.90H, Urine Color Yellow, Urine Appearance Clear, Urine pH 6, Urine Specific [place] 1.010, Urine Protein 1+H, Urine Glucose (UA) Negative, Urine Ketones 1+H, Urine Blood 1+H, Urine Nitrite Negative, Urine Bilirubin Negative, Urine Urobilinogen 4H, Urine Leukocyte Esterase Negative, Urine RBC 2- 4H, Urine WBC 0-2, Urine Squamous Epithelial Cells Occasional, Urine Bacteria None 04/26/20 21:15: Lactic Acid Level 2.30H 04/26/20 23:20: Lactic Acid Level 2.50H 04/27/20 04:30: Lactic Acid Level 2.00, White Blood Count 8.4, Red Blood Count 2.90L, Hemoglobin 9.0L, Hematocrit 26.1L, Mean Corpuscular Volume 90, Mean Corpuscular Hemoglobin 30.9, Mean Corpuscular Hemoglobin Concent 34.3, Red Cell Distribution Width 16.8H, Platelet Count 141L, Mean Platelet Volume 6.4L, Neutrophils (%) (Auto) 65.1, Lymphocytes (%) (Auto) 19.0L, Monocytes (%) (Auto) 11.3H, Eosinophils (%) (Auto) 4.0H, Basophils (%) (Auto) 0.8, Sodium Level 142, Potassium Level 4.0, Chloride Level 113H, Carbon Dioxide Level 21, Anion Gap 9, Blood Urea Nitrogen 26H, Creatinine 1.1, Estimat Glomerular Filtration Rate > 60, Glucose Level 105, Hemoglobin A1c 5.4, Uric Acid 5.4, Calcium Level 7.7L, Phosphorus Level 3.0, Magnesium Level 1.9, Iron Level 68, Total Iron Binding Capacity 224L, Percent Iron Saturation 30, Unsaturated Iron Binding 156, Ferritin 268, Total Bilirubin 0.8, Gamma Glutamyl Transpeptidase 35, Aspartate Amino Transf (AST/SGOT) 101H, Alanine Aminotransferase (ALT/SGPT) 34, Alkaline Phosphatase 67, Ammonia 118H, Troponin I 0.027, C-Reactive Protein, Quantitative 1.7H, Pro-B-Type Natriuretic Peptide 147H, Total Protein 6.1L, Albumin 2.3L, Globulin 3.8, Albumin/Globulin Ratio 0.6L, Triglycerides Level 55, Cholesterol Level 97, LDL Cholesterol 44, HDL Cholesterol 43, Cholesterol/HDL Ratio 2.3L, Lipase 115, Vitamin B12 Level 621, Folate 15.2, Thyroid Stimulating Hormone (TSH) 1.673, Free Thyroxine 1.02, Cortisol AM Sample [Pending] Current Medications Medications (Trade) Dose Ordered Sig/Juwan Route PRN Reason Start Time Stop Time Status Last Admin Dose Admin Acetaminophen (Tylenol) 650 mg Q4H PRN ORAL Mild Pain (Pain Scale 1-3) 04/26/20 19:30 05/26/20 19:29 Acetaminophen (Tylenol) 650 mg Q4H PRN ORAL Temp >100.5 04/26/20 19:30 05/26/20 19:29 Aspirin (Ecotrin) 81 mg DAILY ORAL 04/27/20 09:00 06/11/20 08:59 Barium Sulfate (Varibar Honey) 250 ml NOW PRN MC RAD 04/26/20 20:15 04/29/20 20:07 Barium Sulfate (Varibar [place]) 240 ml NOW PRN MC RAD 04/26/20 20:15 04/29/20 20:07 Barium Sulfate (Varibar Pudding) 230 ml NOW PRN MC RAD 04/26/20 20:15 04/29/20 20:07 Barium Sulfate (Varibar Thin Liquid powder) 148 gm NOW PRN MC RAD 04/26/20 20:15 04/29/20 20:07 Cefepime HCl 1 gm/ Dextrose 55 ml @ 110 mls/hr EVERY 12 HOURS IVPB 04/27/20 10:30 05/04/20 10:29 Chlorhexidine Gluconate (Ese-Hex 2%) 1 applic DAILY@2000 TOPIC 04/26/20 20:00 07/25/20 19:59 04/26/20 20:01 Dextrose/Sodium Chloride 1,000 ml @ 100 mls/hr Q10H IV 04/26/20 19:30 05/26/20 19:29 04/27/20 04:13 Docusate Sodium (Colace) 250 mg DAILY ORAL 04/27/20 09:00 05/27/20 08:59 Norepinephrine Bitartrate 246 ml @ 0 mls/hr Q24H IV 04/26/20 16:30 04/29/20 16:29 04/26/20 17:35 Pantoprazole (Protonix) 40 mg EVERY 12 HOURS IVP 04/26/20 21:00 05/26/20 20:59 04/27/20 08:44 Sennosides (Senokot) 8.6 mg DAILY ORAL 04/27/20 09:00 05/27/20 08:59 Vancomycin HCl ([facility] pharmacy to dose) 1 ea DAILY PRN MISC Per rx protocol 04/27/20 10:00 05/27/20 09:59 UNV Vitamin D (Vitamin D) 1,000 intlu DAILY ORAL 04/27/20 09:00 05/27/20 08:59 Assessment/Plan Assessment/Plan IMPRESSION: 1. Shock, likely septic. On pressors 2. Fever. 3. History of CVA. 4. CHF. 5. History of hep C. DISCUSSION: Continue broad-spectrum antibiotics. IV fluids. Pressors prn. DVT and GI prophylaxes. I will follow carefully. Currently saturating well on low-flow oxygen. Jero Fernandes Omar Syed MD Apr 27, 2020 10:06
[2020-04-27] MEDS: Cefepime HCl 1 GM in D5W 55 ML IVPB SCH ×2 (11:00→20:35)
--- NOTE | 2020-04-27 11:05 | Nephrology Progress Note ---
Assessment/Plan Problem List: (1) ARIS (acute kidney injury) (2) Septic shock (3) Dehydration (4) Electrolyte imbalance (5) Encephalopathy Assessment Acute renal failure Dehydration Anemia Sepsis, shock UTI Toxic metabolic encephalopathy Hypoalbuminemia, malnutrition with BMI of 17.3 Elevated CPK, rhabdo Plan April 27: Patient seen in ICU. Discussed with RN. Labs reviewed. Stable from renal standpoint of view. Ammonia is elevated. Continue per consultants. April 26: N.p.o. Hydrate Pressors Rowe Accurate intake and output Avoid nephrotoxic's Monitor renal parameters Per orders Per consultants Subjective ROS Limited/Unobtainable: No Constitutional: Reports: malaise, weakness Objective Objective Last 24 Hour Vital Signs Date Time Temp Pulse Resp B/P (MAP) Pulse Ox O2 Delivery O2 Flow Rate FiO2 04/27/20 09:00 54 13 95/59 (71) 100 04/27/20 08:00 Nasal Cannula 4.0 04/27/20 08:00 98.1 56 14 104/62 (76) 100 04/27/20 08:00 54 04/27/20 07:00 62 17 126/66 (86) 100 04/27/20 06:00 62 18 131/71 (91) 100 04/27/20 05:00 60 15 113/67 (82) 100 04/27/20 04:30 64 16 123/76 (92) 100 04/27/20 04:00 Nasal Cannula 4.0 04/27/20 04:00 65 04/27/20 04:00 99.4 64 15 104/82 (89) 100 04/27/20 03:30 63 17 87/48 (61) 100 04/27/20 03:00 59 12 96/54 (68) 100 04/27/20 02:45 67 14 105/60 (75) 99 04/27/20 02:30 60 13 97/54 (68) 100 04/27/20 02:15 66 14 103/62 (76) 99 04/27/20 02:00 62 14 98/55 (69) 100 04/27/20 01:45 59 13 94/53 (67) 100 04/27/20 01:30 62 15 105/59 (74) 100 04/27/20 01:15 60 14 93/63 (73) 100 12/4/20 01:00 60 14 99/52 (68) 100 04/27/20 00:45 60 13 109/58 (75) 100 04/27/20 00:30 65 12 103/54 (70) 100 04/27/20 00:15 61 12 97/52 (67) 100 04/27/20 00:00 Nasal Cannula 4.0 04/27/20 00:00 60 04/27/20 00:00 60 13 92/55 (67) 100 04/26/20 23:30 59 12 104/54 (71) 100 04/26/20 23:00 59 11 95/51 (66) 100 04/26/20 22:00 59 13 95/53 (67) 100 04/26/20 21:00 59 12 98/55 (69) 99 04/26/20 20:00 Nasal Cannula 4.0 04/26/20 20:00 97.1 60 14 108/70 (83) 100 04/26/20 20:00 60 04/26/20 19:00 49 12 94/50 (65) 100 04/26/20 18:45 56 15 118/64 (82) 100 04/26/20 18:30 57 14 126/58 (80) 100 04/26/20 18:15 57 13 131/64 (86) 100 04/26/20 18:00 97.0 56 13 123/68 (86) 100 04/26/20 17:47 Nasal Cannula 4.0 04/26/20 17:45 50 11 111/63 (79) 100 04/26/20 17:35 120/54 04/26/20 17:30 50 11 120/54 (76) 100 04/26/20 17:15 58 17 112/49 (70) 100 04/26/20 17:06 127/62 (83) 04/26/20 16:50 98.9 99 20 109/76 99 Nasal Cannula 4.0 04/26/20 16:30 112/70 04/26/20 16:15 114/71 04/26/20 16:10 100.1 79 21 122/51 98 Nasal Cannula 4.0 04/26/20 16:10 100.1 60 17 116/43 100 Nasal Cannula 4.0 04/26/20 16:00 116/76 04/26/20 15:40 125/70 04/26/20 15:40 100.1 69 19 110/76 99 Nasal Cannula 4.0 04/26/20 15:25 110/62 04/26/20 15:20 89/43 04/26/20 14:20 100.1 64 15 78/42 100 Nasal Cannula 2.0 04/26/20 13:50 87 18 Nasal Cannula 4.0 98 Intake and Output 04/26/20 04/27/20 18:59 06:59 Intake Total 43.125 ml 1490.8333 ml Output Total 60 ml 560 ml Balance -16.875 ml 930.8333 ml Intake Oral 0 ml IV Total 43.125 ml 1490.8333 ml Output Urine Total 60 ml 560 ml Current Medications Medications (Trade) Dose Ordered Sig/[place] Route PRN Reason Start Time Stop Time Status Last Admin Dose Admin Acetaminophen (Tylenol) 650 mg Q4H PRN ORAL Mild Pain (Pain Scale 1-3) 04/26/20 19:30 05/26/20 19:29 Acetaminophen (Tylenol) 650 mg Q4H PRN ORAL Temp >100.5 04/26/20 19:30 05/26/20 19:29 Aspirin (Ecotrin) 81 mg DAILY ORAL 04/27/20 09:00 06/11/20 08:59 Barium Sulfate (Varibar Honey) 250 ml NOW PRN MC RAD 04/26/20 20:15 04/29/20 20:07 Barium Sulfate (Varibar [place]) 240 ml NOW PRN MC RAD 04/26/20 20:15 04/29/20 20:07 Barium Sulfate (Varibar Pudding) 230 ml NOW PRN MC RAD 04/26/20 20:15 04/29/20 20:07 Barium Sulfate (Varibar Thin Liquid powder) 148 gm NOW PRN MC RAD 04/26/20 20:15 04/29/20 20:07 Cefepime HCl 1 gm/ Dextrose 55 ml @ 110 mls/hr EVERY 12 HOURS IVPB 04/27/20 10:30 05/04/20 10:29 Chlorhexidine Gluconate (Ese-Hex 2%) 1 applic DAILY@2000 TOPIC 04/26/20 20:00 07/25/20 19:59 04/26/20 20:01 Dextrose/Sodium Chloride 1,000 ml @ 100 mls/hr Q10H IV 04/26/20 19:30 05/26/20 19:29 04/27/20 04:13 Docusate Sodium (Colace) 250 mg DAILY ORAL 04/27/20 09:00 05/27/20 08:59 Norepinephrine Bitartrate 246 ml @ 0 mls/hr Q24H IV 04/26/20 16:30 04/29/20 16:29 04/26/20 17:35 Pantoprazole (Protonix) 40 mg EVERY 12 HOURS IVP 04/26/20 21:00 05/26/20 20:59 04/27/20 08:44 Sennosides (Senokot) 8.6 mg DAILY ORAL 04/27/20 09:00 05/27/20 08:59 Vancomycin HCl ([facility] pharmacy to dose) 1 ea DAILY PRN MISC Per rx protocol 04/27/20 10:00 05/27/20 09:59 Vancomycin HCl 1 gm/Dextrose 275 ml @ 183.708 mls/hr Q24H IVPB 04/27/20 14:00 05/02/20 13:59 Vitamin D (Vitamin D) 1,000 intlu DAILY ORAL 04/27/20 09:00 05/27/20 08:59 Laboratory Tests 04/26/20 13:35: White Blood Count 11.5H, Red Blood Count 3.10L, Hemoglobin 9.5L, Hematocrit 27.9L, Mean Corpuscular Volume 90, Mean Corpuscular Hemoglobin 30.8, Mean Corpuscular Hemoglobin Concent 34.2, Red Cell Distribution Width 16.7H, Platelet Count 161, Mean Platelet Volume 6.1L, Neutrophils (%) (Auto) 65.1, Lymphocytes (%) (Auto) 20.6, Monocytes (%) (Auto) 11.5H, Eosinophils (%) (Auto) 2.0, Basophils (%) (Auto) 0.9, Prothrombin Time 12.3H, Prothromb Time International Ratio 1.1, Activated Partial Thromboplast Time 31, Sodium Level 139, Potassium L evel 4.3, Chloride Level 107, Carbon Dioxide Level 22, Anion Gap 10, Blood Urea Nitrogen 35H, Creatinine 1.5H, Estimat Glomerular Filtration Rate 46.0, Glucose Level 102, Lactic Acid Level 2.80H, Calcium Level 8.4L, Phosphorus Level 3.2, Magnesium Level 2.0, Total Bilirubin 0.7, Aspartate Amino Transf (AST/SGOT) 82H, Alanine Aminotransferase (ALT/SGPT) 20, Alkaline Phosphatase 74, Total Creatine Kinase 2698H, Creatine Kinase MB 36.0H, Creatine Kinase MB Relative Index 1.3, Troponin I 0.038, Total Protein 6.5, Albumin 2.5L, Globulin 4.0, Albumin/Globulin Ratio 0.6L 04/26/20 14:39: Arterial Blood pH 7.509H, Arterial Blood Partial Pressure CO2 21.4*L, Arterial Blood Partial Pressure O2 172.9H, Arterial Blood HCO3 16.7*L, Arterial Blood Oxygen Saturation 98.7, Arterial Blood Base Excess -0.5, Syed Test Positive 04/26/20 15:00: Lactic Acid Level 2.90H, Urine Color Yellow, Urine Appearance Clear, Urine pH 6, Urine Specific [place] 1.010, Urine Protein 1+H, Urine Glucose (UA) Negative, Urine Ketones 1+H, Urine Blood 1+H, Urine Nitrite Negative, Urine Bilirubin N egative, Urine Urobilinogen 4H, Urine Leukocyte Esterase Negative, Urine RBC 2- 4H, Urine WBC 0-2, Urine Squamous Epithelial Cells Occasional, Urine Bacteria None 04/26/20 21:15: Lactic Acid Level 2.30H 04/26/20 23:20: Lactic Acid Level 2.50H 04/27/20 04:30: Lactic Acid Level 2.00, White Blood Count 8.4, Red Blood Count 2.90L, Hemoglobin 9.0L, Hematocrit 26.1L, Mean Corpuscular Volume 90, Mean Corpuscular Hemoglobin 30.9, Mean Corpuscular Hemoglobin Concent 34.3, Red Cell Distribution Width 16.8H, Platelet Count 141L, Mean Platelet Volume 6.4L, Neutrophils (%) (Auto) 65.1, Lymphocytes (%) (Auto) 19.0L, Monocytes (%) (Auto) 11.3H, Eosinophils (%) (Auto) 4.0H, Basophils (%) (Auto) 0.8, Sodium Level 142, Potassium Level 4.0, Chloride Level 113H, Carbon Dioxide Level 21, Anion Gap 9, Blood Urea Nitrogen 26H, Creatinine 1.1, Estimat Glomerular Filtration Rate > 60, Glucose Level 105, Hemoglobin A1c 5.4, Uric Acid 5.4, Calcium Level 7.7L, Phosphorus Level 3.0, Magnesium Level 1.9, Iron Level 68, Total Iron Binding Capacity 224L, Percent Iron Saturation 30, Unsaturated Iron Binding 156, Ferritin 268, Total Bilirubin 0.8, Gamma Glutamyl Transpeptidase 35, Aspartate Amino Transf (AST/SGOT) 101H, Alanine Aminotransferase (ALT/SGPT) 34, Alkaline Phosphatase 67, Ammonia 118H, Troponin I 0.027, C-Reactive Protein, Quantitative 1.7H, Pro-B-Type Natriuretic Peptide 147H, Total Protein 6.1L, Albumin 2.3L, Globulin 3.8, Albumin/Globulin Ratio 0.6L, Triglycerides Level 55, Cholesterol Level 97, LDL Cholesterol 44, HDL Cholesterol 43, Cholesterol/HDL Ratio 2.3L, Lipase 115, Vitamin B12 Level 621, Folate 15.2, Thyroid Stimulating Hormone (TSH) 1.673, Free Thyroxine 1.02, Cortisol AM Sample [Pending] 04/27/20 09:53: Arterial Blood pH 7.503H, Arterial Blood Partial Pressure CO2 23.7*L, Arterial Blood Partial Pressure O2 142.5H, Arterial Blood HCO3 18.2L, Arterial Blood Oxygen Saturation 98.7, Arterial Blood Base Excess -3.9L, Syed Test Positive Height (Feet): 5 Height (Inches): 8.00 Weight (Pounds): 114 General Appearance: no apparent distress, lethargic Cardiovascular: normal rate Respiratory/Chest: decreased breath sounds Abdomen: distended Dewayne Aldridge MD Apr 27, 2020 11:05
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
[2020-04-27] MEDS: Vancomycin 1gm in D5W 275ml IVPB SCH (14:00)
--- NOTE | 2020-04-27 14:39 | Cardiac Electrophysiology PN ---
Assessment/Plan Assessment/Plan 1. S/P septic shock in this patient with lactic acid of 2.9 and white count of 11.5. Ruled out for COVID. Influenza is negative. On IV fluids Ruled out for myocardial infarction. Echocardiogram EF 65%. 2. Fever and cough and respiratory failure. Patient will be started on IV antibiotic per ID. 3. Anemia. Hemoglobin 9.5. 4. Renal failure with BUN of 35, creatinine of 1.5. 5. Rhabdomyolysis with CPK of 2700. 6. History of congestive heart failure, but recent echo about 3 months ago showed normal left ventricular systolic function. 7. History of hepatitic encephalopathy on previous admission in December of 2019. 8. Complete right bundle-branch block and history of bradycardia with heart rate in the 50s. Off any sinus or AV milad blocking agents. We will watch the patient on telemetry. Subjective Subjective In ICU being Ruled out for Covid Objective Last 24 Hour Vital Signs Date Time Temp Pulse Resp B/P (MAP) Pulse Ox O2 Delivery O2 Flow Rate FiO2 04/27/20 13:00 97.3 58 13 93/56 (68) 100 04/27/20 12:00 Nasal Cannula 4.0 04/27/20 12:00 63 04/27/20 12:00 75 15 96/61 (73) 100 04/27/20 11:00 94 27 120/54 (76) 100 04/27/20 09:00 54 13 95/59 (71) 100 04/27/20 08:00 Nasal Cannula 4.0 04/27/20 08:00 98.1 56 14 104/62 (76) 100 04/27/20 08:00 54 04/27/20 08:00 98.1 87 29 104/62 (76) 100 04/27/20 07:00 62 17 126/66 (86) 100 04/27/20 06:00 62 18 131/71 (91) 100 04/27/20 05:00 60 15 113/67 (82) 100 04/27/20 04:30 64 16 123/76 (92) 100 04/27/20 04:00 Nasal Cannula 4.0 04/27/20 04:00 65 04/27/20 04:00 99.4 64 15 104/82 (89) 100 04/27/20 03:30 63 17 87/48 (61) 100 04/27/20 03:00 59 12 96/54 (68) 100 04/27/20 02:45 67 14 105/60 (75) 99 04/27/20 02:30 60 13 97/54 (68) 100 04/27/20 02:15 66 14 103/62 (76) 99 04/27/20 02:00 62 14 98/55 (69) 100 04/27/20 01:45 59 13 94/53 (67) 100 04/27/20 01:30 62 15 105/59 (74) 100 04/27/20 01:15 60 14 93/63 (73) 100 04/27/20 01:00 60 14 99/52 (68) 100 04/27/20 00:45 60 13 109/58 (75) 100 04/27/20 00:30 65 12 103/54 (70) 100 04/27/20 00:15 61 12 97/52 (67) 100 04/27/20 00:00 Nasal Cannula 4.0 04/27/20 00:00 60 04/27/20 00:00 60 13 92/55 (67) 100 04/26/20 23:30 59 12 104/54 (71) 100 04/26/20 23:00 59 11 95/51 (66) 100 04/26/20 22:00 59 13 95/53 (67) 100 04/26/20 21:00 59 12 98/55 (69) 99 04/26/20 20:00 Nasal Cannula 4.0 04/26/20 20:00 97.1 60 14 108/70 (83) 100 04/26/20 20:00 60 04/26/20 19:00 49 12 94/50 (65) 100 04/26/20 18:45 56 15 118/64 (82) 100 04/26/20 18:30 57 14 126/58 (80) 100 04/26/20 18:15 57 13 131/64 (86) 100 04/26/20 18:00 97.0 56 13 123/68 (86) 100 04/26/20 17:47 Nasal Cannula 4.0 04/26/20 17:45 50 11 111/63 (79) 100 04/26/20 17:35 120/54 04/26/20 17:30 50 11 120/54 (76) 100 04/26/20 17:15 58 17 112/49 (70) 100 04/26/20 17:06 127/62 (83) 04/26/20 16:50 98.9 99 20 109/76 99 Nasal Cannula 4.0 04/26/20 16:30 112/70 04/26/20 16:15 114/71 04/26/20 16:10 100.1 79 21 122/51 98 Nasal Cannula 4.0 04/26/20 16:10 100.1 60 17 116/43 100 Nasal Cannula 4.0 04/26/20 16:00 116/76 04/26/20 15:40 125/70 04/26/20 15:40 100.1 69 19 110/76 99 Nasal Cannula 4.0 04/26/20 15:25 110/62 04/26/20 15:20 89/43 Intake and Output 04/26/20 04/27/20 19:00 07:00 Intake Total 150.625 ml 1483.3333 ml Output Total 60 ml 590 ml Balance 90.625 ml 893.3333 ml Intake Oral 0 ml IV Total 150.625 ml 1483.3333 ml Output Urine Total 60 ml 590 ml Laboratory Tests Test 04/26/20 14:39 04/26/20 15:00 04/26/20 21:15 04/26/20 23:20 Arterial Blood pH 7.509 (7.350-7.450) Arterial Blood Partial Pressure CO2 21.4 mmHg (35.0-45.0) *L Arterial Blood Partial Pressure O2 172.9 mmHg (75.0-100.0) H Arterial Blood HCO3 16.7 mmol/L (22.0-26.0) *L Arterial Blood Oxygen Saturation 98.7 % (95-100) Arterial Blood Base Excess -0.5 (-2-2) Syed Test Positive Urine Color Yellow Urine Appearance Clear Urine pH 6 (4.5-8.0) Urine Specific [place] 1.010 (1.005-1.035) Urine Protein 1+ (NEGATIVE) H Urine Glucose (UA) Negative (NEGATIVE) Urine Ketones 1+ (NEGATIVE) H Urine Blood 1+ (NEGATIVE) H Urine Nitrite Negative (NEGATIVE) Urine Bilirubin Negative (NEGATIVE) Urine Urobilinogen 4 MG/DL (0.0-1.0) H Urine Leukocyte Esterase Negative (NEGATIVE) Urine RBC 2-4 /HPF (0 - 0) H Urine WBC 0-2 /HPF (0 - 0) Urine Squamous Epithelial Cells Occasional /LPF Urine Bacteria None /HPF (NONE) Lactic Acid Level 2.90 mmol/L (0.66-2.22) H 2.30 mmol/L (0.4-2.0) H 2.50 mmol/L (0.66-2.22) H Test 04/27/20 04:30 04/27/20 09:53 White Blood Count 8.4 K/UL (4.8-10.8) Red Blood Count 2.90 M/UL (4.70-6.10) L Hemoglobin 9.0 G/DL (14.2-18.0) L Hematocrit 26.1 % (42.0-52.0) L Mean Corpuscular Volume 90 FL (80-99) Mean Corpuscular Hemoglobin 30.9 PG (27.0-31.0) Mean Corpuscular Hemoglobin Concent 34.3 G/DL (32.0-36.0) Red Cell Distribution Width 16.8 % (11.6-14.8) H Platelet Count 141 K/UL (150-450) L Mean Platelet Volume 6.4 FL (6.5-10.1) L Neutrophils (%) (Auto) 65.1 % (45.0-75.0) Lymphocytes (%) (Auto) 19.0 % (20.0-45.0) L Monocytes (%) (Auto) 11.3 % (1.0-10.0) H Eosinophils (%) (Auto) 4.0 % (0.0-3.0) H Basophils (%) (Auto) 0.8 % (0.0-2.0) Sodium Level 142 MMOL/L (136-145) Potassium Level 4.0 MMOL/L (3.5-5.1) Chloride Level 113 MMOL/L (98-107) H Carbon Dioxide Level 21 MMOL/L (21-32) Anion Gap 9 mmol/L (5-15) Blood Urea Nitrogen 26 mg/dL (7-18) H Creatinine 1.1 MG/DL (0.55-1.30) Estimat Glomerular Filtration Rate > 60 mL/min (>60) Glucose Level 105 MG/DL (74-106) Hemoglobin A1c 5.4 % (4.3-6.0) Lactic Acid Level 2.00 mmol/L (0.4-2.0) Uric Acid 5.4 MG/DL (2.6-7.2) Calcium Level 7.7 MG/DL (8.5-10.1) L Phosphorus Level 3.0 MG/DL (2.5-4.9) Magnesium Level 1.9 MG/DL (1.8-2.4) Iron Level 68 ug/dL (50-175) Total Iron Binding Capacity 224 ug/dL (250-450) L Percent Iron Saturation 30 % (15-50) Unsaturated Iron Binding 156 ug/dL (112-346) Ferritin 268 NG/ML (8-388) Total Bilirubin 0.8 MG/DL (0.2-1.0) Gamma Glutamyl Transpeptidase 35 U/L (5-85) Aspartate Amino Transf (AST/SGOT) 101 U/L (15-37) H Alanine Aminotransferase (ALT/SGPT) 34 U/L (12-78) Alkaline Phosphatase 67 U/L (46-116) Ammonia 118 umol/L (11-32) H Troponin I 0.027 ng/mL (0.000-0.056) C-Reactive Protein, Quantitative 1.7 mg/dL (0.00-0.90) H Pro-B-Type Natriuretic Peptide 147 pg/mL (0-125) H Total Protein 6.1 G/DL (6.4-8.2) L Albumin 2.3 G/DL (3.4-5.0) L Globulin 3.8 g/dL Albumin/Globulin Ratio 0.6 (1.0-2.7) L Triglycerides Level 55 MG/DL (30-150) Cholesterol Level 97 MG/DL (< 200) LDL Cholesterol 44 mg/dL (<100) HDL Cholesterol 43 MG/DL (40-60) Cholesterol/HDL Ratio 2.3 (3.3-4.4) L Lipase 115 U/L (73-393) Vitamin B12 Level 621 PG/ML (193-986) Folate 15.2 NG/ML (8.6-58.9) Thyroid Stimulating Hormone (TSH) 1.673 uiU/mL (0.358-3.740) Free Thyroxine 1.02 NG/DL (0.76-1.46) Cortisol AM Sample 11.4 UG/DL Arterial Blood pH 7.503 (7.350-7.450) Arterial Blood Partial Pressure CO2 23.7 mmHg (35.0-45.0) *L Arterial Blood Partial Pressure O2 142.5 mmHg (75.0-100.0) H Arterial Blood HCO3 18.2 mmol/L (22.0-26.0) L Arterial Blood Oxygen Saturation 98.7 % (95-100) Arterial Blood Base Excess -3.9 (-2-2) L Syed Test Positive Microbiology Date/Time Source Procedure Growth Status 04/26/20 16:00 Rectum Received 04/26/20 14:05 Nasal Nares - Final Complete 04/26/20 14:05 Nasal Nares - Final Complete 04/26/20 13:35 Blood Blood Culture - Preliminary Resulted Objective HEAD AND NECK: Shows no JVD. LUNGS: Coarse rhonchi. CARDIOVASCULAR: Shows regular S1 and S2 with no gallop or murmur. ABDOMEN: Soft. EXTREMITIES: No pitting edema. John Gomez MD Apr 27, 2020 14:39
[2020-04-27] MEDS: Norepinephrine 4mg/NS Premix 246 ML IV SCH (16:30)
--- NOTE | 2020-04-27 17:08 | Diagnostic Imaging Report ---
Indication: Reason For Exam: DVT Technique: Grayscale and duplex images of the bilateral lower extremity veins Comparison: None Findings: Exam is steadily somewhat limited, due to patient being contracted. The right femoral vein downstream could not be imaged. Bilaterally, grayscale and duplex images demonstrate no evidence of intraluminal thrombus. Normal phasic Doppler waveforms, demonstrating normal augmentation response and no evidence of valvular insufficiency. Greater saphenous vein(s) and tibial veins are patent. Normal compressibility. Impression: Negative for evidence of lower extremity deep venous thrombosis bilaterally Note that exam is limited; the left downstream femoral vein could not be visualized and therefore thrombus in this segment cannot be ruled out
--- NOTE | 2020-04-27 19:32 | Diagnostic Imaging Report ---
EXAM: XR Abdomen, 1 View CLINICAL HISTORY: NGT TECHNIQUE: Frontal supine view of the abdomen/pelvis. COMPARISON: No relevant prior studies available. FINDINGS: Gastrointestinal tract: Unremarkable. Bones/joints: No acute fracture. Soft tissues: Surgical clips in the abdomen. Vasculature: Biliary stent. Tubes, lines and devices: Enteric tube not in the stomach. Central line near the atrial caval junction. Other findings: 04/27/20 at 1849. IMPRESSION: Enteric tube not in the stomach. <MYCVCSECTION> Communications: 04/27/20 19:40 Call Nurse [employer] Kim on 04/27 19:39 (-08:00)
[2020-04-27] MEDS: Dyna-Hex 2% Top Sol 2oz TOPIC SCH (20:35)
--- NOTE | 2020-04-27 22:15 | History and Physical Report ---
DATE OF ADMISSION: 04/26/2020 HISTORY OF PRESENT ILLNESS: The patient is a poor historian, cannot get any history from the patient. The patient is here for septic shock, hypoxia, pneumonia, admitted for those reasons. Again, cannot get any history from the patient. The patient is on pressors and admitted to the ICU for septic shock, pneumonia, and hypoxia. PAST MEDICAL HISTORY: Organic brain syndrome, history of CVA, history of CHF, history of hepatitis C, history of hyperlipidemia, constipation, psychosis, GERD. PAST SURGICAL HISTORY: Denies. ALLERGIES: No known allergies. MEDICATIONS: Lipitor, aspirin, Cogentin, clonidine, docusate, olanzapine, Protonix, Senokot. SOCIAL HISTORY: No history of alcohol or illicit drugs. Comes from a fpc. FAMILY HISTORY: Unable to obtain. REVIEW OF SYSTEMS: Unable to obtain. PHYSICAL EXAMINATION: VITAL SIGNS: Temperature 97.2, pulse 78, blood pressure 100/62. HEENT: PERRLA. CHEST: Bilateral rhonchi CARDIOVASCULAR: Regular rate and rhythm. No murmurs or extra sounds. GASTROINTESTINAL: Soft, nontender, nondistended. No organomegaly. EXTREMITIES: No edema. NEUROLOGIC: Does not follow neurological exam, nonverbal. Reflexes are equal on both sides. ASSESSMENT AND PLAN: 1. Septic shock on pressors. 2. History of CHF. 3. History of CVA. 4. Pneumonia. 5. Hypoxia. I have consulted Dr. Joey Martinez, Dr. Jose G Zamarripa, Dr. Aldridge, Dr. Gomez, and Dr. Pantoja for nutrition purposes as well as for malnutrition as well as for management of sepsis and pneumonia. has been consulted to help with septic shock and the pressor orders as well as Dr. Aldridge. The patient has low-flow oxygen initially. Monitor the patient very closely. The patient has poor prognosis. Deysi He M.D. DR: Suri JOB#: [id number] CC:
[2020-04-28] VITALS (16 sets, daily range): BP systolic 102–130; BP diastolic 58–73
[2020-04-28] MEDS: D5NS 1,000 ML IV SCH ×3 (01:36→21:41)
[2020-04-28] MEDS: Pantoprazole Inj IVP SCH ×2 (08:23→21:40)
[2020-04-28] MEDS: Cefepime HCl 1 GM in D5W 55 ML IVPB SCH ×2 (08:23→21:40)
[2020-04-28] MEDS: Docusate 250mg cap ORAL SCH (08:23)
[2020-04-28] MEDS: Aspirin EC 81mg tab ORAL SCH (08:24)
[2020-04-28] MEDS: Vitamin D 1000 IU Tab ORAL SCH (08:25)
[2020-04-28] MEDS: Sennosides 8.6mg tab ORAL SCH (08:25)
--- NOTE | 2020-04-28 10:06 | Nephrology Progress Note ---
Assessment/Plan Problem List: (1) ARIS (acute kidney injury) (2) Septic shock (3) Dehydration (4) Electrolyte imbalance (5) Encephalopathy Assessment Acute renal failure Dehydration Anemia Sepsis, shock UTI Toxic metabolic encephalopathy Hypoalbuminemia, malnutrition with BMI of 17.3 Elevated CPK, rhabdo Plan April 28: Seen in ICU. Discussed with RN. No labs drawn today. Will check labs tomorrow. Continue per consultants. April 27: Patient seen in ICU. Discussed with RN. Labs reviewed. Stable from renal standpoint of view. Ammonia is elevated. Continue per consultants. April 26: N.p.o. Hydrate Pressors Rowe Accurate intake and output Avoid nephrotoxic's Monitor renal parameters Per orders Per consultants Subjective ROS Limited/Unobtainable: No Constitutional: Reports: malaise, weakness Objective Objective Last 24 Hour Vital Signs Date Time Temp Pulse Resp B/P (MAP) Pulse Ox O2 Delivery O2 Flow Rate FiO2 04/28/20 09:00 56 12 114/73 (87) 100 04/28/20 08:00 Nasal Cannula 4.0 04/28/20 08:00 56 04/28/20 08:00 98.0 53 13 109/70 (83) 100 04/28/20 07:00 60 14 110/60 (77) 100 04/28/20 06:00 54 12 112/60 (77) 100 04/28/20 05:00 56 13 120/66 (84) 100 04/28/20 04:00 Nasal Cannula 4.0 04/28/20 04:00 98.2 53 12 108/58 (75) 100 04/28/20 04:00 52 04/28/20 03:00 55 12 108/58 (75) 100 04/28/20 02:00 53 16 107/63 (78) 100 04/28/20 01:00 52 12 114/62 (79) 100 04/28/20 00:00 98.5 55 12 102/58 (73) 100 04/28/20 00:00 Nasal Cannula 4.0 04/28/20 00:00 57 04/27/20 23:00 57 13 102/67 (79) 100 04/27/20 22:00 69 15 114/65 (81) 99 04/27/20 21:00 66 15 106/64 (78) 100 04/27/20 20:00 73 04/27/20 20:00 98.4 66 12 103/63 (76) 99 04/27/20 20:00 Nasal Cannula 4.0 04/27/20 19:00 70 14 94/48 (63) 97 04/27/20 18:00 61 13 96/52 (67) 100 04/27/20 17:00 98.0 60 14 88/52 (64) 100 04/27/20 16:30 106/52 04/27/20 16:00 60 04/27/20 16:00 64 13 102/57 (72) 100 04/27/20 16:00 Nasal Cannula 4.0 04/27/20 15:00 60 13 105/53 (70) 100 04/27/20 14:00 58 13 102/59 (73) 100 04/27/20 13:00 97.3 58 13 93/56 (68) 100 04/27/20 12:00 Nasal Cannula 4.0 04/27/20 12:00 63 04/27/20 12:00 75 15 96/61 (73) 100 04/27/20 11:00 94 27 120/54 (76) 100 Intake and Output 04/27/20 04/28/20 19:00 07:00 Intake Total 700 ml 1100 ml Output Total 440 ml 410 ml Balance 260 ml 690 ml IV Total 700 ml 1100 ml Output Urine Total 440 ml 410 ml No labs drawn today Height (Feet): 5 Height (Inches): 8.00 Weight (Pounds): 114 General Appearance: no apparent distress EENT: other - On nasal cannula Cardiovascular: bradycardia Respiratory/Chest: decreased breath sounds Abdomen: distended Dewayne Aldridge MD Apr 28, 2020 10:06
[2020-04-28] MEDS ORDERED: D5NS 1000ml IV ONE (11:57)
[2020-04-28] MEDS ORDERED: Tubing IV Secondary IV ONE (11:57)
--- NOTE | 2020-04-28 12:59 | Cardiology Report ---
APPROVED REPORT EKG Measurement Heart [id number] <Conclusion> Sinus rhythm Incomplete right bundle branch block Septal infarct, age undetermined Abnormal ECG
--- NOTE | 2020-04-28 13:03 | Cardiology Report ---
APPROVED REPORT EKG Measurement Heart [id number] <Conclusion> Normal sinus rhythm Right bundle branch block Abnormal ECG
[2020-04-28] MEDS: Vancomycin 1gm in D5W 275ml IVPB SCH (13:39)
--- NOTE | 2020-04-28 14:11 | Cardiology Report ---
APPROVED REPORT EXAM: Two-dimensional and M-mode echocardiogram with Doppler and color Doppler. INDICATION Congestive Heart Failure M-Mode DIMENSIONS IVSd1.3 (0.7-1.1cm)Left Atrium (MM)3.6 (1.6-4.0cm) LVDd4.4 (3.5-5.6cm)Aortic Root3.3 (2.0-3.7cm) PWd0.9 (0.7-1.1cm)Aortic Cusp Exc.1.4 (1.5-2.0cm) IVSs2.0 cmEPSS0.2 (>1.0cm) LVDs1.3 (2.5-4.0cm) PWs1.9 cm <Conclusion> Technically difficult study due to patient's position and very contracted limbs. Normal left ventricular chamber size, systolic function and wall motion. Left ventricular ejection fraction estimated to be 65 %. Mild left ventricular hypertrophy. No evidence of pericardial effusion. All other cardiac chamber sizes are within normal limits. Moderate aortic valve sclerosis with borderline cusp excursion. Thickened mitral valve leaflets with normal excursion. Normal mitral annulus and moderate aortic root calcification. Normal pulmonic valve structure. Normal tricuspid valve structure. IVC at normal size with physiologic collapse. A color flow and spectral Doppler study was performed and revealed: Trace aortic regurgitation. Peak aortic valve gradient of 14 mm Hg and a mean of 6 mmHg. Trace mitral regurgitation. Mitral diastolic velocities suggest reduced left ventricular relaxation c/w mild LV diastolic dysfunction (Grade I ). Trace tricuspid regurgitation. Tricuspid systolic velocities suggests peak right ventricular systolic pressure of 17 mmHg. Mild pulmonic regurgitation present.
[2020-04-28] MEDS ORDERED: MULTIVITAMINS1 EAC8 ORAL (14:17)
[2020-04-28] MEDS ORDERED: MINERAL OIL1 ML MC (14:17)
[2020-04-28] MEDS ORDERED: ASCORBIC ACID500 MG ORAL (14:17)
--- NOTE | 2020-04-28 15:23 | Pulmonology Progress Note ---
Subjective ROS Limited/Unobtainable: Yes Interval Events: no major changes Constitutional: Reports: no symptoms HEENT: Repors: no symptoms Respiratory: Reports: no symptoms Cardiovascular: Reports: no symptoms Gastrointestinal/Abdominal: Reports: no symptoms Genitourinary: Reports: no symptoms Allergies: Coded Allergies: No Known Allergies (Unverified , 01/10/18) Objective Last 24 Hour Vital Signs Date Time Temp Pulse Resp B/P (MAP) Pulse Ox O2 Delivery O2 Flow Rate FiO2 04/28/20 12:00 Nasal Cannula 4.0 04/28/20 12:00 97.5 59 18 122/68 (86) 100 04/28/20 11:04 114/73 (87) 100 04/28/20 11:00 59 12 114/73 (87) 100 04/28/20 10:00 59 11 118/69 (85) 100 04/28/20 09:00 56 12 114/73 (87) 100 04/28/20 08:00 Nasal Cannula 4.0 04/28/20 08:00 56 04/28/20 08:00 98.0 53 13 109/70 (83) 100 04/28/20 07:00 60 14 110/60 (77) 100 04/28/20 06:00 54 12 112/60 (77) 100 04/28/20 05:00 56 13 120/66 (84) 100 04/28/20 04:00 Nasal Cannula 4.0 04/28/20 04:00 98.2 53 12 108/58 (75) 100 04/28/20 04:00 52 04/28/20 03:00 55 12 108/58 (75) 100 04/28/20 02:00 53 16 107/63 (78) 100 04/28/20 01:00 52 12 114/62 (79) 100 04/28/20 00:00 98.5 55 12 102/58 (73) 100 04/28/20 00:00 Nasal Cannula 4.0 04/28/20 00:00 57 04/27/20 23:00 57 13 102/67 (79) 100 04/27/20 22:00 69 15 114/65 (81) 99 04/27/20 21:00 66 15 106/64 (78) 100 04/27/20 20:00 73 04/27/20 20:00 98.4 66 12 103/63 (76) 99 04/27/20 20:00 Nasal Cannula 4.0 04/27/20 19:00 70 14 94/48 (63) 97 04/27/20 18:00 61 13 96/52 (67) 100 04/27/20 17:00 98.0 60 14 88/52 (64) 100 04/27/20 16:30 106/52 04/27/20 16:00 60 04/27/20 16:00 64 13 102/57 (72) 100 04/27/20 16:00 Nasal Cannula 4.0 Intake and Output 04/27/20 04/28/20 18:59 06:59 Intake Total 700 ml 1100 ml Output Total 440 ml 410 ml Balance 260 ml 690 ml IV Total 700 ml 1100 ml Output Urine Total 440 ml 410 ml Objective 04/28/2020 obtunded; bradycardia; Dr. Gomez aware General Appearance: no acute distress HEENT: other - on NC Respiratory: chest wall non-tender, decreased breath sounds Cardiovascular: normal peripheral pulses Abdomen: normal bowel sounds, distended Genitourinary: other - Rowe Extremities: no cyanosis Microbiology Date/Time Source Procedure Growth Status 04/26/20 16:00 Rectum - Final NO CARBAPENEM-RESISTANT ENTEROBACTERI... Complete 04/26/20 16:00 Rectum Received 04/26/20 16:00 Nasal Nares MRSA Culture - Final Staphylococcus Aureus - Mrsa Complete 04/26/20 15:10 Nasopharynx Coronavirus COVID-19 PCR (IVETTE) - Final Complete 04/26/20 14:05 Nasal Nares - Final Complete 04/26/20 14:05 Nasal Nares - Final Complete 04/26/20 13:35 Blood Blood Culture - Preliminary Staphylococcus Sp Coag Neg Resulted 04/26/20 13:20 Blood Blood Culture - Preliminary NO GROWTH AFTER 24 HOURS Resulted Current Medications Medications (Trade) Dose Ordered Sig/Juwan Route PRN Reason Start Time Stop Time Status Last Admin Dose Admin Acetaminophen (Tylenol) 650 mg Q4H PRN ORAL Mild Pain (Pain Scale 1-3) 04/26/20 19:30 05/26/20 19:29 Acetaminophen (Tylenol) 650 mg Q4H PRN ORAL Temp >100.5 04/26/20 19:30 05/26/20 19:29 Aspirin (Ecotrin) 81 mg DAILY ORAL 04/27/20 09:00 1/18/21 08:59 Barium Sulfate (Varibar Honey) 250 ml NOW PRN MC RAD 04/26/20 20:15 04/29/20 20:07 Barium Sulfate (Varibar Nelagoney) 240 ml NOW PRN MC RAD 04/26/20 20:15 04/29/20 20:07 Barium Sulfate (Varibar Pudding) 230 ml NOW PRN MC RAD 04/26/20 20:15 04/29/20 20:07 Barium Sulfate (Varibar Thin Liquid powder) 148 gm NOW PRN MC RAD 04/26/20 20:15 04/29/20 20:07 Cefepime HCl 1 gm/ Dextrose 55 ml @ 110 mls/hr EVERY 12 HOURS IVPB 04/27/20 10:30 05/04/20 10:29 04/28/20 08:23 Chlorhexidine Gluconate (Ese-Hex 2%) 1 applic DAILY@2000 TOPIC 04/26/20 20:00 07/25/20 19:59 04/27/20 20:35 Dextrose/Sodium Chloride 1,000 ml @ 100 mls/hr Q10H IV 04/26/20 19:30 05/26/20 19:29 04/28/20 11:15 Docusate Sodium (Colace) 250 mg DAILY ORAL 04/27/20 09:00 05/27/20 08:59 Norepinephrine Bitartrate 246 ml @ 0 mls/hr Q24H IV 04/26/20 16:30 04/29/20 16:29 04/26/20 17:35 Pantoprazole (Protonix) 40 mg EVERY 12 HOURS IVP 04/26/20 21:00 05/26/20 20:59 04/28/20 08:23 Sennosides (Senokot) 8.6 mg DAILY ORAL 04/27/20 09:00 05/27/20 08:59 Vancomycin HCl (Vanco pharmacy to dose) 1 ea DAILY PRN MISC Per rx protocol 04/27/20 10:00 05/27/20 09:59 Vancomycin HCl 1 gm/Dextrose 275 ml @ 183.708 mls/hr Q24H IVPB 04/27/20 14:00 05/02/20 13:59 04/28/20 13:39 Vitamin D (Vitamin D) 1,000 intlu DAILY ORAL 04/27/20 09:00 05/27/20 08:59 Assessment/Plan Assessment/Plan IMPRESSION: 1. Shock, likely septic. On pressors 2. Fever. 3. History of CVA. 4. CHF. 5. History of hep C. DISCUSSION: Continue broad-spectrum antibiotics. IV fluids. Pressors prn. DVT and GI prophylaxes. Currently saturating well on low-flow oxygen. The care for this patient was discussed with my supervising physician. Seen and examined by Dr. Martinez as well. Time spent for this care was approximately 31 minutes. Duran King Apr 28, 2020 15:23
--- NOTE | 2020-04-28 16:58 | General Progress Note ---
Subjective ROS Limited/Unobtainable: Yes Allergies: Coded Allergies: No Known Allergies (Unverified , 01/10/18) Objective Last 24 Hour Vital Signs Date Time Temp Pulse Resp B/P (MAP) Pulse Ox O2 Delivery O2 Flow Rate FiO2 04/28/20 16:01 97.9 56 20 111/68 (82) 100 04/28/20 12:00 Nasal Cannula 4.0 04/28/20 12:00 97.5 59 18 122/68 (86) 100 04/28/20 11:04 114/73 (87) 100 04/28/20 11:00 59 12 114/73 (87) 100 04/28/20 10:00 59 11 118/69 (85) 100 04/28/20 09:00 56 12 114/73 (87) 100 04/28/20 08:00 Nasal Cannula 4.0 04/28/20 08:00 56 04/28/20 08:00 98.0 53 13 109/70 (83) 100 04/28/20 07:00 60 14 110/60 (77) 100 04/28/20 06:00 54 12 112/60 (77) 100 04/28/20 05:00 56 13 120/66 (84) 100 04/28/20 04:00 Nasal Cannula 4.0 04/28/20 04:00 98.2 53 12 108/58 (75) 100 04/28/20 04:00 52 04/28/20 03:00 55 12 108/58 (75) 100 04/28/20 02:00 53 16 107/63 (78) 100 04/28/20 01:00 52 12 114/62 (79) 100 04/28/20 00:00 98.5 55 12 102/58 (73) 100 04/28/20 00:00 Nasal Cannula 4.0 04/28/20 00:00 57 04/27/20 23:00 57 13 102/67 (79) 100 04/27/20 22:00 69 15 114/65 (81) 99 04/27/20 21:00 66 15 106/64 (78) 100 04/27/20 20:00 73 04/27/20 20:00 98.4 66 12 103/63 (76) 99 04/27/20 20:00 Nasal Cannula 4.0 04/27/20 19:00 70 14 94/48 (63) 97 04/27/20 18:00 61 13 96/52 (67) 100 04/27/20 17:00 98.0 60 14 88/52 (64) 100 Intake and Output 04/27/20 04/28/20 19:00 07:00 Intake Total 700 ml 1100 ml Output Total 440 ml 410 ml Balance 260 ml 690 ml IV Total 700 ml 1100 ml Output Urine Total 440 ml 410 ml Height (Feet): 5 Height (Inches): 8.00 Weight (Pounds): 114 Assessment/Plan Problem List: (1) Encephalopathy ICD Codes: G93.40 - Encephalopathy, unspecified SNOMED: 19903035 (2) Fever ICD Codes: R50.9 - Fever, unspecified SNOMED: 614612235 (3) Dehydration ICD Codes: E86.0 - Dehydration SNOMED: 22338923 (4) Septic shock ICD Codes: A41.9 - Sepsis, unspecified organism; R65.21 - Severe sepsis with septic shock SNOMED: 33884428 (5) Electrolyte imbalance ICD Codes: E87.8 - Other disorders of electrolyte and fluid balance, not elsewhere classified SNOMED: 711505202 (6) HTN (hypertension) ICD Codes: I10 - Essential (primary) hypertension SNOMED: 77381394 (7) ARIS (acute kidney injury) ICD Codes: N17.9 - Acute kidney failure, unspecified SNOMED: 1412470, 99280394 Status: progressing Assessment/Plan: afebrile arf s/p septic shock off pressors improving confused obs encephalopathy Deysi He MD Apr 28, 2020 16:58
--- NOTE | 2020-04-28 18:35 | Cardiac Electrophysiology PN ---
Assessment/Plan Assessment/Plan 1. S/P septic shock in this patient with lactic acid of 2.9 and white count of 11.5. Ruled out for COVID. Influenza is negative. On IV fluids Ruled out for myocardial infarction. EF 65%. 2. Fever and cough and respiratory failure on IV antibiotic per ID. 3. Anemia. Hemoglobin 9.5. 4. Renal failure with BUN of 35, creatinine of 1.5. 5. Rhabdomyolysis with CPK of 2700. 6. History of congestive heart failure with Nl EF 7. 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 8. Complete right bundle-branch block and history of bradycardia with heart rate in the 50s. Off any sinus or AV milad blocking agents. We will watch the patient on telemetry. 9. Dysphagia, PEG pending DW RN Subjective Subjective Transferred from [facility]. Being Ruled out for Covid. NPO for PEG per Dr Ramirez Objective Last 24 Hour Vital Signs Date Time Temp Pulse Resp B/P (MAP) Pulse Ox O2 Delivery O2 Flow Rate FiO2 04/28/20 16:01 97.9 56 20 111/68 (82) 100 04/28/20 12:00 Nasal Cannula 4.0 04/28/20 12:00 97.5 59 18 122/68 (86) 100 04/28/20 11:04 114/73 (87) 100 04/28/20 11:00 59 12 114/73 (87) 100 04/28/20 10:00 59 11 118/69 (85) 100 04/28/20 09:00 56 12 114/73 (87) 100 04/28/20 08:00 Nasal Cannula 4.0 04/28/20 08:00 56 04/28/20 08:00 98.0 53 13 109/70 (83) 100 04/28/20 07:00 60 14 110/60 (77) 100 04/28/20 06:00 54 12 112/60 (77) 100 04/28/20 05:00 56 13 120/66 (84) 100 04/28/20 04:00 Nasal Cannula 4.0 04/28/20 04:00 98.2 53 12 108/58 (75) 100 04/28/20 04:00 52 04/28/20 03:00 55 12 108/58 (75) 100 04/28/20 02:00 53 16 107/63 (78) 100 04/28/20 01:00 52 12 114/62 (79) 100 04/28/20 00:00 98.5 55 12 102/58 (73) 100 04/28/20 00:00 Nasal Cannula 4.0 04/28/20 00:00 57 04/27/20 23:00 57 13 102/67 (79) 100 04/27/20 22:00 69 15 114/65 (81) 99 04/27/20 21:00 66 15 106/64 (78) 100 04/27/20 20:00 73 04/27/20 20:00 98.4 66 12 103/63 (76) 99 04/27/20 20:00 Nasal Cannula 4.0 04/27/20 19:00 70 14 94/48 (63) 97 Intake and Output 04/27/20 04/28/20 19:00 07:00 Intake Total 700 ml 1100 ml Output Total 440 ml 410 ml Balance 260 ml 690 ml IV Total 700 ml 1100 ml Output Urine Total 440 ml 410 ml Microbiology Date/Time Source Procedure Growth Status 04/26/20 16:00 Rectum - Final NO CARBAPENEM-RESISTANT ENTEROBACTERI... Complete 04/26/20 16:00 Rectum Received 04/26/20 16:00 Nasal Nares MRSA Culture - Final Staphylococcus Aureus - Mrsa Complete 04/26/20 15:10 Nasopharynx Coronavirus COVID-19 PCR (IVETTE) - Final Complete 04/26/20 14:05 Nasal Nares - Final Complete 04/26/20 14:05 Nasal Nares - Final Complete 04/26/20 13:35 Blood Blood Culture - Preliminary Staphylococcus Sp Coag Neg Resulted 04/26/20 13:20 Blood Blood Culture - Preliminary NO GROWTH AFTER 48 HOURS Resulted Objective HEAD AND NECK: Shows no JVD. LUNGS: Coarse rhonchi. CARDIOVASCULAR: Shows regular S1 and S2 with no gallop or murmur. ABDOMEN: Soft. EXTREMITIES: No pitting edema. John Gomez MD Apr 28, 2020 18:35
[2020-04-28] MEDS: Dyna-Hex 2% Top Sol 2oz TOPIC SCH (21:40)
[2020-04-29] VITALS: BP 121/68
[2020-04-29 04:00] VITALS: BP 119/65
[2020-04-29 07:44] LABS: HEMATOCRIT 24.9 % (42.0-52.0); HEMOGLOBIN 8.5 G/DL (14.2-18.0); MEAN CORPUSCULAR VOLUME 90 FL (80-99); PLATELET COUNT 98 K/UL (150-450); RED BLOOD COUNT 2.77 M/UL (4.70-6.10); RED CELL DISTRIBUTION WIDTH 16.4 % (11.6-14.8); WHITE BLOOD COUNT 5.6 K/UL (4.8-10.8)
[2020-04-29 08:00] VITALS: BP 122/69
[2020-04-29 08:32] LABS: ALANINE AMINOTRANSFERASE 27 U/L (12-78); ALBUMIN/GLOBULIN RATIO 0.6 (1.0-2.7); ALKALINE PHOSPHATASE 62 U/L (46-116); ANION GAP 9 mmol/L (5-15); ASPARTATE AMINO TRANSFERASE 62 U/L (15-37); BILIRUBIN,TOTAL 0.8 MG/DL (0.2-1.0); BLOOD UREA NITROGEN 12 mg/dL (7-18); CALCIUM 7.6 MG/DL (8.5-10.1); CARBON DIOXIDE 20 MMOL/L (21-32); CHLORIDE 113 MMOL/L (98-107); CREATININE 0.7 MG/DL (0.55-1.30); PHOSPHORUS 2.6 MG/DL (2.5-4.9); POTASSIUM 3.2 MMOL/L (3.5-5.1); SODIUM 142 MMOL/L (136-145)
[2020-04-29] MEDS ORDERED: D5NS 1000ml IV ONE (09:23)
--- NOTE | 2020-04-29 10:45 | Consultation ---
DATE OF CONSULTATION: 04/29/2020 CHIEF COMPLAINT: Dysphagia. HISTORY OF PRESENT ILLNESS: Most of history per chart. The patient is a 74-year-old [facility] patient, was admitted to the hospital with complaint of fever, history of CVA, schizophrenia. In the hospital, he was dysphagic, failed a swallow evaluation. Nurses were not able to place NG tube so GI consult requested for evaluation. PAST MEDICAL HISTORY: 1. History of CVA. 2. Schizophrenia. 3. Anemia. 4. Hepatitis C. 5. Dysphagia. 6. Hepatic encephalopathy. ALLERGIES: No known drug allergies. MEDICATIONS: Please see medication reconciliation list. SOCIAL HISTORY: Currently lives in a [facility]. No recent history of tobacco, alcohol, or drug abuse. FAMILY HISTORY: Noncontributory. REVIEW OF SYSTEMS: Unable to obtain. PHYSICAL EXAMINATION: VITAL SIGNS: Temperature is 97.6, pulse 67, respirations 20, blood pressure is 122/69. HEENT: Normocephalic and atraumatic. Mild pale conjunctivae. NECK: Supple. No evidence of obvious lymphadenopathy. CARDIOVASCULAR: Regular rate and rhythm. Plus S1, S2. LUNGS: Decreased breath sounds bilaterally based on the supine exam. ABDOMEN: Soft and nontender. No rebound. No guarding. No peritoneal sign. EXTREMITIES: No cyanosis, no clubbing, no edema. LABORATORY AND DIAGNOSTIC DATA: White count 5.6, hemoglobin 8.5, hematocrit 24, platelets are 98,000. Potassium is 3.2, BUN is 12, creatinine 0.7. ASSESSMENT AND PLAN: This is a 74-year-old male with numerous medical problems. From GI standpoint, has anemia which seems to be chronic. No evidence of any iron deficiency, has evidence of a cirrhosis based on laboratories given low platelets, elevated ammonia level, and history of hepatitis C. I placed an NG tube at the bedside. We are going to order KUB to see if it is in the right place and start tube feeding. Also, we are going to start lactulose. Repeat ammonia level tomorrow. Repeat swallow evaluation tomorrow. Abdominal ultrasound. We will check hepatitis panel. Send stool for OB. Gideon Ramirez M.D. DR: Gilberto JOB#: [id number] CC:
--- NOTE | 2020-04-29 11:12 | Diagnostic Imaging Report ---
FILM ABDOMEN History: NG tube Comparison: April 27, 2020 Findings: Single view abdomen demonstrates enteric tube with tip in the distal stomach. Scoliotic curvature of the spine. Nonspecific bowel gas pattern. Bilateral lower lobe opacities. Central line with tip in the right atrium versus atrial caval junction. Biliary stent noted. Surgical clip demonstrated. No free air or obstruction. Impression: Enteric tube with tip in the distal stomach.
[2020-04-29] MEDS: Cefepime HCl 1 GM in D5W 55 ML IVPB SCH ×2 (11:33→23:05)
[2020-04-29] MEDS: Pantoprazole Inj IVP SCH ×2 (11:33→23:05)
[2020-04-29] MEDS: Sennosides 8.6mg tab ORAL SCH (11:34)
[2020-04-29] MEDS: Vitamin D 1000 IU Tab ORAL SCH (11:34)
[2020-04-29] MEDS: Aspirin EC 81mg tab ORAL SCH (11:34)
[2020-04-29] MEDS: Docusate 250mg cap ORAL SCH (11:34)
--- NOTE | 2020-04-29 11:34 | Nephrology Progress Note ---
Assessment/Plan Problem List: (1) ARIS (acute kidney injury) (2) Septic shock (3) Dehydration (4) Electrolyte imbalance (5) Encephalopathy Assessment Acute renal failure Dehydration Anemia Sepsis, shock UTI Toxic metabolic encephalopathy Hypoalbuminemia, malnutrition with BMI of 17.3 Elevated CPK, rhabdo Plan April 29: Patient now in telemetry. Labs reviewed. Abnormal electrolytes addressed. Continue per consultants. April 28: Seen in ICU. Discussed with RN. No labs drawn today. Will check labs tomorrow. Continue per consultants. April 27: Patient seen in ICU. Discussed with RN. Labs reviewed. Stable from renal standpoint of view. Ammonia is elevated. Continue per consultants. April 26: N.p.o. Hydrate Pressors Rowe Accurate intake and output Avoid nephrotoxic's Monitor renal parameters Per orders Per consultants Subjective ROS Limited/Unobtainable: Yes Objective Objective Last 24 Hour Vital Signs Date Time Temp Pulse Resp B/P (MAP) Pulse Ox O2 Delivery O2 Flow Rate FiO2 04/29/20 08:00 97.6 57 20 122/69 (86) 100 04/29/20 08:00 53 04/29/20 04:00 53 04/29/20 04:00 97.5 58 20 119/65 (83) 100 04/29/20 00:00 55 04/29/20 00:00 97.5 62 20 121/68 (85) 100 04/28/20 21:00 Nasal Cannula 3.0 04/28/20 20:00 96.9 63 20 130/61 (84) 100 04/28/20 20:00 57 04/28/20 16:01 97.9 56 20 111/68 (82) 100 04/28/20 12:00 Nasal Cannula 4.0 04/28/20 12:00 97.5 59 18 122/68 (86) 100 Intake and Output 04/28/20 04/29/20 19:00 07:00 Intake Total 1122.416 ml 800 ml Output Total 410 ml 900 ml Balance 712.416 ml -100 ml IV Total 1122.416 ml 800 ml Output Urine Total 410 ml 900 ml Laboratory Tests 04/29/20 04:00: White Blood Count 5.6, Red Blood Count 2.77L, Hemoglobin 8.5L, Hematocrit 24.9L, Mean Corpuscular Volume 90, Mean Corpuscular Hemoglobin 30.8, Mean Corpuscular Hemoglobin Concent 34.3, Red Cell Distribution Width 16.4H, Platelet Count 98L, Mean Platelet Volume 6.7, Neutrophils (%) (Auto) , Lymphocytes (%) (Auto) , Monocytes (%) (Auto) , Eosinophils (%) (Auto) , Basophils (%) (Auto) , Differential Total Cells Counted 100, Neutrophils % (Manual) 71, Lymphocytes % (Manual) 11L, Monocytes % (Manual) 14H, Eosinophils % (Manual) 4H, Basophils % (Manual) 0, Band Neutrophils 0, Platelet Estimate DecreasedL, Platelet Morphology Normal, Hypochromasia 1+, Anisocytosis 1+, Sodium Level 142, Potassium Level 3.2L, Chloride Level 113H, Carbon Dioxide Level 20L, Anion Gap 9, Blood Urea Nitrogen 12, Creatinine 0.7, Estimat Glomerular Filtration Rate > 60, Glucose Level 94, Uric Acid 4.2, Calcium Level 7.6L, Phosphorus Level 2.6, Magnesium Level 1.4L, Total Bilirubin 0.8, Aspartate Amino Transf (AST/SGOT) 62H , Alanine Aminotransferase (ALT/SGPT) 27, Alkaline Phosphatase 62, C-Reactive Protein, Quantitative 2.6H, Total Protein 5.5L, Albumin 2.0L, Globulin 3.5, Albumin/Globulin Ratio 0.6L Height (Feet): 5 Height (Inches): 8.00 Weight (Pounds): 114 General Appearance: no apparent distress, lethargic EENT: other - On nasal cannula Cardiovascular: normal rate Respiratory/Chest: decreased breath sounds Abdomen: distended Dewayne Aldridge MD Apr 29, 2020 11:34
[2020-04-29] MEDS: D5NS 1,000 ML IV SCH ×3 (11:44→23:05)
[2020-04-29 12:00] VITALS: BP 129/73
--- NOTE | 2020-04-29 13:12 | Pulmonology Progress Note ---
Subjective ROS Limited/Unobtainable: Yes Interval Events: no major changes Constitutional: Reports: no symptoms HEENT: Repors: no symptoms Respiratory: Reports: no symptoms Cardiovascular: Reports: no symptoms Gastrointestinal/Abdominal: Reports: no symptoms Genitourinary: Reports: no symptoms Allergies: Coded Allergies: No Known Allergies (Unverified , 01/10/18) Objective Last 24 Hour Vital Signs Date Time Temp Pulse Resp B/P (MAP) Pulse Ox O2 Delivery O2 Flow Rate FiO2 04/29/20 08:00 97.6 57 20 122/69 (86) 100 04/29/20 08:00 53 04/29/20 04:00 53 04/29/20 04:00 97.5 58 20 119/65 (83) 100 04/29/20 00:00 55 04/29/20 00:00 97.5 62 20 121/68 (85) 100 04/28/20 21:00 Nasal Cannula 3.0 04/28/20 20:00 96.9 63 20 130/61 (84) 100 04/28/20 20:00 57 04/28/20 16:01 97.9 56 20 111/68 (82) 100 Intake and Output 04/28/20 04/29/20 19:00 07:00 Intake Total 1122.416 ml 800 ml Output Total 410 ml 900 ml Balance 712.416 ml -100 ml IV Total 1122.416 ml 800 ml Output Urine Total 410 ml 900 ml Objective 04/29/2020 pulse 53-57; pt laying in bed; NAD 04/28/2020 obtunded; bradycardia; Dr. Gomez aware General Appearance: no acute distress HEENT: other - on NC; enteric tube Respiratory: chest wall non-tender, decreased breath sounds Cardiovascular: normal peripheral pulses Abdomen: normal bowel sounds, distended Genitourinary: other - Rowe Extremities: no cyanosis Microbiology Date/Time Source Procedure Growth Status 04/26/20 16:00 Rectum - Final NO CARBAPENEM-RESISTANT ENTEROBACTERI... Complete 04/26/20 16:00 Rectum VRE Culture - Final Enterococcus Faecalis - Vre Complete 04/26/20 16:00 Nasal Nares MRSA Culture - Final Staphylococcus Aureus - Mrsa Complete 04/26/20 15:10 Nasopharynx Coronavirus COVID-19 PCR (IVETTE) - Final Complete 04/26/20 14:05 Nasal Nares - Final Complete 04/26/20 14:05 Nasal Nares - Final Complete 04/26/20 13:35 Blood Blood Culture - Final Staphylococcus Epidermidis Complete 04/26/20 13:20 Blood Blood Culture - Preliminary NO GROWTH AFTER 48 HOURS Resulted Laboratory Tests 04/29/20 04:00: White Blood Count 5.6, Red Blood Count 2.77L, Hemoglobin 8.5L, Hematocrit 24.9L, Mean Corpuscular Volume 90, Mean Corpuscular Hemoglobin 30.8, Mean Corpuscular Hemoglobin Concent 34.3, Red Cell Distribution Width 16.4H, Platelet Count 98L, Mean Platelet Volume 6.7, Neutrophils (%) (Auto) , Lymphocytes (%) (Auto) , Monocytes (%) (Auto) , Eosinophils (%) (Auto) , Basophils (%) (Auto) , Differential Total Cells Counted 100, Neutrophils % (Manual) 71, Lymphocytes % (Manual) 11L, Monocytes % (Manual) 14H, Eosinophils % (Manual) 4H, Basophils % (Manual) 0, Band Neutrophils 0, Platelet Estimate DecreasedL, Platelet Morphology Normal, Hypochromasia 1+, Anisocytosis 1+, Sodium Level 142, Potassium Level 3.2L, Chloride Level 113H, Carbon Dioxide Level 20L, Anion Gap 9, Blood Urea Nitrogen 12, Creatinine 0.7, Estimat Glomerular Filtration Rate > 60, Glucose Level 94, Uric Acid 4.2, Calcium Level 7.6L, Phosphorus Level 2.6, Magnesium Level 1.4L, Total Bilirubin 0.8, Aspartate Amino Transf (AST/SGOT) 62H , Alanine Aminotransferase (ALT/SGPT) 27, Alkaline Phosphatase 62, C-Reactive Protein, Quantitative 2.6H, Total Protein 5.5L, Albumin 2.0L, Globulin 3.5, Albumin/Globulin Ratio 0.6L Current Medications Medications (Trade) Dose Ordered Sig/Juwan Route PRN Reason Start Time Stop Time Status Last Admin Dose Admin Acetaminophen (Tylenol) 650 mg Q4H PRN ORAL Mild Pain (Pain Scale 1-3) 04/26/20 19:30 05/26/20 19:29 Acetaminophen (Tylenol) 650 mg Q4H PRN ORAL Temp >100.5 04/26/20 19:30 05/26/20 19:29 Aspirin (Ecotrin) 81 mg DAILY ORAL 04/27/20 09:00 06/11/20 08:59 04/29/20 11:34 Barium Sulfate (Varibar Honey) 250 ml NOW PRN MC RAD 04/26/20 20:15 04/29/20 20:07 Barium Sulfate (Varibar [place]) 240 ml NOW PRN MC RAD 04/26/20 20:15 04/29/20 20:07 Barium Sulfate (Varibar Pudding) 230 ml NOW PRN MC RAD 04/26/20 20:15 04/29/20 20:07 Barium Sulfate (Varibar Thin Liquid powder) 148 gm NOW PRN MC RAD 04/26/20 20:15 04/29/20 20:07 Cefepime HCl 1 gm/ Dextrose 55 ml @ 110 mls/hr EVERY 12 HOURS IVPB 04/27/20 10:30 05/04/20 10:29 04/29/20 11:33 Chlorhexidine Gluconate (Ese-Hex 2%) 1 applic DAILY@2000 TOPIC 04/26/20 20:00 07/25/20 19:59 04/28/20 21:40 Dextrose/Sodium Chloride 1,000 ml @ 100 mls/hr Q10H IV 04/26/20 19:30 05/26/20 19:29 04/29/20 11:44 Docusate Sodium (Colace) 250 mg DAILY ORAL 04/27/20 09:00 05/27/20 08:59 04/29/20 11:34 Lactulose (Cephulac) 20 gm THREE TIMES A DAY ORAL 04/29/20 13:00 05/29/20 12:59 Magnesium Sulfate 100 ml @ 100 mls/hr Q1H IVPB 04/29/20 10:00 04/29/20 13:59 04/29/20 12:54 Pantoprazole (Protonix) 40 mg EVERY 12 HOURS IVP 04/26/20 21:00 05/26/20 20:59 04/29/20 11:33 Sennosides (Senokot) 8.6 mg DAILY ORAL 04/27/20 09:00 05/27/20 08:59 04/29/20 11:34 Vancomycin HCl (Vanco pharmacy to dose) 1 ea DAILY PRN MISC Per rx protocol 04/27/20 10:00 05/27/20 09:59 Vancomycin HCl 1 gm/Dextrose 275 ml @ 183.708 mls/hr Q24H IVPB 04/27/20 14:00 05/02/20 13:59 04/28/20 13:39 Vitamin D (Vitamin D) 1,000 intlu DAILY ORAL 04/27/20 09:00 05/27/20 08:59 04/29/20 11:34 Assessment/Plan Assessment/Plan IMPRESSION: 1. Shock, likely septic. Off pressors now 2. Fever. 3. History of CVA. 4. CHF. 5. History of hep C. 6. Hypoxemia DISCUSSION: Continue broad-spectrum antibiotics. IV fluids. Pressors dc DVT and GI prophylaxes. Currently saturating well on low-flow oxygen. The care for this patient was discussed with my supervising physician. Seen and examined by Dr. Martinez as well. The history of Ansley Jack has been reviewed and management options for him have been examined and discussed by Joey Martinez. I have personally examined and interviewed the patient. Time spent for this care was approximately 31 minutes. Duran King Apr 29, 2020 13:12 Joey Martinez MD Apr 29, 2020 16:43
[2020-04-29] MEDS: Lactulose 20gm/30ml UDC ORAL SCH ×2 (13:30→18:13)
--- NOTE | 2020-04-29 14:13 | Infectious Diseases Prog Note ---
Assessment/Plan Assessment/Plan IMPRESSION: Sepsis with septic shock,resolving Dehydration, Lactic acidosis, Rhabdomyolysis, Acute renal failure. Cirrhosis and portal hypertension. Status post splenectomy, Hepatitis C. 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 We will follow up the cultures. Subjective ROS Limited/Unobtainable: Yes Constitutional: Reports: other - doing better , transferred out of ICU Gastrointestinal/Abdominal: Reports: other - removed his NG tube Allergies: Coded Allergies: No Known Allergies (Unverified , 01/10/18) Objective Last 24 Hour Vital Signs Date Time Temp Pulse Resp B/P (MAP) Pulse Ox O2 Delivery O2 Flow Rate FiO2 04/29/20 12:00 97.7 62 18 129/73 (91) 99 04/29/20 09:00 Nasal Cannula 3.0 04/29/20 08:00 97.6 57 20 122/69 (86) 100 04/29/20 08:00 53 04/29/20 04:00 53 04/29/20 04:00 97.5 58 20 119/65 (83) 100 04/29/20 00:00 55 04/29/20 00:00 97.5 62 20 121/68 (85) 100 04/28/20 21:00 Nasal Cannula 3.0 04/28/20 20:00 96.9 63 20 130/61 (84) 100 04/28/20 20:00 57 04/28/20 16:01 97.9 56 20 111/68 (82) 100 Height (Feet): 5 Height (Inches): 8.00 Weight (Pounds): 114 HEENT: mucous membranes moist Respiratory/Chest: lungs clear Cardiovascular: normal rate, other - RIJ central line Abdomen: soft, non tender Extremities: no edema Neurologic/Psychiatric: alert, responsive Microbiology Date/Time Source Procedure Growth Status 04/26/20 16:00 Rectum - Final NO CARBAPENEM-RESISTANT ENTEROBACTERI... Complete 04/26/20 16:00 Rectum VRE Culture - Final Enterococcus Faecalis - Vre Complete 04/26/20 16:00 Nasal Nares MRSA Culture - Final Staphylococcus Aureus - Mrsa Complete 04/26/20 15:10 Nasopharynx Coronavirus COVID-19 PCR (IVETTE) - Final Complete Laboratory Tests Test 04/29/20 04:00 12/6/20 14:00 White Blood Count 5.6 K/UL (4.8-10.8) Red Blood Count 2.77 M/UL (4.70-6.10) L Hemoglobin 8.5 G/DL (14.2-18.0) L Hematocrit 24.9 % (42.0-52.0) L Mean Corpuscular Volume 90 FL (80-99) Mean Corpuscular Hemoglobin 30.8 PG (27.0-31.0) Mean Corpuscular Hemoglobin Concent 34.3 G/DL (32.0-36.0) Red Cell Distribution Width 16.4 % (11.6-14.8) H Platelet Count 98 K/UL (150-450) L Mean Platelet Volume 6.7 FL (6.5-10.1) Neutrophils (%) (Auto) % (45.0-75.0) Lymphocytes (%) (Auto) % (20.0-45.0) Monocytes (%) (Auto) % (1.0-10.0) Eosinophils (%) (Auto) % (0.0-3.0) Basophils (%) (Auto) % (0.0-2.0) Differential Total Cells Counted 100 Neutrophils % (Manual) 71 % (45-75) Lymphocytes % (Manual) 11 % (20-45) L Monocytes % (Manual) 14 % (1-10) H Eosinophils % (Manual) 4 % (0-3) H Basophils % (Manual) 0 % (0-2) Band Neutrophils 0 % (0-8) Platelet Estimate Decreased L Platelet Morphology Normal Hypochromasia 1+ Anisocytosis 1+ Sodium Level 142 MMOL/L (136-145) Potassium Level 3.2 MMOL/L (3.5-5.1) L Chloride Level 113 MMOL/L (98-107) H Carbon Dioxide Level 20 MMOL/L (21-32) L Anion Gap 9 mmol/L (5-15) Blood Urea Nitrogen 12 mg/dL (7-18) Creatinine 0.7 MG/DL (0.55-1.30) Estimat Glomerular Filtration Rate > 60 mL/min (>60) Glucose Level 94 MG/DL (74-106) Uric Acid 4.2 MG/DL (2.6-7.2) Calcium Level 7.6 MG/DL (8.5-10.1) L Phosphorus Level 2.6 MG/DL (2.5-4.9) Magnesium Level 1.4 MG/DL (1.8-2.4) L Total Bilirubin 0.8 MG/DL (0.2-1.0) Aspartate Amino Transf (AST/SGOT) 62 U/L (15-37) H Alanine Aminotransferase (ALT/SGPT) 27 U/L (12-78) Alkaline Phosphatase 62 U/L (46-116) C-Reactive Protein, Quantitative 2.6 mg/dL (0.00-0.90) H Total Protein 5.5 G/DL (6.4-8.2) L Albumin 2.0 G/DL (3.4-5.0) L Globulin 3.5 g/dL Albumin/Globulin Ratio 0.6 (1.0-2.7) L Vancomycin Level Trough Pending Current Medications Medications (Trade) Dose Ordered Sig/Juwan Route PRN Reason Start Time Stop Time Status Last Admin Dose Admin Acetaminophen (Tylenol) 650 mg Q4H PRN ORAL Mild Pain (Pain Scale 1-3) 04/26/20 19:30 05/26/20 19:29 Acetaminophen (Tylenol) 650 mg Q4H PRN ORAL Temp >100.5 04/26/20 19:30 05/26/20 19:29 Aspirin (Ecotrin) 81 mg DAILY ORAL 04/27/20 09:00 06/11/20 08:59 04/29/20 11:34 Barium Sulfate (Varibar Honey) 250 ml NOW PRN MC RAD 04/26/20 20:15 04/29/20 20:07 Barium Sulfate (Varibar [place]) 240 ml NOW PRN MC RAD 04/26/20 20:15 04/29/20 20:07 Barium Sulfate (Varibar Pudding) 230 ml NOW PRN MC RAD 04/26/20 20:15 04/29/20 20:07 Barium Sulfate (Varibar Thin Liquid powder) 148 gm NOW PRN MC RAD 04/26/20 20:15 04/29/20 20:07 Cefepime HCl 1 gm/ Dextrose 55 ml @ 110 mls/hr EVERY 12 HOURS IVPB 04/27/20 10:30 05/04/20 10:29 04/29/20 11:33 Chlorhexidine Gluconate (Ese-Hex 2%) 1 applic DAILY@2000 TOPIC 04/26/20 20:00 07/25/20 19:59 04/28/20 21:40 Dextrose/Sodium Chloride 1,000 ml @ 100 mls/hr Q10H IV 04/26/20 19:30 05/26/20 19:29 04/29/20 11:44 Docusate Sodium (Colace) 250 mg DAILY ORAL 04/27/20 09:00 05/27/20 08:59 04/29/20 11:34 Lactulose (Cephulac) 20 gm THREE TIMES A DAY ORAL 04/29/20 13:00 05/29/20 12:59 04/29/20 13:30 Pantoprazole (Protonix) 40 mg EVERY 12 HOURS IVP 04/26/20 21:00 05/26/20 20:59 04/29/20 11:33 Sennosides (Senokot) 8.6 mg DAILY ORAL 04/27/20 09:00 05/27/20 08:59 04/29/20 11:34 Vancomycin HCl (Vanco pharmacy to dose) 1 ea DAILY PRN MISC Per rx protocol 04/27/20 10:00 05/27/20 09:59 Vancomycin HCl 1 gm/Dextrose 275 ml @ 183.708 mls/hr Q24H IVPB 04/27/20 14:00 05/02/20 13:59 04/28/20 13:39 Vitamin D (Vitamin D) 1,000 intlu DAILY ORAL 04/27/20 09:00 05/27/20 08:59 04/29/20 11:34 Jose G Zamarripa MD Apr 29, 2020 14:13
--- NOTE | 2020-04-29 14:20 | Diagnostic Imaging Report ---
US ABDOMEN HISTORY: Abdominal pain TECHNIQUE: Transabdominal ultrasound of the abdomen was performed. COMPARISON: Ultrasound of 15 June 2019 FINDINGS: Limited exam. Right pleural effusion demonstrated. Prominent common bile duct.. Liver appears echogenic. Pancreatic head measures 3.6 cm with echogenic appearance. Mildly prominent fluid-filled gallbladder demonstrated. Gallbladder wall measures 0.24 cm. Common bile duct measures 8.5 mm. Possible echogenic material in the pancreatic duct. Right kidney is not well seen. Normal portal venous flow. IMPRESSION: Limited exam. Possible echogenic material in the pancreatic duct. Consider follow-up with MRCP. Fatty changes of the liver with fluid-filled gallbladder. Right pleural effusion noted.
[2020-04-29 16:00] VITALS: BP 129/67
--- NOTE | 2020-04-29 18:40 | Diagnostic Imaging Report ---
FILM ABDOMEN HISTORY: Nasogastric tube TECHNIQUE: Single view abdomen COMPARISON: April 29, 2020 at 10:49 AM FINDINGS: Single view abdomen demonstrates nasogastric tube with tip in the distal stomach versus proximal duodenum. Biliary stent in place with right upper quadrant surgical clips. Patient appears rotated. Degenerative changes of the hips and spine and sacroiliac joints. Nonspecific bowel gas pattern with stool within the large bowel. No free air appreciated. Enlarged heart noted. IMPRESSION: Enteric tube with tip in the distal stomach versus proximal duodenum
[2020-04-29 20:00] VITALS: BP 130/70
--- NOTE | 2020-04-29 20:27 | Cardiac Electrophysiology PN ---
Assessment/Plan Assessment/Plan 1. S/P septic shock in this patient with lactic acid of 2.9 and white count of 11.5. Ruled out for COVID. Influenza is negative. On IV fluids Ruled out for myocardial infarction. EF 65%. 2. Fever and cough and respiratory failure on IV antibiotic per ID. 3. Anemia. Hemoglobin 9.5. 4. Renal failure with BUN of 35, creatinine of 1.5. 5. Rhabdomyolysis with CPK of 2700. 6. History of congestive heart failure with Nl EF 7. 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 8. Complete right bundle-branch block and history of bradycardia with heart rate in the 50s. Off any sinus or AV milad blocking agents. 9. Dysphagia, S/P NGT. Family refused PEG DW RN Subjective Subjective Being Ruled out for Covid. NGT was placed as family refused PEG Objective Last 24 Hour Vital Signs Date Time Temp Pulse Resp B/P (MAP) Pulse Ox O2 Delivery O2 Flow Rate FiO2 04/29/20 16:00 63 04/29/20 16:00 97.9 67 20 129/67 (87) 100 04/29/20 12:00 97.7 62 18 129/73 (91) 99 04/29/20 12:00 62 04/29/20 09:00 Nasal Cannula 3.0 04/29/20 08:00 97.6 57 20 122/69 (86) 100 04/29/20 08:00 53 04/29/20 04:00 53 04/29/20 04:00 97.5 58 20 119/65 (83) 100 04/29/20 00:00 55 04/29/20 00:00 97.5 62 20 121/68 (85) 100 04/28/20 21:00 Nasal Cannula 3.0 Intake and Output 04/28/20 04/29/20 19:00 07:00 Intake Total 1122.416 ml 800 ml Output Total 410 ml 900 ml Balance 712.416 ml -100 ml IV Total 1122.416 ml 800 ml Output Urine Total 410 ml 900 ml Laboratory Tests Test 04/29/20 04:00 04/29/20 14:00 White Blood Count 5.6 K/UL (4.8-10.8) Red Blood Count 2.77 M/UL (4.70-6.10) L Hemoglobin 8.5 G/DL (14.2-18.0) L Hematocrit 24.9 % (42.0-52.0) L Mean Corpuscular Volume 90 FL (80-99) Mean Corpuscular Hemoglobin 30.8 PG (27.0-31.0) Mean Corpuscular Hemoglobin Concent 34.3 G/DL (32.0-36.0) Red Cell Distribution Width 16.4 % (11.6-14.8) H Platelet Count 98 K/UL (150-450) L Mean Platelet Volume 6.7 FL (6.5-10.1) Neutrophils (%) (Auto) % (45.0-75.0) Lymphocytes (%) (Auto) % (20.0-45.0) Monocytes (%) (Auto) % (1.0-10.0) Eosinophils (%) (Auto) % (0.0-3.0) Basophils (%) (Auto) % (0.0-2.0) Differential Total Cells Counted 100 Neutrophils % (Manual) 71 % (45-75) Lymphocytes % (Manual) 11 % (20-45) L Monocytes % (Manual) 14 % (1-10) H Eosinophils % (Manual) 4 % (0-3) H Basophils % (Manual) 0 % (0-2) Band Neutrophils 0 % (0-8) Platelet Estimate Decreased L Platelet Morphology Normal Hypochromasia 1+ Anisocytosis 1+ Sodium Level 142 MMOL/L (136-145) Potassium Level 3.2 MMOL/L (3.5-5.1) L Chloride Level 113 MMOL/L (98-107) H Carbon Dioxide Level 20 MMOL/L (21-32) L Anion Gap 9 mmol/L (5-15) Blood Urea Nitrogen 12 mg/dL (7-18) Creatinine 0.7 MG/DL (0.55-1.30) Estimat Glomerular Filtration Rate > 60 mL/min (>60) Glucose Level 94 MG/DL (74-106) Uric Acid 4.2 MG/DL (2.6-7.2) Calcium Level 7.6 MG/DL (8.5-10.1) L Phosphorus Level 2.6 MG/DL (2.5-4.9) Magnesium Level 1.4 MG/DL (1.8-2.4) L Total Bilirubin 0.8 MG/DL (0.2-1.0) Aspartate Amino Transf (AST/SGOT) 62 U/L (15-37) H Alanine Aminotransferase (ALT/SGPT) 27 U/L (12-78) Alkaline Phosphatase 62 U/L (46-116) C-Reactive Protein, Quantitative 2.6 mg/dL (0.00-0.90) H Total Protein 5.5 G/DL (6.4-8.2) L Albumin 2.0 G/DL (3.4-5.0) L Globulin 3.5 g/dL Albumin/Globulin Ratio 0.6 (1.0-2.7) L Vancomycin Level Trough 7.0 ug/mL (5.0-12.0) Objective HEAD AND NECK: Shows no JVD. NGT LUNGS: Coarse rhonchi. CARDIOVASCULAR: Shows regular S1 and S2 with no gallop or murmur. ABDOMEN: Soft. EXTREMITIES: No pitting edema. John Gomez MD Apr 29, 2020 20:27
--- NOTE | 2020-04-29 21:28 | General Progress Note ---
Subjective ROS Limited/Unobtainable: Yes Allergies: Coded Allergies: No Known Allergies (Unverified , 01/10/18) Objective Last 24 Hour Vital Signs Date Time Temp Pulse Resp B/P (MAP) Pulse Ox O2 Delivery O2 Flow Rate FiO2 04/29/20 16:00 63 04/29/20 16:00 97.9 67 20 129/67 (87) 100 04/29/20 12:00 97.7 62 18 129/73 (91) 99 04/29/20 12:00 62 04/29/20 09:00 Nasal Cannula 3.0 04/29/20 08:00 97.6 57 20 122/69 (86) 100 04/29/20 08:00 53 04/29/20 04:00 53 04/29/20 04:00 97.5 58 20 119/65 (83) 100 04/29/20 00:00 55 04/29/20 00:00 97.5 62 20 121/68 (85) 100 Intake and Output 04/28/20 04/29/20 19:00 07:00 Intake Total 1122.416 ml 800 ml Output Total 410 ml 900 ml Balance 712.416 ml -100 ml IV Total 1122.416 ml 800 ml Output Urine Total 410 ml 900 ml Laboratory Tests 04/29/20 04:00: White Blood Count 5.6, Red Blood Count 2.77L, Hemoglobin 8.5L, Hematocrit 24.9L, Mean Corpuscular Volume 90, Mean Corpuscular Hemoglobin 30.8, Mean Corpuscular Hemoglobin Concent 34.3, Red Cell Distribution Width 16.4H, Platelet Count 98L, Mean Platelet Volume 6.7, Neutrophils (%) (Auto) , Lymphocytes (%) (Auto) , Monocytes (%) (Auto) , Eosinophils (%) (Auto) , Basophils (%) (Auto) , Differe ntial Total Cells Counted 100, Neutrophils % (Manual) 71, Lymphocytes % (Manual) 11L, Monocytes % (Manual) 14H, Eosinophils % (Manual) 4H, Basophils % (Manual) 0, Band Neutrophils 0, Platelet Estimate DecreasedL, Platelet Morphology Normal, Hypochromasia 1+, Anisocytosis 1+, Sodium Level 142, Potassium Level 3.2L, Chloride Level 113H, Carbon Dioxide Level 20L, Anion Gap 9, Blood Urea Nitrogen 12, Creatinine 0.7, Estimat Glomerular Filtration Rate > 60, Glucose Level 94, Uric Acid 4.2, Calcium Level 7.6L, Phosphorus Level 2.6, Magnesium Level 1.4L, Total Bilirubin 0.8, Aspartate Amino Transf (AST/SGOT) 62H, Alanine Aminotransferase (ALT/SGPT) 27, Alkaline Phosphatase 62, C-Reactive Protein, Quantitative 2.6H, Total Protein 5.5L, Albumin 2.0L, Globulin 3.5, Albumin/Globulin Ratio 0.6L 04/29/20 14:00: Vancomycin Level Trough 7.0 Height (Feet): 5 Height (Inches): 8.00 Weight (Pounds): 114 Assessment/Plan Problem List: (1) Encephalopathy ICD Codes: G93.40 - Encephalopathy, unspecified SNOMED: 47337059 (2) Fever ICD Codes: R50.9 - Fever, unspecified SNOMED: 163816594 (3) Dehydration ICD Codes: E86.0 - Dehydration SNOMED: 91327589 (4) Septic shock ICD Codes: A41.9 - Sepsis, unspecified organism; R65.21 - Severe sepsis with septic shock SNOMED: 34788978 (5) Electrolyte imbalance ICD Codes: E87.8 - Other disorders of electrolyte and fluid balance, not elsewhere classified SNOMED: 745562627 (6) HTN (hypertension) ICD Codes: I10 - Essential (primary) hypertension SNOMED: 23734571 (7) ARIS (acute kidney injury) ICD Codes: N17.9 - Acute kidney failure, unspecified SNOMED: 4454703, 35412862 Status: progressing Assessment/Plan: pna check lytes supportive rx poor prognosis arf s/p septic dona amelia Deysi He MD Apr 29, 2020 21:28
[2020-04-29] MEDS: Dyna-Hex 2% Top Sol 2oz TOPIC SCH (23:04)
[2020-04-30] VITALS: BP 145/76
[2020-04-30 04:00] VITALS: BP 127/72
[2020-04-30 07:48] LABS: ALANINE AMINOTRANSFERASE 31 U/L (12-78); ALBUMIN 2.1 G/DL (3.4-5.0); ALBUMIN/GLOBULIN RATIO 0.6 (1.0-2.7); ALKALINE PHOSPHATASE 75 U/L (46-116); ANION GAP 6 mmol/L (5-15); ASPARTATE AMINO TRANSFERASE 49 U/L (15-37); BILIRUBIN,TOTAL 0.6 MG/DL (0.2-1.0); BLOOD UREA NITROGEN 10 mg/dL (7-18); CALCIUM 7.5 MG/DL (8.5-10.1); CARBON DIOXIDE 23 MMOL/L (21-32); CHLORIDE 111 MMOL/L (98-107); CREATININE 0.6 MG/DL (0.55-1.30); POTASSIUM 3.3 MMOL/L (3.5-5.1); SODIUM 140 MMOL/L (136-145)
[2020-04-30 07:56] LABS: EOSINOPHILS % (AUTO) 6.7 % (0.0-3.0); HEMATOCRIT 26.8 % (42.0-52.0); HEMOGLOBIN 9.2 G/DL (14.2-18.0); LYMPHOCYTES % (AUTO) 15.8 % (20.0-45.0); MEAN CORPUSCULAR VOLUME 89 FL (80-99); MONOCYTES % (AUTO) 10.7 % (1.0-10.0); NEUTROPHILS % (AUTO) 65.8 % (45.0-75.0); PLATELET COUNT 102 K/UL (150-450); RED BLOOD COUNT 3.01 M/UL (4.70-6.10); RED CELL DISTRIBUTION WIDTH 16.4 % (11.6-14.8); WHITE BLOOD COUNT 6.4 K/UL (4.8-10.8)
[2020-04-30 08:00] VITALS: BP 136/78
[2020-04-30] MEDS ORDERED: D5NS 1000ml IV ONE (08:31)
--- NOTE | 2020-04-30 08:34 | General Progress Note ---
Subjective ROS Limited/Unobtainable: No Allergies: Coded Allergies: No Known Allergies (Unverified , 01/10/18) Objective Last 24 Hour Vital Signs Date Time Temp Pulse Resp B/P (MAP) Pulse Ox O2 Delivery O2 Flow Rate FiO2 04/30/20 04:00 96.3 63 18 127/72 (90) 100 04/30/20 04:00 62 04/30/20 00:00 96.2 66 18 145/76 (99) 99 04/30/20 00:00 60 04/29/20 21:00 Room Air 04/29/20 20:00 96.0 66 18 130/70 (90) 98 04/29/20 20:00 63 04/29/20 16:00 63 04/29/20 16:00 97.9 67 20 129/67 (87) 100 04/29/20 12:00 97.7 62 18 129/73 (91) 99 04/29/20 12:00 62 04/29/20 09:00 Nasal Cannula 3.0 l Intake and Output 04/29/20 04/30/20 19:00 07:00 Intake Total 1100 ml Output Total 650 ml Balance -650 ml 1100 ml IV Total 1100 ml Output Urine Total 650 ml Laboratory Tests 04/29/20 14:00: Vancomycin Level Trough 7.0 04/30/20 06:15: White Blood Count 6.4, Red Blood Count 3.01L, Hemoglobin 9.2L, Hematocrit 26.8L, Mean Corpuscular Volume 89, Mean Corpuscular Hemoglobin 30.8, Mean Corpuscular Hemoglobin Concent 34.5, Red Cell Distribution Width 16.4H, Platelet Count 102L, Mean Platelet Volume 7.0, Neutrophils (%) (Auto) 65.8, Lymphocytes (%) (Auto) 15.8L, Monocytes (%) (Auto) 10.7H, Eosinophils (%) (Auto) 6.7H, Basophils (%) (Auto) 1.0, Sodium Level 140, Potassium Level 3.3L, Chloride Level 111H, Carbon Dioxide Level 23, Anion Gap 6, Blood Urea Nitrogen 10, Creatinine 0.6, Estimat Glomerular Filtration Rate > 60, Glucose Level 115H, Calcium Level 7.5L, Total Bilirubin 0.6, Aspartate Amino Transf (AST/SGOT) 49H, Alanine Aminotransferase (ALT/SGPT) 31, Alkaline Phosphatase 75, Ammonia [Pending], Total Protein 5.8L, Albumin 2.1L, Globulin 3.7, Albumin/Globulin Ratio 0.6L, Hepatitis A IgM Antibod y [Pending], Hepatitis B Surface Antigen [Pending], Hepatitis B Core IgM Antibody [Pending], Hepatitis C Antibody [Pending] Height (Feet): 5 Height (Inches): 8.00 Weight (Pounds): 114 General Appearance: no apparent distress EENT: normal ENT inspection Neck: normal alignment Cardiovascular: normal rate Respiratory/Chest: decreased breath sounds Abdomen: normal bowel sounds, non tender, soft Extremities: non-tender Assessment/Plan Status: progressing Assessment/Plan: 1. History of CVA. 2. Schizophrenia. 3. Anemia. 4. Hepatitis C. 5. Dysphagia. 6. Hepatic encephalopathy. NGTF swallow eval for today fu ammonia level fu abd us Gideon Ramirez MD Apr 30, 2020 08:33
[2020-04-30] MEDS ORDERED: Varibar Nectar 240ml MC PRN (08:45)
[2020-04-30] MEDS ORDERED: Varibar Pudding 230ml MC PRN (08:45)
[2020-04-30] MEDS ORDERED: Varibar Honey 250ml MC PRN (08:45)
[2020-04-30] MEDS ORDERED: Varibar Thin Liquid powder 148gm MC PRN (08:45)
--- NOTE | 2020-04-30 09:24 | Cardiac Electrophysiology PN ---
Assessment/Plan Assessment/Plan 1. S/P septic shock in this patient with lactic acid of 2.9 and white count of 11.5. Ruled out for COVID. Influenza is negative. On IV fluids. Ruled out for myocardial infarction. EF 65%. 2. Fever and cough and respiratory failure on IV antibiotic per ID. 3. Anemia. Hemoglobin 9.5. 4. Renal failure with BUN of 35, creatinine of 1.5. 5. Rhabdomyolysis with CPK of 2700. 6. History of congestive heart failure with Nl EF 7. 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 8. Complete right bundle-branch block and history of bradycardia with heart rate in the 50s. Off any sinus or AV milad blocking agents. 9. Dysphagia, S/P NGT. Family refused PEG DW RN Subjective Subjective On Abx. Being Ruled out for Covid. NGT was placed as family refused PEG. In res traints off O2 Objective Last 24 Hour Vital Signs Date Time Temp Pulse Resp B/P (MAP) Pulse Ox O2 Delivery O2 Flow Rate FiO2 04/30/20 04:00 96.3 63 18 127/72 (90) 100 04/30/20 04:00 62 04/30/20 00:00 96.2 66 18 145/76 (99) 99 04/30/20 00:00 60 04/29/20 21:00 Room Air 04/29/20 20:00 96.0 66 18 130/70 (90) 98 04/29/20 20:00 63 04/29/20 16:00 63 04/29/20 16:00 97.9 67 20 129/67 (87) 100 04/29/20 12:00 97.7 62 18 129/73 (91) 99 04/29/20 12:00 62 Intake and Output 04/29/20 04/30/20 19:00 07:00 Intake Total 1100 ml Output Total 650 ml Balance -650 ml 1100 ml IV Total 1100 ml Output Urine Total 650 ml Laboratory Tests Test 04/29/20 14:00 04/30/20 06:15 04/30/20 08:50 Vancomycin Level Trough 7.0 ug/mL (5.0-12.0) White Blood Count 6.4 K/UL (4.8-10.8) Red Blood Count 3.01 M/UL (4.70-6.10) L Hemoglobin 9.2 G/DL (14.2-18.0) L Hematocrit 26.8 % (42.0-52.0) L Mean Corpuscular Volume 89 FL (80-99) Mean Corpuscular Hemoglobin 30.8 PG (27.0-31.0) Mean Corpuscular Hemoglobin Concent 34.5 G/DL (32.0-36.0) Red Cell Distribution Width 16.4 % (11.6-14.8) H Platelet Count 102 K/UL (150-450) L Mean Platelet Volume 7.0 FL (6.5-10.1) Neutrophils (%) (Auto) 65.8 % (45.0-75.0) Lymphocytes (%) (Auto) 15.8 % (20.0-45.0) L Monocytes (%) (Auto) 10.7 % (1.0-10.0) H Eosinophils (%) (Auto) 6.7 % (0.0-3.0) H Basophils (%) (Auto) 1.0 % (0.0-2.0) Sodium Level 140 MMOL/L (136-145) Potassium Level 3.3 MMOL/L (3.5-5.1) L Chloride Level 111 MMOL/L (98-107) H Carbon Dioxide Level 23 MMOL/L (21-32) Anion Gap 6 mmol/L (5-15) Blood Urea Nitrogen 10 mg/dL (7-18) Creatinine 0.6 MG/DL (0.55-1.30) Estimat Glomerular Filtration Rate > 60 mL/min (>60) Glucose Level 115 MG/DL (74-106) H Calcium Level 7.5 MG/DL (8.5-10.1) L Total Bilirubin 0.6 MG/DL (0.2-1.0) Aspartate Amino Transf (AST/SGOT) 49 U/L (15-37) H Alanine Aminotransferase (ALT/SGPT) 31 U/L (12-78) Alkaline Phosphatase 75 U/L (46-116) Total Protein 5.8 G/DL (6.4-8.2) L Albumin 2.1 G/DL (3.4-5.0) L Globulin 3.7 g/dL Albumin/Globulin Ratio 0.6 (1.0-2.7) L Hepatitis A IgM Antibody Pending Hepatitis B Surface Antigen Pending Hepatitis B Core IgM Antibody Pending Hepatitis C Antibody Pending Ammonia Pending Objective HEAD AND NECK: Shows no JVD. NGT LUNGS: Coarse rhonchi. CARDIOVASCULAR: Shows regular S1 and S2 with no gallop or murmur. ABDOMEN: Soft. EXTREMITIES: No pitting edema. John Gomez MD Apr 30, 2020 09:24
[2020-04-30] MEDS: Aspirin EC 81mg tab ORAL SCH (09:38)
[2020-04-30] MEDS: Sennosides 8.6mg tab ORAL SCH (09:38)
[2020-04-30] MEDS: Vitamin D 1000 IU Tab ORAL SCH (09:38)
[2020-04-30] MEDS: Lactulose 20gm/30ml UDC ORAL SCH ×3 (09:38→17:31)
[2020-04-30] MEDS: Pantoprazole Inj IVP SCH ×2 (09:40→20:38)
[2020-04-30] MEDS: Cefepime HCl 1 GM in D5W 55 ML IVPB SCH ×2 (09:40→20:39)
[2020-04-30] MEDS: Docusate 250mg cap ORAL SCH (09:43)
--- NOTE | 2020-04-30 11:29 | Infectious Diseases Prog Note ---
Assessment/Plan Assessment/Plan IMPRESSION: Sepsis with septic shock,resolving Dehydration, Lactic acidosis, Rhabdomyolysis, Acute renal failure. Cirrhosis and portal hypertension. Status post splenectomy, Hepatitis C. 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 Subjective ROS Limited/Unobtainable: Yes Neurologic: Reports: confusion, other - on restraint Allergies: Coded Allergies: No Known Allergies (Unverified , 01/10/18) Objective Last 24 Hour Vital Signs Date Time Temp Pulse Resp B/P (MAP) Pulse Ox O2 Delivery O2 Flow Rate FiO2 04/30/20 04:00 96.3 63 18 127/72 (90) 100 04/30/20 04:00 62 04/30/20 00:00 96.2 66 18 145/76 (99) 99 04/30/20 00:00 60 04/29/20 21:00 Room Air 04/29/20 20:00 96.0 66 18 130/70 (90) 98 04/29/20 20:00 63 04/29/20 16:00 63 04/29/20 16:00 97.9 67 20 129/67 (87) 100 04/29/20 12:00 97.7 62 18 129/73 (91) 99 04/29/20 12:00 62 Height (Feet): 5 Height (Inches): 8.00 Weight (Pounds): 114 HEENT: mucous membranes moist Respiratory/Chest: lungs clear Cardiovascular: normal rate Abdomen: soft, non tender, other - NG tube feeding Extremities: other - edema Neurologic/Psychiatric: other - sleeping Laboratory Tests Test 04/29/20 14:00 04/30/20 06:15 04/30/20 08:50 Vancomycin Level Trough 7.0 ug/mL (5.0-12.0) White Blood Count 6.4 K/UL (4.8-10.8) Red Blood Count 3.01 M/UL (4.70-6.10) L Hemoglobin 9.2 G/DL (14.2-18.0) L Hematocrit 26.8 % (42.0-52.0) L Mean Corpuscular Volume 89 FL (80-99) Mean Corpuscular Hemoglobin 30.8 PG (27.0-31.0) Mean Corpuscular Hemoglobin Concent 34.5 G/DL (32.0-36.0) Red Cell Distribution Width 16.4 % (11.6-14.8) H Platelet Count 102 K/UL (150-450) L Mean Platelet Volume 7.0 FL (6.5-10.1) Neutrophils (%) (Auto) 65.8 % (45.0-75.0) Lymphocytes (%) (Auto) 15.8 % (20.0-45.0) L Monocytes (%) (Auto) 10.7 % (1.0-10.0) H Eosinophils (%) (Auto) 6.7 % (0.0-3.0) H Basophils (%) (Auto) 1.0 % (0.0-2.0) Sodium Level 140 MMOL/L (136-145) Potassium Level 3.3 MMOL/L (3.5-5.1) L Chloride Level 111 MMOL/L (98-107) H Carbon Dioxide Level 23 MMOL/L (21-32) Anion Gap 6 mmol/L (5-15) Blood Urea Nitrogen 10 mg/dL (7-18) Creatinine 0.6 MG/DL (0.55-1.30) Estimat Glomerular Filtration Rate > 60 mL/min (>60) Glucose Level 115 MG/DL (74-106) H Calcium Level 7.5 MG/DL (8.5-10.1) L Phosphorus Level 2.6 MG/DL (2.5-4.9) Magnesium Level 1.8 MG/DL (1.8-2.4) Total Bilirubin 0.6 MG/DL (0.2-1.0) Aspartate Amino Transf (AST/SGOT) 49 U/L (15-37) H Alanine Aminotransferase (ALT/SGPT) 31 U/L (12-78) Alkaline Phosphatase 75 U/L (46-116) Total Protein 5.8 G/DL (6.4-8.2) L Albumin 2.1 G/DL (3.4-5.0) L Globulin 3.7 g/dL Albumin/Globulin Ratio 0.6 (1.0-2.7) L Hepatitis A IgM Antibody Pending Hepatitis B Surface Antigen Pending Hepatitis B Core IgM Antibody Pending Hepatitis C Antibody Pending Ammonia 75 umol/L (11-32) H Current Medications Medications (Trade) Dose Ordered Sig/[place] Route PRN Reason Start Time Stop Time Status Last Admin Dose Admin Acetaminophen (Tylenol) 650 mg Q4H PRN ORAL Mild Pain (Pain Scale 1-3) 04/26/20 19:30 05/26/20 19:29 Acetaminophen (Tylenol) 650 mg Q4H PRN ORAL Temp >100.5 04/26/20 19:30 05/26/20 19:29 Aspirin (Ecotrin) 81 mg DAILY ORAL 04/27/20 09:00 06/11/20 08:59 04/30/20 09:38 Barium Sulfate (Varibar Honey) 250 ml NOW PRN RAD 04/30/20 08:45 05/03/20 08:42 Barium Sulfate (Varibar [place]) 240 ml NOW PRN RAD 04/30/20 08:45 05/03/20 08:42 Barium Sulfate (Varibar Pudding) 230 ml NOW PRN RAD 04/30/20 08:45 05/03/20 08:42 Barium Sulfate (Varibar Thin Liquid powder) 148 gm NOW PRN RAD 04/30/20 08:45 05/03/20 08:42 Cefepime HCl 1 gm/ Dextrose 55 ml @ 110 mls/hr EVERY 12 HOURS IVPB 04/27/20 10:30 05/04/20 10:29 04/30/20 09:40 Chlorhexidine Gluconate (Ese-Hex 2%) 1 applic DAILY@2000 TOPIC 04/26/20 20:00 07/25/20 19:59 04/29/20 23:04 Dextrose/Sodium Chloride 1,000 ml @ 100 mls/hr Q10H IV 04/26/20 19:30 05/26/20 19:29 04/29/20 23:05 Docusate Sodium (Colace) 250 mg DAILY ORAL 04/27/20 09:00 05/27/20 08:59 04/30/20 09:43 Lactulose (Cephulac) 20 gm THREE TIMES A DAY ORAL 04/29/20 13:00 05/29/20 12:59 04/30/20 09:38 Pantoprazole (Protonix) 40 mg EVERY 12 HOURS IVP 04/26/20 21:00 05/26/20 20:59 04/30/20 09:40 Sennosides (Senokot) 8.6 mg DAILY ORAL 04/27/20 09:00 05/27/20 08:59 04/30/20 09:38 Vitamin D (Vitamin D) 1,000 intlu DAILY ORAL 04/27/20 09:00 05/27/20 08:59 04/30/20 09:38 Jose G Zamarripa MD Apr 30, 2020 11:29
[2020-04-30 12:00] VITALS: BP 139/77
[2020-04-30] MEDS: D5NS 1,000 ML IV SCH ×2 (12:45→23:46)
--- NOTE | 2020-04-30 14:03 | Nephrology Progress Note ---
Assessment/Plan Problem List: (1) ARIS (acute kidney injury) (2) Septic shock (3) Dehydration (4) Electrolyte imbalance (5) Encephalopathy Assessment Acute renal failure Dehydration Anemia Sepsis, shock UTI Toxic metabolic encephalopathy Hypoalbuminemia, malnutrition with BMI of 17.3 Elevated CPK, rhabdo Plan April 30: Labs were reviewed. Abnormal electrolyte addressed. Stable from renal standpoint of view. April 29: Patient now in telemetry. Labs reviewed. Abnormal electrolytes addressed. Continue per consultants. April 28: Seen in ICU. Discussed with RN. No labs drawn today. Will check labs tomorrow. Continue per consultants. April 27: Patient seen in ICU. Discussed with RN. Labs reviewed. Stable from renal standpoint of view. Ammonia is elevated. Continue per consultants. April 26: N.p.o. Hydrate Pressors [place] Accurate intake and output Avoid nephrotoxic's Monitor renal parameters Per orders Per consultants Subjective ROS Limited/Unobtainable: No Constitutional: Reports: malaise Objective Objective Last 24 Hour Vital Signs Date Time Temp Pulse Resp B/P (MAP) Pulse Ox O2 Delivery O2 Flow Rate FiO2 04/30/20 12:00 81 04/30/20 12:00 96.2 78 18 139/77 (97) 97 04/30/20 09:00 Room Air 04/30/20 08:00 96.6 67 20 136/78 (97) 98 04/30/20 08:00 70 04/30/20 04:00 96.3 63 18 127/72 (90) 100 04/30/20 04:00 62 04/30/20 00:00 96.2 66 18 145/76 (99) 99 04/30/20 00:00 60 04/29/20 21:00 Room Air 04/29/20 20:00 96.0 66 18 130/70 (90) 98 04/29/20 20:00 63 04/29/20 16:00 63 04/29/20 16:00 97.9 67 20 129/67 (87) 100 Intake and Output 04/29/20 04/30/20 19:00 07:00 Intake Total 1100 ml Output Total 650 ml Balance -650 ml 1100 ml IV Total 1100 ml Output Urine Total 650 ml Current Medications Medications (Trade) Dose Ordered Sig/[place] Route PRN Reason Start Time Stop Time Status Last Admin Dose Admin Acetaminophen (Tylenol) 650 mg Q4H PRN ORAL Mild Pain (Pain Scale 1-3) 04/26/20 19:30 05/26/20 19:29 Acetaminophen (Tylenol) 650 mg Q4H PRN ORAL Temp >100.5 04/26/20 19:30 05/26/20 19:29 Aspirin (Ecotrin) 81 mg DAILY ORAL 04/27/20 09:00 06/11/20 08:59 04/30/20 09:38 Barium Sulfate (Varibar Honey) 250 ml NOW PRN MC RAD 04/30/20 08:45 05/03/20 08:42 Barium Sulfate (Varibar [place]) 240 ml NOW PRN MC RAD 04/30/20 08:45 05/03/20 08:42 Barium Sulfate (Varibar Pudding) 230 ml NOW PRN MC RAD 04/30/20 08:45 05/03/20 08:42 Barium Sulfate (Varibar Thin Liquid powder) 148 gm NOW PRN RAD 04/30/20 08:45 05/03/20 08:42 Cefepime HCl 1 gm/ Dextrose 55 ml @ 110 mls/hr EVERY 12 HOURS IVPB 04/27/20 10:30 05/04/20 10:29 04/30/20 09:40 Chlorhexidine Gluconate (Ese-Hex 2%) 1 applic DAILY@2000 TOPIC 04/26/20 20:00 07/25/20 19:59 04/29/20 23:04 Dextrose/Sodium Chloride 1,000 ml @ 100 mls/hr Q10H IV 04/26/20 19:30 05/26/20 19:29 04/30/20 12:45 Docusate Sodium (Colace) 250 mg DAILY ORAL 04/27/20 09:00 05/27/20 08:59 04/30/20 09:43 Lactulose (Cephulac) 20 gm THREE TIMES A DAY ORAL 04/29/20 13:00 05/29/20 12:59 04/30/20 12:44 Pantoprazole (Protonix) 40 mg EVERY 12 HOURS IVP 04/26/20 21:00 05/26/20 20:59 04/30/20 09:40 Sennosides (Senokot) 8.6 mg DAILY ORAL 04/27/20 09:00 05/27/20 08:59 04/30/20 09:38 Vitamin D (Vitamin D) 1,000 intlu DAILY ORAL 04/27/20 09:00 05/27/20 08:59 04/30/20 09:38 Laboratory Tests 04/30/20 06:15: White Blood Count 6.4, Red Blood Count 3.01L, Hemoglobin 9.2L, Hematocrit 26.8L, Mean Corpuscular Volume 89, Mean Corpuscular Hemoglobin 30.8, Mean Corpuscular Hemoglobin Concent 34.5, Red Cell Distribution Width 16.4H, Platelet Count 102L, Mean Platelet Volume 7.0, Neutrophils (%) (Auto) 65.8, Lymphocytes (%) (Auto) 15.8L, Monocytes (%) (Auto) 10.7H, Eosinophils (%) (Auto) 6.7H, Basophils (%) (Auto) 1.0, Sodium Level 140, Potassium Level 3.3L, Chloride Level 111H, Carbon Dioxide Level 23, Anion Gap 6, Blood Urea Nitrogen 10, Creatinine 0.6, Estimat Glomerular Filtration Rate > 60, Glucose Level 115H, Calcium Level 7.5L, Phosphorus Level 2.6, Magnesium Level 1.8, Total Bilirubin 0.6, Aspartate Amino Transf (AST/SGOT) 49H, Alanine Aminotransferase (ALT/SGPT) 31, Alkaline Phosphatase 75, Total Protein 5.8L, Albumin 2.1L, Globulin 3.7, Albumin/Globulin Ratio 0.6L, Hepatitis A IgM Antibody [Pending], Hepatitis B Surface Antigen [ Pending], Hepatitis B Core IgM Antibody [Pending], Hepatitis C Antibody [Pending] 04/30/20 08:50: Ammonia 75H Height (Feet): 5 Height (Inches): 8.00 Weight (Pounds): 114 General Appearance: no apparent distress, lethargic EENT: other - NG tube in place Cardiovascular: normal rate Respiratory/Chest: decreased breath sounds Abdomen: distended Dewayne Aldridge MD Apr 30, 2020 14:03
[2020-04-30 16:00] VITALS: BP 130/84
--- NOTE | 2020-04-30 16:40 | Pulmonology Progress Note ---
Subjective ROS Limited/Unobtainable: Yes Interval Events: no major changes Constitutional: Reports: no symptoms HEENT: Repors: no symptoms Respiratory: Reports: no symptoms Cardiovascular: Reports: no symptoms Gastrointestinal/Abdominal: Reports: no symptoms Genitourinary: Reports: no symptoms Allergies: Coded Allergies: No Known Allergies (Unverified , 01/10/18) Objective Last 24 Hour Vital Signs Date Time Temp Pulse Resp B/P (MAP) Pulse Ox O2 Delivery O2 Flow Rate FiO2 04/30/20 16:00 97.4 100 20 130/84 (99) 96 04/30/20 12:00 81 04/30/20 12:00 96.2 78 18 139/77 (97) 97 04/30/20 09:00 Room Air 04/30/20 08:00 96.6 67 20 136/78 (97) 98 04/30/20 08:00 70 04/30/20 04:00 96.3 63 18 127/72 (90) 100 04/30/20 04:00 62 04/30/20 00:00 96.2 66 18 145/76 (99) 99 04/30/20 00:00 60 04/29/20 21:00 Room Air 04/29/20 20:00 96.0 66 18 130/70 (90) 98 04/29/20 20:00 63 Intake and Output 04/29/20 04/30/20 18:59 06:59 Intake Total 1100 ml Output Total 650 ml Balance -650 ml 1100 ml IV Total 1100 ml Output Urine Total 650 ml Objective 04/30/2020 pt laying in bed watching tv; normal work of breathing on RA 04/29/2020 pulse 53-57; pt laying in bed; NAD 04/28/2020 obtunded; bradycardia; Dr. Gomez aware General Appearance: no acute distress HEENT: other - NG tube Respiratory: chest wall non-tender, decreased breath sounds Cardiovascular: normal peripheral pulses Abdomen: normal bowel sounds, distended Genitourinary: other - Rowe Extremities: no cyanosis Laboratory Tests 04/30/20 06:15: White Blood Count 6.4, Red Blood Count 3.01L, Hemoglobin 9.2L, Hematocrit 26.8L, Mean Corpuscular Volume 89, Mean Corpuscular Hemoglobin 30.8, Mean Corpuscular Hemoglobin Concent 34.5, Red Cell Distribution Width 16.4H, Platelet Count 102L, Mean Platelet Volume 7.0, Neutrophils (%) (Auto) 65.8, Lymphocytes (%) (Auto) 15.8L, Monocytes (%) (Auto) 10.7H, Eosinophils (%) (Auto) 6.7H, Basophils (%) (Auto) 1.0, Sodium Level 140, Potassium Level 3.3L, Chloride Level 111H, Carbon Dioxide Level 23, Anion Gap 6, Blood Urea Nitrogen 10, Creatinine 0.6, Estimat Glomerular Filtration Rate > 60, Glucose Level 115H, Calcium Level 7.5L, Phosphorus Level 2.6, Magnesium Level 1.8, Total Bilirubin 0.6, Aspartate Amino Transf (AST/SGOT) 49H, Alanine Aminotransferase (ALT/SGPT) 31, Alkaline Phosphatase 75, Total Protein 5.8L, Albumin 2.1L, Globulin 3.7, Albumin/Globulin Ratio 0.6L, Hepatitis A IgM Antibody [Pending], Hepatitis B Surface Antigen [Pending], Hepatitis B Core IgM Antibody [Pending], Hepatitis C Antibody [Pending] 04/30/20 08:50: Ammonia 75H Current Medications Medications (Trade) Dose Ordered Sig/Juwan Route PRN Reason Start Time Stop Time Status Last Admin Dose Admin Acetaminophen (Tylenol) 650 mg Q4H PRN ORAL Mild Pain (Pain Scale 1-3) 04/26/20 19:30 05/26/20 19:29 Acetaminophen (Tylenol) 650 mg Q4H PRN ORAL Temp >100.5 04/26/20 19:30 05/26/20 19:29 Aspirin (Ecotrin) 81 mg DAILY ORAL 04/27/20 09:00 06/11/20 08:59 04/30/20 09:38 Barium Sulfate (Varibar Honey) 250 ml NOW PRN MC RAD 04/30/20 08:45 05/03/20 08:42 Barium Sulfate (Varibar [place]) 240 ml NOW PRN MC RAD 04/30/20 08:45 05/03/20 08:42 Barium Sulfate (Varibar Pudding) 230 ml NOW PRN MC RAD 04/30/20 08:45 05/03/20 08:42 Barium Sulfate (Varibar Thin Liquid powder) 148 gm NOW PRN MC RAD 04/30/20 08:45 05/03/20 08:42 Cefepime HCl 1 gm/ Dextrose 55 ml @ 110 mls/hr EVERY 12 HOURS IVPB 04/27/20 10:30 05/04/20 10:29 04/30/20 09:40 Chlorhexidine Gluconate (Ese-Hex 2%) 1 applic DAILY@2000 TOPIC 04/26/20 20:00 07/25/20 19:59 04/29/20 23:04 Dextrose/Sodium Chloride 1,000 ml @ 100 mls/hr Q10H IV 04/26/20 19:30 05/26/20 19:29 04/30/20 12:45 Docusate Sodium (Colace) 250 mg DAILY ORAL 04/27/20 09:00 05/27/20 08:59 04/30/20 09:43 Lactulose (Cephulac) 20 gm THREE TIMES A DAY ORAL 04/29/20 13:00 05/29/20 12:59 04/30/20 12:44 Pantoprazole (Protonix) 40 mg EVERY 12 HOURS IVP 04/26/20 21:00 05/26/20 20:59 04/30/20 09:40 Sennosides (Senokot) 8.6 mg DAILY ORAL 04/27/20 09:00 05/27/20 08:59 04/30/20 09:38 Vitamin D (Vitamin D) 1,000 intlu DAILY ORAL 04/27/20 09:00 05/27/20 08:59 04/30/20 09:38 Assessment/Plan Assessment/Plan IMPRESSION: 1. Shock, likely septic. On pressors 2. Fever. 3. History of CVA. 4. CHF. 5. History of hep C. - 04/30/2020 hep panel pending DISCUSSION: Continue broad-spectrum antibiotics. IV fluids. Pressors prn. DVT and GI prophylaxes. Currently saturating well on RA The care for this patient was discussed with my supervising physician Time spent for this care was approximately 31 minutes. The history of In Marcie has been reviewed and management options for him have been examined and discussed by Joey Martinez. I have personally examined and interviewed the patient. Duran King Apr 30, 2020 16:40 Joey Martinez MD Apr 30, 2020 17:25
[2020-04-30 20:00] VITALS: BP 110/72
[2020-04-30] MEDS: Dyna-Hex 2% Top Sol 2oz TOPIC SCH (20:38)
--- NOTE | 2020-04-30 21:05 | General Progress Note ---
Subjective ROS Limited/Unobtainable: Yes Allergies: Coded Allergies: No Known Allergies (Unverified , 01/10/18) Objective Last 24 Hour Vital Signs Date Time Temp Pulse Resp B/P (MAP) Pulse Ox O2 Delivery O2 Flow Rate FiO2 04/30/20 16:00 99 04/30/20 16:00 97.4 100 20 130/84 (99) 96 04/30/20 12:00 81 04/30/20 12:00 96.2 78 18 139/77 (97) 97 04/30/20 09:00 Room Air 04/30/20 08:00 96.6 67 20 136/78 (97) 98 04/30/20 08:00 70 04/30/20 04:00 96.3 63 18 127/72 (90) 100 04/30/20 04:00 62 04/30/20 00:00 96.2 66 18 145/76 (99) 99 04/30/20 00:00 60 Intake and Output 04/29/20 04/30/20 19:00 07:00 Intake Total 1100 ml Output Total 650 ml Balance -650 ml 1100 ml IV Total 1100 ml Output Urine Total 650 ml Laboratory Tests 04/30/20 06:15: White Blood Count 6.4, Red Blood Count 3.01L, Hemoglobin 9.2L, Hematocrit 26.8L, Mean Corpuscular Volume 89, Mean Corpuscular Hemoglobin 30.8, Mean Corpuscular Hemoglobin Concent 34.5, Red Cell Distribution Width 16.4H, Platelet Count 102L, Mean Platelet Volume 7.0, Neutrophils (%) (Auto) 65.8, Lymphocytes (%) (Auto) 15.8L, Monocytes (%) (Auto) 10.7H, Eosinophils (%) (Auto) 6.7H, Basophils (%) (Auto) 1.0, Sodium Level 140, Potassium Level 3.3L, Chloride Level 111H, Carbon Dioxide Level 23, Anion Gap 6, Blood Urea Nitrogen 10, Creatinine 0.6, Estimat Glomerular Filtration Rate > 60, Glucose Level 115H, Calcium Level 7.5L, Phosphorus Level 2.6, Magnesium Level 1.8, Total Bilirubin 0.6, Aspartate Amino Transf (AST/SGOT) 49H, Alanine Aminotransferase (ALT/SGPT) 31, Alkaline Ph osphatase 75, Total Protein 5.8L, Albumin 2.1L, Globulin 3.7, Albumin/Globulin Ratio 0.6L, Hepatitis A IgM Antibody [Pending], Hepatitis B Surface Antigen [Pending], Hepatitis B Core IgM Antibody [Pending], Hepatitis C Antibody [Pending] 04/30/20 08:50: Ammonia 75H Height (Feet): 5 Height (Inches): 8.00 Weight (Pounds): 114 Assessment/Plan Problem List: (1) Encephalopathy ICD Codes: G93.40 - Encephalopathy, unspecified SNOMED: 58503645 (2) Fever ICD Codes: R50.9 - Fever, unspecified SNOMED: 789924048 (3) Dehydration ICD Codes: E86.0 - Dehydration SNOMED: 91087914 (4) Septic shock ICD Codes: A41.9 - Sepsis, unspecified organism; R65.21 - Severe sepsis with septic shock SNOMED: 08280572 (5) Electrolyte imbalance ICD Codes: E87.8 - Other disorders of electrolyte and fluid balance, not elsewhere classified SNOMED: 100512836 (6) HTN (hypertension) ICD Codes: I10 - Essential (primary) hypertension SNOMED: 88438809 (7) ARIS (acute kidney injury) ICD Codes: N17.9 - Acute kidney failure, unspecified SNOMED: 4545110, 78480811 Status: progressing Assessment/Plan: check lytes no acute events agitated.consulted psychiatrist improving clinically arf s/p septic shock Deysi Whittaker MD Apr 30, 2020 21:05
--- NOTE | 2020-04-30 23:12 | Psychiatry Consultation ---
Psychiatry Consultation Psychiatry Consultation Chief Complaint: Fever History of Present Illness: This is a 74-year-old man who has been admitted to the hospital due to altered mental status. The patient has a history of dementia, CHF, hepatitis C, constipation. He has been admitted to the hospital for medical stabilization. The patient is presenting with agitation, confusion, inability to answer any questions. PAST PSYCHIATRIC HISTORY: Dementia. PAST MEDICAL HISTORY: As above. ALLERGIES: No known drug allergies. SUBSTANCE ABUSE HISTORY: No known drug history noted. Toxicology is negative for all drugs. MENTAL STATUS EXAMINATION: The patient is alert, confused, disoriented. Mood is agitated. Affect is flat. Thought process, there is a paucity of thought content. Thought content, no suicidal or homicidal ideation. Cognition is impaired. Insight and judgment is impaired. ASSESSMENT: 1. Dementia with behavior disturbance. 2. Acute encephalopathy. PLAN: 1. We will continue current medication. 2. Provide the patient with reality orientation and supportive therapy. Allergies: Coded Allergies: No Known Allergies (Unverified , 01/10/18) Medication History Scheduled Ascorbic Acid* (Ascorbic Acid*), 500 MG ORAL TWICE A DAY, (Reported) Atorvastatin Calcium* (Lipitor*), 80 MG ORAL BEDTIME, (Reported) Benztropine Mesylate* (Benztropine Mesylate*), 1 MG ORAL BEDTIME, (Reported) Docusate Sodium* (Docusate Sodium*), 250 MG ORAL DAILY, (Reported) Losartan Potassium* (Losartan Potassium*), 50 MG ORAL DAILY, (Reported) Metoprolol Tartrate* (Metoprolol Tartrate*), 25 MG ORAL DAILY WITH BREAKFAST, (Reported) Mineral Oil (Mineral Oil), 30 CU MC BEDTIME, (Reported) Multivitamin With Minerals (Multivitamins With Minerals*), 1 TAB ORAL DAILY, (Reported) Olanzapine* (Zyprexa*), 5 MG ORAL BID, (Reported) Pantoprazole* (Protonix*), 40 MG ORAL DAILY, (Reported) Sennosides* (Sen-O-Tab*), 8.6 MG ORAL DAILY, (Reported) Zinc Sulfate (Zinc Sulfate*), 2 CAP ORAL DAILY, (Reported) Scheduled PRN Acetaminophen* (Acetaminophen 325MG Tablet*), 650 MG ORAL Q4H PRN for Mild Pain/Temp > 100.5, (Reported) Acetaminophen* (Tylenol Extra Strength*), 1,000 MG ORAL Q4H PRN for Moderate Pain (Pain Scale 4-6), (Reported) Bisacodyl (Dulcolax), 10 MG RC DAILY PRN for Constipation, (Reported) Clonidine Hcl* (Catapres*), 0.1 MG ORAL EVERY 4 HOURS PRN for BP > 160, (Reported) Magnesium Hydroxide* (Milk Of Magnesia*), 30 ML ORAL BEDTIME PRN for Constipation, (Reported) Na Phos,M-B/Na Phos,Di-Ba (Fleet Enema), 133 ML RC Q2D PRN for Constipation, (Reported) Discontinued Medications Ascorbic Acid* (Vitamin C*), 250 MG ORAL TWICE A DAY, (Reported) Discontinued Reason: Prescription changed Aspirin* (Aspir 81*), 81 MG ORAL DAILY, (Reported) Discontinued Reason: Pt stopped taking med Multivitamin (Multivitamin), 1 TAB ORAL DAILY, (Reported) Discontinued Reason: Prescription changed Rifaximin* (Xifaxan*), 550 MG ORAL TWICE A DAY, (Reported) Discontinued Reason: Pt stopped taking med Vitamin D (Vitamin D3), 1,000 MG ORAL DAILY, (Reported) Discontinued Reason: Pt stopped taking med Objective Data Height (Feet): 5 Height (Inches): 8.00 Weight (Pounds): 114 Charo Luz MD Apr 30, 2020 23:12
[2020-05-01] VITALS: BP 149/69
[2020-05-01 04:00] VITALS: BP 124/67
[2020-05-01 07:30] LABS: HEMATOCRIT 24.3 % (42.0-52.0); HEMOGLOBIN 8.4 G/DL (14.2-18.0); MEAN CORPUSCULAR VOLUME 90 FL (80-99); PLATELET COUNT 96 K/UL (150-450); RED CELL DISTRIBUTION WIDTH 16.2 % (11.6-14.8); WHITE BLOOD COUNT 8.1 K/UL (4.8-10.8)
[2020-05-01 07:31] LABS: AMMONIA 45 umol/L (11-32)
[2020-05-01 07:36] LABS: ALANINE AMINOTRANSFERASE 34 U/L (12-78); ALBUMIN/GLOBULIN RATIO 0.6 (1.0-2.7); ALKALINE PHOSPHATASE 73 U/L (46-116); ASPARTATE AMINO TRANSFERASE 44 U/L (15-37); BILIRUBIN,TOTAL 0.6 MG/DL (0.2-1.0); BLOOD UREA NITROGEN 10 mg/dL (7-18); CALCIUM 7.5 MG/DL (8.5-10.1); CARBON DIOXIDE 20 MMOL/L (21-32); CHLORIDE 112 MMOL/L (98-107); CREATININE 0.7 MG/DL (0.55-1.30); POTASSIUM 3.2 MMOL/L (3.5-5.1); SODIUM 141 MMOL/L (136-145)
[2020-05-01 08:00] VITALS: BP 116/59
[2020-05-01] MEDS: Vitamin D 1000 IU Tab ORAL SCH (09:36)
[2020-05-01] MEDS: Aspirin EC 81mg tab ORAL SCH (09:36)
[2020-05-01] MEDS: Pantoprazole Inj IVP SCH (09:36)
[2020-05-01] MEDS: Lactulose 20gm/30ml UDC ORAL SCH (09:36)
[2020-05-01] MEDS: Sennosides 8.6mg tab ORAL SCH (09:36)
[2020-05-01] MEDS: Docusate 250mg cap ORAL SCH (09:36)
[2020-05-01] MEDS: Cefepime HCl 1 GM in D5W 55 ML IVPB SCH (09:37)
[2020-05-01] MEDS: D5NS 1,000 ML IV SCH (09:39)
--- NOTE | 2020-05-01 10:09 | General Progress Note ---
Subjective ROS Limited/Unobtainable: Yes Allergies: Coded Allergies: No Known Allergies (Unverified , 01/10/18) Objective Last 24 Hour Vital Signs Date Time Temp Pulse Resp B/P (MAP) Pulse Ox O2 Delivery O2 Flow Rate FiO2 05/01/20 04:00 84 05/01/20 04:00 98.0 78 18 124/67 (86) 95 05/01/20 00:00 73 05/01/20 00:00 98.7 82 18 149/69 (95) 95 04/30/20 21:00 Room Air 04/30/20 20:00 98.6 97 24 110/72 (85) 97 04/30/20 20:00 99 04/30/20 16:00 99 04/30/20 16:00 97.4 100 20 130/84 (99) 96 04/30/20 12:00 81 04/30/20 12:00 96.2 78 18 139/77 (97) 97 Intake and Output 04/30/20 05/01/20 19:00 07:00 Output Total 250 ml Balance -250 ml Output Urine Total 250 ml Laboratory Tests 05/01/20 06:15: White Blood Count 8.1, Red Blood Count 2.70L, Hemoglobin 8.4L, Hematocrit 24.3L, Mean Corpuscular Volume 90, Mean Corpuscular Hemoglobin 31.1H, Mean Corpuscular Hemoglobin Concent 34.5, Red Cell Distribution Width 16.2H, Platelet Count 96L, Mean Platelet Volume 7.0, Neutrophils (%) (Auto) , Lymphocytes (%) (Auto) , Monocytes (%) (Auto) , Eosinophils (%) (Auto) , Basophils (%) (Auto) , Neutrophils % (Manual) [Pending], Lymphocytes % (Manual) [Pending], Platelet Estimate [Pending], Platelet Morphology [Pending], Sodium Level 141, Potassium Level 3.2L, Chloride Level 112H, Carbon Dioxide Level 20L, Blood Urea Nitrogen 10, Creatinine 0.7, Estimat Glomerular Filtration Rate > 60, Glucose Level 131H, Calcium Level 7.5L, Total Bilirubin 0.6, Aspartate Amino Transf (AST/SGOT) 44H, Alanine Aminotransferase (ALT/SGPT) 34, Alkaline Phosphatase 73, Ammonia 45H, Total Protein 5.6L, Albumin 2.0L, Globulin 3.6, Albumin/Globulin Ratio 0.6L Height (Feet): 5 Height (Inches): 8.00 Weight (Pounds): 114 General Appearance: no apparent distress EENT: normal ENT inspection Neck: supple Cardiovascular: normal rate Respiratory/Chest: lungs clear Abdomen: normal bowel sounds, non tender, soft Extremities: non-tender Assessment/Plan Status: progressing Assessment/Plan: 1. History of CVA. 2. Schizophrenia. 3. Anemia. 4. Hepatitis C. 5. Dysphagia. 6. Hepatic encephalopathy. passed swallow eval dc NGT start diet fu ammonia level>> improving needs out patient fu for hep C treatment Gideon Ramirez MD May 01, 2020 10:09
[2020-05-01 10:32] LABS: PHOSPHORUS 2.4 MG/DL (2.5-4.9)
--- NOTE | 2020-05-01 11:56 | Cardiac Electrophysiology PN ---
Assessment/Plan Assessment/Plan 1. S/P septic shock in this patient with lactic acid of 2.9 and white count of 11.5. Ruled out for COVID. Influenza is negative. On IV fluids. Ruled out for myocardial infarction. EF 65%. 2. Fever and cough and respiratory failure on IV antibiotic per ID. 3. Anemia. Hemoglobin 9.5. 4. Renal failure with BUN of 35, creatinine of 1.5. 5. Rhabdomyolysis with CPK of 2700. 6. History of congestive heart failure with Nl EF 7. 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 8. Complete right bundle-branch block and history of bradycardia with heart rate in the 50s. Off any sinus or AV milad blocking agents. 9. Dysphagia, S/P NGT. Family refused PEG Passed swallow eval now MICHELLE RN Subjective Subjective On Abx. Passed swallow eval. Going to [facility] today. In restraints off O2 Objective Last 24 Hour Vital Signs Date Time Temp Pulse Resp B/P (MAP) Pulse Ox O2 Delivery O2 Flow Rate FiO2 05/01/20 09:00 Room Air 05/01/20 08:00 97.9 75 20 116/59 (78) 96 05/01/20 08:00 72 05/01/20 04:00 84 05/01/20 04:00 98.0 78 18 124/67 (86) 95 05/01/20 00:00 73 05/01/20 00:00 98.7 82 18 149/69 (95) 95 04/30/20 21:00 Room Air 04/30/20 20:00 98.6 97 24 110/72 (85) 97 04/30/20 20:00 99 04/30/20 16:00 99 04/30/20 16:00 97.4 100 20 130/84 (99) 96 04/30/20 12:00 81 04/30/20 12:00 96.2 78 18 139/77 (97) 97 Intake and Output 04/30/20 05/01/20 18:59 06:59 Output Total 250 ml Balance -250 ml Output Urine Total 250 ml Laboratory Tests Test 05/01/20 06:15 White Blood Count 8.1 K/UL (4.8-10.8) Red Blood Count 2.70 M/UL (4.70-6.10) L Hemoglobin 8.4 G/DL (14.2-18.0) L Hematocrit 24.3 % (42.0-52.0) L Mean Corpuscular Volume 90 FL (80-99) Mean Corpuscular Hemoglobin 31.1 PG (27.0-31.0) H Mean Corpuscular Hemoglobin Concent 34.5 G/DL (32.0-36.0) Red Cell Distribution Width 16.2 % (11.6-14.8) H Platelet Count 96 K/UL (150-450) L Mean Platelet Volume 7.0 FL (6.5-10.1) Neutrophils (%) (Auto) % (45.0-75.0) Lymphocytes (%) (Auto) % (20.0-45.0) Monocytes (%) (Auto) % (1.0-10.0) Eosinophils (%) (Auto) % (0.0-3.0) Basophils (%) (Auto) % (0.0-2.0) Differential Total Cells Counted 100 Neutrophils % (Manual) 75 % (45-75) Lymphocytes % (Manual) 18 % (20-45) L Monocytes % (Manual) 3 % (1-10) Eosinophils % (Manual) 4 % (0-3) H Basophils % (Manual) 0 % (0-2) Band Neutrophils 0 % (0-8) Platelet Estimate Decreased L Platelet Morphology Normal Hypochromasia 1+ Anisocytosis 1+ Ovalocytes Occasional Sodium Level 141 MMOL/L (136-145) Potassium Level 3.2 MMOL/L (3.5-5.1) L Chloride Level 112 MMOL/L (98-107) H Carbon Dioxide Level 20 MMOL/L (21-32) L Blood Urea Nitrogen 10 mg/dL (7-18) Creatinine 0.7 MG/DL (0.55-1.30) Estimat Glomerular Filtration Rate > 60 mL/min (>60) Glucose Level 131 MG/DL (74-106) H Calcium Level 7.5 MG/DL (8.5-10.1) L Phosphorus Level 2.4 MG/DL (2.5-4.9) L Magnesium Level 1.6 MG/DL (1.8-2.4) L Total Bilirubin 0.6 MG/DL (0.2-1.0) Aspartate Amino Transf (AST/SGOT) 44 U/L (15-37) H Alanine Aminotransferase (ALT/SGPT) 34 U/L (12-78) Alkaline Phosphatase 73 U/L (46-116) Ammonia 45 umol/L (11-32) H Total Protein 5.6 G/DL (6.4-8.2) L Albumin 2.0 G/DL (3.4-5.0) L Globulin 3.6 g/dL Albumin/Globulin Ratio 0.6 (1.0-2.7) L Objective HEAD AND NECK: Shows no JVD. NGT LUNGS: Coarse rhonchi. CARDIOVASCULAR: Shows regular S1 and S2 with no gallop or murmur. ABDOMEN: Soft. EXTREMITIES: No pitting edema. John Gomez MD May 01, 2020 11:56
[2020-05-01] MEDS ORDERED: NS 275ml ONE (11:59)
[2020-05-01] MEDS ORDERED: Sterile Water Irrig 1000ml IRRIG ONE (11:59)
[2020-05-01] MEDS ORDERED: Tubing IV Secondary IV ONE ×2 (11:59)
[2020-05-01] MEDS ORDERED: D5NS 1000ml IV ONE (11:59)
--- NOTE | 2020-05-01 20:05 | Psychiatric Progress Note ---
Psychiatry Progress Note Psychiatry Progress Note Neurological/Psychiatric: Reports: anxiety, depressed, emotional problems Allergies: Coded Allergies: No Known Allergies (Unverified , 01/10/18) Objective Data Height (Feet): 5 Height (Inches): 8.00 Weight (Pounds): 114 General Appearance: no apparent distress Additional Comments: The patient is presenting with agitation, confusion, inability to answer any questions. MENTAL STATUS EXAMINATION: The patient is alert, confused, disoriented. Mood is agitated. Affect is flat. Thought process, there is a paucity of thought content. Thought content, no suicidal or homicidal ideation. Cognition is impaired. Insight and judgment is impaired. ASSESSMENT: 1. Dementia with behavior disturbance. 2. Acute encephalopathy. PLAN: 1. We will continue current medication. 2. Provide the patient with reality orientation and supportive therapy. Assessment/Plan Status: progressing Charo Luz MD May 01, 2020 20:04
--- NOTE | 2020-05-02 17:20 | Discharge Summary ---
Discharge Summary Discharge Summary _ Date of admission: 04/26/2020 Date of discharge: 05/01/[address] He Reason for hospitalization: Fever, generalized weakness Consultants: Cardiology Dr. Gomez Infectious disease Dr. Zamarripa Neurology Dr. Wright Psychiatry Dr. Luz Pulmonology Dr. Martinez Significant findings: A 74-year-old male, resident of [facility], with past medical history of CHF, angina pectoris, anemia, hepatitis C, dysphagia, hepatic encephalopathy, was sent for evaluation due to fever and weakness. Patient was saturating at 99% on 2 L oxygen CBC revealed WBC 11.5, RBC 3.10, hemoglobin 9.5. Chemistries were remarkable for BUN of 35, creatinine 1.5, calcium 8.4, AST 82, creatinine kinase 2698, CK- MB 36. ABG revealed pH 7.509, pCO2 21.4, HCO3 18.79 urinalysis showed 1+ protein, 1+ ketones, 1+ blood Swab for COVID-19 was negative Procedures performed Chest x-ray obtained in the ER does not show any acute pathology 2D echocardiogram revealed LV ejection fraction of 65% Venous duplex was negative for DVT Hospital course/treatment rendered Patient presented to ER for increased fever and generalized weakness. He also had hypotension and he was started on IV fluids. A central venous catheter was placed emergently. EKG in the ER showed normal sinus rhythm with a right bundle branch block. He was admitted under Dr. He's care. An NG tube was placed for nutrition delivery. Lactulose was added for elevated ammonia level. Proper DVT prophylaxis and GI prophylaxis given. Over the course of his stay his vital signs and lab values stabilized. Condition of patient on discharge Medically stable for discharge on medical therapy. Patient was saturating well on room air. His catheter was discontinued. Patient passed swallow evaluation. NG tube was discontinued and he is back on pured and nectar thick liquid diet with aspiration precaution. Discharge instruction Discharged back to [facility] Final diagnoses ARIS and dehydration Septic shock Encephalopathy UTI Anemia Rhabdomyolysis History of CHF Lactic acidosis Status post splenectomy I have been assigned to dictate discharge summary for this account. Duran King May 02, 2020 17:20
== END 2020-05-01 12:00 | DRG 871 ==
LOC: EDBD 13:32 → EMR 14:06 → ICU 14:11 → EDBEDREQ 14:11 → EDBEDREQSVC 14:11 → EDBEDREQ 14:58 → ICU 04-27 12:12 → 2W 04-28 12:23 → 2E 04-28 14:55 → 2W 04-28 14:57 → 3E 04-28 15:20 → 2E 04-28 15:46
DX: A41.9 Sepsis, unspecified organism (principal); R65.21 Severe sepsis with septic shock; J96.91 Respiratory failure, unspecified with hypoxia; G92 Toxic encephalopathy; N17.9 Acute kidney failure, unspecified; E46 Unspecified protein-calorie malnutrition; M62.82 Rhabdomyolysis; J98.11 Atelectasis; F03.91 Unspecified dementia, unspecified severity, with behavioral disturbance; K76.6 Portal hypertension; N39.0 Urinary tract infection, site not specified; K72.90 Hepatic failure, unspecified without coma; D64.9 Anemia, unspecified; Z86.73 Personal history of transient ischemic attack (TIA), and cerebral infarction without residual deficits; E78.5 Hyperlipidemia, unspecified; K21.9 Gastro-esophageal reflux disease without esophagitis; Z79.82 Long term (current) use of aspirin; I45.10 Unspecified right bundle-branch block; I50.9 Heart failure, unspecified; I25.10 Atherosclerotic heart disease of native coronary artery without angina pectoris; Z86.19 Personal history of other infectious and parasitic diseases; E86.0 Dehydration; R13.10 Dysphagia, unspecified; K74.60 Unspecified cirrhosis of liver; E87.8 Other disorders of electrolyte and fluid balance, not elsewhere classified; Z22.322 Carrier or suspected carrier of Methicillin resistant Staphylococcus aureus; Z68.20 Body mass index [BMI] 20.0-20.9, adult
CPT/HCPCS: 36415; 71045; 74018; 76700; 80053; 80061; 80202; 81003; 82140; 82533; 82550; 82553; 82607; 82728; 82746; 82803; 82977; 83036; 83540; 83550; 83605; 83690; 83735; 83880; 84100; 84439; 84443; 84484; 84550; 85007; 85025; 85610; 85730; 86140; 86705; 86709; 86710; 86803; 87040; 87081; 87181; 87340; 93005; 93306; 93970; 96361; 96365; 96367; 99285; J7030